=== PATIENT | male | born 1945 | race Caucasian/White ===

== ENCOUNTER 2018-01-26 19:04 | Emergency (ER) | payer OTHER ==
--- NOTE | 2018-01-26 19:58 | RAD REPORT ---
EXAM DESCRIPTION: CT - Head Brain Wo Cont - 01/26/2018 7:32 pm CLINICAL HISTORY: Trip and fall, right periorbital injury COMPARISON: None. TECHNIQUE: Axial 5 mm thick images of the head were obtained without IV contrast. All CT scans are performed using dose optimization technique as appropriate and may include automated exposure control or mA/KV adjustment according to patient size. FINDINGS: No intracranial hemorrhage, mass, edema or shift of mid-line structures. No acute cortical based infarction. Mild atrophy and chronic ischemic changes are present. Arterial and physiologic ca lcifications are present. No abnormal extra-axial fluid collections. Ventricles are in proportion to volume loss. Mastoid air cells are clear. No acute paranasal sinus findings seen. Postsurgical changes noted in th e left orbit. In the right orbit there is no fracture or orbital content injury identified. No foreig n body in the soft tissues. No acute bony findings. IMPRESSION: Mild atrophy and chronic ischemic change with no acute intracranial finding.
[2018-01-26] MEDS ORDERED: LIDOCAINE 1% W/EPI 1:100,000 MDV 50 ML VIAL ONE (20:17)
[2018-01-26] MEDS ORDERED: LIDOCAINE 1% 20 ML MDV ONE (20:17)
[2018-01-26] MEDS ORDERED: ACETAMINOPHEN 500 MG TAB ONE (20:19)
--- NOTE | 2018-01-26 21:29 | EDPHYS ---
Physician Documentation [facility] Name: Jesse Ortega Age: 72 yrs Sex: Male : 1945 Arrival Date: 01/26/2018 Time: 19:05 Bed 6 Private MD: ED Physician Jason Almonte HPI: 01/26 21:19 This 72 yrs old Male presents to ER via Wheelchair with complaints of Fall gs Injury. 21:19 Details of fall: The patient fell from an upright position, while standing. Onset: The gs symptoms/episode began/occurred acutely, just prior to arrival. Associated injuries: The patient sustained injury to the head, laceration, 1 cm(s), of the right eye eyebrow and lateral upper lid doesnt cross tarsal plate. Associated injuries: The patient sustained right knee, laceration, 3 cm(s). Severity of symptoms: At their worst the symptoms were moderate. The patient has not experienced similar symptoms in the past. The patient has not recently seen a physician. Historical: - Allergies: 19:27 No Known Allergies; tl2 - Home Meds: 19:27 amiodarone 200 mg Oral tab 1 tab once daily [Active]; aspirin 325 mg Oral tab 1 tab tl2 once daily [Active]; Dexilant 60 mg Oral CpDB 1 cap once daily [Active]; Durezol 0.05 % ophthalmic drop 1 drop 4 times per day [Active]; Flomax 0.4 mg Oral cp24 1 cap once daily [Active]; Levoxyl 112 mcg Oral tab [Active]; losartan 100 mg Oral tab 1 tab once daily [Active]; Plavix 75 mg Oral tab 1 tab once daily [Active]; polymyxin B sulf-trimethoprim 10,000 unit- 1 mg/mL ophthalmic drop 1 drop every 6 hours [Active]; simvastatin 40 mg Oral tab once daily [Active]; - PMHx: 19:27 ALOPECIA; Atrial Fib; CAD; Colitis; Glaucoma; Hyperlipidemia; Hypertension; tl2 Hypothyroidism; insomnia; Myocardial infarction; ulcerative colitis; - Immunization history: Last tetanus immunization: unknown. - Social history:: Smoking status: Patient/guardian denies using tobacco. - Social history: Uses Denies using tobacco products. ROS: 21:19 All other systems are negative. gs Exam: 21:19 Head/Face: Normocephalic, atraumatic. gs 21:19 Constitutional: The patient appears alert, awake. 21:19 Head/face: Noted is a laceration(s), that is superficial, of the right eye. 21:19 ENT: Nares patent. No nasal discharge, no septal abnormalities noted. Tympanic gs membranes are normal and external auditory canals are clear. Oropharynx with no redness, swelling, or masses, exudates, or evidence of obstruction, uvula midline. Mucous membranes moist. Neck: Trachea midline, no thyromegaly or masses palpated, and no cervical lymphadenopathy. Supple, full range of motion without nuchal rigidity, or vertebral point tenderness. No Meningismus. Chest/axilla: Normal chest wall appearance and motion. Nontender with no deformity. No lesions are appreciated. Cardiovascular: Regular rate and rhythm with a normal S1 and S2. No gallops, murmurs, or rubs. Normal PMI, no JVD. No pulse deficits. Respiratory: Lungs have equal breath sounds bilaterally, clear to auscultation and percussion. No rales, rhonchi or wheezes noted. No increased work of breathing, no retractions or nasal flaring. Abdomen/GI: Soft, non-tender, with normal bowel sounds. No distension or tympany. No guarding or rebound. No evidence of tenderness throughout. Back: No spinal tenderness. No costovertebral tenderness. Full range of motion. Skin: Warm, dry with normal turgor. Normal color with no rashes, no lesions, and no evidence of cellulitis. MS/ Extremity: Pulses equal, no cyanosis. Neurovascular intact. Full, normal range of motion. Neuro: Awake and alert, GCS 15, oriented to person, place, time, and situation. Cranial nerves II-XII grossly intact. Motor strength 5/5 in all extremities. Sensory grossly intact. Cerebellar exam normal. Normal gait. 21:19 Eyes: Periorbital structures: laceration, that is superficial, approximately 1 cm(s), r eyebrow and r eyelid 1 and 0.5 cm respectively eyelid laceraTION DOESNT CROSS INTO TARSAL PLATE. 21:19 Skin: injury, laceration(s), the wound is approximately 3 cm(s), of the right knee. Vital Signs: 19:27 BP 143 / 96; Pulse 72; Resp 20; Temp 97.7(O); Pulse Ox 95% on R/A; Weight 88.9 kg; tl2 Height 5 ft. 10 in. (177.80 cm); Pain 8/10; 20:02 BP 128 / 81; Pulse 63; Resp 18; Pulse Ox 96% on R/A; tl2 20:41 BP 133 / 82; Pulse 60; Resp 18; Pulse Ox 97% on R/A; tl2 21:30 BP 149 / 91; Pulse 61; Resp 18; Pulse Ox 99% on R/A; tl2 19:27 Body Mass Index 28.12 (88.90 kg, 177.80 cm) tl2 [place] Coma Score: 19:27 Eye Response: spontaneous(4). Verbal Response: oriented(5). Motor Response: obeys tl2 commands(6). Total: 15. 20:02 Eye Response: spontaneous(4). Verbal Response: oriented(5). Motor Response: obeys tl2 commands(6). Total: 15. 20:41 Eye Response: spontaneous(4). Verbal Response: oriented(5). Motor Response: obeys tl2 commands(6). Total: 15. Trauma Score (Adult): 19:27 Eye Response: spontaneous(1); Verbal Response: oriented(1); Motor Response: obeys tl2 commands(2); Systolic BP: > 89 mm Hg(4); Respiratory Rate: 10 to 29 per min(4); [place] Score: 15; Trauma Score: 12 20:02 Eye Response: spontaneous(1); Verbal Response: oriented(1); Motor Response: obeys tl2 commands(2); Systolic BP: > 89 mm Hg(4); Respiratory Rate: 10 to 29 per min(4); [place] Score: 15; Trauma Score: 12 20:41 Eye Response: spontaneous(1); Verbal Response: oriented(1); Motor Response: obeys tl2 commands(2); Systolic BP: > 89 mm Hg(4); Respiratory Rate: 10 to 29 per min(4); Theresa Score: 15; Trauma Score: 12 Laceration: 21:19 Wound Repair of 1cm ( 0.4in ) subcutaneous laceration to right eye. Distal gs neuro/vascular/tendon intact. Anesthesia: Local anesthetic administered with 1 mls of 1% lidocaine w/ Epi. Wound prep: Moderate cleansing. Skin closed with 4 5-0 gut using simple sutures and sterile technique. 21:19 Wound Repair of 0.5cm ( 0.2in ) subcutaneous laceration to right eyelid. Distal gs neuro/vascular/tendon intact. Anesthesia: Local anesthetic administered with 0.5 mls of 1% lidocaine w/ Epi. Wound prep: Moderate cleansing. Skin closed with 1 5-0 gut using simple sutures and sterile technique. Patient tolerated well. 21:19 Wound Repair of 3cm ( 1.2in ) subcutaneous laceration to right knee. Distal gs neuro/vascular/tendon intact. Anesthesia: Local anesthetic administered with 3 mls of 1% lidocaine w/ Epi. Skin closed with 4 5-0 Prolene using simple sutures and sterile technique. MDM: 19:24 Patient medically screened. 21:19 Differential diagnosis: closed head injury, laceration. Data reviewed: vital signs, nurses notes. Response to treatment: the patient's symptoms have markedly improved after treatment, and as a result, I will discharge patient. 01/26 19:27 Order name: CT Head Brain wo Cont 01/26 19:58 Order name: CT; Complete Time: 20:40 EDMS Administered Medications: 20:02 Drug: Tylenol 500 mg Route: PO; tl2 22:04 Follow up: Response: No adverse reaction; Pain is decreased tl2 21:10 Drug: Lidocaine-Epinephrine -1%: (1:100,000) 5 ml Volume: 20 ml; Route: Infiltration; tl2 Disposition: 01/26/18 21:29 Discharged to Home. Impression: Laceration without foreign body, right knee, Laceration without foreign body of eyelid and periocular area. - Condition is Stable. - Discharge Instructions: Laceration Care, Adult, Facial Laceration, [id number]. - Medication Reconciliation Form, Thank You Letter, Antibiotic Education, Prescription Opioid Use form. - Follow up: Private Physician; When: 1 week; Reason: Staple/Suture removal. Signatures: Dispatcher [employer] EDMS Lizette Campbell RN RN 2 Jason Almonte MD MD
--- NOTE | 2018-01-26 21:29 | ER ---
Nurse's Notes [facility] Name: Jesse Ortega Age: 72 yrs Sex: Male : 1945 Arrival Date: 01/26/2018 Time: 19:05 Bed 6 Private MD: Diagnosis: Laceration without foreign body, right knee;Laceration without foreign body of eyelid and periocular area Presentation: 01/26 19:22 Presenting complaint: Patient states: I was outside and tripped on a hold and hit my tl2 right eye on a table corner. Reports laceration to right knee. Denies LOC, reports slight dizziness after fall. Pt AOx4. Care prior to arrival: None. Mechanism of Injury: Fall from standing position. Trauma event details: Injury occurred in the [facility], Injury occurred: at home. Injury occurred: January 26, 2018. 19:22 Acuity: KAVON 3 tl2 19:22 Method Of Arrival: Wheelchair tl2 19:31 Transition of care: patient was not received from another setting of care. Onset of tl2 symptoms was January 26, 2018. Trauma Activation: Physician: ED Physician; Name: Suzy; Notified At: 19:27; Arrived At: 19:27 Physician: General Surgeon; Name: ; Notified At: 19:27; Arrived At: Physician: Radiology; Name: Katherine Baum; Notified At: 19:27; Arrived At: 19:34 Physician: Respiratory; Name: Jordy; Notified At: 19:27; Arrived At: 19:30 Physician: Lab; Name: ; Notified At: 19:27; Arrived At: Historical: - Allergies: 19:27 No Known Allergies; tl2 - Home Meds: 19:27 amiodarone 200 mg Oral tab 1 tab once daily [Active]; aspirin 325 mg Oral tab 1 tab tl2 once daily [Active]; Dexilant 60 mg Oral CpDB 1 cap once daily [Active]; Durezol 0.05 % ophthalmic drop 1 drop 4 times per day [Active]; Flomax 0.4 mg Oral cp24 1 cap once daily [Active]; Levoxyl 112 mcg Oral tab [Active]; losartan 100 mg Oral tab 1 tab once daily [Active]; Plavix 75 mg Oral tab 1 tab once daily [Active]; polymyxin B sulf-trimethoprim 10,000 unit- 1 mg/mL ophthalmic drop 1 drop every 6 hours [Active]; simvastatin 40 mg Oral tab once daily [Active]; - PMHx: 19:27 ALOP[place]IA; Atrial Fib; CAD; Colitis; Glaucoma; Hyperlipidemia; Hypertension; tl2 Hypothyroidism; insomnia; Myocardial infarction; ulcerative colitis; - Immunization history: Last tetanus immunization: unknown. - Social history:: Smoking status: Patient/guardian denies using tobacco. - Social history: Uses Denies using tobacco products. Screenin:27 Abuse screen: Denies threats or abuse. Nutritional screening: No deficits noted. tl2 Tuberculosis screening: No symptoms or risk factors identified. Fall risk At risk due to injury. 19:27 Fall Risk Fall in past 12 months (25 points). tl2 Primary Survey: 19:27 Breathing/Chest: Respiratory pattern: regular, Respiratory effort: spontaneous, tl2 unlabored, Breath sounds: clear, bilaterally. Chest inspection: symmetrical rise and fall of the chest. Circulation: Heart tones present. Disability Alert. 20:20 Reassessment Airway Airway Patent Breathing/Chest Respiratory pattern Regular tl2 Respiratory effort Spontaneous Unlabored Circulation Heart rhythm Sinus rhythm Disability Alert. Secondary Survey: 19:27 HEENT: Eyes: Other small skin tear outer corner of right eye. Gastrointestinal: No tl2 deficits noted. : No deficits noted. Musculoskeletal: Circulation, motion, and sensation intact. Injury Description: Laceration sustained to right knee is clean, 0.5 to 2.5 cm long. Assessment: 19:22 General: Appears in no apparent distress. uncomfortable, Behavior is calm, cooperative, tl2 appropriate for age. Pain: Complains of pain in right eye Pain does not radiate. Pain currently is 8 out of 10 on a pain scale. Quality of pain is described as sharp. Neuro: Level of Consciousness is awake, alert, obeys commands, Oriented to person, place, time, situation. EENT: Eyes small skin tear noted on outer corner of right eye. Cardiovascular: Denies chest pain. Respiratory: Airway is patent Respiratory effort is even, unlabored, Respiratory pattern is regular, symmetrical. GI: No signs and/or symptoms were reported involving the gastrointestinal system. : No signs and/or symptoms were reported regarding the genitourinary system. Derm: Skin is pink, warm \T\ dry. Injury Description: Laceration sustained to right knee is clean, 0.5 to 2.5 cm long, was sustained 30-60 minutes ago. a small amount of bleeding noted at this time. 20:01 Reassessment: Patient appears in no apparent distress at this time. Patient and/or tl2 family updated on plan of care and expected duration. Pain level reassessed. Patient is alert, oriented x 3, equal unlabored respirations, skin warm/dry/pink. pt c/o headache, notified, new orders see JAN. 21:00 Reassessment: Patient appears in no apparent distress at this time. Patient and/or tl2 family updated on plan of care and expected duration. Pain level reassessed. Patient is alert, oriented x 3, equal unlabored respirations, skin warm/dry/pink. 22:01 Reassessment: Patient appears in no apparent distress at this time. Patient and/or tl2 family updated on plan of care and expected duration. Pain level reassessed. Patient is alert, oriented x 3, equal unlabored respirations, skin warm/dry/pink. Pt verbalized understanding of discharge instructions, need for follow up and wound care. Vital Signs: 19:27 BP 143 / 96; Pulse 72; Resp 20; Temp 97.7(O); Pulse Ox 95% on R/A; Weight 88.9 kg; tl2 Height 5 ft. 10 in. (177.80 cm); Pain 8/10; 20:02 BP 128 / 81; Pulse 63; Resp 18; Pulse Ox 96% on R/A; tl2 20:41 BP 133 / 82; Pulse 60; Resp 18; Pulse Ox 97% on R/A; tl2 21:30 BP 149 / 91; Pulse 61; Resp 18; Pulse Ox 99% on R/A; tl2 19:27 Body Mass Index 28.12 (88.90 kg, 177.80 cm) tl2 [place] Coma Score: 19:27 Eye Response: spontaneous(4). Verbal Response: oriented(5). Motor Response: obeys tl2 commands(6). Total: 15. 20:02 Eye Response: spontaneous(4). Verbal Response: oriented(5). Motor Response: obeys tl2 commands(6). Total: 15. 20:41 Eye Response: spontaneous(4). Verbal Response: oriented(5). Motor Response: obeys tl2 commands(6). Total: 15. Trauma Score (Adult): 19:27 Eye Response: spontaneous(1); Verbal Response: oriented(1); Motor Response: obeys tl2 commands(2); Systolic BP: > 89 mm Hg(4); Respiratory Rate: 10 to 29 per min(4); Theresa Score: 15; Trauma Score: 12 20:02 Eye Response: spontaneous(1); Verbal Response: oriented(1); Motor Response: obeys tl2 commands(2); Systolic BP: > 89 mm Hg(4); Respiratory Rate: 10 to 29 per min(4); [place] Score: 15; Trauma Score: 12 20:41 Eye Response: spontaneous(1); Verbal Response: oriented(1); Motor Response: obeys tl2 commands(2); Systolic BP: > 89 mm Hg(4); Respiratory Rate: 10 to 29 per min(4); Theresa Score: 15; Trauma Score: 12 ED Course: 19:05 Patient arrived in ED. mr 19:22 Lizette Campbell, RN is Primary Nurse. tl2 19:24 Triage completed. tl2 19:24 Jason Almonte MD is Attending Physician. gs 19:27 Patient has correct armband on for positive identification. Bed in low position. Call tl2 light in reach. Side rails up X2. Adult w/ patient. Patient maintains SpO2 saturation greater than 95% on room air. 19:27 Patient maintains SpO2 saturation greater than 95% on room air. tl2 19:27 Patient did not have IV access during this emergency room visit. tl2 19:31 Thermoregulation: warm blanket given to patient. tl2 21:10 Assist provider with laceration repair on right eye that was 2.5 cm. or less using tl2 sutures. Set up tray. Performed by Jason Almonte MD Dressed with Neosporin, Patient tolerated well. 22:03 Arm band placed on right wrist. tl2 Administered Medications: 20:02 Drug: Tylenol 500 mg Route: PO; tl2 22:04 Follow up: Response: No adverse reaction; Pain is decreased tl2 21:10 Drug: Lidocaine-Epinephrine -1%: (1:100,000) 5 ml Volume: 20 ml; Route: Infiltration; tl2 Intake: 22:03 PO: 0ml; Total: 0ml. tl2 Outcome: 21:29 Discharge ordered by . lilly 22:02 Discharged to home ambulatory, with family. tl2 22:02 Condition: stable 22:02 Discharge instructions given to patient, family, Instructed on discharge instructions, follow up and referral plans. medication usage, Demonstrated understanding of instructions, follow-up care, wound care. 22:03 Patient's length of stay in the Emergency Department was greater than 2 hours. tl2 Patient's length of stay was extended due to staffing issues within the emergency department. 22:05 Patient left the ED. tl2 Signatures: Kiley Dozier mr Lizette Campbell RN RN tl2 Jason Almonte MD MD Corrections: (The following items were deleted from the chart) 21:11 19:30 No provider procedures requiring assistance completed. tl2 tl2
[2018-01-26 22:08] VITALS: TEMP 97.7
[2018-01-26 22:12] VITALS: BP 149/91; O2SAT 99
== END 2018-01-26 22:05 | disposition home or self-care (01) ==
LOC: ER 19:04
PROC: 08QNXZZ Repair Right Upper Eyelid, External Approach (ICD-10-PCS; principal; 2018-01-26)
PROC: 0JQ10ZZ Repair Face Subcutaneous Tissue and Fascia, Open Approach (ICD-10-PCS; 2018-01-26)
PROC: 0JQN0ZZ Repair Right Lower Leg Subcutaneous Tissue and Fascia, Open Approach (ICD-10-PCS; 2018-01-26)
DX: S01.111A Laceration without foreign body of right eyelid and periocular area, initial encounter (principal); S81.011A Laceration without foreign body, right knee, initial encounter; W18.30XA Fall on same level, unspecified, initial encounter; Y93.9 Activity, unspecified; Y92.009 Unspecified place in unspecified non-institutional (private) residence as the place of occurrence of the external cause; I10 Essential (primary) hypertension; I25.2 Old myocardial infarction; I48.91 Unspecified atrial fibrillation; Z79.01 Long term (current) use of anticoagulants; Z79.82 Long term (current) use of aspirin
CPT/HCPCS: 70450; 99284

== ENCOUNTER 2020-06-07 10:50 | Emergency (ER) | payer OTHER ==
--- OUTSIDE RECORDS SUMMARY | 2020-06-07 10:52 | XMS REPORT | Continuity of Care Document ---
:1945 Author Organization [facility] t Address [facility] [place] [address] [place] [id number] Care Team Providers Name Role Phone Unavailable Unavailable Unavailable Problems This patient has no known problems. Allergies, Adverse Reactions, Alerts This patient has no known allergies or adverse reactions. Medications This patient has no known medications. Procedures This patient has no known procedures. Results This patient has no known results.
[2020-06-07] MEDS ORDERED: FAMOTIDINE 20 MG/2 ML VIAL IV ONE (11:16)
[2020-06-07] MEDS ORDERED: ONDANSETRON 4 MG/2 ML VIAL ONE (11:16)
[2020-06-07] MEDS ORDERED: NA CHLORIDE 0.9% 500 ML ONE (11:16)
[2020-06-07 11:22] LABS: Absolute Lymphocytes (CBC) 0.9 K/uL (0.7-4.9); Basophils % 0.4 % (0-1.3); Hematocrit 48.2 % (39.6-49.0); Lymphocytes % 10.4 % (15.3-44.8); MPV 9.5 fL (7.6-11.3); RBC Red Blood Cell Count 5.28 M/uL (4.33-5.43)
[2020-06-07 11:42] LABS: Albumin 4.1 g/dL (3.4-5.0); Bilirubin Direct 0.3 mg/dL (0-0.2); Bilirubin Total 1.5 mg/dL (0.2-1.0); Potassium 3.8 mmol/L (3.5-5.1); Protein, Total 7.5 g/dL (6.4-8.2)
[2020-06-07] MEDS ORDERED: PROMETHAZINE INJ 25 MG/ML AMP ONE (12:13)
[2020-06-07 13:38] LABS: Blood Morphology Comment NOT SEEN (NOT SEEN); Platelet Estimate ADEQ; Platelets, Giant NOTED; White Blood Cell Scan OK
--- NOTE | 2020-06-07 14:38 | EDPHYS ---
Physician Documentation [facility] Name: Jesse Ortega Age: 75 yrs Sex: Male : 1945 Arrival Date: 06/07/2020 Time: 10:53 Bed 18 Private MD: Garett Louie B ED Physician Alonzo Gamboa HPI: 06/07 13:11 This 75 yrs old Male presents to ER via Ambulatory with complaints of kdr Vomiting. 13:11 The patient presents to the emergency department with nausea, that is mild, vomiting, kdr that is intermittent. Onset: The symptoms/episode began/occurred gradually, yesterday. Possible causes: unknown. The symptoms are aggravated by food , The symptoms are alleviated by nothing. Associated signs and symptoms: Pertinent positives: vomiting, Pertinent negatives: abdominal pain, anorexia, belching, constipation, diarrhea, dysuria, fever, flatulence, GI bleeding, hematuria. Severity of symptoms: At their worst the symptoms were moderate in the emergency department the symptoms have improved moderately, WYATT resolved. 14:40 The patient has not experienced similar symptoms in the past. The patient has not kdr recently seen a physician. The patient had a severe migraine WYATT yesterday that resolved after taking some home medication. This morning, he awoke without a WYATT but began to vomiting uncontrollably and persistently. Since then, he has continued to vomit but is without further or additional factors. He was concerned about possible COVID but has not had any fever or other respiratory symptoms. Historical: - Allergies: 11:07 No Known Allergies; ss - PMHx: 11:07 ALOPECIA; Atrial Fib; CAD; Colitis; Glaucoma; Hyperlipidemia; Hypertension; ss Hypothyroidism; Myocardial infarction; ulcerative colitis; insomnia; - Immunization history:: Adult Immunizations up to date. - Social history:: Smoking status: Patient denies any tobacco usage or history of. ROS: 14:40 Constitutional: Negative for fever, chills, and weight loss, Eyes: Negative for injury, kdr pain, redness, and discharge, ENT: Negative for injury, pain, and discharge, Neck: Negative for injury, pain, and swelling, Cardiovascular: Negative for chest pain, palpitations, and edema, Respiratory: Negative for shortness of breath, cough, wheezing, and pleuritic chest pain, Back: Negative for injury and pain, : Negative for injury, bleeding, discharge, and swelling, MS/Extremity: Negative for injury and deformity, Skin: Negative for injury, rash, and discoloration, Neuro: Negative for headache, weakness, numbness, tingling, and seizure activity. Psych: Negative for depression, anxiety, suicide ideation, homicidal ideation, and hallucinations, Allergy/Immunology: Negative for hives, rash, and allergies, Endocrine: Negative for neck swelling, polydipsia, polyuria, polyphagia, and marked weight changes, Hematologic/Lymphatic: Negative for swollen nodes, abnormal bleeding, and unusual bruising. 14:40 Abdomen/GI: Positive for nausea and vomiting, Negative for diarrhea, constipation, abdominal cramps, abdominal distension, anorexia, dysphagia, hematemesis, black/tarry stool, rectal pain, rectal bleeding. Exam: 14:40 Constitutional: This is a well developed, well nourished patient who is awake, alert, kdr and in no acute distress. Head/Face: Normocephalic, atraumatic. Eyes: Pupils equal round and reactive to light, extra-ocular motions intact. Lids and lashes normal. Conjunctiva and sclera are non-icteric and not injected. Cornea within normal limits. Periorbital areas with no swelling, redness, or edema. Neck: Trachea midline, no thyromegaly or masses palpated, and no cervical lymphadenopathy. Supple, full range of motion without nuchal rigidity, or vertebral point tenderness. No Meningismus. Chest/axilla: Normal chest wall appearance and motion. Nontender with no deformity. No lesions are appreciated. Cardiovascular: Regular rate and rhythm with a normal S1 and S2. No gallops, murmurs, or rubs. Normal PMI, no JVD. No pulse deficits. Respiratory: Lungs have equal breath sounds bilaterally, clear to auscultation and percussion. No rales, rhonchi or wheezes noted. No increased work of breathing, no retractions or nasal flaring. Abdomen/GI: Soft, non-tender, with normal bowel sounds. No distension or tympany. No guarding or rebound. No evidence of tenderness throughout. Back: No spinal tenderness. No costovertebral tenderness. Full range of motion. Skin: Warm, dry with normal turgor. Normal color with no rashes, no lesions, and no evidence of cellulitis. MS/ Extremity: Pulses equal, no cyanosis. Neurovascular intact. Full, normal range of motion. Neuro: Awake and alert, GCS 15, oriented to person, place, time, and situation. Cranial nerves II-XII grossly intact. Motor strength 5/5 in all extremities. Sensory grossly intact. Cerebellar exam normal. Normal gait. Psych: Awake, alert, with orientation to person, place and time. Behavior, mood, and affect are within normal limits. 15:30 ECG was reviewed by the Attending Physician. kdr Vital Signs: 11:03 BP 163 / 117; Pulse 85; Resp 17; Temp 97.0(TE); Pulse Ox 97% on R/A; Weight 86.18 kg; ss Height 8 ft. 5 in. (256.54 cm); Pain 0/10; 12:00 BP 150 / 77; Pulse 67; Resp 20; Pulse Ox 100% ; ah 12:45 BP 125 / 74; Pulse 60; Resp 16; Pulse Ox 97% ; ah 14:00 BP 128 / 82; Pulse 80; Resp 15; Pulse Ox 97% ; ah 14:47 BP 126 / 87; Pulse 88; Resp 16; Pulse Ox 99% ; ah 11:03 Body Mass Index 13.10 (86.18 kg, 256.54 cm) ss MDM: 14:12 Data reviewed: vital signs, nurses notes, lab test result(s), EKG, radiologic studies. kdr Counseling: I had a detailed discussion with the patient and/or guardian regarding: the historical points, exam findings, and any diagnostic results supporting the discharge/admit diagnosis, lab results, the need for outpatient follow up. 14:38 Patient medically screened. kdr 14:40 ED course: The patient was stable in the ED and improved with the interventions given. kdr He was offered a COVID test but refused. He was discharged in good condition and happy with the care provided and the plan for discharge with follow-up. 06/07 10:57 Order name: Basic Metabolic Panel; Complete Time: 12:37 kdr 06/07 10:57 Order name: CBC with Diff; Complete Time: 13:57 kdr 06/07 10:57 Order name: Hepatic Function; Complete Time: 12:37 kdr 06/07 10:57 Order name: Lipase; Complete Time: 12:37 kdr 06/07 13:32 Order name: LAB Add On eb 06/07 13:36 Order name: CBC Smear Scan; Complete Time: 13:57 EDMS 06/07 10:57 Order name: IV Saline Lock; Complete Time: 11:17 kdr 06/07 10:57 Order name: Labs collected and sent; Complete Time: 11:17 kdr 06/07 13:19 Order name: PO challenge; Complete Time: 13:51 kdr 06/07 13:43 Order name: Troponin I; Complete Time: 14:06 EDMS 06/07 13:41 Order name: EKG - Nurse/Tech; Complete Time: 13:51 kdr EC:30 Rate is 65 beats/min. Rhythm is regular, Normal Sinus Rhythm with No ectopy. QRS Bruni kdr is Normal. ND interval is normal. QRS interval is normal. QT interval is normal. No Q waves. Clinical impression: NSR w/ Non-specific ST/T Changes. Administered Medications: 11:16 Drug: NS 0.9% 500 ml Route: IV; Rate: bolus; Site: right antecubital; 13:19 Follow up: Response: No adverse reaction; IV Status: Completed infusion 11:16 Drug: Pepcid 20 mg Route: IVP; Site: right antecubital; 13:19 Follow up: Response: No adverse reaction 11:20 Drug: Zofran (Ondansetron) 4 mg Route: IVP; Site: right antecubital; 13:19 Follow up: Response: No adverse reaction 12:07 Drug: Phenergan 12.5 mg Route: IVP; Site: right antecubital; 13:19 Follow up: Response: No adverse reaction Disposition: 06/07/20 14:38 Discharged to Home. Impression: Vomiting. - Condition is Stable. - Discharge Instructions: Nausea and Vomiting, Adult, [id number]. - Prescriptions for Pepcid 20 mg Oral Tablet - take 1 tablet by ORAL route once daily for 10 days; 10 tablet. promethazine 25 mg Oral Tablet - take 1 tablet by ORAL route every 6 hours As needed; 20 tablet. - Medication Reconciliation Form, Thank You Letter form. - Follow up: Alonzo Gamboa MD; When: 2 - 3 days; Reason: If symptoms return, Further diagnostic work-up, Recheck today's complaints, Continuance of care, Re-evaluation by your physician. - Problem is new. - Symptoms have improved. Signatures: Dispatcher [employer] EDMS Alonzo Gamboa MD MD kdr Karli Asher, JAMES RN Kelli Randhawa RN RN Corrections: (The following items were deleted from the chart) 14:49 14:38 06/07/2020 14:38 Discharged to Home. Impression: Vomiting. Condition is Stable. ah Forms are Medication Reconciliation Form, Thank You Letter, Antibiotic Education, Prescription Opioid Use. Follow up: Dr. Alonzo Gamboa; When: 2 - 3 days; Reason: If symptoms return, Further diagnostic work-up, Recheck today's complaints, Continuance of care, Re-evaluation by your physician. Problem is new. Symptoms have improved. kdr
--- NOTE | 2020-06-07 14:38 | ER ---
Nurse's Notes [facility] Name: Jesse Ortega Age: 75 yrs Sex: Male : 1945 Arrival Date: 06/07/2020 Time: 10:53 Bed 18 Private MD: Garett Louie B Diagnosis: Vomiting Presentation: 06/07 11:03 Chief complaint: Patient states: headache that began yesterday, is gone today but now ss c/o nausea and vomiting since he woke up this morning. Coronavirus screen: Client denies travel out of the [place] in the last 14 days. nausea, vomiting. Client presents with at least one sign or symptom that may indicate coronavirus-19. Standard/surgical mask placed on the client. Ebola Screen: Patient denies exposure to infectious person. Patient denies travel to an Ebola-affected area in the 21 days before illness onset. Initial Sepsis Screen: Does the patient meet any 2 criteria? No. Patient's initial sepsis screen is negative. Does the patient have a suspected source of infection? No. Patient's initial sepsis screen is negative. Risk Assessment: Do you want to hurt yourself or someone else? Patient reports no desire to harm self or others. Onset of symptoms was June 07, 2020. 11:03 Method Of Arrival: Ambulatory ss 11:03 Acuity: KAVON 3 ss Historical: - Allergies: 11:07 No Known Allergies; ss - PMHx: 11:07 ALOPECIA; Atrial Fib; CAD; Colitis; Glaucoma; Hyperlipidemia; Hypertension; ss Hypothyroidism; Myocardial infarction; ulcerative colitis; insomnia; - Immunization history:: Adult Immunizations up to date. - Social history:: Smoking status: Patient denies any tobacco usage or history of. Screenin:07 Abuse screen: Denies threats or abuse. Denies injuries from another. Nutritional ss screening: No deficits noted. Tuberculosis screening: Never had TB. Fall Risk None identified. Assessment: 11:55 General: Appears uncomfortable, Behavior is calm, cooperative, appropriate for age. ah Pain: Denies pain. Neuro: Level of Consciousness is awake, alert, obeys commands, Oriented to person, place, time, situation, Appropriate for age Reports headache yesterday, gone today. Cardiovascular: Heart tones S1 S2 present Capillary refill < 3 seconds Patient's skin is warm and dry. Respiratory: Airway is patent Respiratory effort is even, unlabored, Respiratory pattern is regular, symmetrical. GI: Stools are reported to be normal. Last BM was June 07, 2020. Abd is non tender X 4 quads Reports nausea, vomiting, since this morning Patient currently denies pain. Derm: Skin is intact. 12:05 Reassessment: Pt c/o continued nausea. Informed MD. Received order for phenergan and ah administered. 12:48 Reassessment: Pt states that medication was effective and he is feeling better at the ah moment. 13:34 Reassessment: Dr in speaking with pt at this time. 13:55 Reassessment: Pt sipping on water. Tolerating well. No needs voiced at this time. 14:30 Reassessment: Ambulated with patient around the ER, Pt tolerated well. Denies dizziness ss or nausea. Vital Signs: 11:03 BP 163 / 117; Pulse 85; Resp 17; Temp 97.0(TE); Pulse Ox 97% on R/A; Weight 86.18 kg; ss Height 8 ft. 5 in. (256.54 cm); Pain 0/10; 12:00 BP 150 / 77; Pulse 67; Resp 20; Pulse Ox 100% ; ah 12:45 BP 125 / 74; Pulse 60; Resp 16; Pulse Ox 97% ; ah 14:00 BP 128 / 82; Pulse 80; Resp 15; Pulse Ox 97% ; ah 14:47 BP 126 / 87; Pulse 88; Resp 16; Pulse Ox 99% ; ah 11:03 Body Mass Index 13.10 (86.18 kg, 256.54 cm) ED Course: 10:53 Patient arrived in ED. mr 10:53 Garett Louie MD is Private Physician. mr 10:57 Alonzo Gamboa MD is Attending Physician. kdr 11:01 Kelli Randhawa, RN is Primary Nurse. ah 11:06 Triage completed. ss 11:07 Arm band placed on right wrist. ss 11:07 Patient has correct armband on for positive identification. Placed in gown. Bed in low ss position. Call light in reach. Side rails up X 1. Pulse ox on. NIBP on. 11:11 Missed attempt(s): 20 gauge in right forearm. Bleeding controlled, band aid applied, dh3 catheter tip intact. 11:13 Initial lab(s) drawn, by me, sent to lab. Inserted saline lock: 20 gauge in right 3 antecubital area, using aseptic technique. Blood collected. 14:37 Alonzo Gamboa MD is Referral Physician. kdr 14:48 No provider procedures requiring assistance completed. IV discontinued, intact, bleeding controlled, No redness/swelling at site. Pressure dressing applied. Administered Medications: 11:16 Drug: NS 0.9% 500 ml Route: IV; Rate: bolus; Site: right antecubital; 13:19 Follow up: Response: No adverse reaction; IV Status: Completed infusion 11:16 Drug: Pepcid 20 mg Route: IVP; Site: right antecubital; 13:19 Follow up: Response: No adverse reaction 11:20 Drug: Zofran (Ondansetron) 4 mg Route: IVP; Site: right antecubital; 13:19 Follow up: Response: No adverse reaction 12:07 Drug: Phenergan 12.5 mg Route: IVP; Site: right antecubital; 13:19 Follow up: Response: No adverse reaction Outcome: 14:38 Discharge ordered by . kdr 14:46 Discharged to home ambulatory. 14:46 Condition: good 14:46 Discharge instructions given to patient, Instructed on discharge instructions, follow up and referral plans. medication usage, Demonstrated understanding of instructions, follow-up care, medications, Prescriptions given X 2. 14:49 Patient left the ED. Signatures: Alonzo Gamboa MD MD [facility] mr Karli Asher RN RN Kirstie [facility] Kelli Randhawa, RN RN
[2020-06-07 15:11] VITALS: TEMP 97
[2020-06-07 15:22] VITALS: BP 126/87; O2SAT 99
== END 2020-06-07 14:49 | disposition home or self-care (01) ==
LOC: ER 10:50
DX: R11.10 Vomiting, unspecified (principal); I10 Essential (primary) hypertension; I25.2 Old myocardial infarction
CPT/HCPCS: 96361; 93005; 85025; 80048; 36415; 80076; 84484; 83690; 96375; 96374; 99284; J2550; J7040; J2405

== ENCOUNTER 2020-11-14 08:25 | Emergency (ER) | payer OTHER ==
--- OUTSIDE RECORDS SUMMARY | 2020-11-14 08:27 | XMS REPORT | Continuity of Care Document ---
:1945 Author Organization [facility] t Address [address] [place] [address] [place] [id number] Care Team Providers Name Role Phone Unavailable Unavailable Unavailable Problems This patient has no known problems. Allergies, Adverse Reactions, Alerts This patient has no known allergies or adverse reactions. Medications This patient has no known medications. Procedures This patient has no known procedures. Results This patient has no known results.
[2020-11-14] MEDS ORDERED: NA CHLORIDE 0.9% 1,000 ML ONE (09:06)
[2020-11-14 09:08] LABS: Absolute Lymphocytes (CBC) 1.6 K/uL (0.7-4.9); Basophils % 0.7 % (0-1.3); Hematocrit 52.1 % (39.6-49.0); Lymphocytes % 23.1 % (15.3-44.8); MPV 9.4 fL (7.6-11.3); RBC Red Blood Cell Count 5.72 M/uL (4.33-5.43)
[2020-11-14 09:11] LABS: Protime INR 1.11
--- NOTE | 2020-11-14 09:11 | RAD REPORT ---
EXAM DESCRIPTION: RAD - Chest Single View - 11/14/2020 8:55 am CLINICAL HISTORY: Chest pain;Palpitations Chest pain. COMPARISON: Chest Single View dated 08/30/2017; Chest Single View dated 01/10/2017; Abdomen 1 View ([facility] B) dated 01/10/2017; Chest Pa And Lat (2 Views) dated 01/05/2017 FINDINGS: Portable technique limits examination quality. The lungs are grossly clear. The heart is normal in size. No displaced fractures. IMPRESSION: No acute intrathoracic process suspected.
[2020-11-14 09:13] LABS: BUN Blood Urea Nitrogen 21 mg/dL (7-18); Bicarbonate 29 mmol/L (21-32); Glucose Level 142 mg/dL (74-106); Magnesium 2.5 mg/dL (1.8-2.4); NT PRO-BNP 50 pg/mL (<125); Potassium 3.5 mmol/L (3.5-5.1); Sodium Level 140 mmol/L (136-145); Troponin (Emerg Dept Use Only) < 0.02 ng/mL (0.0-0.045)
--- NOTE | 2020-11-14 11:28 | EDPHYS ---
Physician Documentation [facility] Name: Jesse Otrega Age: 75 yrs Sex: Male : 1945 Arrival Date: 11/14/2020 Time: 08:27 Bed 3 Private MD: Garett Louie B ED Physician Devan Lockhart HPI: 11/14 08:39 This 75 yrs old Male presents to ER via Unassigned with complaints of Chest rn Pain. 08:39 The patient presents with a history of heart racing. Context: The symptoms occur at rn rest. Onset: The symptoms/episode began/occurred this morning. Duration: The patient or guardian reports a single episode, that is now resolved. Modifying factors: The symptoms are aggravated by nothing. The symptoms are alleviated by nothing. Severity of symptoms: At their worst the symptoms were moderate in the emergency department the symptoms have improved. The patient has experienced similar episodes in the past. Reports this AM began to feel heart racing, assoc with mild chest pain, substernal, non-radiating, lasted for about an hour, now better. Has hx of afib, states taken off medicine for rate control, takes plavix. Has not felt ill, no sob. No cough. No abd pain/vomiting. . Historical: - Allergies: 08:58 No Known Allergies; ca1 - PMHx: 08:58 ALOPECIA; Atrial Fib; CAD; Colitis; Glaucoma; Hyperlipidemia; Hypertension; ca1 Hypothyroidism; insomnia; Myocardial infarction; ulcerative colitis; - Immunization history:: Adult Immunizations up to date, Pneumococcal vaccine is up to date, Flu vaccine is up to date. - Family history:: not pertinent. - Social history:: Smoking status: Patient denies any tobacco usage or history of. - Hospitalizations: : No recent hospitalization is reported. ROS: 08:39 Constitutional: Negative for fever, chills, and weight loss, Eyes: Negative for injury, rn pain, redness, and discharge, Neck: Negative for injury, pain, and swelling, Cardiovascular: Negative for edema Respiratory: Negative for shortness of breath, cough, wheezing, and pleuritic chest pain, Abdomen/GI: Negative for abdominal pain, nausea, vomiting, diarrhea, and constipation, Back: Negative for injury and pain, MS/Extremity: Negative for injury and deformity, Skin: Negative for injury, rash, and discoloration, Neuro: Negative for headache, weakness, numbness, tingling, and seizure. Exam: 08:38 ECG was reviewed by the Attending Physician. rn 08:39 Constitutional: This is a well developed, well nourished patient who is awake, alert, rn and in no acute distress. Head/Face: Normocephalic, atraumatic. ENT: No stridor Cardiovascular: Tachycardic, regular Respiratory: No increased work of breathing, no retractions or nasal flaring. Abdomen/GI: soft, non-tender Skin: Warm, dry MS/ Extremity: Pulses equal, no cyanosis. Neuro: Awake and alert, GCS 15 Vital Signs: 08:35 BP 142 / 108; Pulse 95; Resp 25; Temp 97.6(O); Pulse Ox 97% ; Weight 85.73 kg (R); ca1 Height 5 ft. 10 in. (177.80 cm) (R); Pain 0/10; 08:59 Resp 20 S; ca1 09:18 BP 123 / 90; Pulse 89; Resp 18 S; Pulse Ox 97% on R/A; ca1 10:05 BP 131 / 92; Pulse 90; Resp 18 S; Pulse Ox 97% on R/A; ca1 11:00 BP 127 / 86; Pulse 74; Resp 18 S; Pulse Ox 98% on R/A; ca1 08:35 Body Mass Index 27.12 (85.73 kg, 177.80 cm) ca1 MDM: 08:29 Patient medically screened. rn 09:41 ED course: Pt asymptomatic, neg w/u thus far, will repeat trop and dc if neg. 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 . 11:23 Differential diagnosis: arrythmia, dehydration, stress disorder. Data reviewed: vital rn signs, nurses notes, lab test result(s), EKG, radiologic studies, and as a result, I will discharge patient. Counseling: I had a detailed discussion with the patient and/or guardian regarding: the historical points, exam findings, and any diagnostic results supporting the discharge/admit diagnosis, lab results, radiology results, the need for outpatient follow up, to return to the emergency department if symptoms worsen or persist or if there are any questions or concerns that arise at home. Response to treatment: the patient's symptoms have resolved after treatment, the patient's condition has returned to base line, the patient is now symptom free, and as a result, I will discharge patient. Special discussion: I discussed with the patient/guardian in detail that at this point there is no indication for admission to the hospital. It is understood, however, that if the symptoms persist or worsen the patient needs to return immediately for re-evaluation. ED course: Repeat trop neg. Will dc home as paroxysmal afib.. 11/14 08:36 Order name: Basic Metabolic Panel; Complete Time: 09:11/14 08:36 Order name: CBC with Diff; Complete Time: :11/14 08:36 Order name: Magnesium; Complete Time: :11/14 08:36 Order name: NT PRO-BNP; Complete Time: :11/14 08:36 Order name: PT-INR; Complete Time: :11/14 08:36 Order name: Troponin (emerg Dept Use Only); Complete Time: :11/14 08:36 Order name: XRAY Chest (1 view); Complete Time: 09:12 11/14 08:36 Order name: EKG; Complete Time: 08:36 11/14 08:36 Order name: Cardiac monitoring; Complete Time: 08:42 11/14 08:36 Order name: EKG - Nurse/Tech; Complete Time: 08:11/14 08:36 Order name: IV Saline Lock; Complete Time: 08:53 11/14 08:36 Order name: D-Dimer; Complete Time: :11/14 09:52 Order name: Troponin (emerg Dept Use Only); Complete Time: 11:23 11/14 08:36 Order name: Labs collected and sent; Complete Time: 08:53 11/14 08:36 Order name: O2 Per Protocol; Complete Time: 08:42 11/14 08:36 Order name: O2 Sat Monitoring; Complete Time: 08:42 rn EC:38 Rate is 108 beats/min. Rhythm is regular. Left axis deviation noted. QRS is positive in rn lead I and negative in lead aVF. MT interval is normal. QRS interval is normal. QT interval is normal. No Q waves. T waves are Normal. No ST changes noted. Clinical impression: Sinus tachycardia. Interpreted by me. Reviewed by me. Administered Medications: 08:53 Drug: NS 0.9% 500 ml Route: IV; Rate: bolus; Site: right antecubital; ca1 09:00 Follow up: Response: No adverse reaction; IV Status: Completed infusion; IV Intake: ca1 500ml Disposition: 11/14/20 11:25 Discharged to Home. Impression: Paroxysmal atrial fibrillation. - Condition is Stable. - Discharge Instructions: Atrial Fibrillation. - Medication Reconciliation Form, Thank You Letter, Antibiotic Education, Prescription Opioid Use form. - Follow up: Private Physician; When: As needed; Reason: Recheck today's complaints, Re-evaluation by your physician. - Problem is an acute exacerbation. - Symptoms are resolved. Signatures: Dispatcher [employer] EDMS Devan Lockhart MD MD rn Acob, JAMES Steel RN ca1 Corrections: (The following items were deleted from the chart) 09:51 08:39 Constitutional: This is a well developed, well nourished patient who is awake, rn alert, and in no acute distress. Head/Face: Normocephalic, atraumatic. ENT: No stridor Cardiovascular: Tachycardic, regular Respiratory: No increased work of breathing, no retractions or nasal flaring. Abdomen/GI: soft, non-tender Skin: Warm, dry MS/ Extremity: Pulses equal, no cyanosis. Neuro: Awake and alert, GCS 15 rn 11:36 11:25 11/14/2020 11:25 Discharged to Home. Impression: Paroxysmal atrial fibrillation. ca1 Condition is Stable. Forms are Medication Reconciliation Form, Thank You Letter, Antibiotic Education, Prescription Opioid Use. Follow up: Private Physician; When: As needed; Reason: Recheck today's complaints, Re-evaluation by your physician. Problem is an acute exacerbation. Symptoms are resolved. rn
--- NOTE | 2020-11-14 11:28 | ER ---
Nurse's Notes [facility] Name: Jesse Ortega Age: 75 yrs Sex: Male : 1945 Arrival Date: 11/14/2020 Time: 08:27 Bed 3 Private MD: Garett Louie B Diagnosis: Paroxysmal atrial fibrillation Presentation: 11/14 08:35 Coronavirus screen: Client denies travel out of the [place] in the last 14 days. At this ca1 time, the client does not indicate any symptoms associated with coronavirus-19. Ebola Screen: Patient negative for fever greater than or equal to 101.5 degrees Fahrenheit, and additional compatible Ebola Virus Disease symptoms Patient denies exposure to infectious person. Patient denies travel to an Ebola-affected area in the 21 days before illness onset. No symptoms or risks identified at this time. Initial Sepsis Screen: Does the patient meet any 2 criteria? No. Patient's initial sepsis screen is negative. Does the patient have a suspected source of infection? No. Patient's initial sepsis screen is negative. Risk Assessment: Do you want to hurt yourself or someone else? Patient reports no desire to harm self or others. Onset of symptoms was November 14, 2020 at 06:00. 08:35 Acuity: KAVON 2 ca1 08:35 Method Of Arrival: Wheelchair ca1 08:35 Chief complaint: Patient states: Chest pain started at 0600, non-radiating, continuous ca1 up until arrival at the ER. Hx of A-fib, CAD and OR. Denies N/V/SOB with CP. Denies cough and fever. Historical: - Allergies: 08:58 No Known Allergies; ca1 - PMHx: 08:58 ALOPECIA; Atrial Fib; CAD; Colitis; Glaucoma; Hyperlipidemia; Hypertension; ca1 Hypothyroidism; insomnia; Myocardial infarction; ulcerative colitis; - Immunization history:: Adult Immunizations up to date, Pneumococcal vaccine is up to date, Flu vaccine is up to date. - Family history:: not pertinent. - Social history:: Smoking status: Patient denies any tobacco usage or history of. - Hospitalizations: : No recent hospitalization is reported. Screenin:35 Abuse screen: Denies threats or abuse. Denies injuries from another. Nutritional ca1 screening: No deficits noted. Tuberculosis screening: No symptoms or risk factors identified. Fall Risk IV access (20 points). Assessment: 08:35 General: Appears in no apparent distress. comfortable, Behavior is calm, cooperative, ca1 appropriate for age. General: Reports feeling ill for 1-2 days. Pain: Complains of pain in mid-sternal area Pain does not radiate. Pain currently is 0 out of 10 on a pain scale. at worst was 8 out of 10 on a pain scale. Pain began 2 hours ago. Is continuous. Neuro: Level of Consciousness is awake, alert, obeys commands, Oriented to person, place, time, situation. Cardiovascular: Heart tones S1 S2 present Capillary refill < 3 seconds Patient's skin is warm and dry. Rhythm is sinus tachycardia. Respiratory: Airway is patent Respiratory effort is even, unlabored, Respiratory pattern is regular, symmetrical, Breath sounds are clear bilaterally. GI: Abdomen is flat, non-distended, Bowel sounds present X 4 quads. Abd is soft and non tender X 4 quads. : No signs and/or symptoms were reported regarding the genitourinary system. EENT: No signs and/or symptoms were reported regarding the EENT system. Derm: Skin is intact, is healthy with good turgor, Skin is pink, warm \T\ dry. Musculoskeletal: Circulation, motion, and sensation intact. Capillary refill < 3 seconds. 09:18 Reassessment: Patient appears in no apparent distress at this time. Patient and/or ca1 family updated on plan of care and expected duration. Pain level reassessed. Patient is alert, oriented x 3, equal unlabored respirations, skin warm/dry/pink. 10:05 Reassessment: Patient appears in no apparent distress at this time. Patient and/or ca1 family updated on plan of care and expected duration. Pain level reassessed. Patient is alert, oriented x 3, equal unlabored respirations, skin warm/dry/pink. 11:00 Reassessment: Patient appears in no apparent distress at this time. Patient and/or ca1 family updated on plan of care and expected duration. Pain level reassessed. Patient is alert, oriented x 3, equal unlabored respirations, skin warm/dry/pink. Vital Signs: 08:35 BP 142 / 108; Pulse 95; Resp 25; Temp 97.6(O); Pulse Ox 97% ; Weight 85.73 kg (R); ca1 Height 5 ft. 10 in. (177.80 cm) (R); Pain 0/10; 08:59 Resp 20 S; ca1 09:18 BP 123 / 90; Pulse 89; Resp 18 S; Pulse Ox 97% on R/A; ca1 10:05 BP 131 / 92; Pulse 90; Resp 18 S; Pulse Ox 97% on R/A; ca1 11:00 BP 127 / 86; Pulse 74; Resp 18 S; Pulse Ox 98% on R/A; ca1 08:35 Body Mass Index 27.12 (85.73 kg, 177.80 cm) ca1 ED Course: 08:27 Patient arrived in ED. ag5 08:28 Garett Louie MD is Private Physician. ag5 08:28 Devan Lockhart MD is Attending Physician. rn 08:35 Patient has correct armband on for positive identification. Placed in gown. Bed in low ca1 position. Call light in reach. Side rails up X2. quality assurance monitor body on. Pulse ox on. NIBP on. Warm blanket given. 08:35 Arm band placed on. ca1 08:38 Milvia Soriano RN is Primary Nurse. ca1 08:47 EKG done, by ED staff, reviewed by Devan Lockhart MD. em1 08:52 Initial lab(s) drawn, by me, sent to lab. Inserted saline lock: 22 gauge in right ca1 antecubital area, using aseptic technique. Blood collected. Patient maintains SpO2 saturation greater than 95% on room air. 08:55 XRAY Chest (1 view) In Process Unspecified. EDMS 09:01 Triage completed. ca1 10:55 Repeat lab(s) drawn. by me, sent to lab. jl7 11:35 No provider procedures requiring assistance completed. IV discontinued, intact, ca1 bleeding controlled, No redness/swelling at site. Pressure dressing applied. Administered Medications: 08:53 Drug: NS 0.9% 500 ml Route: IV; Rate: bolus; Site: right antecubital; ca1 09:00 Follow up: Response: No adverse reaction; IV Status: Completed infusion; IV Intake: ca1 500ml Intake: 09:00 IV: 500ml; Total: 500ml. ca1 Outcome: 11:25 Discharge ordered by MD. rn 11:35 Discharged to home ambulatory. ca1 11:35 Condition: stable 11:35 Discharge instructions given to patient, Instructed on discharge instructions, follow up and referral plans. Demonstrated understanding of instructions, follow-up care. 11:36 Patient left the ED. ca1 Signatures: Dispatcher [employer] Devan Klein MD MD rn Timothy Gonzalez em1 Erasto Nova RN RN jl7 Milvia Soriano RN RN ca1 Sabi, Greg ag5
[2020-11-14 12:18] VITALS: TEMP 97.6
[2020-11-14 12:23] VITALS: BP 127/86; O2SAT 98
--- NOTE | 2020-11-14 22:31 | EKG ---
Test Date: 2020-11-14 Test Time: 08:31:17 Vendor Relationship Manager: XIMENA MEASUREMENT RESULTS: Intervals: Rate: 108 OH: 176 QRSD: 98 QT: 350 QTc: 469 Burgin: P: 59 OH: 176 QRS: -37 T: 64 INTERPRETIVE STATEMENTS: Sinus tachycardia Left axis deviation Septal infarct, age undetermined Abnormal ECG Compared to ECG 06/07/2020 13:43:12 Left-axis deviation now present Myocardial infarct finding now present Sinus rhythm no longer present T-wave abnormality no longer present Electronically Signed On 11-14-20 22:29:31 ASSEMBLY MACHINE OPERATOR by Carlos Steven
== END 2020-11-14 11:36 | disposition home or self-care (01) ==
LOC: ER 08:25
DX: I48.0 Paroxysmal atrial fibrillation (principal)
CPT/HCPCS: 93005; 85025; 80048; 36415; 83735; 85610; 85379; 84484 ×2; 83880; 71045; 99285; J7030

== ENCOUNTER 2021-04-22 22:55 | Emergency (ER) | payer OTHER ==
--- OUTSIDE RECORDS SUMMARY | 2021-04-22 22:57 | XMS REPORT | Continuity of Care Document ---
:1945 [address] [facility] t Address [address] [place] [address] [place] [id number] Care Team Providers Name Role Phone Unavailable Unavailable Unavailable Problems This patient has no known problems. Allergies, Adverse Reactions, Alerts This patient has no known allergies or adverse reactions. Medications This patient has no known medications. Procedures This patient has no known procedures. Results This patient has no known results.
[2021-04-23] MEDS ORDERED: ONDANSETRON 4 MG/2 ML VIAL ONE (00:30)
[2021-04-23] MEDS ORDERED: NA CHLORIDE 0.9% 1,000 ML ONE (00:30)
[2021-04-23] MEDS ORDERED: MECLIZINE HCL 12.5 MG TAB ONE (00:30)
[2021-04-23 00:45] LABS: Basophils % 0.4 % (0-1.3); Hematocrit 48.9 % (39.6-49.0); Lymphocytes % 8.2 % (15.3-44.8); MPV 9.5 fL (7.6-11.3); RBC Red Blood Cell Count 5.37 M/uL (4.33-5.43)
[2021-04-23 00:57] LABS: Albumin 3.9 g/dL (3.4-5.0); Bilirubin Direct 0.2 mg/dL (0-0.2); Bilirubin Total 0.9 mg/dL (0.2-1.0); Potassium 3.8 mmol/L (3.5-5.1); Protein, Total 7.5 g/dL (6.4-8.2)
[2021-04-23 01:42] LABS: Blood Morphology Comment NOT SEEN (NOT SEEN); Platelet Estimate ADEQ
[2021-04-23] MEDS ORDERED: MEPERIDINE HCL 25 MG/ML SYR ONE (03:38)
--- NOTE | 2021-04-23 04:00 | EDPHYS ---
Physician Documentation [facility] Name: Jesse Ortega Age: 75 yrs Sex: Male : 1945 Arrival Date: 04/22/2021 Time: 22:58 Bed 6 Private MD: ED Physician Devan Lockhart HPI: 04/23 00:17 This 75 yrs old Male presents to ER via Wheelchair with complaints of rn Nausea/Vomiting, dizziness. 00:17 The patient presents with dizziness, sense of spinning. Onset: The symptoms/episode rn began/occurred 3 hour(s) ago. Context: occurred at home, occurred while the patient was at rest. Modifying factors: The symptoms are alleviated by closing eyes, holding head still, the symptoms are aggravated by movement of head, opening eyes. Associated signs and symptoms: Pertinent positives: nausea, vomiting, Pertinent negatives: abdominal pain, chest pain, confusion, diaphoresis, head injury, seizure, shortness of breath. Severity of symptoms: At their worst the symptoms were moderate in the emergency department the symptoms have improved. The patient has not experienced similar symptoms in the past. The patient has not recently seen a physician. Reports sudden onset dizziness, feels "like motion sickness", occurred approx 3 hours prior to arrival, no trauma, no focal weakness or numbness. + blurred vision of both eyes that has improved. No chest pain/abd pain. . Historical: - Allergies: 04/22 23:22 No Known Allergies; em - PMHx: 23:22 ALOPECIA; Atrial Fib; CAD; Glaucoma; Hyperlipidemia; Hypertension; Hypothyroidism; em insomnia; Myocardial infarction; ulcerative colitis; Colitis; - PSHx: 23:22 Cholecystectomy; Heart stents; em - Immunization history:: Adult Immunizations up to date. - Social history:: Smoking status: Patient denies any tobacco usage or history of. - Family history:: not pertinent. - Hospitalizations: : No recent hospitalization is reported. ROS: 04/23 00:17 Constitutional: Negative for fever, chills, and weight loss, Eyes: Negative for injury, rn pain, redness, and discharge, Neck: Negative for injury, pain, and swelling, Cardiovascular: Negative for chest pain, palpitations, and edema, Respiratory: Negative for shortness of breath, cough, wheezing, and pleuritic chest pain, Abdomen/GI: Negative for abdominal pain, diarrhea, and constipation, Back: Negative for injury and pain, MS/Extremity: Negative for injury and deformity, Skin: Negative for injury, rash, and discoloration, Neuro: Negative for weakness, numbness, tingling, and seizure. Exam: 00:17 Constitutional: This is a well developed, well nourished patient who is awake, alert, rn holding emesis bag. Head/Face: Normocephalic, atraumatic. Eyes: Pupils equal round and reactive to light, extra-ocular motions intact. Neck: Trachea midline, no masses palpated. No Meningismus. Cardiovascular: Regular rate and rhythm. No pulse deficits. Respiratory: No increased work of breathing, no retractions or nasal flaring. Abdomen/GI: soft, non-tender Skin: Warm, dry with normal turgor. Normal color with no rashes, no lesions, and no evidence of cellulitis. MS/ Extremity: Pulses equal, no cyanosis. Neurovascular intact. Full, normal range of motion. Equal circumference. Neuro: Awake and alert, GCS 15, oriented to person, place, time, and situation. Cranial nerves II-XII grossly intact. Motor strength 5/5 in all extremities. Sensory grossly intact. Cerebellar exam normal. Able to turn head left and right without reproducing dizziness or nausea. Vital Signs: 04/22 23:19 BP 165 / 92; Pulse 87; Resp 18; Temp 97.8; Pulse Ox 100% on R/A; Weight 88.45 kg; em Height 5 ft. 10 in. (177.80 cm); Pain 0/10; 04/23 02:30 BP 152 / 284; Pulse 86; Resp 17; Pulse Ox 98% ; rr5 03:22 BP 141 / 93; Pulse 80; Resp 17; Pulse Ox 98% ; Pain 6/10; rr5 04:05 BP 137 / 97; Pulse 86; Resp 16; Pulse Ox 98% ; rr5 04/22 23:19 Body Mass Index 27.98 (88.45 kg, 177.80 cm) em MDM: 04/22 23:12 Patient medically screened. rn 23:22 ED course: Pt states onset approx 3 hours prior to arrival. No focal weakness/numbness. rn Reports dizziness and vomiting. . 04/23 02:02 ED course: Pt feels much better, no nausea, no dizziness, still waiting on CT head rn results. . 03:57 Differential diagnosis: cardiac arrhythmia, CVA, generalized weakness, hypovolemia, rn idiopathic dizziness, near-syncope, TIA, vertigo. Data reviewed: vital signs, nurses notes, lab test result(s), EKG, radiologic studies, CT scan, and as a result, I will discharge patient. Counseling: I had a detailed discussion with the patient and/or guardian regarding: the historical points, exam findings, and any diagnostic results supporting the discharge/admit diagnosis, lab results, radiology results, the need for outpatient follow up, to return to the emergency department if symptoms worsen or persist or if there are any questions or concerns that arise at home. Response to treatment: the patient's symptoms have markedly improved after treatment, and as a result, I will discharge patient. ED course: Pt improved, able to situp without assistance, no dizziness, repeat neuro exam still non-focal, will dc home with meclizine and zofran prn, and rest. CT angio head and neck neg.. 04/22 23:21 Order name: Basic Metabolic Panel 04/22 23:21 Order name: CBC with Diff; Complete Time: : 04/22 23:21 Order name: Hepatic Function; Complete Time: : 04/22 23:21 Order name: Lipase; Complete Time: 04/22 23:21 Order name: Basic Metabolic Panel; Complete Time: [facility] 04/23 00:55 Order name: Manual Differential; Complete Time: :54 [facility] 04/22 23:21 Order name: CT Head Brain wo Cont rn 04/22 23:21 Order name: CT Head Angio 04/22 23:21 Order name: CT Neck Angio rn 04/23 03:57 Order name: CREATININE WHOLE BLOOD [facility] 04/22 23:21 Order name: IV Saline Lock; Complete Time: 00: rn 16 23:21 Order name: Labs collected and sent; Complete Time: 00:31 rn Administered Medications: 00:20 Drug: NS 0.9% 1000 ml Route: IV; Rate: 1000 ml; Site: left forearm; rr5 01:20 Follow up: IV Status: Completed infusion rr5 01:20 Follow up: Response: No adverse reaction; IV Status: Completed infusion; IV Intake: rr5 1000ml 00:30 Drug: Meclizine 50 mg Route: PO; rr5 01:30 Follow up: Response: No adverse reaction rr5 00:30 Drug: Zofran (Ondansetron) 4 mg Route: IVP; Site: left forearm; rr5 01:30 Follow up: Response: No adverse reaction rr5 03:22 Drug: Demerol (meperidine) 12.5 mg {Note: rass 0.} Route: IVP; Site: left forearm; rr5 04:06 Follow up: Response: No adverse reaction; Pain is decreased; RASS: Alert and Calm (0) rr5 Disposition: 04/23/21 03:59 Discharged to Home. Impression: Vertigo, Dizziness and giddiness. - Condition is Stable. - Discharge Instructions: Dizziness, Vertigo. - Prescriptions for Zofran ODT 4 mg Oral tablet,disintegrating - place 1 tablet by TRANSLINGUAL route every 8 hours As needed; 20 tablet. Meclizine 25 mg Oral Tablet - take 1 tablet by ORAL route every 8 hours As needed; 30 tablet. - Medication Reconciliation Form, Thank You Letter, Antibiotic Education, Prescription Opioid Use form. - Follow up: Private Physician; When: As needed; Reason: Recheck today's complaints, Re-evaluation by your physician. - Problem is new. - Symptoms have improved. Signatures: Dispatcher [employer] Montez Hutchins RN Devan Jorge MD MD rn Roque, Raymond, RN RN rr5 Corrections: (The following items were deleted from the chart) 04:06 03:59 04/23/2021 03:59 Discharged to Home. Impression: Vertigo; Dizziness and rr5 giddiness. Condition is Stable. Forms are Medication Reconciliation Form, Thank You Letter, Antibiotic Education, Prescription Opioid Use. Follow up: Private Physician; When: As needed; Reason: Recheck today's complaints, Re-evaluation by your physician. Problem is new. Symptoms have improved. rn
--- NOTE | 2021-04-23 04:00 | ER ---
Nurse's Notes [facility] Name: Jesse Ortega Age: 75 yrs Sex: Male : 1945 Arrival Date: 04/22/2021 Time: 22:58 Bed 6 Private MD: Diagnosis: Vertigo;Dizziness and giddiness Presentation: 04/22 23:19 Chief complaint: Patient states: N/V that started about 2-3 hours ago, also reports em dizziness, denies fever or pain. Coronavirus screen: Client denies travel out of the [place] in the last 14 days. Ebola Screen: Patient negative for fever greater than or equal to 101.5 degrees Fahrenheit, and additional compatible Ebola Virus Disease symptoms Patient denies exposure to infectious person. Patient denies travel to an Ebola-affected area in the 21 days before illness onset. No symptoms or risks identified at this time. Initial Sepsis Screen: Does the patient meet any 2 criteria? No. Patient's initial sepsis screen is negative. Does the patient have a suspected source of infection? No. Patient's initial sepsis screen is negative. Risk Assessment: Do you want to hurt yourself or someone else? Patient reports no desire to harm self or others. Onset of symptoms was April 22, 2021. 23:19 Method Of Arrival: Wheelchair em 23:19 Acuity: KAVON 2 em Historical: - Allergies: 23:22 No Known Allergies; em - PMHx: 23:22 ALOPECIA; Atrial Fib; CAD; Glaucoma; Hyperlipidemia; Hypertension; Hypothyroidism; em insomnia; Myocardial infarction; ulcerative colitis; Colitis; - PSHx: 23:22 Cholecystectomy; Heart stents; em - Immunization history:: Adult Immunizations up to date. - Social history:: Smoking status: Patient denies any tobacco usage or history of. - Family history:: not pertinent. - Hospitalizations: : No recent hospitalization is reported. Screenin/17 01:35 Abuse screen: Denies threats or abuse. Denies injuries from another. Nutritional rr5 screening: No deficits noted. Tuberculosis screening: No symptoms or risk factors identified. Fall Risk IV access (20 points). Total Hernandez Fall Scale indicates No Risk (0-24 pts). Assessment: 00:32 General: Appears in no apparent distress. uncomfortable, Behavior is calm, cooperative, rr5 appropriate for age. Pain: Denies pain. Neuro: Level of Consciousness is awake, alert, obeys commands, Oriented to person, place, time, Reports dizziness. Cardiovascular: Capillary refill < 3 seconds Patient's skin is warm and dry. Respiratory: Airway is patent Respiratory effort is even, unlabored, Respiratory pattern is regular, symmetrical. GI: Abdomen is round Reports nausea, vomiting. : No signs and/or symptoms were reported regarding the genitourinary system. EENT: No signs and/or symptoms were reported regarding the EENT system. Derm: Skin temperature is warm. Musculoskeletal: Capillary refill < 3 seconds. 01:35 Reassessment: Patient appears in no apparent distress at this time. Patient is alert, rr5 oriented x 3, equal unlabored respirations, skin warm/dry/pink. back from CT scan. 02:38 Reassessment: Patient and/or family updated on plan of care and expected duration. Pain ea level reassessed. Patient is alert, oriented x 3, equal unlabored respirations, skin warm/dry/pink. 03:15 Reassessment: Patient appears in no apparent distress at this time. complaining of rr5 headache, provider aware with order made and carried out. 04:05 Reassessment: Patient appears in no apparent distress at this time. Patient is alert, rr5 oriented x 3, equal unlabored respirations, skin warm/dry/pink. discharge instruction given and explained without complaints made Patient states feeling better. Patient states symptoms have improved. Vital Signs: 04/22 23:19 BP 165 / 92; Pulse 87; Resp 18; Temp 97.8; Pulse Ox 100% on R/A; Weight 88.45 kg; em Height 5 ft. 10 in. (177.80 cm); Pain 0/10; 04/23 02:30 BP 152 / 284; Pulse 86; Resp 17; Pulse Ox 98% ; rr5 03:22 BP 141 / 93; Pulse 80; Resp 17; Pulse Ox 98% ; Pain 6/10; rr5 04:05 BP 137 / 97; Pulse 86; Resp 16; Pulse Ox 98% ; rr5 04/22 23:19 Body Mass Index 27.98 (88.45 kg, 177.80 cm) em ED Course: 04/22 22:58 Patient arrived in ED. bp1 23:11 Bryan Bray RN is Primary Nurse. rr5 23:12 Lockhart, Devan, MD is Attending Physician. rn 23:22 Triage completed. em 23:22 Arm band placed on. em 06 00:13 Missed attempt(s): 20 gauge in right antecubital area. tt3 00:20 Inserted saline lock: 20 gauge in left forearm, using aseptic technique. Blood rr5 collected. 00:35 Patient has correct armband on for positive identification. Bed in low position. Call rr5 light in reach. Side rails up X 1. Pulse ox on. NIBP on. 01:37 CT Head Brain wo Cont In Process Unspecified. EDMS 01:37 CT Head Angio In Process Unspecified. EDMS 01:37 CT Neck Angio In Process Unspecified. EDMS 04:06 No provider procedures requiring assistance completed. IV discontinued, intact, rr5 bleeding controlled, No redness/swelling at site. Pressure dressing applied. Administered Medications: 00:20 Drug: NS 0.9% 1000 ml Route: IV; Rate: 1000 ml; Site: left forearm; rr5 01:20 Follow up: IV Status: Completed infusion rr5 01:20 Follow up: Response: No adverse reaction; IV Status: Completed infusion; IV Intake: rr5 1000ml 00:30 Drug: Meclizine 50 mg Route: PO; rr5 01:30 Follow up: Response: No adverse reaction rr5 00:30 Drug: Zofran (Ondansetron) 4 mg Route: IVP; Site: left forearm; rr5 01:30 Follow up: Response: No adverse reaction rr5 03:22 Drug: Demerol (meperidine) 12.5 mg {Note: rass 0.} Route: IVP; Site: left forearm; rr5 04:06 Follow up: Response: No adverse reaction; Pain is decreased; RASS: Alert and Calm (0) rr5 Intake: 01:20 IV: 1000ml; Total: 1000ml. rr5 Outcome: 03:59 Discharge ordered by . rn 04:06 Discharged to home ambulatory, with family. rr5 04:06 Condition: stable 04:06 Discharge instructions given to patient, Instructed on discharge instructions, follow up and referral plans. medication usage, Demonstrated understanding of instructions, follow-up care, medications, Prescriptions given X 2. 04:06 Patient left the ED. rr5 Signatures: Dispatcher [employer] Montez Hutchins, RN RN Devna Sosa MD MD rn Antunez, Elena, RN RN Bryan Hodges RN RN rr5 Sarika Mcfarland [place] tt3 Corrections: (The following items were deleted from the chart) 03: 03:15 Reassessment: Patient appears in no apparent distress at this time. complaining rr5 of headache, provider aware without orders made rr5 03: 03:22 BP 141 / 93; Pulse 80bpm; Resp 17bpm; Pulse Ox 98%; rr5 rr5
[2021-04-23 04:26] VITALS: TEMP 97.8
[2021-04-23 04:33] VITALS: O2SAT 98
[2021-04-23 04:42] VITALS: BP 137/97
--- NOTE | 2021-04-23 11:52 | RAD REPORT ---
EXAM DESCRIPTION: CT - Head Brain Wo Cont - 04/23/2021 4:20 am CLINICAL HISTORY: DIZZINESS TECHNIQUE: Contiguous axial CT images obtained through the brain without IV contrast. Coronal and sa gittal reformatted images were provided. This exam was performed according to our departmental dose-optimization program, which includes autom ated exposure control, adjustment of the mA and/or kV according to patient size and/or use of iterati ve reconstruction technique. COMPARISON: 01/26/2018 FINDINGS: Brain: Mild cerebral atrophy and minimal bilateral periventricular and subcortical white m atter hypodensity which is nonspecific and can be seen in the clinical setting of chronic microvascul ar angiopathy without significant interval change. No focal mass effect. Dean-white matter differenti ation is within normal limits. No hemorrhage. Ventricles: No ventriculomegaly or midline shift. Extra-axial spaces: No extra-axial collection or hemorrhage. Paranasal sinuses and mastoid air cells: Well-aerated Vessels: Mild atherosclerotic disease of the internal carotid arteries bilaterally. Bones: Unremarkable Soft tissues: Unremarkable IMPRESSION: 1. No acute hemorrhage, focal mass or large territory infarction. 2. Other findings as above. Electronically signed by: Montserrat Blackwell MD 04/23/2021 2:52 AM CDT Due to temporary technical issues with the PACS/Fluency reporting system, reports are being signed by the in house radiologist without review as a courtesy to ensure prompt reporting. The interpreting r adiologist is fully responsible for the content of the report.
--- NOTE | 2021-04-23 12:06 | RAD REPORT ---
EXAM DESCRIPTION: CT - Head angio - 04/23/2021 4:15 am CLINICAL HISTORY: DIZZINESS COMPARISON: None. TECHNIQUE: CT HEAD ANGIOGRAPHY WITH IV CONTRAST on 04/22/2021 11:21 PM CDT This exam was performed according to our departmental dose-optimization program, which includes autom ated exposure control, adjustment of the mA and/or kV according to patient size and/or use of iterati ve reconstruction technique. MIP reconstructions were generated. Stenoses are calculated by NASCET criteria. FINDINGS: Intracranially the cavernous segments of the internal carotid arteries are patent and symm etric bilaterally. Vertebral basilar system within normal limits for age. No aneurysm identified within the skull [place]. Anterior, middle, and posterior cerebral circulations patent and symmetric bilaterally. Dural sinuses are well opacified and without filling defect. IMPRESSION: Unremarkable CTA of the brain without evidence of hemodynamically significant stenosis, aneurysm or AVM. Electronically signed by: Sergey Alcantara MD 04/23/2021 3:23 AM CDT Due to temporary technical issues with the PACS/Fluency reporting system, reports are being signed by the in house radiologist without review as a courtesy to ensure prompt reporting. The interpreting r adiologist is fully responsible for the content of the report.
--- NOTE | 2021-04-23 12:07 | RAD REPORT ---
EXAM DESCRIPTION: CT - Neck Angio - 04/23/2021 4:15 am CLINICAL HISTORY: Dizziness COMPARISON: None Available. TECHNIQUE: Multiple helical axial tomographic images were obtained of the neck following administrat ion of intravenous contrast per angiographic protocol. Coronal and sagittal reformatted images were o btained. This exam was performed according to our departmental dose-optimization program, which inclu oni automated exposure control, adjustment of the mA and/or kV according to patient size and/or use o f iterative reconstruction technique. FINDINGS: There is a small amount of atherosclerotic plaque involving both carotid bulbs. Carotid an d vertebral arterial vasculature of the neck appears patent without significant stenosis or occlusion . Thyroid gland appears unremarkable. Salivary glands appear unremarkable. No evidence of adenopathy. R etropharyngeal space appears normal. Epiglottis appears normal. Larynx and vocal folds appear unremar kable. Visualized lungs are clear. Degenerative changes of the spine noted with associated neural foraminal and central canal narrowing. IMPRESSION: No evidence of significant arterial stenosis or occlusion within the neck. Electronically signed by: Mateusz Woodruff MD 04/23/2021 3:31 AM CDT Due to temporary technical issues with the PACS/Fluency reporting system, reports are being signed by the in house radiologist without review as a courtesy to ensure prompt reporting. The interpreting r adiologist is fully responsible for the content of the report.
== END 2021-04-23 04:06 | disposition home or self-care (01) ==
LOC: ER 22:55
DX: R42 Dizziness and giddiness (principal); R11.2 Nausea with vomiting, unspecified; I10 Essential (primary) hypertension; I25.2 Old myocardial infarction; Z95.818 Presence of other cardiac implants and grafts
CPT/HCPCS: 85025; 80048; 36415; 82565; 80076; 83690; 70450; 70496; 70498; Q9967; J2175; J7030; J2405

== ENCOUNTER 2021-07-15 20:46 | Emergency (ER) | payer OTHER ==
--- OUTSIDE RECORDS SUMMARY | 2021-07-15 20:50 | XMS REPORT | Continuity of Care Document ---
:1945 Author Organization [facility] t Address [address] [place] [address] [place] [id number] Care Team Providers Name Role Phone Unavailable Unavailable Unavailable Problems This patient has no known problems. Allergies, Adverse Reactions, Alerts This patient has no known allergies or adverse reactions. Medications This patient has no known medications. Procedures This patient has no known procedures. Results This patient has no known results.
--- NOTE | 2021-07-15 21:40 | ER ---
Nurse's Notes [facility] Name: Jesse Ortega Age: 76 yrs Sex: Male : 1945 Arrival Date: 07/15/2021 Time: 21:09 Bed Waiting Private MD: Diagnosis: Presentation: 07/15 21:39 Note pt informed registration that he was leaving and left the ED. bb ED Course: 21:09 Patient arrived in ED. arlene Administered Medications: No medications were administered Outcome: 21:39 Patient left the ED. bb Signatures: Isis Dolan RN RN Anne Guzmán
== END 2021-07-15 21:39 | disposition left against medical advice (07) ==
LOC: ER 20:46
DX: Z53.21 Procedure and treatment not carried out due to patient leaving prior to being seen by health care provider (principal)

== ENCOUNTER 2021-07-16 08:04 | Emergency (ER) | payer OTHER ==
--- OUTSIDE RECORDS SUMMARY | 2021-07-16 08:07 | XMS REPORT | Continuity of Care Document ---
:1945 Author Organization [facility] t Address [address] [place] [address] [place] [address] Care Team Providers Name Role Phone Unavailable Unavailable Unavailable Problems This patient has no known problems. Allergies, Adverse Reactions, Alerts This patient has no known allergies or adverse reactions. Medications This patient has no known medications. Procedures This patient has no known procedures. Results This patient has no known results.
[2021-07-16 08:58] LABS: Absolute Lymphocytes (CBC) 1.5 K/uL (0.7-4.9); Basophils % 0.5 % (0-1.3); Hematocrit 49.6 % (39.6-49.0); Lymphocytes % 14.6 % (15.3-44.8); MPV 8.7 fL (7.6-11.3)
--- NOTE | 2021-07-16 09:11 | RAD REPORT ---
EXAM DESCRIPTION: CT - Stone Protocol - 07/16/2021 8:35 am CLINICAL HISTORY: FLANK PAIN COMPARISON: Abdomen Pelvis W Contrast dated 01/10/2017; CT ABD PELVIS W CONTRAST dated 12/15/2012; CTS TONE PROTOCOL dated 09/09/2012 TECHNIQUE: Axial 3 mm thick images were obtained without oral or IV contrast. The [id number] span s the entirety of the system including uppermost abdomen and lung bases. All CT scans are performed using dose optimization technique as appropriate and may include automated exposure control or mA/KV adjustment according to patient size. FINDINGS: Scarring is present at each lung base. There is right hemidiaphragm elevation. No pericard ial thickening or effusion. Coronary artery calcifications are present. Mild left-sided hydronephrosis is present secondary to a distal left ureteral stone approximately 3 c m from the bladder. Left kidney is edematous. Perinephric stranding is present. No other obstructing or nonobstructing calculi. No right-sided hydronephrosis. Low-density masses in the left kidney match up with cysts on the 2017 study. No suspicious renal masses. Isodense masses and pyelonephritis are not excluded on a stone protocol CT scan. No significant adrenal finding. No urinary bladder suspicio us finding. Imaged portions of the liver, spleen and pancreas show no suspicious findings on non-contrast imaging . No gallbladder or biliary tree abnormality identified. No suspicious bowel findings. No mass or bulky lymphadenopathy. Minimal inguinal hernias are present. No free air, free fluid or pn eumatosis. Bony degenerative changes are present. IMPRESSION: Mild left-sided hydronephrosis secondary to a distal left ureteral stone 4-5 mm in size. Isodense masses and pyelonephritis are not excluded on stone protocol technique. Nonacute findings detailed in the body of the report.
[2021-07-16] MEDS ORDERED: MORPHINE 4 MG/ML SYR ONE (09:20)
[2021-07-16] MEDS ORDERED: NA CHLORIDE 0.9% 1,000 ML ONE (09:20)
[2021-07-16] MEDS ORDERED: ONDANSETRON 4 MG/2 ML VIAL ONE (09:20)
[2021-07-16 09:24] LABS: Potassium 3.6 mmol/L (3.5-5.1)
[2021-07-16] MEDS ORDERED: MAGNESIUM SULFATE 1 gm IVPB 1 GM/100 ML BAG IV ONE (09:41)
[2021-07-16] MEDS ORDERED: KETOROLAC 30 MG/ML INJ ONE (09:55)
[2021-07-16 10:36] LABS: Urine Blood 2+ (Negative); Urine Glucose Negative (Negative); Urine Protein Negative (Negative); Urine Specific Gravity 1.025 (1.005-1.030); Urine pH 5.5 (5.0-7.0)
[2021-07-16 11:02] LABS: Urine Bacteria <20 /HPF (NONE SEEN)
--- NOTE | 2021-07-16 11:04 | EDPHYS ---
Physician Documentation [facility] Name: Jesse Ortega Age: 76 yrs Sex: Male : 1945 Arrival Date: 07/16/2021 Time: 08:06 Bed 28 Private MD: Garett Louie B ED Physician Alonzo Gamboa HPI: 07/16 15:59 This 76 yrs old Male presents to ER via Ambulatory with complaints of Flank kb Pain - left. 15:59 The patient complains of pain in the left flank. The pain does not radiate. The patient kb has not experienced similar symptoms in the past. 15:59 Onset: The symptoms/episode began/occurred yesterday. Modifying factors: The symptoms kb are alleviated by nothing. the symptoms are aggravated by nothing. Associated signs and symptoms: The patient has no apparent associated signs or symptoms. Severity of pain: At its worst the pain was moderate in the emergency department the pain is unchanged. The patient has not recently seen a physician. Historical: - Allergies: 08:12 No Known Allergies; tw2 - PMHx: 08:12 ALOPECIA; Atrial Fib; insomnia; CAD; Myocardial infarction; Glaucoma; Hyperlipidemia; tw2 Hypertension; Colitis; Hypothyroidism; ulcerative colitis; - Immunization history:: Client reports receiving the 2nd dose of the Covid vaccine. - Social history:: Smoking status: Patient denies any tobacco usage or history of. ROS: 15:47 Constitutional: Negative for fever, chills, and weight loss. kb 15:47 Back: Positive for flank pain, on the left. 15:47 All other systems are negative. Exam: 15:47 Constitutional: This is a well developed, well nourished patient who is awake, alert, kb and in no acute distress. Head/Face: Normocephalic, atraumatic. ENT: Moist Mucous membranes Cardiovascular: Regular rate and rhythm with a normal S1 and S2. No gallops, murmurs, or rubs. No pulse deficits. Respiratory: Respirations even and unlabored. No increased work of breathing, no retractions or nasal flaring. Back: No spinal tenderness. No costovertebral tenderness. Full range of motion. Skin: Warm, dry with normal turgor. Normal color. MS/ Extremity: Pulses equal, no cyanosis. Neurovascular intact. Full, normal range of motion. Neuro: Awake and alert, GCS 15, oriented to person, place, time, and situation. Moves all extremities. Normal gait. Psych: Awake, alert, with orientation to person, place and time. Behavior, mood, and affect are within normal limits. 15:47 Abdomen/GI: Inspection: abdomen appears normal, Bowel sounds: normal, in all quadrants, Palpation: soft, in all quadrants, mild abdominal tenderness, in the left lower quadrant. Vital Signs: 08:09 BP 136 / 93; Pulse 70; Resp 18; Temp 97.9(TE); Pulse Ox 99% on R/A; tw2 08:50 BP 145 / 81; Pulse 73; Resp 17; Pulse Ox 98% on R/A; Pain 10/10; ap3 09:53 BP 126 / 82; Pulse Ox 99% on R/A; ap3 11:22 BP 116 / 74; Pulse 76; ap3 MDM: 08:13 Patient medically screened. kb 15:47 Data reviewed: vital signs, nurses notes. Data interpreted: Pulse oximetry: on room air kb is 99 %. Interpretation: normal. Counseling: I had a detailed discussion with the patient and/or guardian regarding: the historical points, exam findings, and any diagnostic results supporting the discharge/admit diagnosis, lab results, radiology results, the need for outpatient follow up, a urologist, to return to the emergency department if symptoms worsen or persist or if there are any questions or concerns that arise at home. 07/16 08:14 Order name: Basic Metabolic Panel; Complete Time: 09:25 kb 07/16 08:14 Order name: CBC with Diff; Complete Time: 09:02 kb 07/16 08:14 Order name: CT Stone Protocol; Complete Time: 09:12 kb 07/16 09:12 Order name: Urine Microscopic Only; Complete Time: 11:03 kb 07/16 10:36 Order name: Urine Dipstick-Ancillary; Complete Time: 10:42 EDMS 07/16 08:14 Order name: IV Saline Lock; Complete Time: 08:50 kb 07/16 08:14 Order name: Labs collected and sent; Complete Time: 08:50 kb 07/16 09:12 Order name: Urine Dipstick-Ancillary (obtain specimen); Complete Time: 11:08 kb Administered Medications: 09:02 Drug: NS 0.9% 1000 ml Route: IV; Rate: 1000 ml; Site: left antecubital; ap3 10:03 Follow up: IV Status: Completed infusion; IV Intake: 1000ml ap3 09:02 Drug: Zofran (Ondansetron) 4 mg Route: IVP; Site: left antecubital; ap3 09:21 Follow up: Response: No adverse reaction ap3 09:02 Drug: morphine 4 mg {Note: rass: pt awake/alert.} Route: IVP; Site: left antecubital; ap3 09:21 Follow up: Response: No adverse reaction; Pain is decreased ap3 09:21 Drug: Magnesium Sulfate 1 grams Route: IVPB; Infused Over: 30 mins; Site: left ap3 antecubital; 10:03 Follow up: IV Status: Completed infusion; IV Intake: 100ml ap3 09:34 Drug: Ketorolac 15 mg Route: IVP; Site: left antecubital; ap3 10:03 Follow up: Response: No adverse reaction; Pain is decreased ap3 Disposition: 07/17 04:43 Co-signature as Attending Physician, Alonzo Gamboa MD I agree with the assessment and kdr plan of care. Disposition Summary: 07/16/21 11:03 Discharge Ordered Location: Home kb Condition: Stable kb Diagnosis - Calculus of kidney with calculus of ureter kb Followup: kb - With: Emergency Department - When: As needed - Reason: Worsening of condition Followup: kb - With: Private Physician - When: 2 - 3 days - Reason: Recheck today's complaints, Continuance of care, Re-evaluation by your physician Followup: kb - With: Aubrey Porras MD - When: 2 - 3 days - Reason: Recheck today's complaints Discharge Instructions: - Discharge Summary Sheet kb - Kidney Stones, Slad-ye-Onqa kb Forms: - Medication Reconciliation Form kb - Thank You Letter kb - Antibiotic Education kb - Prescription Opioid Use kb Prescriptions: - Zofran 4 mg Oral Tablet - take 1 tablet by ORAL route every 6 hours As needed; 20 tablet; Refills: 0, kb Product Selection Permitted - Diclofenac Sodium 75 mg Oral tablet,delayed release (DR/EC) - take 1 tablet by ORAL route 2 times per day As needed; 30 tablet; Refills: 0, kb Product Selection Permitted Signatures: Dispatcher [employer] Kandace Sanchez FNP-C [employer] EXECUTIVE-CkAlonzo Pierson MD MD kdr Unique Hussein RN RN tw2 Meghan Dejesus RN RN ap3
--- NOTE | 2021-07-16 11:04 | ER ---
Nurse's Notes [facility] Name: Jesse Ortega Age: 76 yrs Sex: Male : 1945 Arrival Date: 07/16/2021 Time: 08:06 Bed 28 Private MD: Garett Louie B Diagnosis: Calculus of kidney with calculus of ureter Presentation: 07/16 08:09 Chief complaint: Patient states: i got bad pain on my left side. started yesterday tw2 morning. started feeling nauseous earlier this morning for the first time. Chief complaint: Spouse and/or significant other states: we came out last night but it was packed so we came back. Coronavirus screen: nausea, Client presents with at least one sign or symptom that may indicate coronavirus-19. Standard/surgical mask placed on the client. Provider contacted for isolation considerations. Ebola Screen: Patient denies travel to an Ebola-affected area in the 21 days before illness onset. Initial Sepsis Screen: Does the patient meet any 2 criteria? No. Patient's initial sepsis screen is negative. Does the patient have a suspected source of infection? No. Patient's initial sepsis screen is negative. Risk Assessment: Do you want to hurt yourself or someone else? Patient reports no desire to harm self or others. Note STEFF Bradley in triage room performing assessment. Onset of symptoms was July 16, 2021. 08:09 Method Of Arrival: Ambulatory tw2 08:09 Acuity: KAVON 3 tw2 Triage Assessment: 08:11 General: Appears uncomfortable, well groomed, Behavior is calm, cooperative, tw2 appropriate for age. Pain: Complains of pain in left upper quadrant and left lower quadrant. GI: Reports constipation, nausea, LBM yesterday. "i normally go twice a day". Historical: - Allergies: 08:12 No Known Allergies; tw2 - PMHx: 08:12 ALOPECIA; Atrial Fib; insomnia; CAD; Myocardial infarction; Glaucoma; Hyperlipidemia; tw2 Hypertension; Colitis; Hypothyroidism; ulcerative colitis; - Immunization history:: Client reports receiving the 2nd dose of the Covid vaccine. - Social history:: Smoking status: Patient denies any tobacco usage or history of. Screenin:18 Abuse screen: Denies threats or abuse. Nutritional screening: No deficits noted. tw2 Tuberculosis screening: No symptoms or risk factors identified. Fall Risk None identified. Assessment: 08:48 General: Appears in no apparent distress. uncomfortable, Behavior is calm, cooperative, ap3 appropriate for age. Pain: Complains of pain in left lower quadrant Pain began 1 day ago. Neuro: Level of Consciousness is awake, alert, obeys commands, Oriented to person, place, time, situation, Appropriate for age Moves all extremities. Speech is normal. Cardiovascular: Denies chest pain, lightheadedness, shortness of breath. Cardiovascular: Capillary refill < 3 seconds Patient's skin is warm and dry. Respiratory: Airway is patent Respiratory effort is even, unlabored, Respiratory pattern is regular, symmetrical. GI: No signs and/or symptoms were reported involving the gastrointestinal system. : Reports pain in left lower quadrant(s) since one day ago. EENT: No signs and/or symptoms were reported regarding the EENT system. Derm: No signs and/or symptoms reported regarding the dermatologic system. 09:21 Reassessment: patient provided with urinal, wipes and specimen cup along with education ap3 in providing sample. patient verbalized understanding. 10:04 Reassessment: Patient and/or family updated on plan of care and expected duration. Pain ap3 level reassessed. Patient is alert, oriented x 3, equal unlabored respirations, skin warm/dry/pink. Vital Signs: 08:09 BP 136 / 93; Pulse 70; Resp 18; Temp 97.9(TE); Pulse Ox 99% on R/A; tw2 08:50 BP 145 / 81; Pulse 73; Resp 17; Pulse Ox 98% on R/A; Pain 10/10; ap3 09:53 BP 126 / 82; Pulse Ox 99% on R/A; ap3 11:22 BP 116 / 74; Pulse 76; ap3 ED Course: 08:06 Patient arrived in ED. am2 08:06 Garett Louie MD is Private Physician. am2 08:11 Triage completed. tw2 08:12 Arm band placed on. tw2 08:13 Kandace Fritz [facility]-C [facility] kb 08:13 Alonzo Gamboa MD is Attending Physician. kb 08:13 Bed in low position. Call light in reach. Adult w/ patient. tw2 08:35 CT Stone Protocol In Process Unspecified. EDMS 08:40 Inserted saline lock: 20 gauge in left antecubital area, using aseptic technique. Blood ap3 collected. 09:02 Pt visited by . ap3 09:02 Pulse ox on. NIBP on. Door closed. Noise minimized. Warm blanket given. ap3 09:07 Meghan Dejesus, JAMES is Primary Nurse. ap3 09:27 Nurse Practitioner and/or Physician Fudge Candy Maker to see patient. ap3 11:03 uAbrey Porras MD is Referral Physician. kb 11:22 No provider procedures requiring assistance completed. IV discontinued, intact, ap3 bleeding controlled, No redness/swelling at site. Pressure dressing applied. Administered Medications: 09:02 Drug: NS 0.9% 1000 ml Route: IV; Rate: 1000 ml; Site: left antecubital; ap3 10:03 Follow up: IV Status: Completed infusion; IV Intake: 1000ml ap3 09:02 Drug: Zofran (Ondansetron) 4 mg Route: IVP; Site: left antecubital; ap3 09:21 Follow up: Response: No adverse reaction ap3 09:02 Drug: morphine 4 mg {Note: rass: pt awake/alert.} Route: IVP; Site: left antecubital; ap3 09:21 Follow up: Response: No adverse reaction; Pain is decreased ap3 09:21 Drug: Magnesium Sulfate 1 grams Route: IVPB; Infused Over: 30 mins; Site: left ap3 antecubital; 10:03 Follow up: IV Status: Completed infusion; IV Intake: 100ml ap3 09:34 Drug: Ketorolac 15 mg Route: IVP; Site: left antecubital; ap3 10:03 Follow up: Response: No adverse reaction; Pain is decreased ap3 Intake: 10:03 IV: 1000ml; Total: 1000ml. ap3 10:03 IV: 100ml; Total: 1100ml. ap3 Outcome: 11:03 Discharge ordered by . kb 11:22 Discharged to home ambulatory, with family. ap3 11:22 Condition: good 11:22 Discharge instructions given to patient, family, Instructed on discharge instructions, follow up and referral plans. Demonstrated understanding of instructions, follow-up care, medications, Prescriptions given X 2. 11:22 Patient left the ED. ap3 Signatures: Dispatcher [employer] EDPR Kandace Fritz, DELIVERY STOCK CLERK-C DELIVERY STOCK CLERK-Ckb Unique Hussein RN RN tw2 Meghan Cohn am2 Meghan Dejesus, JAMES RN ap3
[2021-07-16 11:45] VITALS: TEMP 97.9
[2021-07-16 11:54] VITALS: O2SAT 99
[2021-07-16 11:55] VITALS: BP 116/74
== END 2021-07-16 11:22 | disposition home or self-care (01) ==
LOC: ER 08:04
DX: N20.2 Calculus of kidney with calculus of ureter (principal); I10 Essential (primary) hypertension; I48.91 Unspecified atrial fibrillation; E78.5 Hyperlipidemia, unspecified; E03.9 Hypothyroidism, unspecified; L65.9 Nonscarring hair loss, unspecified; G47.00 Insomnia, unspecified; I25.10 Atherosclerotic heart disease of native coronary artery without angina pectoris; I25.2 Old myocardial infarction; H40.9 Unspecified glaucoma; K51.90 Ulcerative colitis, unspecified, without complications
CPT/HCPCS: 96365; 85025; 80048; 36415; 76377; 74176; 96375; 99284; J3475; J7030; J2405; 81003; 81015

== ENCOUNTER 2021-07-27 09:11 | Emergency (ER) | payer OTHER ==
[2021-07-27 09:47] LABS: Absolute Lymphocytes (CBC) 1.4 K/uL (0.7-4.9); Basophils % 0.6 % (0-1.3); Hematocrit 51.2 % (39.6-49.0); Lymphocytes % 16.5 % (15.3-44.8); MPV 8.7 fL (7.6-11.3); RBC Red Blood Cell Count 5.64 M/uL (4.33-5.43)
[2021-07-27 09:49] LABS: Protime INR 1.15
[2021-07-27] MEDS ORDERED: METOPROLOL TARTRATE 5 MG/5 ML INJ IV ONE (09:50)
[2021-07-27] MEDS ORDERED: NA CHLORIDE 0.9% 500 ML ONE ×2 (09:51→10:17)
[2021-07-27 10:03] LABS: Potassium 3.8 mmol/L (3.5-5.1); Troponin (Emerg Dept Use Only) 0.02 ng/mL (0.0-0.045)
--- NOTE | 2021-07-27 10:20 | RAD REPORT ---
EXAM DESCRIPTION: RAD - Chest Single View - 07/27/2021 10:01 am CLINICAL HISTORY: PALPITATIONS Chest pain. COMPARISON: Abdomen 1 View (KUB) dated 07/25/2021; Chest Single View dated 11/14/2020; Chest Single Vie w dated 08/30/2017; Chest Single View dated 01/10/2017 FINDINGS: Portable technique limits examination quality. Linear opacities are present in both lung bases most compatible with subsegmental atelectasis. The sridevi ngs are otherwise clear. The heart is upper limit of normal in size. No displaced fractures.
[2021-07-27] MEDS ORDERED: Magnesium Sulfate 2gm IVPB 2 G/50 ML BAG IV ONE (10:39)
[2021-07-27] MEDS ORDERED: MIDAZOLAM HCL 2 MG/2 ML INJ ONE (10:56)
[2021-07-27] MEDS ORDERED: FENTANYL CITR 100 MCG/2 ML ONE (10:56)
--- NOTE | 2021-07-27 11:23 | RAD REPORT ---
EXAM DESCRIPTION: CT - Stone Protocol - 07/27/2021 11:04 am CLINICAL HISTORY: Flank pain. FLANK PAIN COMPARISON: Stone Protocol dated 07/16/2021 TECHNIQUE: Axial images were obtained without oral or IV contrast. Lack of contrast limits solid org an and vascular assessment. The [id number] spans the entirety of the system partially obscuring uppermost abdomen and lung bases. Coronal reformatted images were obtained and reviewed. All CT scans are performed using dose optimization technique as appropriate and may include automated exposure control or mA/KV adjustment according to patient size. FINDINGS: Linear scarring is present in both lung bases. Imaged portions of the liver and spleen show no suspicious findings on non-contrast imaging.Cholecyst ectomy clips. The pancreas and adrenal glands are normal. No pathologic lymphadenopathy in the abdome n or pelvis. The previously noted distal left ureter stone is no longer seen and is presumed to have been passed. There is mild residual left-sided hydronephrosis. No right-sided stone or hydronephrosis seen. No bowel obstruction, free air, free fluid or abscess. Normal appendix noted.Small fat containing umb ilical hernia. Small bilateral inguinal hernias. Moderate lumbar degenerative changes with vacuum disc degeneration. IMPRESSION: Previously noted distal left ureter stone has likely passed with mild residual left-side d hydronephrosis evident.
--- NOTE | 2021-07-27 12:16 | EDPHYS ---
Physician Documentation [facility] Name: Jesse Ortega Age: 76 yrs Sex: Male : 1945 Arrival Date: 07/27/2021 Time: 09:14 Bed 17 Private MD: ED Physician Devan Lockhart HPI: 07/27 10:08 This 76 yrs old Male presents to ER via Ambulatory with complaints of rn Palpitations. 10:08 The patient presents with a history of irregular heart beat, heart racing. Context: The rn symptoms occur at rest. Onset: The symptoms/episode began/occurred this morning. Duration: The patient or guardian reports a single episode, that is still ongoing. Modifying factors: The symptoms are aggravated by nothing. The symptoms are alleviated by nothing. Associated signs and symptoms: Pertinent positives: chest pain, lightheadedness, nausea, Pertinent negatives: cough, fever, syncope. Severity of symptoms: At their worst the symptoms were moderate in the emergency department the symptoms are unchanged. The patient has experienced similar episodes in the past. The patient has not recently seen a physician. Patient reports this morning started with palpitations and feels like is in atrial fibrillation once again. 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 Also did not tolerate amiodarone at the time. Denies any recent illness. No syncope. Reports mild dizziness and chest pain. No recent trauma.. Historical: - Allergies: : No Known Allergies; jl7 - Home Meds: : Plavix Oral [Active]; ibersartan [Active]; levothyroxine oral [Active]; lansoprazole jl7 oral [Active]; rosuvastatin oral [Active]; ezetimibe oral [Active]; - PMHx: :31 ALOPECIA; Atrial Fib; CAD; Colitis; Glaucoma; Hyperlipidemia; Hypertension; jl7 Hypothyroidism; insomnia; Myocardial infarction; ulcerative colitis; - Immunization history:: Adult Immunizations up to date, Client reports receiving the 2nd dose of the Covid vaccine, Date received: January 2021 [place]. - Social history:: Smoking status: Patient denies any tobacco usage or history of. - Family history:: not pertinent. - Hospitalizations: : No recent hospitalization is reported. ROS: 10:08 Constitutional: Negative for fever, chills, and weight loss, Eyes: Negative for injury, rn pain, redness, and discharge, ENT: Negative for injury, pain, and discharge, Neck: Negative for injury, pain, and swelling, Cardiovascular: Negative for edema Respiratory: Negative for cough, wheezing Abdomen/GI: Negative for abdominal pain, nausea, vomiting, diarrhea, and constipation, Back: Negative for injury and pain, : Negative for injury, bleeding, discharge, and swelling, MS/Extremity: Negative for injury and deformity, Skin: Negative for injury, rash, and discoloration, Neuro: Negative for headache, numbness, tingling, and seizure. 10:08 All other systems are negative. Exam: 10:08 Constitutional: This is a well developed, well nourished patient who is awake, alert, rn diaphoretic. Head/Face: Normocephalic, atraumatic. Eyes: Periorbital areas with no swelling, redness, or edema. Cardiovascular: Tachycardic, irregularly irregular rhythm. Respiratory: Mild tachypnea. Abdomen/GI: Soft, non-tender Skin: Warm, dry MS/ Extremity: Pulses equal, no cyanosis. Neuro: Awake and alert, GCS 15, oriented to person, place, time, and situation. Cranial nerves II-XII grossly intact. Motor strength 5/5 in all extremities. Sensory grossly intact. Vital Signs: 09:28 BP 120 / 100; Pulse 173; Resp 24; Pulse Ox 96% ; Weight 88.45 kg; Height 5 ft. 10 in. jl7 (177.80 cm); Pain 5/10; 09:56 BP 88 / 77; Pulse 144; Resp 22; Pulse Ox 98% ; tc5 12:30 BP 104 / 81; Pulse 74; Resp 16; Pulse Ox 98% ; tc5 13:22 BP 100 / 67; Pulse 82; Resp 18; Pulse Ox 97% ; tc5 09:28 Body Mass Index 27.98 (88.45 kg, 177.80 cm) jl7 MDM: 09:19 Patient medically screened. rn 10:31 ED course: Patient's blood pressure continues to be hypotensive. Still diaphoretic. international operations manager rate still in the 140s and complains of pain. Will consent for electrical cardioversion.. 10:39 ED course: Blood pressure currently 110/89. Heart rate 138. Will give patient a little rn more time prior to cardioversion to see if medication can improve rapid ventricular rate.. 10:58 ED course: Pt spontaneously converted to sinus rhythm after fentanyl. will cont to rn monitor.. 12:13 Differential diagnosis: arrythmia, dehydration, stress disorder. Data reviewed: vital rn signs, nurses notes, lab test result(s), EKG, and as a result, I will discharge patient. Data interpreted: teletypesetter monitor: rate is 144 beats/min, rhythm is atrial fibrillation, with no ectopy, Interpretation: atrial fibrillation, tachycardia, Pulse oximetry: on room air is 98 %. Interpretation: normal. Counseling: I had a detailed discussion with the patient and/or guardian regarding: the historical points, exam findings, and any diagnostic results supporting the discharge/admit diagnosis, lab results, the need for outpatient follow up, to return to the emergency department if symptoms worsen or persist or if there are any questions or concerns that arise at home. Response to treatment: the patient's symptoms have markedly improved after treatment, the patient's condition has returned to base line, the patient is now symptom free, and as a result, I will discharge patient. Special discussion: I discussed with the patient/guardian in detail that at this point there is no indication for admission to the hospital. It is understood, however, that if the symptoms persist or worsen the patient needs to return immediately for re-evaluation. ED course: Patient has remained in sinus rhythm after spontaneous cardioversion. Consulted with his rocket assembly operator Dr. Steven who states patient can be discharged and will see him upon discharge in clinic today. Patient feels well. Will DC to clinic.. 07/27 09:25 Order name: Basic Metabolic Panel; Complete Time: 10:07/27 09:25 Order name: CBC with Diff; Complete Time: 10:07/27 09:25 Order name: NT PRO-BNP; Complete Time: 10:07/27 09:25 Order name: PT-INR; Complete Time: :07/27 09:25 Order name: Troponin (emerg Dept Use Only); Complete Time: 10:07/27 09:25 Order name: XRAY Chest (1 view); Complete Time: 10:07/27 10:43 Order name: CT Stone Protocol; Complete Time: 11:07/27 09:25 Order name: EKG; Complete Time: 09:25 rn 07/27 09:25 Order name: Cardiac monitoring; Complete Time: 09:34 rn 07/27 09:25 Order name: EKG - Nurse/Tech; Complete Time: 09:34 rn 07/27 09:25 Order name: IV Saline Lock; Complete Time: 09:58 rn 07/27 09:25 Order name: Labs collected and sent; Complete Time: 09:58 rn 07/27 09:25 Order name: O2 Per Protocol; Complete Time: 09:34 rn 07/27 09:25 Order name: O2 Sat Monitoring; Complete Time: :34 rn Administered Medications: 09:33 Drug: NS 0.9% 500 ml Route: IV; Rate: bolus; Site: right antecubital; tc5 13:24 Follow up: IV Status: Completed infusion tc5 13:24 Follow up: IV Status: Completed infusion tc5 09:34 Drug: Metoprolol 5 mg Route: IVP; Site: right antecubital; tc5 13:24 Follow up: Response: Blood pressure is lowered; Cardiac rhythm is unchanged tc5 09:57 CANCELLED (BP droppedd): Metoprolol 25 mg PO once rn 09:57 Drug: NS 0.9% 500 ml Route: IV; Rate: bolus; Site: right antecubital; tc5 10:25 Drug: Magnesium Sulfate 1 grams Route: IVPB; Infused Over: 1 hrs; Site: right tc5 antecubital; 13:24 Follow up: IV Status: Completed infusion tc5 10:38 Drug: fentaNYL (PF) 100 mcg {Note: gave 50 mcg, Unique RN witnessed waste..} Route: IVP; tc5 Site: left antecubital; 10:47 CANCELLED (pt now in sinus rhythmm): Versed (midazolam) 2 mg IVP once rn Disposition Summary: 07/27/21 12:15 Discharge Ordered Location: Home rn Problem: an acute exacerbation rn Symptoms: have improved rn Condition: Stable rn Diagnosis - Paroxysmal atrial fibrillation rn - Tachycardia, unspecified rn Followup: rn - With: Carlos Steven MD - When: Upon discharge from the Emergency Department - Reason: Recheck today's complaints, Continuance of care, Re-evaluation by your physician Discharge Instructions: - Discharge Summary Sheet rn - Atrial Fibrillation rn Forms: - Medication Reconciliation Form rn - Thank You Letter rn - Antibiotic internal combustion engine assembler - SBAR form bd - Prescription Opioid Use rn Signatures: Dispatcher [employer] Devan Klein MD MD rn Leal, Jahala, RN RN jl7 Maricarmen Tinsley, RN RN tc5 Corrections: (The following items were deleted from the chart) 09:57 09:25 Metoprolol 25 mg PO once ordered. rn rn 10:47 10:31 Versed (midazolam) 2 mg IVP once ordered. rn rn
--- NOTE | 2021-07-27 12:16 | ER ---
Nurse's Notes [facility] Name: Jesse Ortega Age: 76 yrs Sex: Male : 1945 Arrival Date: 07/27/2021 Time: 09:14 Bed 17 Private MD: Diagnosis: Paroxysmal atrial fibrillation;Tachycardia, unspecified Presentation: 07/27 09:28 Chief complaint: Patient states: Palpitations started this morning, reports midsternal jl7 burning chest pain. Coronavirus screen: Vaccine status: Patient reports receiving the 2nd dose of the covid vaccine. Date January 2021 At this time, the client does not indicate any symptoms associated with coronavirus-19. Ebola Screen: No symptoms or risks identified at this time. Initial Sepsis Screen: Does the patient meet any 2 criteria? No. Patient's initial sepsis screen is negative. Does the patient have a suspected source of infection? No. Patient's initial sepsis screen is negative. Risk Assessment: Do you want to hurt yourself or someone else? Patient reports no desire to harm self or others. Onset of symptoms was July 27, 2021. Care prior to arrival: None. 09:28 Method Of Arrival: Ambulatory 7 09:28 Acuity: KAVON 2 jl7 Historical: - Allergies: :31 No Known Allergies; jl7 - Home Meds: :31 Plavix Oral [Active]; ibersartan [Active]; levothyroxine oral [Active]; lansoprazole jl7 oral [Active]; rosuvastatin oral [Active]; ezetimibe oral [Active]; - PMHx: 09:31 ALOPECIA; Atrial Fib; CAD; Colitis; Glaucoma; Hyperlipidemia; Hypertension; jl7 Hypothyroidism; insomnia; Myocardial infarction; ulcerative colitis; - Immunization history:: Adult Immunizations up to date, Client reports receiving the 2nd dose of the Covid vaccine, Date received: January 2021 Moderna. - Social history:: Smoking status: Patient denies any tobacco usage or history of. - Family history:: not pertinent. - Hospitalizations: : No recent hospitalization is reported. Vital Signs: 09:28 BP 120 / 100; Pulse 173; Resp 24; Pulse Ox 96% ; Weight 88.45 kg; Height 5 ft. 10 in. jl7 (177.80 cm); Pain 5/10; 09:56 BP 88 / 77; Pulse 144; Resp 22; Pulse Ox 98% ; tc5 12:30 BP 104 / 81; Pulse 74; Resp 16; Pulse Ox 98% ; tc5 13:22 BP 100 / 67; Pulse 82; Resp 18; Pulse Ox 97% ; tc5 09:28 Body Mass Index 27.98 (88.45 kg, 177.80 cm) jl7 ED Course: 09:14 Patient arrived in ED. rg4 09:19 Devan Lockhart MD is Attending Physician. rn 09:31 Triage completed. jl7 09:31 Arm band placed on right wrist. jl7 09:34 XRAY Chest (1 view) Sent. tc5 09:34 EKG completed in triage. Results shown to MD. jl7 10:01 XRAY Chest (1 view) In Process Unspecified. EDMS 11:04 CT Stone Protocol In Process Unspecified. EDMS 12:14 Carlos Steven MD is Referral Physician. rn 13:37 IV discontinued, intact, bleeding controlled, No redness/swelling at site. Pressure tc5 dressing applied, 20 g RAC, 18g LAC. Administered Medications: 09:33 Drug: NS 0.9% 500 ml Route: IV; Rate: bolus; Site: right antecubital; tc5 13:24 Follow up: IV Status: Completed infusion tc5 13:24 Follow up: IV Status: Completed infusion tc5 09:34 Drug: Metoprolol 5 mg Route: IVP; Site: right antecubital; tc5 13:24 Follow up: Response: Blood pressure is lowered; Cardiac rhythm is unchanged tc5 09:57 CANCELLED (BP droppedd): Metoprolol 25 mg PO once rn 09:57 Drug: NS 0.9% 500 ml Route: IV; Rate: bolus; Site: right antecubital; tc5 10:25 Drug: Magnesium Sulfate 1 grams Route: IVPB; Infused Over: 1 hrs; Site: right tc5 antecubital; 13:24 Follow up: IV Status: Completed infusion tc5 10:38 Drug: fentaNYL (PF) 100 mcg {Note: gave 50 mcg, Unique RN witnessed waste..} Route: IVP; tc5 Site: left antecubital; 10:47 CANCELLED (pt now in sinus rhythmm): Versed (midazolam) 2 mg IVP once rn Outcome: 12:15 Discharge ordered by . rn 13:27 Patient left the ED. ss 13:27 Discharged to home with family, pt went to cardiology appointment with . tc5 13:27 Condition: stable 13:27 Discharge instructions given to family. Signatures: Dispatcher [employer] EDMS Devan Lockhart MD MD rn Smirch, Shelby RN RN Lucie Finn rg4 Erasto Nova RN RN jl7 Mariacrmen Tinsley RN RN tc5
[2021-07-27 13:54] VITALS: BP 100/67; O2SAT 97
--- NOTE | 2021-07-28 10:26 | EKG ---
Test Date: 2021-07-27 Test Time: 12:17:04 Corporate Concierge: KALIN MEASUREMENT RESULTS: Intervals: Rate: 77 HI: 164 QRSD: 88 QT: 402 QTc: 454 [place]: P: 78 HI: 164 QRS: -43 T: 22 INTERPRETIVE STATEMENTS: Normal sinus rhythm Left axis deviation Nonspecific ST and T wave abnormality Abnormal ECG Compared to ECG 11/14/2020 08:31:17 ST (T wave) deviation now present Sinus tachycardia no longer present Myocardial infarct finding no longer present Electronically Signed On 07-28-21 10:22:11 CDT by Carlos Steven
--- NOTE | 2021-07-28 10:27 | EKG ---
Test Date: 2021-07-27 Test Time: 09:21:41 Lapel Padder: PATRICE MEASUREMENT RESULTS: Intervals: Rate: 161 DC: QRSD: 98 QT: 294 QTc: 481 [place]: P: DC: QRS: -35 T: 86 INTERPRETIVE STATEMENTS: Atrial fibrillation with rapid ventricular response Left axis deviation ST abnormality, possible digitalis effect Abnormal ECG Compared to ECG 11/14/2020 08:31:17 ST (T wave) deviation now present Sinus tachycardia no longer present Myocardial infarct finding no longer present Electronically Signed On 07-28-21 10:22:23 CDT by Carlos Steven
== END 2021-07-27 13:27 | disposition home or self-care (01) ==
LOC: ER 09:11
DX: I48.0 Paroxysmal atrial fibrillation (principal); R00.0 Tachycardia, unspecified; E03.9 Hypothyroidism, unspecified; I25.2 Old myocardial infarction; Z79.01 Long term (current) use of anticoagulants
CPT/HCPCS: 93005 ×2; 85025; 80048; 36415; 85610; 84484; 83880; 76377; 74176; 71045; 99283; J3010; J3475; J7040 ×2; J2250

== ENCOUNTER 2022-07-04 02:13 | Inpatient (IN) | payer OTHER ==
--- OUTSIDE RECORDS SUMMARY | 2022-07-04 02:27 | XMS REPORT | Continuity of Care Document ---
:1945 Author Organization [facility] t Address [address] [place] [address] [place] [id number] Care Team Providers Name Role Phone Unavailable Unavailable Unavailable Problems This patient has no known problems. Allergies, Adverse Reactions, Alerts This patient has no known allergies or adverse reactions. Medications This patient has no known medications. Procedures This patient has no known procedures. Results This patient has no known results.
[2022-07-04] MEDS ORDERED: METOPROLOL TARTRATE 5 MG/5 ML INJ IV ONE ×2 (02:45)
[2022-07-04 02:47] LABS: Absolute Lymphocytes (CBC) 2.7 K/uL (0.7-4.9); Hematocrit 51.7 % (39.6-49.0); Lymphocytes % 41.4 % (15.3-44.8); MCV 87.5 fL (80-100); MPV 8.2 fL (7.6-11.3); RBC Red Blood Cell Count 5.91 M/uL (4.33-5.43)
[2022-07-04] MEDS ORDERED: NA CHLORIDE 0.9% 500 ML ONE ×2 (02:56→03:10)
[2022-07-04] MEDS ORDERED: ONDANSETRON 4 MG/2 ML VIAL ONE (02:58)
[2022-07-04 03:07] LABS: Potassium 3.6 mmol/L (3.5-5.1); Troponin High Sensitivity 8.9 pg/mL (<58.9)
[2022-07-04] MEDS ORDERED: MIDAZOLAM HCL 2 MG/2 ML INJ ONE (03:55)
[2022-07-04] MEDS ORDERED: FENTANYL CITR 100 MCG/2 ML ONE (03:56)
[2022-07-04] MEDS ORDERED: NA CHLORIDE 0.9% 1,000 ML ONE ×2 (04:00→05:33)
--- NOTE | 2022-07-04 04:04 | EDPHYS ---
Physician Documentation [facility] Name: Jesse Ortega Age: 77 yrs Sex: Male : 1945 Arrival Date: 07/04/2022 Time: 02:14 Bed 13 Private MD: ED Physician Alonzo Gamboa HPI: 07/04 02:44 This 77 yrs old Male presents to ER via Ambulatory with complaints of Heart Beating kdr Fast. 02:44 The patient presents with a history of irregular heart beat, heart racing. Context: The kdr symptoms occur at rest. Onset: The symptoms/episode began/occurred suddenly, last night. Duration: The patient or guardian reports a single episode, that is still ongoing. Modifying factors: The symptoms are aggravated by nothing. The symptoms are alleviated by nothing. Associated signs and symptoms: Pertinent positives: chest pain, lightheadedness. Severity of symptoms: At their worst the symptoms were moderate in the emergency department the symptoms have improved mildly. The patient has experienced similar episodes in the past, multiple times. The patient has not recently seen a physician. Historical: - Allergies: 02:41 No Known Allergies; bb - PMHx: 02:41 ALOPECIA; Atrial Fib; CAD; Colitis; Glaucoma; Hyperlipidemia; Hypertension; bb Hypothyroidism; insomnia; Myocardial infarction; ulcerative colitis; - Immunization history:: Adult Immunizations up to date, moderna X3. - Social history:: Smoking status: Patient denies any tobacco usage or history of. Patient/guardian denies using alcohol, street drugs. ROS: 02:44 Constitutional: Negative for fever, chills, and weight loss, Eyes: Negative for injury, kdr pain, redness, and discharge, Neck: Negative for injury, pain, and swelling, Respiratory: Negative for shortness of breath, cough, wheezing, and pleuritic chest pain, Abdomen/GI: Negative for abdominal pain, nausea, vomiting, diarrhea, and constipation, Back: Negative for injury and pain, : Negative for injury, bleeding, discharge, and swelling, MS/Extremity: Negative for injury and deformity, Skin: Negative for injury, rash, and discoloration, Neuro: Negative for headache, weakness, numbness, tingling, and seizure activity. Psych: Negative for depression, anxiety, suicide ideation, homicidal ideation, and hallucinations, Allergy/Immunology: Negative for hives, rash, and allergies, Endocrine: Negative for neck swelling, polydipsia, polyuria, polyphagia, and marked weight changes, Hematologic/Lymphatic: Negative for swollen nodes, abnormal bleeding, and unusual bruising. 02:44 Cardiovascular: Positive for chest pain, palpitations, Negative for edema, orthopnea. Exam: 02:44 Constitutional: This is a well developed, well nourished patient who is awake, alert, kdr and in no acute distress. Head/Face: Normocephalic, atraumatic. Eyes: Pupils equal round and reactive to light, extra-ocular motions intact. Lids and lashes normal. Conjunctiva and sclera are non-icteric and not injected. Cornea within normal limits. Periorbital areas with no swelling, redness, or edema. Neck: Trachea midline, no thyromegaly or masses palpated, and no cervical lymphadenopathy. Supple, full range of motion without nuchal rigidity, or vertebral point tenderness. No Meningismus. Chest/axilla: Normal chest wall appearance and motion. Nontender with no deformity. No lesions are appreciated. Respiratory: Lungs have equal breath sounds bilaterally, clear to auscultation and percussion. No rales, rhonchi or wheezes noted. No increased work of breathing, no retractions or nasal flaring. Abdomen/GI: Soft, non-tender, with normal bowel sounds. No distension or tympany. No guarding or rebound. No evidence of tenderness throughout. Back: No spinal tenderness. No costovertebral tenderness. Full range of motion. Skin: Warm, dry with normal turgor. Normal color with no rashes, no lesions, and no evidence of cellulitis. MS/ Extremity: Pulses equal, no cyanosis. Neurovascular intact. Full, normal range of motion. Neuro: Awake and alert, GCS 15, oriented to person, place, time, and situation. Cranial nerves II-XII grossly intact. Motor strength 5/5 in all extremities. Sensory grossly intact. Cerebellar exam normal. Normal gait. 02:44 Cardiovascular: Rate: tachycardic, Rhythm: irregularly irregular, Pulses: no pulse deficits are appreciated, Heart sounds: normal, Edema: is not appreciated. 02:44 ECG was reviewed by the Attending Physician. kdr Vital Signs: 02:38 BP 105 / 88; Pulse 149; Resp 18; Pulse Ox 97% on R/A; lg3 02:44 BP 84 / 72; Pulse 136; Resp 20; Pulse Ox 97% on R/A; lg3 03:00 BP 101 / 84; Pulse 141; Resp 19; Pulse Ox 98% on R/A; lg3 03:20 BP 110 / 53; Pulse 129; Resp 20; Pulse Ox 98% on R/A; lg3 03:38 BP 84 / 61; Pulse 144; Resp 22; Pulse Ox 97% on R/A; lg3 03:59 BP 130 / 85; Pulse 75; Resp 19; Pulse Ox 96% on 3 lpm NC; lg3 04:31 BP 105 / 76; Pulse 71; Resp 17 S; Pulse Ox 100% on R/A; lg3 MDM: 02:44 Data reviewed: vital signs, nurses notes, lab test result(s), EKG, radiologic studies. kdr Counseling: I had a detailed discussion with the patient and/or guardian regarding: the historical points, exam findings, and any diagnostic results supporting the discharge/admit diagnosis, lab results, radiology results, the need for outpatient follow up. 04:04 Patient medically screened. kdr 07/04 02:29 Order name: Basic Metabolic Panel; Complete Time: 04:03 kdr 07/04 02:29 Order name: CBC with Diff; Complete Time: 04:03 kdr 07/04 02:29 Order name: Troponin HS; Complete Time: 04:03 kdr 07/04 02:29 Order name: XRAY Chest (1 view) kdr 07/04 04:08 Order name: SARS RAPID; Complete Time: 04:44 wm 07/04 02:29 Order name: EKG; Complete Time: 02:30 kdr 07/04 02:29 Order name: Cardiac monitoring; Complete Time: 02:34 kdr 07/04 02:29 Order name: EKG - Nurse/Tech; Complete Time: 02:34 kdr 07/04 02:29 Order name: IV Saline Lock; Complete Time: 02:37 kdr 07/04 02:29 Order name: Labs collected and sent; Complete Time: 02:37 kdr 07/04 02:29 Order name: O2 Per Protocol; Complete Time: 02:34 kdr 07/04 02:29 Order name: O2 Sat Monitoring; Complete Time: 02:34 kdr EC:30 Rate is 71 beats/min. Rhythm is regular, Sinus Rhythm with No ectopy. CA interval is kdr normal. QRS interval is normal. QT interval is normal. Clinical impression: NSR w/ Non-specific ST/T Changes. Administered Medications: 02:39 Drug: Lopressor (metoprolol) 5 mg Route: IVP; Site: right antecubital; lg3 05:51 Follow up: Response: Blood pressure is lowered lg3 02:49 Drug: NS 0.9% 500 ml Route: IV; Rate: bolus; Site: right antecubital; lg3 03:35 Follow up: Response: No adverse reaction; IV Status: Completed infusion; IV Intake: lg3 500ml 02:53 Drug: Zofran (Ondansetron) 4 mg Route: IVP; Site: right antecubital; lg3 03:35 Follow up: Response: No adverse reaction lg3 03:53 Drug: Versed (midazolam) 2 mg Route: IVP; Site: right antecubital; lg3 04:10 Follow up: Response: No adverse reaction; RASS: Light sedation (-2) lg3 03:53 Drug: fentaNYL (PF) 25 mcg Route: IVP; Site: right antecubital; lg3 04:10 Follow up: Response: No adverse reaction; Marked relief of symptoms lg3 03:54 Drug: fentaNYL (PF) 25 mcg Route: IVP; Site: right antecubital; lg3 04:10 Follow up: Response: No adverse reaction; Marked relief of symptoms lg3 03:54 Drug: NS 0.9% 1000 ml Route: IV; Rate: 1 bolus; Site: right antecubital; lg3 04:33 Follow up: Response: No adverse reaction; IV Status: Completed infusion; IV Intake: lg3 1000ml Disposition Summary: 07/04/22 04:04 Hospitalization Ordered Hospitalization Status: Inpatient Admission kdr Provider: Linwood Jung Condition: Fair kdr Problem: an acute exacerbation kdr Symptoms: have improved kdr Bed/Room Type: Standard kdr Location: Telemetry/MedSurg (Inpatient)(07/04/22 08:25) eb Room Assignment: [facility](07/04/22 08:25) eb Diagnosis - Paroxysmal atrial fibrillation kdr Forms: - Medication Reconciliation Form kdr - SBAR form kdr Signatures: Dispatcher [employer] EDMS Marlyn Sweeney RN RN mw Rittger, Kevin, MD MD kdr Ballard, Brenda RN RN Freya Russ Lacie, RN RN lg3 Aura Calderon PA PA sb3 Corrections: (The following items were deleted from the chart) :34 04:04 Telemetry/MedSurg (Inpatient) kdr mw :34 04:04 kdr mw 08: 04:34 BR ER HOLD eb : 04:34 ERHOLD- mw eb
--- NOTE | 2022-07-04 04:04 | ER ---
Nurse's Notes [facility] Name: Jesse Ortega Age: 77 yrs Sex: Male : 1945 Arrival Date: 07/04/2022 Time: 02:14 Bed 13 Private MD: Diagnosis: Paroxysmal atrial fibrillation Presentation: 07/04 02:20 Chief complaint: Patient states: his heart is beating fast and he is in Afib. Pt has hx bb of afib states he took irbesartan and metoprolol at 0100 for his BP and his HR. Coronavirus screen: At this time, the client does not indicate any symptoms associated with coronavirus-19. Ebola Screen: No symptoms or risks identified at this time. Initial Sepsis Screen: Does the patient meet any 2 criteria? No. Patient's initial sepsis screen is negative. Does the patient have a suspected source of infection? No. Patient's initial sepsis screen is negative. Risk Assessment: Do you want to hurt yourself or someone else? Patient reports no desire to harm self or others. Onset of symptoms was July 04, 2022. 02:20 Method Of Arrival: Ambulatory bb 02:20 Acuity: KAVON 2 bb Historical: - Allergies: 02:41 No Known Allergies; bb - PMHx: 02:41 ALOPECIA; Atrial Fib; CAD; Colitis; Glaucoma; Hyperlipidemia; Hypertension; bb Hypothyroidism; insomnia; Myocardial infarction; ulcerative colitis; - Immunization history:: Adult Immunizations up to date, moderna X3. - Social history:: Smoking status: Patient denies any tobacco usage or history of. Patient/guardian denies using alcohol, street drugs. Screenin:53 Abuse screen: Denies threats or abuse. Denies injuries from another. Nutritional lg3 screening: No deficits noted. Tuberculosis screening: No symptoms or risk factors identified. Fall Risk None identified. Assessment: 02:53 General: Appears in no apparent distress. uncomfortable, Behavior is calm, cooperative. lg3 Pain: Denies pain. Neuro: No deficits noted. Level of Consciousness is awake, alert, obeys commands, Oriented to person, place, time, situation. Cardiovascular: Reports lightheadedness, nausea, tachycardia Capillary refill < 3 seconds Clubbing of nail beds is absent JVD is absent Patient's skin is warm and dry. Respiratory: No deficits noted. Airway is patent Trachea midline Respiratory effort is even, unlabored, Respiratory pattern is regular, symmetrical, Breath sounds are clear bilaterally. GI: No deficits noted. No signs and/or symptoms were reported involving the gastrointestinal system. Abdomen is flat, non-distended, Bowel sounds present X 4 quads. Abd is soft and non tender X 4 quads. : No deficits noted. No signs and/or symptoms were reported regarding the genitourinary system. EENT: No deficits noted. No signs and/or symptoms were reported regarding the EENT system. Derm: No deficits noted. No signs and/or symptoms reported regarding the dermatologic system. Skin is intact, is healthy with good turgor, Skin is clammy, Skin temperature is cool. Musculoskeletal: No deficits noted. No signs and/or symptoms reported regarding the musculoskeletal system. Circulation, motion, and sensation intact. Range of motion: intact in all extremities. 03:14 Reassessment: Patient appears in no apparent distress at this time. No changes from lg3 previously documented assessment. Patient and/or family updated on plan of care and expected duration. Pain level reassessed. 03:58 General: shock administered \T\120 Sudhir. lg3 04:32 General: Appears in no apparent distress. uncomfortable, Behavior is calm, cooperative. lg3 Pain: Denies pain. Neuro: No deficits noted. Dowell Agitation-Sedation Scale (RASS): 0 - Alert and Calm Level of Consciousness is awake, alert, obeys commands, Oriented to person, place, time, situation. Cardiovascular: Denies chest pain, Capillary refill < 3 seconds Clubbing of nail beds is absent JVD is absent Patient's skin is warm and dry. Rhythm is sinus rhythm. Respiratory: No deficits noted. Airway is patent Respiratory effort is even, unlabored, Respiratory pattern is regular, symmetrical. Vital Signs: 02:38 BP 105 / 88; Pulse 149; Resp 18; Pulse Ox 97% on R/A; lg3 02:44 BP 84 / 72; Pulse 136; Resp 20; Pulse Ox 97% on R/A; lg3 03:00 BP 101 / 84; Pulse 141; Resp 19; Pulse Ox 98% on R/A; lg3 03:20 BP 110 / 53; Pulse 129; Resp 20; Pulse Ox 98% on R/A; lg3 03:38 BP 84 / 61; Pulse 144; Resp 22; Pulse Ox 97% on R/A; lg3 03:59 BP 130 / 85; Pulse 75; Resp 19; Pulse Ox 96% on 3 lpm NC; lg3 04:31 BP 105 / 76; Pulse 71; Resp 17 S; Pulse Ox 100% on R/A; lg3 ED Course: 02:14 Patient arrived in ED. ja2 02:16 Arm band placed on Patient placed in an exam room, on a stretcher, on monitoring manager, bb on pulse oximetry. Family accompanied patient. 02:17 Alonzo Gamboa MD is Attending Physician. kdr 02:33 EKG completed in triage. Results shown to MD. bb 02:35 Initial lab(s) drawn, by me, sent to lab. Inserted saline lock: 18 gauge in right bb antecubital area, using aseptic technique. Blood collected. 02:37 Basic Metabolic Panel Sent. lg3 02:37 CBC with Diff Sent. lg3 02:37 Troponin HS Sent. lg3 02:41 Triage completed. bb 02:53 Patient has correct armband on for positive identification. Placed in gown. Bed in low lg3 position. Call light in reach. Side rails up X 1. Client placed on continuous cardiac and pulse oximetry monitoring. NIBP monitoring applied. hall monitor on. Family accompanied patient. 03:18 XRAY Chest (1 view) In Process Unspecified. EDMS 03:20 Lisa Srivastava, RN is Primary Nurse. lg3 03:47 Inserted saline lock: 20 gauge in left forearm, using aseptic technique. lg3 03:56 Assist provider with cardioversion (synchronized) with defibrillator, for treatment of lg3 A fib with 120 joules. Set up for procedure. Performed by Alonzo Gamboa MD Monitored with monitoring manager, pulse ox, Post procedure rhythm is sinus rhythm. Patient tolerated well. 04:03 Linwood Jung is Hospitalizing Provider. kdr 04:15 SARS RAPID Sent. mh5 04:15 RAPID COVID. mh5 05:35 Patient admitted, IV remains in place. intact, No redness/swelling at site. lg3 Administered Medications: 02:39 Drug: Lopressor (metoprolol) 5 mg Route: IVP; Site: right antecubital; lg3 05:51 Follow up: Response: Blood pressure is lowered lg3 02:49 Drug: NS 0.9% 500 ml Route: IV; Rate: bolus; Site: right antecubital; lg3 03:35 Follow up: Response: No adverse reaction; IV Status: Completed infusion; IV Intake: lg3 500ml 02:53 Drug: Zofran (Ondansetron) 4 mg Route: IVP; Site: right antecubital; lg3 03:35 Follow up: Response: No adverse reaction lg3 03:53 Drug: Versed (midazolam) 2 mg Route: IVP; Site: right antecubital; lg3 04:10 Follow up: Response: No adverse reaction; RASS: Light sedation (-2) lg3 03:53 Drug: fentaNYL (PF) 25 mcg Route: IVP; Site: right antecubital; lg3 04:10 Follow up: Response: No adverse reaction; Marked relief of symptoms lg3 03:54 Drug: fentaNYL (PF) 25 mcg Route: IVP; Site: right antecubital; lg3 04:10 Follow up: Response: No adverse reaction; Marked relief of symptoms lg3 03:54 Drug: NS 0.9% 1000 ml Route: IV; Rate: 1 bolus; Site: right antecubital; lg3 04:33 Follow up: Response: No adverse reaction; IV Status: Completed infusion; IV Intake: lg3 1000ml Medication: 05:35 VIS not applicable for this client. lg3 Intake: 03:35 IV: 500ml; Total: 500ml. lg3 04:33 IV: 1000ml; Total: 1500ml. lg3 Outcome: 04:04 Decision to Hospitalize by Provider. kdr 05:35 Admitted to ER Hold. Please see [facility] for further documentation. lg3 05:35 Condition: stable 05:35 Instructed on the need for admit, Demonstrated understanding of instructions. 09:10 Patient left the ED. eb Signatures: Dispatcher [employer] EDMS Alonzo Gamboa MD MD kdr Ballard, Brenda RN RN Kiley March [facility] Freya Pradhan Lacie, RN RN lg3 Anne Flanagan Corrections: (The following items were deleted from the chart) 03:20 03:14 BP 101 / 84; Pulse 141bpm; Resp 19bpm; Pulse Ox 98% RA; lg3 lg3
--- NOTE | 2022-07-04 04:25 | P.HP ---
Certification for Inpatient Patient admitted to: Inpatient With expected LOS: <2 Midnights Patient will require the following post-hospital care: None Practitioner: I am a practitioner with admitting privileges, knowledge of patient current condition, hospital course, and medical plan of care. Services: Services provided to patient in accordance with Admission requirements found in Title 42 Section 412.3 of the Code of Federal Regulations Patient History Date of Service: 07/04/22 Primary Care Provider: Liban Reason for admission: Afib RVR History of Present Illness: Patient is a 77 year-old male with history of afib, CAD, HTN, HLD, and hypothyroidism who presented to the ED with complaints of tachycardia. He reports that he took ibesartan and metoprolol prior to arrival. He was found to be in afib RVR with a rate of 159 and BP of 105/88. He was given 5 mg IV lopressor without change. His BP dropped to 84/61. He was then given 1L fluid bolus and cardioverted with 120 joules and versed as sedation. He converted to NSR. BP stablilized at 105/76. Labs without abnormalities. He is admitted for further evaluation and treatment. Allergies NKDA Allergy (Uncoded 12/28/15 17:11) Unknown No Known Allergies Allergy (Uncoded 01/10/17 17:30) Unknown Home medications list reviewed: Yes Home Medications: Ascorbic Acid [Vitamin C*] 2,000 mg PO DAILY 03/17/13 Brimonidine Tartrate/Timolol [Combigan Eye Drops] 1 drop OP BID 03/17/13 Clopidogrel Bisulfate [Plavix*] 75 mg PO DAILY 03/17/13 Latanoprost [Xalatan] 2.5 ml OP DAILY 03/17/13 Levothyroxine [Synthroid*] 112 mcg PO [id number] 03/17/13 Metaxalone [Skelaxin*] 800 mg PO TID 03/17/13 Metoprolol Succinate [Toprol Xl*] 50 mg PO DAILY 03/17/13 Multivitamin [Multiple Vitamins] 1 each PO DAILY 03/17/13 Simvastatin [Zocor*] 40 mg PO BEDTIME 03/17/13 Zolpidem Tartrate [Ambien*] 10 mg PO BEDTIME 03/17/13 Budesonide [Budesonide Dr] 3 mg PO TID 06/10/14 Colestipol HCl [Colestid] 1,000 mg PO DAILY 04/16/14 Losartan Potassium [Cozaar] 100 mg PO DAILY 04/16/14 Magnesium Oxide [Magnesium] 1,200 mg PO DAILY 04/16/14 Montelukast [Singulair*] 10 mg PO DAILY 04/16/14 - Past Medical/Surgical History Diabetic: No -: Paroxsymal Atrial Fibrillation -: Coronary Artery Disease/History of [place] -: Hypertension -: Hyperlipidemia -: Hypothyroidism -: Cholecystectomy -: Hernia Repair -: Stent 2008 Psychosocial/ Personal History: Patient is . - Family History Father -: Heart disease, Hypertension, Diabetes Sister -: Heart disease Brother -: Heart disease - Social History Smoking Status: Never smoker Alcohol use: No CD- Drugs: No Caffeine use: No Place of Residence: Home Review of Systems Unremarkable Physical Examination - Physical Exam General: Alert, In no apparent distress, Other (lethargic following sedation) HEENT: Atraumatic, PERRLA, EOMI, Sclerae nonicteric Neck: Supple, 2+ carotid pulse no bruit, No LAD, Without JVD or thyroid abnormality Respiratory: Clear to auscultation bilaterally, Normal air movement Cardiovascular: Regular rate/rhythm, Normal S1 S2 Gastrointestinal: Normal bowel sounds, No tenderness Musculoskeletal: No tenderness Integumentary: No rashes Neurological: Normal speech, Normal strength at 5/5 x4 extr, Normal tone, Normal affect - Studies Laboratory Data (last 24 hrs) 07/04/22 02:35: WBC 6.50, Hgb 17.4, Hct 51.7 H, Plt Count 181 07/04/22 02:35: Sodium 138, Potassium 3.6, BUN 22 H, Creatinine 1.14, Glucose 154 H Assessment and Plan - Problems (Diagnosis) (1) Atrial fibrillation with RVR Current Visit: Yes Status: Acute (2) Hypertension Current Visit: Yes Status: Chronic Qualifiers: Hypertension type: primary hypertension Qualified Code(s): I10 - Essential (primary) hypertension (3) Coronary artery disease Current Visit: Yes Status: Chronic Qualifiers: Coronary Disease-Associated Artery/Lesion type: [place] artery [place] vs. transplanted heart: [place] heart Associated angina: without angina Qualified Code(s): I25.10 - Atherosclerotic heart disease of [place] coronary artery without angina pectoris (4) Hyperlipidemia Current Visit: Yes Status: Chronic Qualifiers: Hyperlipidemia type: unspecified Qualified Code(s): E78.5 - Hyperlipidemia, unspecified (5) Hypothyroidism Current Visit: Yes Status: Chronic Qualifiers: Hypothyroidism type: acquired Qualified Code(s): E03.9 - Hypothyroidism, unspecified - Plan -Cardiology consulted. Monitor on telemetry -Patient has paroxsymal afib, on plavix. Sees Tenisha. -Echo ordered -Continue fluids to support BP -Monitor and replete electrolytes per protocol -Reconcile and contiue home medications -Lovenox for VTE ppx -Full code Discharge Plan: Home Plan to discharge in: 48 Hours - Advance Directives Does patient have a Living Will: No Does patient have a Durable POA for Healthcare: Yes - Code Status/Comfort Care Code Status Assessed: Yes (Full) Critical Care: No Time Spent Managing Pts Care (In Minutes): 50
[2022-07-04 04:39] LABS: SARS-CoV-2 Antigen Rapid Res Negative (Negative)
[2022-07-04] MEDS ORDERED: ACETAMINOPHEN 500 MG TAB PO PRN (04:57)
[2022-07-04] MEDS ORDERED: NA CHLORIDE 0.9% 1,000 ML IV SCH (05:00)
[2022-07-04 05:15] VITALS: BMI 26.4
[2022-07-04] MEDS ORDERED: ENOXAPARIN 40 MG/0.4 ML SQ ONE (07:41)
[2022-07-04] MEDS ORDERED: ENOXAPARIN 40 MG/0.4 ML SQ SCH (09:00)
[2022-07-04] MEDS ORDERED: LATANOPROST 0.005% 2.5ML OPTH OPTH SCH (09:00)
[2022-07-04] MEDS ORDERED: ONDANSETRON 4 MG/2 ML VIAL IV PRN (09:00)
[2022-07-04 09:16] LABS: Urine Blood Negative (Negative); Urine Glucose 2+ (Negative); Urine Protein Negative (Negative); Urine Specific Gravity 1.025 (1.005-1.030)
[2022-07-04] MEDS: APIXABAN 5 MG TABLET PO SCH ×2 (10:08→21:25)
[2022-07-04] MEDS ORDERED: LORATADINE 10 MG TAB PO ONE (11:00)
--- NOTE | 2022-07-04 12:48 | EKG ---
Test Date: 2022-07-04 Test Time: 02:33:35 Inflated Ball Molder: JAILYN MEASUREMENT RESULTS: Intervals: Rate: 149 NM: QRSD: 108 QT: 318 QTc: 500 [place]: P: NM: QRS: -31 T: 8 INTERPRETIVE STATEMENTS: Atrial fibrillation with rapid ventricular response Left axis deviation Nonspecific ST abnormality, probably digitalis effect Abnormal ECG Compared to ECG 07/27/2021 12:17:04 Sinus rhythm no longer present ST (T wave) deviation still present Electronically Signed On 07-04-22 12:48:08 CDT by Edgardo Guo
--- NOTE | 2022-07-04 13:24 | CON ---
Date of Consultation: 07/04/2022 Reason For Consultation: Atrial fibrillation with rapid ventricular response. History Of Present Illness: A 77-year-old male with history of AFib paroxysmal, coronary artery dise ase, hypertension, dyslipidemia, hypothyroidism, presented with palpitations, found to be in atrial f ibrillation with rapid ventricular response. He received some AV node blocking agents intravenously; however, blood pressure dropped significantly and cardioversion was done emergently and stabilized b lood pressure and the patient feels well now, has no symptoms. Past Medical History: As outlined above. Medications: Refer to reconciliation sheet for detailed list. Allergies: NO KNOWN DRUG ALLERGIES. Family History: No premature coronary artery disease or cancer. Social History: He does not smoke or drink. Does not use any drugs. Review of Systems: All systems reviewed and they were negative except for what mentioned in HPI. Physical Examination: Vital Signs: Reviewed. Head and Neck: Pupils are equal, reactive to light. Intact eye movements. No JVD. No cervical lym phadenopathy. Neck is supple. Thyroid is not enlarged. Lungs: Clear to auscultation bilaterally. No rhonchi, wheezing, or crackles. No accessory muscle u se. Heart: Regular rate and rhythm. No extra sounds. Abdomen: Soft, nontender. Bowel sounds positive. No organomegaly. No masses or hernia. No rigidi ty or rebound. Extremities: No edema, clubbing, or cyanosis. Intact pulses. Skin: No rash. Neurologic: Alert, awake, oriented x3. No acute focal deficits appreciated. Lymph Nodes: No cervical or axillary lymphadenopathy. Investigations: Creatinine is 1.14, hemoglobin is 17.4. Assessment And Recommendations: 1.Atrial fibrillation with rapid ventricular response, status post cardioversion to sinus rhythm. R esume beta-jose ramon and recommend to start the patient on Eliquis 5 mg twice a day and be discharged o n those medications. From Cardiology standpoint, the patient is hemodynamically and clinically stabl e and can be released and he will follow up with Dr. Steven as an outpatient. Also, we will check T SH as the patient has hypothyroidism. 2.Hypothyroidism. Check TSH as high levels of thyroid can cause the episodes of atrial fibrillation . Thank you for the consult. SR/MODL Voice ID: [id number] Report ID: [id number]
[2022-07-04] MEDS: HYDROCODONE/APAP 7.5/325 MG TAB PO PRN (22:30)
[2022-07-05 01:34] VITALS: O2SAT 94
[2022-07-05 03:45] LABS: Absolute Lymphocytes (CBC) 2.2 K/uL (0.7-4.9); Hematocrit 47.2 % (39.6-49.0); Lymphocytes % 41.1 % (15.3-44.8); MCV 89.4 fL (80-100); MPV 8.6 fL (7.6-11.3); RBC Red Blood Cell Count 5.28 M/uL (4.33-5.43)
[2022-07-05 04:00] LABS: Magnesium 2.4 mg/dL (1.8-2.4); Potassium 4.1 mmol/L (3.5-5.1)
[2022-07-05] MEDS: HYDROCODONE/APAP 7.5/325 MG TAB PO PRN (04:22)
--- NOTE | 2022-07-05 07:19 | P.DS ---
Admission Date: 07/04/22 Discharge Date: 07/05/22 Primary Care Provider: Liban Disposition: ROUTINE DISCHARGE Discharge Condition: GOOD Reason for Admission: Afib RVR Consultations: 1. Cardiology Hospital Course: DIAGNOSES: # Atrial Fibrillation with Rapid Ventricular Response # Coronary Artery Disease # Hypertension # Hyperlipidemia # Hypothyroidism HOSPITAL COURSE: Mr. Jesse Ortega is a pleasant 77 year old male with a past medical history significant for atrial fibrillation, coronary artery disease, hypertension, hyperlipidemia, and hypothyroidism who was admitted to the [facility] on 07/04/2022 for atrial fibrillation with RVR. Upon presentation, he underwent synchronized cardioversion with his rhythm reverting back into sinus rhythm. He was admitted to the Medicine service and Cardiology was consulted. He was evaluated by Dr. Guo and cleared for discharge with close cardiac follow-up. He was monitored overnight and remained in sinus rhythm throughout the hospitalization. He was discharged home with metoprolol and apixaban per Cardiology recommendations. I spoke with Dr. Steven today, who will arrange for close outpatient follow-up and possible cardiac ablation procedure if necessary. On 07/05/2022, he was seen on morning rounds and deemed medically stable for discharge. He was discharged with instructions to schedule follow-up appointments with his PCP (Dr. Louie) in 3-5 days and with Cardiology (Dr. Steven) in 5-7 days. He was provided a prescription for apixaban. He was given the opportunity to ask questions and reported no further questions. Furthermore, all questions were answered to the best of my ability. Today, I personally spent 20 minutes on his case, of which greater than 50% of the time was spent in patient education, counseling, and coordination of care as described above. Vital Signs/Physical Exam: Temp Pulse Resp BP Pulse Ox 97.2 F 64 16 119/72 96 07/05/22 04:00 07/05/22 04:00 07/05/22 05:22 07/05/22 04:00 07/05/22 05:22 General: Alert, In no apparent distress, Oriented x3 HEENT: Atraumatic, PERRLA, Mucous membr. moist/pink, EOMI, Sclerae nonicteric Neck: Supple, JVD not distended Respiratory: Clear to auscultation bilaterally, Normal air movement Cardiovascular: No edema, Regular rate/rhythm, Normal S1 S2, No gallops, No rubs, No murmurs Gastrointestinal: Normal bowel sounds, Soft and benign, Non-distended, No tenderness, No rebound, No guarding Musculoskeletal: No clubbing Integumentary: No rashes Neurological: Normal speech, Cranial nerves 3-12 intact, Normal affect Laboratory Data at Discharge: WBC 5.40 K/uL (4.3-10.9) D 07/05/22 02:41 Hgb 15.6 g/dL (13.6-17.9) 07/05/22 02:41 Hct 47.2 % (39.6-49.0) 07/05/22 02:41 Plt Count 161 K/uL (152-406) 07/05/22 02:41 Sodium 141 mmol/L (136-145) 07/05/22 02:41 Potassium 4.1 mmol/L (3.5-5.1) 07/05/22 02:41 BUN 15 mg/dL (7-18) 07/05/22 02:41 Creatinine 0.93 mg/dL (0.55-1.3) 07/05/22 02:41 Glucose 110 mg/dL (74-106) H 07/05/22 02:41 Magnesium 2.4 mg/dL (1.8-2.4) 07/05/22 02:41 Triglycerides 150 mg/dL (<150) 07/05/22 02:41 Cholesterol 118 mg/dL (<200) 07/05/22 02:41 HDL Cholesterol 42 mg/dL (40-60) 07/05/22 02:41 Cholesterol/HDL Ratio 2.81 07/05/22 02:41 Home Medications: RX: Brimonidine Tartrate/Timolol [Combigan 0.2%-0.5% Eye Drops] 1 drop OP BID 03/17/13 RX: Clopidogrel Bisulfate [Plavix*] 75 mg PO DAILY 03/17/13 RX: Latanoprost [Xalatan] 2.5 ml OP DAILY 03/17/13 RX: Levothyroxine [Synthroid*] 112 mcg PO [id number] 03/17/13 RX: Metoprolol Succinate [Toprol Xl*] 50 mg PO DAILY 03/17/13 RX: Zolpidem Tartrate [Ambien*] 10 mg PO BEDTIME 03/17/13 RX: Magnesium Oxide [Magnesium] 800 mg PO DAILY 04/16/14 RX: Montelukast [Singulair*] 10 mg PO DAILY 04/16/14 RX: Zinc Gluconate [Zinc] 07/04/22 RX: Apixaban [Eliquis] 5 mg PO BID #60 tab 07/05/22 New Medications: RX: Apixaban [Eliquis] 5 mg PO BID #60 tab Physician Discharge Instructions: 1. Please schedule a follow-up appointment with your PCP (Dr. Louie) in 3-5 days 2. Please schedule a follow-up appointment with your Product Inspection Supervisor (Dr. Steven) in 3-5 days Diet: AHA Activity: Ad daiana Followup: Carlso Steven MD [ACTIVE - CAN ADMIT] - (Call to schedule appointment.) Garett Louie MD [Primary Care Provider] - (Call to schedule appointment.) Time spent managing pt's care (in minutes): 20
[2022-07-05] MEDS ORDERED: CLOPIDOGREL 75 MG TABLET PO SCH (09:00)
[2022-07-05] MEDS: APIXABAN 5 MG TABLET PO SCH (09:08)
[2022-07-05 10:31] VITALS: BP 165/82; TEMP 97.3
--- NOTE | 2022-07-05 12:09 | PN ---
Date of Progress Note: 07/05/2022 Dr. Guo saw the patient because of recurrent atrial fibrillation. Mr. Ortega is 77. I have known him for many years. He has had paroxysmal atrial fibrillation. He has failed Multaq, failed amioda baldomero, eventually was reverted to metoprolol with aspirin and Plavix and has done very well. Now, he has had recurrent atrial fibrillation with hypotension requiring cardioversion, back to sinus rhythm. He is back on metoprolol and aspirin, but he should be on Eliquis 5 b.i.d. We should stop his Plav ix. He will see me in the office in the very near future. I think we should consider ablation on hi m. I will discuss the case further with Electrophysiology Services in [place]. He is not a candidat e for flecainide because he has a history of coronary artery disease. He may be a candidate for Ryth mol and/or sotalol, but I believe he will not tolerate these just like he did with Multaq and amiodar one in the past. In short, sent home, discontinue Plavix, start Eliquis, continue aspirin and contin ue metoprolol. I will see him in the office soon. Consider ablation. RENEE/VITOR Voice ID: [id number] Report ID: [id number]
--- NOTE | 2022-07-05 12:19 | RAD REPORT ---
EXAM DESCRIPTION: RAD - Chest Single View - 07/04/2022 3:15 am CLINICAL HISTORY: The patient is 77 years old and is Male; PALPITATIONS TECHNIQUE: Single view of the chest. COMPARISON: No relevant prior studies available. FINDINGS: Lungs: No pulmonary vascular congestion or consolidation. Pleural space: Unremarkable. No pneumothorax. Heart: Unremarkable. No cardiomegaly. Mediastinum: Unremarkable. Bones/joints: No acute fracture visualized. Upper abdomen: No free air in the visualized upper abdomen. Elevated right hemidiaphragm. IMPRESSION: No acute cardiopulmonary process identified. Electronically signed by: Shirin Saini MD 07/04/2022 4:14 AM CDT Due to temporary technical issues with the PACS/Fluency reporting system, reports are being signed by the in house radiologists without review as a courtesy to insure prompt reporting. The interpreting radiologist is fully responsible for the content of the report.
--- NOTE | 2022-07-06 08:17 | EKG ---
Test Date: 2022-07-04 Test Time: 04:05:01 [employer] Director: ROSIO MEASUREMENT RESULTS: Intervals: Rate: 71 NM: 194 QRSD: 100 QT: 426 QTc: 462 [place]: P: 32 NM: 194 QRS: -42 T: 19 INTERPRETIVE STATEMENTS: Sinus rhythm with fusion complexes Left axis deviation Low voltage QRS Septal infarct, age undetermined Abnormal ECG Compared to ECG 07/04/2022 02:33:35 Fusion complex(es) now present Low QRS voltage now present Myocardial infarct finding now present Atrial fibrillation no longer present ST (T wave) deviation no longer present Electronically Signed On 07-06-22 08:12:38 CDT by Carlos Steven
== END 2022-07-05 11:30 | disposition home or self-care (01) | DRG 310 ==
LOC: ER 02:13 → ERHOLD 04:17 → 4TH 08:57
PROVIDERS: ADMIT Internal Medicine Sleep Medicine; ATTEND Internal Medicine
DX: I48.0 Paroxysmal atrial fibrillation (principal); E78.5 Hyperlipidemia, unspecified; I10 Essential (primary) hypertension; E03.9 Hypothyroidism, unspecified; I25.10 Atherosclerotic heart disease of native coronary artery without angina pectoris; I25.2 Old myocardial infarction; Z79.02 Long term (current) use of antithrombotics/antiplatelets; Z79.890 Hormone replacement therapy; Z79.899 Other long term (current) drug therapy; Z95.5 Presence of coronary angioplasty implant and graft; Z90.49 Acquired absence of other specified parts of digestive tract; Z20.822 Contact with and (suspected) exposure to COVID-19
CPT/HCPCS: 36415; 71045; 80048; 80061; 81003; 82947; 83735; 83880; 84484; 85025; 87811; 92960; 93005; 96361; 96374; 96375; 99285; J1650; J2250; J2405; J3010; J7030; J7040

== ENCOUNTER 2022-10-23 00:53 | Emergency (ER) | payer OTHER ==
--- OUTSIDE RECORDS SUMMARY | 2022-10-23 00:57 | XMS REPORT | Continuity of Care Document ---
:[address] [facility] t Address [address] [place] [address] [address] [place] [address] Care Team Providers Name Role Phone Edgardo Guo Attending Clinician Unavailable Edgardo Guo Admitting Clinician Unavailable Payers Payer Name Policy Type Policy Number Effective Date Expiration Date S ource Problems This patient has no known problems. Allergies, Adverse Reactions, Alerts Allergy Allergy Status Severity Reaction(s) Onset Inactive Treating Comm ents Source Name Type Date Date Clinician No Known DA Active U 2021-11 [facility] Allergie 2-13 Clear s 00:00: [address] Medications This patient has no known medications. Procedures Procedure Date / Time Performed Performing Clinician Aldo browning [id number] 2022-10-20 00:00:00 GARY [facility] [id number] 2022-10-20 00:00:00 [facility] Encounters Start End Encounter Admission Attending Care Care Encounter Source Date/Time Date/Time Type Type Clinicians Facility Department ID 2022-10-20 2022-10-20 Inpatient ADRIEN Guo [facility] [id number] 23 [facility] 06:39:00 19:11:00 Edgardo 96 [facility] Results Test Description Test Time Test Comments Results Result Comments Source GLUCOSE BEDSIDE 2022-10-20 13:15:00 Test Item Value Reference Range Interpretation Comme nts GLUCOSE BEDSIDE (test code = 143 MG/DL 70-110 H Performed by certified laundry bag punch operator at [facility]) [facility] [id number] 12:34:00 Test Item Value Reference Range Interpretation Comments ACT-ISTAT (test code 401 SEC 74-137 H Perform ed by certified = ACTI) laundry bag punch operator at [facility] GLUCOSE [id number] 11:16:00 Test Item Value Reference Range Interpretation Comments GLUCOSE BEDSIDE (test 115 MG/DL 70-110 H Perfor med by certified code = GLUBED) laundry bag punch operator at [facility] - XR CHEST 1 [id number] [facility] 1945 Sex: M FAX: Edgardo Rea MD [phone] [place]: St: ADM Name: NARESH SUMMERS [facility] : 1945 Age/S: 77/M [address] [facility] Unit #: [id number] Loc: [place] [address] Phys: Edgardo Guo MD Acct: [id number] Dis Date: Status: ADM IN PHONE #: [phone] Exam Date: 10/20/2022 1350 FAX #: [phone] Reason: S/P WATCHMAN EXAMS: CPT CODE: [id number] XR CHEST 1 V 41172 PROCEDURE INFORMATION: Exam: XR ChestExam date and time: 10/20/2022 1:50 PM Age: 77 years old Clinical indication: Device placement; Other: S/P watchman TECHNIQUE: Imaging protocol: Radiologic exam of the chest. Views: 1 view. COMPARISON:DX XR CHEST 2 V 10/19/2022 9:54 AM FINDINGS: Tubes, catheters and devices: A left atrial appendage occlusion device is present. Lungs: The lung volumes are low with bibasilar subsegmental atelectasis. Pleural spaces: No appreciable pleural effusion or pneumothorax. Heart/Mediastinum: Cardiomediastinalsilhouette is normal in size with atherosclerotic calcification in the aortic arch. Bones/joints: Noacute osseous abnormality. IMPRESSION: 1. Left atrial appendage occlusion device is present. 2. Bibasilar subsegmental atelectasis. at 0575 Reported and signed by: Rach Anderson M.D. CC: Edgardo Guo MD Technologist: RT Dorothy(R) Trnscrd Date/Time/By: 10/20/2022 (924) : By: [email or web address] Orig Print D/T: S: 10/20/2022 (652) PAGE 1 Signed ReportPROTHROMBIN [id number] 10:27:00 Test Item Value Reference Range Interpretation Comments PROTHROMBIN TIME 15.6 SECONDS 9.3-12.9 H PATIENT (test code = PTP) INTERNATIONAL NORMAL 1.4 0.8-1.2 H TARGET INR BY RATIO (test code = INDICATIO N Indication INR) INR1. Prophylax is of venous thrombos is 2.0 - 3.0 (orthoped ic surgery), Proph ylaxis of venous throm bosis (other than hig h-risk surgery), Treat ment of Deep Vein Thrombosis/Pulm onary Embolism, Preve ntion of systemic emb olism - Tissue heart va lves, Acute Myocardia l Infarction (to prevent systemic emboli sm), Valvular heart disease, Atrial Fibrillation, Bileaflet mecha nical valve in aortic position.2. Mec hanical prosthetic valv es (high risk), 2. 5 - 3.5 Presence of Lup us Anticoagulant o r Antiphospholipi d Antibodies, Pre vention of systemic emb olism - Acute Myocardia l Infarction (to prevent recurrent infar ct). BASIC METABOLIC [id number] 10:22:00 Test Item Value Reference Range Interpretation Comments SODIUM (test code = 142 mEq/L 134-147 N NA) POTASSIUM (test code 4.2 mEq/L 3.4-5.0 N = K) CHLORIDE (test code 105 mEq/L 100-108 N = CL) CARBON DIOXIDE (test 31 mEq/l 21-33 N code = CO2) ANION GAP (test code 10 0-20 N = GAP) GLUCOSE (test code = 115 mg/dL 70-110 H GLU) BLOOD UREA NITROGEN 11 mg/dL 7-18 N (test code = BUN) GLOMERULAR 78.0 70-80 N The Glomerular FILTRATION RATE Filtration R ate is a (test code = GFR) calculated parameterbased on serum Creatinine, pat ient age and sex. GFR va luesless than 60 mL/min/ 1.73 square meters a re indicative ofCh ronic Kidney Disease. Values less than 15 mL/min/1.73squa re meters indicate Kidney failure. The calculation for GFR is based on the CK D-EPI (2020) calculat ion. This formulais race indifferent and is the recommended for laisha for GFRby the Natio nal Kidney Foundati on for Adults.The GFR will not calculate if th e sex is unknown or if thepatient's ag e is <18 years. CREATININE (test 1.0 mg/dL 0.6-1.3 N code = CREAT) CALCIUM (test code = 10.1 mg/dL 8.0-10.5 N CA) [id number] 10:22:00 Test Item Value Reference Range Interpretation Comments PREALBUMIN (test code = PREALB) 26.0 mg/dL 16.0-40.0 N CBC W/AUTO [id number] 10:07:00 Test Item Value Reference Range Interpretation Comments WHITE BLOOD CELL (test code = 5.0 x10 3/uL 4.5-11.0 N WBC) RED BLOOD CELL (test code = 5.95 x10 6/uL 4.00-5.60 H RBC) HEMOGLOBIN (test code = HGB) 16.9 g/dL 12.5-16.9 N HEMATOCRIT (test code = HCT) 51.4 % 37.5-50.7 H MEAN CELL VOLUME (test code = 86.4 fL 81.0-99.0 N MCV) MEAN CELL HGB (test code = MCH) 28.4 pg 27.0-33.0 N MEAN CELL HGB CONCETRATION 32.9 g/dL 33.0-37.0 L (test code = MCHC) RED CELL DISTRIBUTION WIDTH CV 15.5 % 11.5-14.5 H (test code = RDW) RED CELL DISTRIBUTION WIDTH SD 49.0 fL 37.0-54.0 N (test code = RDW-SD) PLATELET COUNT (test code = 156 x10 3/uL 150-400 N PLT) MEAN PLATELET VOLUME (test code 10.6 fL 7.0-9.0 H = MPV) NEUTROPHIL % (test code = NT%) 48.9 % 56.0-77.0 L IMMATURE GRANULOCYTE % (test 0.4 % 0.0-2.0 N code = IG%) LYMPHOCYTE % (test code = LY%) 38.4 % 14.0-32.0 H MONOCYTE % (test code = MO%) 10.3 % 4.8-9.0 H EOSINOPHIL % (test code = EO%) 1.2 % 0.3-3.7 N BASOPHIL % (test code = BA%) 0.8 % 0.0-2.0 N NUCLEATED RBC % (test code = 0.0 % 0-0 N NRBC%) NEUTROPHIL # (test code = NT#) 2.46 x10 3/uL 2.0-7.6 N IMMATURE GRANULOCYTE # (test 0.02 x10 3/uL 0.00-0.03 N code = IG#) LYMPHOCYTE # (test code = LY#) 1.93 x10 3/uL 1.0-3.8 N MONOCYTE # (test code = MO#) 0.52 x10 3/uL 0.1-0.8 N EOSINOPHIL # (test code = EO#) 0.06 x10 3/uL 0.0-0.2 N BASOPHIL # (test code = BA#) 0.04 x10 3/uL 0.0-0.2 N NUCLEATED RBC # (test code = 0.00 x10 3/uL 0.0-0.1 N NRBC#) MANUAL DIFF REQUIRED (test code NO = MDIFF) - XR CHEST 2 [id number] 00:00:00 [facility] 1945 Sex: M FAX: Edgardo Rea MD [phone] [place]: St: PRE Name: NARESH SUMMERS [facility] [place] : 1945 Age/S: 77/M [address] [facility] Unit #: [id number] Loc: [place] [address] Phys: Edgardo Guo MD Acct: [id number] Dis Date: Status: PRE IN PHONE #: [phone] Exam Date: 10/19/2022 0955 FAX #: [phone] Reason: PAT EXAMS: CPT CODE: [id number] XR CHEST 2 V 22355 PROCEDURE INFORMATION: Exam: XR Chest Exam date and time: 10/19/2022 9:54 AM Age: 77 years old Clinical indication: Screening exam; Pre-operative exam; Other: Pat TECHNIQUE: Imaging protocol: Radiologic exam of the chest. Views: 2 views. PA and Lateral COMPARISON: No relevant prior studies available. FINDINGS: Lungs: There are normal lung volumes without consolidation or interstitial opacities. Pleural spaces: Unremarkable. No pleural effusion. No pneumothorax. Heart/Mediastinum: The heart size is normal. The pulmonary vasculature is normal. Themediastinal contour is normal. The trachea is midline. Bones/joints: No acute abnormality seen. IMPRESSION: No acute cardiopulmonary findings. Electronically Signed by Mratin Frost on10/19/2022 at 1113 Reported and signed by: Dell Frost M.D. CC: Edgardo Guo MD Technologist: RT Bianca(R) Trnscrd Date/Time/By: 10/19/2022 (0143) : By: [email or web address] Orig Print D/T: S: 10/19/2022 (0164) PAGE 1 Signed Report
[2022-10-23] MEDS ORDERED: METOCLOPRAMIDE 10 MG/2mL INJ ONE (01:48)
[2022-10-23] MEDS ORDERED: DIPHENHYDRAMINE 50 MG/ML VIAL ONE (01:49)
[2022-10-23] MEDS ORDERED: MEPERIDINE HCL 25 MG/ML SYR ONE (01:50)
[2022-10-23 02:11] LABS: Absolute Lymphocytes (CBC) 1.9 K/uL (0.7-4.9); Hematocrit 45.5 % (39.6-49.0); Lymphocytes % 26.7 % (15.3-44.8); MPV 8.1 fL (7.6-11.3); RBC Red Blood Cell Count 5.23 M/uL (4.33-5.43)
[2022-10-23 02:17] LABS: Protime INR 1.29
[2022-10-23 02:29] LABS: Albumin 3.2 g/dL (3.4-5.0); Bilirubin Total 0.9 mg/dL (0.2-1.0); Protein, Total 6.2 g/dL (6.4-8.2)
--- NOTE | 2022-10-23 03:38 | ER ---
Nurse's Notes [facility] Name: Jesse Ortega Age: 77 yrs Sex: Male : 1945 Arrival Date: 10/23/2022 Time: 00:57 Bed 16 Private MD: Diagnosis: Migraine with aura, not intractable, without status migrainosus;Paroxysmal atrial fibrillation Presentation: 10/23 01:06 Chief complaint: Patient states: migraine since yesterday worse this evening similar to previous migraine. Coronavirus screen: Vaccine status: Patient reports receiving the 2nd dose of the covid vaccine. Ebola Screen: Patient negative for fever greater than or equal to 101.5 degrees Fahrenheit, and additional compatible Ebola Virus Disease symptoms. Initial Sepsis Screen: Does the patient meet any 2 criteria? No. Patient's initial sepsis screen is negative. Does the patient have a suspected source of infection? No. Patient's initial sepsis screen is negative. Risk Assessment: Do you want to hurt yourself or someone else? Patient reports no desire to harm self or others. Onset of symptoms was October 22, 2022. 01:06 Method Of Arrival: Ambulatory 01:06 Acuity: KAVON 4 Triage Assessment: 01:09 Headache History: The patient has had previous headaches and this one is similar to previous episodes. General: Appears distressed, uncomfortable, well groomed, well developed, Behavior is calm, cooperative. Pain: Complains of pain in right scientologist Pain currently is 10 out of 10 on a pain scale. Also complains of nausea. Neuro: No deficits noted. 03:46 Pain: Pain began. ke1 Historical: - Allergies: 01:08 No Known Allergies; - PMHx: 01:08 ALOPECIA; Atrial Fib; CAD; Colitis; Glaucoma; Hyperlipidemia; Hypertension; Hypothyroidism; insomnia; Myocardial infarction; ulcerative colitis; Migraine; - PSHx: 01:08 watchmans x 3 days prior; - Immunization history:: Adult Immunizations up to date. - Social history:: Smoking status: Patient denies any tobacco usage or history of. - Family history:: not pertinent. Screenin:03 [facility] ED Fall Risk Assessment (Adult) History of falling in the last 3 months, ke1 including since admission No falls in past 3 months (0 pts) Confusion or Disorientation No (0 pts) Intoxicated or Sedated No (0 pts) Impaired Gait No (0 pts) Mobility Assist Device Used No (0 pt) Altered Elimination No (0 pt) Score/Fall Risk Level 0 - 2 = Low Risk. Lay Dumpty Scale Fall Assessment Tool (age< 18yrs) Age 13 years and above (1 pt) Gender Male (2 pts) Diagnosis Other diagnosis (1 pt) Cognitive Impairments Oriented to own ability (1 pt) Environmental Factors Outpatient area (1 pt) Response to Surgery/Sedation/Anesthesia More than 48 hours/ None (1 pt) Medication Usage Other medications/ None (1 pt) Fall Risk Score/ Level Low Fall Risk: </= 11 points. Abuse screen: Denies threats or abuse. Nutritional screening: No deficits noted. Tuberculosis screening: No symptoms or risk factors identified. Fall Risk No fall in past 12 months (0 pts). No secondary diagnosis (0 pts). IV access (20 points). Ambulatory Aid- None/Bed Rest/Nurse Assist (0 pts). Gait- Normal/Bed Rest/Wheelchair (0 pts) Mental Status- Oriented to own ability (0 pts). Total Hernandez Fall Scale indicates No Risk (0-24 pts). Assessment: 02:00 Pain: Complains of pain in forehead Pain currently is 10 out of 10 on a pain scale. at ke1 worst was 10 out of 10 on a pain scale. level that patient reports is acceptable is 2 out of 10 on a pain scale. 02:41 Reassessment: Patient and/or family updated on plan of care and expected duration. Pain ke1 level reassessed. Patient states feeling better. Patient states symptoms have improved. Vital Signs: 01:06 BP 106 / 103; Pulse 71; Resp 20; Temp 97.5(O); Pulse Ox 99% on R/A; Weight 85.73 kg kl (R); Height 5 ft. 10 in. (177.80 cm); Pain 10/10; 02:20 Pain 0/10; ke1 02:39 BP 119 / 84; Pulse 62; Resp 15; Pulse Ox 95% on R/A; Pain 0/10; ke1 03:45 BP 118 / 76; Pulse 65; Resp 16; Temp 97.6; Pulse Ox 95% on R/A; Pain 0/10; ke1 01:06 Body Mass Index 27.12 (85.73 kg, 177.80 cm) Theresa Coma Score: 01:47 Eye Response: spontaneous(4). Verbal Response: oriented(5). Motor Response: obeys soumya commands(6). Total: 15. ED Course: 00:57 Patient arrived in ED. jj6 01:02 Ryan Rubin MD is Attending Physician. soumya 01:04 Paxton Gale RN is Primary Nurse. ke1 01:08 Triage completed. kl 02:02 Inserted saline lock: 20 gauge in left antecubital area, using aseptic technique. ke1 02:03 PT-INR Sent. ke1 02:03 Comprehensive Metabolic Panel Sent. ke1 02:03 CBC with Diff Sent. ke1 02:03 No provider procedures requiring assistance completed. ke1 02:03 Bed in low position. Call light in reach. Side rails up X 1. ke1 02:04 Arm band placed on left wrist. ke1 02:17 CT Head Brain wo Cont In Process Unspecified. EDNC 03:37 Sean Romero MD is Referral Physician. [facility] 03:46 IV discontinued. ke1 Administered Medications: 02:02 Drug: Reglan (metoCLOPramide) 10 mg Route: IVP; Site: left antecubital; ke1 02:30 Follow up: Response: Nausea is decreased ke1 02:02 Drug: Benadryl (diphenhydrAMINE) 25 mg Route: IVP; Site: left antecubital; ke1 02:40 Follow up: Response: No adverse reaction ke1 02:02 Drug: Demerol (meperidine) 50 mg Route: IVP; Site: left antecubital; ke1 02:20 Follow up: Pain 0/10 Adult; Response: Pain is decreased ke1 Medication: 03:46 VIS not applicable for this client. ke1 Outcome: 03:37 Discharge ordered by . soumya 03:46 Discharged to home ambulatory. ke1 03:46 Condition: good 03:46 Discharge instructions given to patient. 03:46 Patient left the ED. ke1 Signatures: Dispatcher [employer] EDMS Karoline Lam RN RN kl Anderson, Corey, MD MD cha Jeffries, Jennifer jj6 Paxton Gale RN RN ke1
--- NOTE | 2022-10-23 03:38 | EDPHYS ---
Physician Documentation [facility] Name: Jesse Ortega Age: 77 yrs Sex: Male : 1945 Arrival Date: 10/23/2022 Time: 00:57 Bed 16 Private MD: JOVI Physician Rayn Rubin HPI: 10/23 01:44 This 77 yrs old Male presents to ER via Ambulatory with complaints of soumya Headache, Nausea. 01:44 The patient complains of pain to the forehead. The patient describes the headache as soumya aching, constant. Onset: The symptoms/episode began/occurred 2 day(s) ago. Associated signs and symptoms: The patient has no apparent associated signs or symptoms. Severity of symptoms: At its worst the pain was moderate, in the emergency department the pain is unchanged. Headache History: The patient has had previous headaches and this one is similar to previous episodes. The symptoms are alleviated by nothing. the symptoms are aggravated by lights, movement. The patient has experienced similar episodes in the past, multiple times. Historical: - Allergies: 01:08 No Known Allergies; kl - PMHx: 01:08 ALOPECIA; Atrial Fib; CAD; Colitis; Glaucoma; Hyperlipidemia; Hypertension; kl Hypothyroidism; insomnia; Myocardial infarction; ulcerative colitis; Migraine; - PSHx: 01:08 watchmans x 3 days prior; kl - Immunization history:: Adult Immunizations up to date. - Social history:: Smoking status: Patient denies any tobacco usage or history of. - Family history:: not pertinent. ROS: 01:44 Constitutional: Negative for fever, chills, and weight loss, Eyes: Negative for injury, soumya pain, redness, and discharge, ENT: Negative for injury, pain, and discharge, Neck: Negative for injury, pain, and swelling, Cardiovascular: Negative for chest pain, palpitations, and edema, Respiratory: Negative for shortness of breath, cough, wheezing, and pleuritic chest pain, Abdomen/GI: Negative for abdominal pain, nausea, vomiting, diarrhea, and constipation, Back: Negative for injury and pain, : Negative for injury, bleeding, discharge, and swelling, MS/Extremity: Negative for injury and deformity, Skin: Negative for injury, rash, and discoloration, Psych: Negative for depression, anxiety, suicide ideation, homicidal ideation, and hallucinations, Allergy/Immunology: Negative for hives, rash, and allergies, Endocrine: Negative for neck swelling, polydipsia, polyuria, polyphagia, and marked weight changes. :44 Neuro: Positive for headache. Exam: :44 Constitutional: This is a well developed, well nourished patient who is awake, alert, soumya and in no acute distress. Head/Face: Normocephalic, atraumatic. Eyes: Pupils equal round and reactive to light, extra-ocular motions intact. Lids and lashes normal. Conjunctiva and sclera are non-icteric and not injected. Cornea within normal limits. Periorbital areas with no swelling, redness, or edema. ENT: Nares patent. No nasal discharge, no septal abnormalities noted. Tympanic membranes are normal and external auditory canals are clear. Oropharynx with no redness, swelling, or masses, exudates, or evidence of obstruction, uvula midline. Mucous membranes moist. Neck: Trachea midline, no thyromegaly or masses palpated, and no cervical lymphadenopathy. Supple, full range of motion without nuchal rigidity, or vertebral point tenderness. No Meningismus. Chest/axilla: Normal chest wall appearance and motion. Nontender with no deformity. No lesions are appreciated. Cardiovascular: Regular rate and rhythm with a normal S1 and S2. No gallops, murmurs, or rubs. Normal PMI, no JVD. No pulse deficits. Respiratory: Lungs have equal breath sounds bilaterally, clear to auscultation and percussion. No rales, rhonchi or wheezes noted. No increased work of breathing, no retractions or nasal flaring. Abdomen/GI: Soft, non-tender, with normal bowel sounds. No distension or tympany. No guarding or rebound. No evidence of tenderness throughout. Back: No spinal tenderness. No costovertebral tenderness. Full range of motion. Male : Normal genitalia with no discharge or lesions. Skin: Warm, dry with normal turgor. Normal color with no rashes, no lesions, and no evidence of cellulitis. MS/ Extremity: Pulses equal, no cyanosis. Neurovascular intact. Full, normal range of motion. Neuro: Awake and alert, GCS 15, oriented to person, place, time, and situation. Cranial nerves II-XII grossly intact. Motor strength 5/5 in all extremities. Sensory grossly intact. Cerebellar exam normal. Normal gait. Psych: Awake, alert, with orientation to person, place and time. Behavior, mood, and affect are within normal limits. 01:44 Neck: ROM/movement: is normal, no acute changes, pain, is not appreciated, limited range of motion, is not appreciated, Meningeal signs: are not present, Kernig's sign is negative, Brudzinski's sign is negative. 02:44 ECG was reviewed by the Attending Physician. [facility] Vital Signs: 01:06 BP 106 / 103; Pulse 71; Resp 20; Temp 97.5(O); Pulse Ox 99% on R/A; Weight 85.73 kg kl (R); Height 5 ft. 10 in. (177.80 cm); Pain 10/10; 02:20 Pain 0/10; ke1 02:39 BP 119 / 84; Pulse 62; Resp 15; Pulse Ox 95% on R/A; Pain 0/10; ke1 03:45 BP 118 / 76; Pulse 65; Resp 16; Temp 97.6; Pulse Ox 95% on R/A; Pain 0/10; ke1 01:06 Body Mass Index 27.12 (85.73 kg, 177.80 cm) Meherrin Coma Score: 01:47 Eye Response: spontaneous(4). Verbal Response: oriented(5). Motor Response: obeys [facility] commands(6). Total: 15. MDM: 01:02 Patient medically screened. [facility] 01:47 Differential diagnosis: cerebral vascular accident, hyponatremia, intracerebral soumya hemorrhage, migraine, subdural hematoma, temporal arteritis, tension headache, trigeminal neuralgia, vasomotor headache. Data reviewed: vital signs, nurses notes, lab test result(s), EKG, radiologic studies, CT scan. Data interpreted: secured entrance monitor: rate is 71 beats/min, rhythm is regular, Pulse oximetry: on room air is 99 %. Test interpretation: by ED physician or midlevel provider: ECG. Counseling: I had a detailed discussion with the patient and/or guardian regarding: the historical points, exam findings, and any diagnostic results supporting the discharge/admit diagnosis, lab results, radiology results, the need for outpatient follow up. 10/23 01:43 Order name: CBC with Diff; Complete Time: 02:29 soumya 10/23 01:43 Order name: Comprehensive Metabolic Panel; Complete Time: 02:29 [facility] 10/23 01:43 Order name: PT-INR; Complete Time: 02:29 [facility] 10/23 01:43 Order name: CT Head Brain wo Cont [facility] 10/23 01:43 Order name: Oxygen; Complete Time: 02:02 [facility] 10/23 01:47 Order name: EKG; Complete Time: 01:47 [facility] 10/23 01:47 Order name: EKG - Nurse/Tech; Complete Time: 02:40 [facility] EC:44 Rate is 62 beats/min. Rhythm is regular. AK interval is normal. QRS interval is normal. soumya QT interval is normal. No Q waves. T waves are Normal. No ST changes noted. Clinical impression: NSR w/ Non-specific ST/T Changes and No evidence of ischemia. Interpreted by me. Reviewed by me. Administered Medications: 02:02 Drug: Reglan (metoCLOPramide) 10 mg Route: IVP; Site: left antecubital; ke1 02:30 Follow up: Response: Nausea is decreased ke1 02:02 Drug: Benadryl (diphenhydrAMINE) 25 mg Route: IVP; Site: left antecubital; ke1 02:40 Follow up: Response: No adverse reaction ke1 02:02 Drug: Demerol (meperidine) 50 mg Route: IVP; Site: left antecubital; ke1 02:20 Follow up: Pain 0/10 Adult; Response: Pain is decreased ke1 Disposition Summary: 10/23/22 03:37 Discharge Ordered Location: Home soumya Problem: new soumya Symptoms: have improved soumya Condition: Stable soumya Diagnosis - Migraine with aura, not intractable, without status migrainosus soumya - Paroxysmal atrial fibrillation soumya Followup: soumya - With: Private Physician - When: 2 - 3 days - Reason: Recheck today's complaints, Continuance of care, Re-evaluation by your physician Followup: soumya - With: - When: 2 - 3 days - Reason: Recheck today's complaints, Re-evaluation by your physician Discharge Instructions: - Discharge Summary Sheet soumya - Atrial Fibrillation soumya - Migraine Headache soumya - Migraine Headache, [id number] soumya - Recurrent Migraine Headache, [id number] soumya - Atrial Fibrillation, [id number]-[id number] soumya Forms: - Medication Reconciliation Form soumya - Thank You Letter soumya - Antibiotic Education soumya - Prescription Opioid Use soumya Prescriptions: - Zofran 4 mg Oral Tablet - take 1 tablet by ORAL route every 12 hours As needed; 20 tablet; Refills: 0, soumya Product Selection Permitted - Fioricet with Codeine [id number] mg Oral capsule - take 1 capsule by ORAL route every 4 hours as needed not to exceed 6 capsules soumya per 24hrs; 2 capsule; Refills: 0, Product Selection Permitted Signatures: Dispatcher [employer] Karoline Leslie, RN Ryan Rouse MD MD cha Ebrottie, Kouassi, RN RN ke1
[2022-10-23 04:07] VITALS: O2SAT 95
[2022-10-23 04:08] VITALS: BP 118/76; TEMP 97.6
--- NOTE | 2022-10-23 21:33 | RAD REPORT ---
EXAM DESCRIPTION: CT - Head Brain Wo Cont - 10/23/2022 6:50 am CLINICAL HISTORY: Headache, new or worsening COMPARISON: 04/23/2021 TECHNIQUE: Axial CT of the head obtained from the skull apex to the skull base without contrast. Thi s exam was performed according to our departmental dose-optimization program, which includes automate d exposure control, adjustment of the mA and/or kV according to patient size and/or use of iterative reconstruction technique. FINDINGS: No acute intracranial hemorrhage identified. No mass, mass effect, shift of the midline, a bnormal extra-axial fluid collection or CT evidence of acute ischemic change identified. The ventricu lar system and sulcal spaces are mildly enlarged compatible with mild cerebral atrophy. Scattered a reas of hypodensity throughout the supratentorial white matter are nonspecific and may be related to chronic small vessel ischemic change. The visualized paranasal sinuses and mastoid air cells are well aerated. No skull fracture identifi ed. Visualized orbits and globes are unremarkable. Atherosclerotic calcification of the intracranial internal carotid arteries. IMPRESSION: 1. No acute intracranial abnormality by CT criteria. Electronically signed by: Malachi Vigil 10/23/2022 2:52 AM COFFEE BREWER Due to temporary technical issues with the PACS/Fluency reporting system, reports are being signed by the in house radiologists without review as a courtesy to insure prompt reporting. The interpreting radiologist is fully responsible for the content of the report.
--- NOTE | 2022-10-24 15:52 | EKG ---
Test Date: 2022-10-23 Test Time: 02:33:49 Anchor Tack Puller: SALLY MEASUREMENT RESULTS: Intervals: Rate: 62 MA: 178 QRSD: 106 QT: 454 QTc: 460 [place]: P: 54 MA: 178 QRS: -24 T: 35 INTERPRETIVE STATEMENTS: Sinus rhythm with premature supraventricular complexes Otherwise normal ECG Compared to ECG 07/04/2022 04:05:01 Atrial premature complex(es) now present Fusion complex(es) no longer present Left-axis deviation no longer present Myocardial infarct finding no longer present Electronically Signed On 10-24-22 15:50:43 BASKETBALL PLAYER by Edgardo Guo
== END 2022-10-23 03:46 | disposition home or self-care (01) ==
LOC: ER 00:53
DX: G43.109 Migraine with aura, not intractable, without status migrainosus (principal); I48.0 Paroxysmal atrial fibrillation; I10 Essential (primary) hypertension; E03.9 Hypothyroidism, unspecified; I25.2 Old myocardial infarction; Z98.890 Other specified postprocedural states
CPT/HCPCS: 93005; 85025; 36415; 85610; 80053; 70450; J2765; J1200; J2175; 96374; 96375; 99284

== ENCOUNTER 2022-10-23 23:31 | Emergency (ER) | payer OTHER ==
--- OUTSIDE RECORDS SUMMARY | 2022-10-23 23:34 | XMS REPORT | Continuity of Care Document ---
:1945 Author Organization [facility] t Address [address] [place] [address] [address] [place] [address] Care Team Providers Name Role Phone Edgardo [...] 2021-11 [facility] Allergie 2-13 Clear s 00:00: [address] Medications This patient has no known medications. Procedures Procedure Date / Time Performed Performing Clinician Aldo browning [id number] 2022-10-20 00:00:00 GARY [facility] [id number] 2022-10-20 00:00:00 [facility] Encounters Start End Encounter Admission Attending Care Care Encounter Source Date/Time Date/Time Type Type Clinicians Facility Department ID 2022-10-20 2022-10-20 Inpatient ADRIEN Guo [facility]O [facility]ARD [id number] 23 [facility] 06:39:00 19:11:00 Edgardo 96 [facility] Results Test Description Test Time Test Comments Results Result Comments Source GLUCOSE BEDSIDE 2022-10-20 13:15:00 Test Item Value Reference Range Interpretation Comme nts GLUCOSE BEDSIDE (test code = 143 MG/DL 70-110 H Performed by certified concrete boom operator at [facility]) [facility] [id number] 12:34:00 Test Item Value Reference Range Interpretation Comments ACT-ISTAT (test code 401 SEC 74-137 H Perform ed by certified = ACTI) concrete boom operator at [facility] GLUCOSE [id number] 11:16:00 Test Item Value Reference Range Interpretation Comments GLUCOSE BEDSIDE (test 115 MG/DL 70-110 H Perfor med by certified code = GLUBED) concrete boom operator at [facility] - XR CHEST 1 [id number] 00:00:00 [facility] 1945 Sex: M FAX: Edgardo Rea MD [phone] [place]: St: ADM Name: NARESH SUMMERS [facility] : 1945 Age/S: 77/M [address] [facility] [address] #: [id number] Loc: [place] [address] Phys: Edgardo Guo MD Acct: [id number] Dis Date: Status: ADM IN PHONE #: [phone] Exam Date: 10/20/2022 1350 FAX #: [phone] Reason: S/P WATCHMAN EXAMS: CPT CODE: [id number] XR CHEST 1 V 67616 PROCEDURE INFORMATION: Exam: XR ChestExam date and [...] is present. 2. Bibasilar subsegmental atelectasis. at 9344 Reported and signed by: Rach Anderson M.D. CC: Edgardo Guo MD Technologist: RT Dorothy(R) Trnscrd Date/Time/By: 10/20/2022 (443) : By: [email or web address] Orig Print D/T: S: 10/20/2022 (176) PAGE 1 Signed ReportPROTHROMBIN [id number] 10:27:00 Test Item Value Reference Range Interpretation [...] (to prevent recurrent infar ct). BASIC METABOLIC [id number] 10:22:00 Test Item Value Reference Range Interpretation [...] code = 10.1 mg/dL 8.0-10.5 N CA) [id number] 10:22:00 Test Item Value Reference Range Interpretation Comments PREALBUMIN (test code = PREALB) 26.0 mg/dL 16.0-40.0 N CBC W/AUTO [id number] 10:07:00 Test Item Value Reference Range Interpretation [...] NO = MDIFF) - XR CHEST 2 [id number] 00:00:00 [facility] 1945 Sex: M FAX: Edgardo Rea MD [phone] [place]: St: PRE Name: NARESH SUMMERS [facility] [place] : 1945 Age/S: 77/M [address] [facility] [address] #: [id number] Loc: [place] [address] Phys: Edgardo Guo MD Acct: [id number] Dis Date: Status: PRE IN PHONE #: [phone] Exam Date: 10/19/2022 0955 FAX #: [phone] Reason: PAT EXAMS: CPT CODE: [id number] XR CHEST 2 V 64869 PROCEDURE INFORMATION: Exam: XR Chest Exam date [...] No acute cardiopulmonary findings. Electronically Signed by Martin Frost on10/19/2022 at 1113 Reported and signed by: Dell Frost M.D. CC: Edgardo Guo MD Technologist: RT Bianca(R) Trnscrd Date/Time/By: 10/19/2022 (6383) : By: DellTDO Orig Print D/T: S: 10/19/2022 (2824) PAGE 1 Signed Report
[2022-10-24] MEDS ORDERED: ONDANSETRON 4 MG/2 ML VIAL ONE
[2022-10-24] MEDS ORDERED: METOCLOPRAMIDE 10 MG/2mL INJ ONE
[2022-10-24] MEDS ORDERED: NA CHLORIDE 0.9% 1,000 ML ONE
[2022-10-24] MEDS ORDERED: HYDROMORPHONE HCL 1 MG/ML INJ ONE ×2 (00:06→01:42)
[2022-10-24 00:32] LABS: Absolute Lymphocytes (CBC) 1.7 K/uL (0.7-4.9); Hematocrit 48.9 % (39.6-49.0); Lymphocytes % 17.9 % (15.3-44.8); MCV 86.8 fL (80-100); MPV 8.4 fL (7.6-11.3); RBC Red Blood Cell Count 5.64 M/uL (4.33-5.43)
[2022-10-24 00:35] LABS: Protime INR 1.21
[2022-10-24 00:52] LABS: Albumin 3.5 g/dL (3.4-5.0); Bilirubin Direct 0.3 mg/dL (0-0.2); Bilirubin Total 1.3 mg/dL (0.2-1.0); Magnesium 2.3 mg/dL (1.6-2.4); Protein, Total 6.9 g/dL (6.4-8.2); Troponin High Sensitivity 39.6 pg/mL (<58.9)
[2022-10-24] MEDS ORDERED: PROMETHAZINE INJ 25 MG/ML AMP ONE (01:41)
[2022-10-24 03:32] LABS: Urine Blood Negative (Negative); Urine Glucose Negative (Negative); Urine Protein Negative (Negative); Urine Specific Gravity 1.015 (1.005-1.030)
--- NOTE | 2022-10-24 04:00 | EDPHYS ---
Physician Documentation [facility] Name: Jesse Ortega Age: 77 yrs Sex: Male : 1945 Arrival Date: 10/23/2022 Time: 23:33 Bed 8 Private MD: ED Physician Ryan Rubin HPI: 10/24 00:11 This 77 yrs old Male presents to ER via Ambulatory with complaints of soumya Headache, Possible Afib. 00:11 The patient complains of pain to the forehead. The patient describes the headache as soumya aching. Onset: The symptoms/episode began/occurred yesterday. Associated signs and symptoms: The patient has no apparent associated signs or symptoms. Severity of symptoms: At its worst the pain was mild, moderate, in the emergency department the pain has improved, mildly. Headache History: The patient has had previous headaches and this one is similar to previous episodes. The symptoms are alleviated by Darkened room, quiet, remaining still, the symptoms are aggravated by lights, movement, noise. The patient has experienced similar episodes in the past, several times. Historical: - Allergies: 10/23 23:41 No Known Allergies; hb - PMHx: 23:41 ALOPECIA; Atrial Fib; CAD; Colitis; Glaucoma; Hyperlipidemia; Hypertension; hb Hypothyroidism; insomnia; Migraine; Myocardial infarction; ulcerative colitis; - PSHx: 23:41 watchmans x 3 days prior; hb - Immunization history:: Adult Immunizations up to date. - Social history:: Smoking status: Patient denies any tobacco usage or history of. - Family history:: not pertinent. ROS: 10/24 00:11 Constitutional: Negative for fever, chills, and weight loss, Eyes: Negative for injury, soumya pain, redness, and discharge, ENT: Negative for injury, pain, and discharge, Neck: Negative for injury, pain, and swelling, Cardiovascular: Negative for chest pain, palpitations, and edema, Respiratory: Negative for shortness of breath, cough, wheezing, and pleuritic chest pain, Abdomen/GI: Negative for abdominal pain, nausea, vomiting, diarrhea, and constipation, Back: Negative for injury and pain, : Negative for injury, bleeding, discharge, and swelling, MS/Extremity: Negative for injury and deformity, Skin: Negative for injury, rash, and discoloration, Psych: Negative for depression, anxiety, suicide ideation, homicidal ideation, and hallucinations, Allergy/Immunology: Negative for hives, rash, and allergies, Endocrine: Negative for neck swelling, polydipsia, polyuria, polyphagia, and marked weight changes, Hematologic/Lymphatic: Negative for swollen nodes, abnormal bleeding, and unusual bruising. Neuro: Positive for headache, of the forehead. Exam: 00:11 Constitutional: This is a well developed, well nourished patient who is awake, alert, soumya and in no acute distress. Head/Face: Normocephalic, atraumatic. Eyes: Pupils equal round and reactive to light, extra-ocular motions intact. Lids and lashes normal. Conjunctiva and sclera are non-icteric and not injected. Cornea within normal limits. Periorbital areas with no swelling, redness, or edema. ENT: Nares patent. No nasal discharge, no septal abnormalities noted. Tympanic membranes are normal and external auditory canals are clear. Oropharynx with no redness, swelling, or masses, exudates, or evidence of obstruction, uvula midline. Mucous membranes moist. Neck: Trachea midline, no thyromegaly or masses palpated, and no cervical lymphadenopathy. Supple, full range of motion without nuchal rigidity, or vertebral point tenderness. No Meningismus. Chest/axilla: Normal chest wall appearance and motion. Nontender with no deformity. No lesions are appreciated. Cardiovascular: Regular rate and rhythm with a normal S1 and S2. No gallops, murmurs, or rubs. Normal PMI, no JVD. No pulse deficits. Respiratory: Lungs have equal breath sounds bilaterally, clear to auscultation and percussion. No rales, rhonchi or wheezes noted. No increased work of breathing, no retractions or nasal flaring. Abdomen/GI: Soft, non-tender, with normal bowel sounds. No distension or tympany. No guarding or rebound. No evidence of tenderness throughout. Back: No spinal tenderness. No costovertebral tenderness. Full range of motion. Male : Normal genitalia with no discharge or lesions. Skin: Warm, dry with normal turgor. Normal color with no rashes, no lesions, and no evidence of cellulitis. MS/ Extremity: Pulses equal, no cyanosis. Neurovascular intact. Full, normal range of motion. Neuro: Awake and alert, GCS 15, oriented to person, place, time, and situation. Cranial nerves II-XII grossly intact. Motor strength 5/5 in all extremities. Sensory grossly intact. Cerebellar exam normal. Normal gait. Psych: Awake, alert, with orientation to person, place and time. Behavior, mood, and affect are within normal limits. 01:15 ECG was reviewed by the Attending Physician. soumya 01:40 Neck: ROM/movement: is normal, no acute changes, pain, is not appreciated, limited soumya range of motion, is not appreciated, Meningeal signs: are not present, Kernig's sign is negative, Brudzinski's sign is negative, nuchal rigidity, is not appreciated. Vital Signs: 10/23 23:38 BP 176 / 96; Pulse 75; Resp 20; Temp 98.4(TE); Pulse Ox 100% on R/A; Weight 86.18 kg; hb Height 5 ft. 10 in. (177.80 cm); Pain 08/16; 10/24 03:34 BP 120 / 82; Pulse 77; Resp 16; Pulse Ox 95% ; ll3 10/23 23:38 Body Mass Index 27.26 (86.18 kg, 177.80 cm) hb NIH Stroke Scale Scores: 00:11 NIHSS Score: 0 soumya Theresa Coma Score: 00:13 Eye Response: spontaneous(4). Verbal Response: oriented(5). Motor Response: obeys soumya commands(6). Total: 15. MDM: 10/23 23:43 Patient medically screened. soumya 10/24 00:13 Differential diagnosis: cluster headache, cerebral vascular accident, epidural soumya hematoma, hypoglycemia, hyponatremia, intracerebral hemorrhage, migraine, neoplasm, sinusitis, subarachnoid bleed, temporal arteritis, tension headache, trigeminal neuralgia, vasomotor headache. Data reviewed: vital signs, nurses notes, lab test result(s), EKG, radiologic studies, CT scan. Data interpreted: secured entrance monitor: rate is 75 beats/min, rhythm is regular, Pulse oximetry: on room air is 100 %. Test interpretation: by ED physician or midlevel provider: ECG, plain radiologic studies. Counseling: I had a detailed discussion with the patient and/or guardian regarding: the historical points, exam findings, and any diagnostic results supporting the discharge/admit diagnosis, lab results, radiology results, the need for outpatient follow up, for definitive care, a family practitioner, a neurologist. 10/23 23:45 Order name: Basic Metabolic Panel; Complete [facility]: [facility]:05 [facility] 10/23 23:45 Order name: CBC with Diff; Complete Time: 01:05 [facility] 10/23 23:45 Order name: LFT's; Complete Time: 01:05 [facility] 10/23 23:45 Order name: Magnesium; Complete Time: 01:05 [facility] 10/23 23:45 Order name: NT PRO-BNP; Complete Time: 01:05 [facility] 10/23 23:45 Order name: PT-INR; Complete Time: 01:05 [facility] 10/23 23:45 Order name: Troponin HS; Complete Time: 01:05 [facility] 10/23 23:45 Order name: XRAY Chest (1 view) [facility] 10/23 23:45 Order name: CT Head Angio [facility] 10/23 23:45 Order name: CT Neck Angio [facility] 10/23 23:51 Order name: Neck Angio [facility] 10/24 02:32 Order name: CT Head Brain wo Cont vc1 10/24 03:32 Order name: Urine Dipstick-Ancillary; Complete Time: 04:25 [facility] 10/23 23:45 Order name: EKG; Complete Time: 23:45 [facility] 10/23 23:45 Order name: Cardiac monitoring; Complete Time: 01:04 [facility] 10/23 23:45 Order name: EKG - Nurse/Tech; Complete Time: 01:04 [facility] 10/23 23:45 Order name: IV Saline Lock; Complete Time: 00:28 [facility] 10/23 23:45 Order name: Labs collected and sent; Complete Time: 00:28 [facility] 10/23 23:45 Order name: O2 Per Protocol; Complete Time: 00:28 [facility] 10/23 23:45 Order name: O2 Sat Monitoring; Complete Time: 00:28 [facility] 10/23 23:45 Order name: Urine Dipstick-Ancillary (obtain specimen); Complete Time: 03:31 [facility] 10/24 00:02 Order name: Oxygen; Complete Time: 00:28 [facility] EC:15 Rate is 65 beats/min. Rhythm is regular. QRS [place] is Normal. NV interval is normal. QRS soumya interval is normal. QT interval is normal. No Q waves. T waves are Normal. No ST changes noted. Clinical impression: NSR w/ Non-specific ST/T Changes and No evidence of ischemia. Interpreted by me. Reviewed by me. Administered Medications: 00:02 Not Given (Duplicate Order): Demerol (meperidine) 50 mg IVP once soumya 00:27 Drug: Dilaudid (HYDROmorphone) 1 mg Route: IVP; Site: right antecubital; aa9 00:28 Drug: NS 0.9% 1000 ml Route: IV; Rate: 125 ml/hr; Site: right antecubital; aa9 00:28 Drug: Zofran (Ondansetron) 4 mg Route: IVP; Site: right antecubital; aa9 00:28 Drug: Reglan (metoCLOPramide) 10 mg Route: IVP; Site: right antecubital; aa9 01:47 Drug: Phenergan (promethazine) 12.5 mg Route: IVP; Site: right antecubital; aa9 01:48 Drug: Dilaudid (HYDROmorphone) 1 mg Route: IVP; Site: right antecubital; aa9 Disposition Summary: 10/24/22 03:59 Discharge Ordered Location: Home soumya Problem: new soumya Symptoms: have improved soumya Condition: Stable soumya Diagnosis - Headache soumya - Unspecified atrial fibrillation soumya - Essential (primary) hypertension soumya Followup: soumya - With: Private Physician - When: 1 - 2 days - Reason: Recheck today's complaints, Continuance of care, Re-evaluation by your physician Followup: soumya - With: - When: 1 - 2 days - Reason: Recheck today's complaints, Re-evaluation by your physician Discharge Instructions: - Discharge Summary Sheet soumya - Atrial Fibrillation soumya - General Headache Without Cause soumya - Hypertension, Adult soumya - Hypertension, Adult, Bzij-ad-Grhc soumya - How to Take Your Blood Pressure, Jkod-we-Vclb soumya - General Headache Without Cause, Wy[place]-mg-Atca soumya - Managing Your Hypertension soumya Forms: - Medication Reconciliation Form soumya - Thank You Letter soumya - Antibiotic Education soumya - Prescription Opioid Use soumya NIH Stroke Scale - NIH Stroke Score Date: 10/24/2022 Time: 00:11 Total Score = 0 1a. Level of Consciousness (LOC) - 0(Alert) 1b. Level of Consciousness (LOC) (Month \T\ Age) - 0(Both) 1c. LOC Commands (Open \T\ Closes Eyes/Personal Care Assistant) - 0(Both) 2. Best Gaze (Lateral Gaze Paresis) - 0(Normal) 3. Visual Field Loss - 0(No visual loss) 4. Facial Palsy - 0(Normal) 5a. Left Arm: Motor (10-second hold) - 0(No drift) 5b. Right Arm: Motor (10-second hold) - 0(No drift) 6a. Left Leg: Motor (5-second hold - always test supine) - 0(No drift) 6b. Right Leg: Motor (5-second hold - always test supine) - 0(No drift) 7. Limb Ataxia (finger/nose \T\ heel/[place] - test with eyes open) - 0(Absent) 8. Sensory Loss (pinprick arms/legs/face) - 0(Normal) 9. Best Language: Aphasia (description/naming/reading) - 0(No aphasia) 10. Dysarthria (speech clarity - read or repeat words) - 0(Normal) 11. Extinction and Inattention (visual/tactile/auditory/spatial/personal) - 0(No abnormality) Initials: soumya Signatures: Dispatcher [employer] Ryan Mora MD MD cha Baxter, Heather, RN RN Tess Rainey, RN RN aa9
--- NOTE | 2022-10-24 04:00 | ER ---
Nurse's Notes [facility] Name: Jesse Ortega Age: 77 yrs Sex: Male : 1945 Arrival Date: 10/23/2022 Time: 23:33 Bed 8 Private MD: Diagnosis: Headache;Unspecified atrial fibrillation;Essential (primary) hypertension Presentation: 10/23 23:38 Chief complaint: Here for migraine and palpitations yesterday, reports palpitations hb continue today and headache returned tonight. Also c/o photosensitivity and nausea, vomit x 1. Coronavirus screen: At this time, the client does not indicate any symptoms associated with coronavirus-19. Ebola Screen: No symptoms or risks identified at this time. Initial Sepsis Screen: Does the patient meet any 2 criteria? No. Patient's initial sepsis screen is negative. Does the patient have a suspected source of infection? No. Patient's initial sepsis screen is negative. Risk Assessment: Do you want to hurt yourself or someone else? Patient reports no desire to harm self or others. Onset of symptoms was October 23, 2022. 23:38 Method Of Arrival: Ambulatory hb 23:38 Acuity: KAVON 3 hb Historical: - Allergies: 23:41 No Known Allergies; hb - PMHx: 23:41 ALOPECIA; Atrial Fib; CAD; Colitis; Glaucoma; Hyperlipidemia; Hypertension; hb Hypothyroidism; insomnia; Migraine; Myocardial infarction; ulcerative colitis; - PSHx: 23:41 watchmans x 3 days prior; hb - Immunization history:: Adult Immunizations up to date. - Social history:: Smoking status: Patient denies any tobacco usage or history of. - Family history:: not pertinent. Screenin/18 04:[address] [facility] ED Fall Risk Assessment (Adult) History of falling in the last 3 months, ll3 including since admission No falls in past 3 months (0 pts) Confusion or Disorientation No (0 pts) Intoxicated or Sedated No (0 pts) Impaired Gait No (0 pts) Mobility Assist Device Used No (0 pt) Altered Elimination No (0 pt) Score/Fall Risk Level 0 - 2 = Low Risk. Humpty Dumpty Scale Fall Assessment Tool (age< 18yrs) Age 13 years and above (1 pt). Abuse screen: Denies threats or abuse. Denies injuries from another. Nutritional screening: No deficits noted. Tuberculosis screening: No symptoms or risk factors identified. Fall Risk No fall in past 12 months (0 pts). No secondary diagnosis (0 pts). IV access (20 points). Ambulatory Aid- None/Bed Rest/Nurse Assist (0 pts). Gait- Normal/Bed Rest/Wheelchair (0 pts) Mental Status- Oriented to own ability (0 pts). Total Hernandez Fall Scale indicates No Risk (0-24 pts). Assessment: 03:33 General: Appears in no apparent distress. uncomfortable, Behavior is calm, cooperative. aa9 Respiratory: Airway is patent Respiratory effort is even, unlabored. Vital Signs: 10/23 23:38 BP 176 / 96; Pulse 75; Resp 20; Temp 98.4(TE); Pulse Ox 100% on R/A; Weight 86.18 kg; hb Height 5 ft. 10 in. (177.80 cm); Pain 10/10; 12 03:34 BP 120 / 82; Pulse 77; Resp 16; Pulse Ox 95% ; ll3 10/23 23:38 Body Mass Index 27.26 (86.18 kg, 177.80 cm) hb [place] Coma Score: 00:13 Eye Response: spontaneous(4). Verbal Response: oriented(5). Motor Response: obeys soumya commands(6). Total: 15. NIH Stroke Scale Scores: 00:11 NIHSS Score: 0 [facility] ED Course: 10/23 23:33 Patient arrived in ED. ja2 23:41 Triage completed. hb 23:41 Arm band placed on. hb 23:43 Ryan Rubin MD is Attending Physician. soumya 23:50 Tess Rainey, RN is Primary Nurse. aa9 10/24 00:28 Initial lab(s) drawn, by nj, sent to lab. Inserted saline lock: 22 gauge in right aa9 antecubital area, using aseptic technique. Blood collected. 01:01 XRAY Chest (1 view) In Process Unspecified. EDMS 03:08 CT Head Brain wo Cont In Process Unspecified. EDMS 03:09 CT Head Angio In Process Unspecified. EDMS 03:09 Neck Angio In Process Unspecified. EDMS 03:59 Sean Romero MD is Referral Physician. soumya 04:29 Patient has correct armband on for positive identification. Placed in gown. Bed in low ll3 position. Call light in reach. Side rails up X 1. Adult w/ patient. 04:29 No provider procedures requiring assistance completed. IV discontinued, intact, ll3 bleeding controlled, No redness/swelling at site. Pressure dressing applied. Administered Medications: 00:02 Not Given (Duplicate Order): Demerol (meperidine) 50 mg IVP once soumya 00:27 Drug: Dilaudid (HYDROmorphone) 1 mg Route: IVP; Site: right antecubital; aa9 00:28 Drug: NS 0.9% 1000 ml Route: IV; Rate: 125 ml/hr; Site: right antecubital; aa9 00:28 Drug: Zofran (Ondansetron) 4 mg Route: IVP; Site: right antecubital; aa9 00:28 Drug: Reglan (metoCLOPramide) 10 mg Route: IVP; Site: right antecubital; aa9 01:47 Drug: Phenergan (promethazine) 12.5 mg Route: IVP; Site: right antecubital; aa9 01:48 Drug: Dilaudid (HYDROmorphone) 1 mg Route: IVP; Site: right antecubital; aa9 Medication: 04:31 VIS not applicable for this client. ll3 Outcome: 03:59 Discharge ordered by . [facility] 04:29 Discharged to home ambulatory, with significant other. 3 04:29 Condition: stable 04:29 Discharge instructions given to patient, significant other, Instructed on discharge instructions, follow up and referral plans. Demonstrated understanding of instructions, follow-up care. 04:31 Patient left the ED. ll3 NIH Stroke Scale - NIH Stroke Score Date: 10/24/2022 Time: 00:11 Total Score = 0 1a. Level of Consciousness (LOC) - 0(Alert) 1b. Level of Consciousness (LOC) (Month \T\ Age) - 0(Both) 1c. LOC Commands (Open \T\ Closes Eyes/Stencil Machine Operator) - 0(Both) 2. Best Gaze (Lateral Gaze Paresis) - 0(Normal) 3. Visual Field Loss - 0(No visual loss) 4. Facial Palsy - 0(Normal) 5a. Left Arm: Motor (10-second hold) - 0(No drift) 5b. Right Arm: Motor (10-second hold) - 0(No drift) 6a. Left Leg: Motor (5-second hold - always test supine) - 0(No drift) 6b. Right Leg: Motor (5-second hold - always test supine) - 0(No drift) 7. Limb Ataxia (finger/nose \T\ heel/[place] - test with eyes open) - 0(Absent) 8. Sensory Loss (pinprick arms/legs/face) - 0(Normal) 9. Best Language: Aphasia (description/naming/reading) - 0(No aphasia) 10. Dysarthria (speech clarity - read or repeat words) - 0(Normal) 11. Extinction and Inattention (visual/tactile/auditory/spatial/personal) - 0(No abnormality) Initials: soumya Signatures: Dispatcher [employer] Ryan Mora MD MD cha Baxter, Heather, RN RN Anne Encarnacion Lynsea, RN RN ll3 Tess Rainey, RN RN aa9
[2022-10-24 05:05] VITALS: TEMP 98.4
[2022-10-24 05:09] VITALS: BP 120/82; O2SAT 95
--- NOTE | 2022-10-24 15:49 | EKG ---
Test Date: 2022-10-24 Test Time: 00:56:42 Solar Electric Installer: LL MEASUREMENT RESULTS: Intervals: Rate: 65 [place]: 178 QRSD: 106 QT: 422 QTc: 438 [place]: P: 31 [place]: 178 QRS: -28 T: 22 INTERPRETIVE STATEMENTS: Normal sinus rhythm Normal ECG Compared to ECG 10/23/2022 02:33:49 Atrial premature complex(es) no longer present Electronically Signed On 10-24-22 15:48:59 COTTON BALL BAGGER by Edgardo Guo
--- NOTE | 2022-10-25 10:27 | RAD REPORT ---
EXAM DESCRIPTION: RAD - Chest Single View - 10/24/2022 1:00 am CLINICAL HISTORY: 77 years Male PALPITATIONS COMPARISON: July 04, 2022 TECHNIQUE: AP view of the chest was obtained. FINDINGS: Cardiac silhouette is enlarged. Central vessels are not. Linear airspace opacities lower lungs bilaterally. No effusions bilaterally. No pneumothorax. IMPRESSION: Enlarged heart with no evidence for congestive heart failure. Discoid atelectatic change lower lungs bilaterally. No infiltrates seen. Electronically signed by: Rebecca Borrero MD 10/24/2022 1:19 AM CERTIFIED GREEN BUILDING ENGINEER Due to temporary technical issues with the PACS/Fluency reporting system, reports are being signed by the in house radiologists without review as a courtesy to insure prompt reporting. The interpreting radiologist is fully responsible for the content of the report.
--- NOTE | 2022-10-25 10:31 | RAD REPORT ---
EXAM DESCRIPTION: CT - Head Brain Wo Cont - 10/24/2022 6:10 am CLINICAL HISTORY: The patient is 77 years old and is Male; Headache, new or worsening TECHNIQUE: Axial computed tomography images of the head/brain without intravenous contrast. Sagitt al and coronal reformatted images were created and reviewed. This CT exam was performed using one o r more of the following dose reduction techniques: automated exposure control, adjustment of the mA and/or kV according to patient size, and/or use of iterative reconstruction technique. COMPARISON: October 23, 2022. FINDINGS: Brain: Mild cerebral atrophy. Mild nonspecific white matter changes likely related to chronic microvascular ischemic disea se. No hemorrhage. Ventricles: Unremarkable. No ventriculomegaly. Bones/joints: Unremarkable. No acute fracture. Soft tissues: Unremarkable. Sinuses: Unremarkable as visualized. Mastoid air cells: Unremarkable as visualized. No mastoid effusion. IMPRESSION: No acute intracranial abnormality. Electronically signed by: Aden Elias MD 10/24/2022 3:36 AM REPORTING COORDINATOR Due to temporary technical issues with the PACS/Fluency reporting system, reports are being signed by the in house radiologists without review as a courtesy to insure prompt reporting. The interpreting radiologist is fully responsible for the content of the report.
--- NOTE | 2022-10-25 10:36 | RAD REPORT ---
EXAM DESCRIPTION: CT - Head angio - 10/24/2022 6:11 am CLINICAL HISTORY: 77 years, Male, Headache, new or worsening COMPARISON: None. TECHNIQUE: Axial CTA images of the head and neck obtained following the uncomplicated intravenous ad ministration of iodinated contrast. 3-D/MIP reformatted images available. This exam was performed acc ording to our departmental dose-optimization program, which includes automated exposure control, adju stment of the mA and/or kV according to patient size and/or use of iterative reconstruction technique . FINDINGS: CTA head: In the anterior circulation, the intracranial internal carotid arteries have normal course. The inter nal carotid arteries bifurcate into patent A1 and M1 segments of the anterior and middle cerebral art eries respectively. No evidence of flow-limiting stenosis, aneurysm, occlusion, or dissection in the anterior circulation. The anterior communicating artery is patent. In the posterior circulation, the intracranial vertebral arteries combine to form a patent basilar ar shanna. The basilar artery bifurcates into patent P1 segments of the posterior cerebral artery. No evid ence of stenosis, aneurysm, occlusion, or dissection in the posterior circulation. No definite acute intracranial abnormality identified. No acute abnormality of the osseous calvarium. Paranasal sinuses and mastoid air cells are well aerated. CTA NECK: The aortic arch has normal anatomic configuration. Atherosclerotic calcification thoracic aorta. The origin of the great vessels are patent. The right common carotid artery is patent and bifurcates into patent internal and external carotid ar teries. Calcified atherosclerotic plaque at the right carotid bulb. 0% stenosis by NASCET criteria. N o evidence of occlusion or dissection. The left common carotid artery is patent and bifurcates into patent internal and external carotid art eries. Calcified atherosclerotic plaque at the left carotid bulb. 0% stenosis by NASCET criteria. No evidence of occlusion or dissection. The cervical vertebral arteries are patent throughout their course. No evidence of occlusion, stenosi s, or dissection. No definite acute abnormalities in the neck soft tissues. No apical pneumothorax. No acute osseous ab normalities. Multilevel degenerative disc height narrowing, endplate spondylosis, and facet arthropat hy of the cervical spine. IMPRESSION: 1. No evidence of stenosis, occlusion, or aneurysm in the intracranial arterial circul ation. 2. No evidence of stenosis/occlusion involving the cervical carotid or vertebral arteries. Electronically signed by: Malachi Vigil 10/24/2022 3:45 AM PELLET PREPARATION OPERATOR Due to temporary technical issues with the PACS/Fluency reporting system, reports are being signed by the in house radiologists without review as a courtesy to insure prompt reporting. The interpreting radiologist is fully responsible for the content of the report.
--- NOTE | 2022-10-25 10:51 | RAD REPORT ---
EXAM DESCRIPTION: CT - Neck Angio - 10/24/2022 6:11 am CLINICAL HISTORY: 77 years, Male, Headache, new or worsening COMPARISON: None. TECHNIQUE: Axial CTA images of the head and neck obtained following the uncomplicated intravenous ad ministration of iodinated contrast. 3-D/MIP reformatted images available. This exam was performed acc ording to our departmental dose-optimization program, which includes automated exposure control, adju stment of the mA and/or kV according to patient size and/or use of iterative reconstruction technique . FINDINGS: CTA head: In the anterior circulation, the intracranial internal carotid arteries have normal course. The inter nal carotid arteries bifurcate into patent A1 and M1 segments of the anterior and middle cerebral art eries respectively. No evidence of flow-limiting stenosis, aneurysm, occlusion, or dissection in the anterior circulation. The anterior communicating artery is patent. In the posterior circulation, the intracranial vertebral arteries combine to form a patent basilar ar shanna. The basilar artery bifurcates into patent P1 segments of the posterior cerebral artery. No evid ence of stenosis, aneurysm, occlusion, or dissection in the posterior circulation. No definite acute intracranial abnormality identified. No acute abnormality of the osseous calvarium. Paranasal sinuses and mastoid air cells are well aerated. CTA NECK: The aortic arch has normal anatomic configuration. Atherosclerotic calcification thoracic aorta. The origin of the great vessels are patent. The right common carotid artery is patent and bifurcates into patent internal and external carotid ar teries. Calcified atherosclerotic plaque at the right carotid bulb. 0% stenosis by NASCET criteria. N o evidence of occlusion or dissection. The left common carotid artery is patent and bifurcates into patent internal and external carotid art eries. Calcified atherosclerotic plaque at the left carotid bulb. 0% stenosis by NASCET criteria. No evidence of occlusion or dissection. The cervical vertebral arteries are patent throughout their course. No evidence of occlusion, stenosi s, or dissection. No definite acute abnormalities in the neck soft tissues. No apical pneumothorax. No acute osseous ab normalities. Multilevel degenerative disc height narrowing, endplate spondylosis, and facet arthropat hy of the cervical spine. IMPRESSION: 1. No evidence of stenosis, occlusion, or aneurysm in the intracranial arterial circul ation. 2. No evidence of stenosis/occlusion involving the cervical carotid or vertebral arteries. Electronically signed by: Malachi Vigil 10/24/2022 3:45 AM DRIP BOX TENDER Due to temporary technical issues with the PACS/Fluency reporting system, reports are being signed by the in house radiologists without review as a courtesy to insure prompt reporting. The interpreting radiologist is fully responsible for the content of the report.
== END 2022-10-24 04:31 | disposition home or self-care (01) ==
LOC: ER 23:31
DX: I48.91 Unspecified atrial fibrillation (principal); R51.9 Headache, unspecified; I10 Essential (primary) hypertension; I25.2 Old myocardial infarction; Z98.890 Other specified postprocedural states
CPT/HCPCS: 93005; 85025; 80048; 36415; 83735; 85610; 80076; 81003; 84484; 83880; 70450; 70496; 70498; 71045; 96375; 96374; 99284; Q9967; J2550; J1170 ×2

== ENCOUNTER 2022-11-03 14:05 | Observation (INO) | payer OTHER ==
--- OUTSIDE RECORDS SUMMARY | 2022-11-03 14:11 | XMS REPORT | Continuity of Care Document ---
:[address] [facility] t Address [address] [place] [address] [address] [place] [address] Care Team Providers Name Role Phone Edgardo [...] 2021-11 [facility]ie 2-13 Clear s 00:00: [address] Medications This patient has no known medications. Procedures Procedure Date / Time Performed Performing Clinician Gulile nallely [id number] 2022-10-20 00:00:00 GARY [facility] [id number] 2022-10-20 00:00:00 [facility] Encounters Start End Encounter Admission Attending Care Care Encounter Source Date/Time Date/Time Type Type Clinicians Facility Department ID 2022-10-20 2022-10-20 Inpatient SOCO Myers CARD [id number] 23 MICHAEL 06:39:00 19:11:00 Edgardo 96 [facility] Results Test Description Test Time Test Comments Results Result Comments Source GLUCOSE BEDSIDE 2022-10-20 13:15:00 Test Item Value Reference Range Interpretation Comme nts GLUCOSE BEDSIDE (test code = 143 MG/DL 70-110 H Performed by certified telegraph operator at [facility] [id number] 12:34:00 Test Item Value Reference Range Interpretation Comments ACT-ISTAT (test code 401 SEC 74-137 H Perform ed by certified = ACTI) telegraph operator at [facility] GLUCOSE [id number] 11:16:00 Test Item Value Reference Range Interpretation Comments GLUCOSE BEDSIDE (test 115 MG/DL 70-110 H Perfor med by certified code = GLUBED) telegraph operator at [facility] - XR CHEST 1 [id number] 00:00:00 [facility] : 1945 Sex: M FAX: Edgardo Rea MD [phone] [place]: St: ADM Name: NARESH SUMMERS [facility] : 1945 Age/S: 77/M [address] [place] [address] Unit #: [id number] Loc: [place] [address] Phys: Edgardo Guo MD Acct: [id number] Dis Date: Status: ADM IN PHONE #: [phone] Exam Date: 10/20/2022 1350 FAX #: [phone] Reason: S/P WATCHMAN EXAMS: CPT CODE: [id number] XR CHEST 1 V 02498 PROCEDURE INFORMATION: Exam: XR Chest Exam date and time: 10/20/2022 1:50 PM Age: 77 years old Clinical indication: Device placement; Other: S/P watchman TECHNIQUE: Imaging protocol: Radiologic exam of the chest. Views: 1 view. COMPARISON: DX XR CHEST 2 V 10/19/2022 9:54 AM FINDINGS: Tubes, catheters and devices: A left atrial appendageocclusion device is present. Lungs: The lung volumes are low with bibasilar subsegmental atelectasis. Pleural spaces: No appreciable pleural effusion or pneumothorax. Heart/Mediastinum: Cardiomediastinal silhouette is normal in size with atherosclerotic calcification in the aortic arch. Bones/joints: No acute osseous abnormality. IMPRESSION: 1. Left atrial appendage occlusion device is present. 2. Bibasilar subsegmental atelectasis. at 6797 Reported and signed by: Rach Anderson M.D. CC: Edgardo Guo MD Technologist: RT Dorothy(R) Trnscrd Date/Time/By: 10/20/2022 (463) : By: [email or web address] Orig Print D/T: S: 10/20/2022 (333) PAGE 1 Signed ReportPROTHROMBIN [id number] 10:27:00 Test Item Value Reference Range Interpretation Comments PROTHROMBIN TIME 15.6 SECONDS 9.3-12.9 H PATIENT (test code = PTP) INTERNATIONAL NORMAL 1.4 0.8-1.2 H TARGE T INR BY RATIO (test code = INDICATIO N Indication INR) INR1. Prophylax is of venous thrombos is 2.0 - 3.0 (orthoped ic surgery), Proph ylaxis of venous throm bosis (other than hig h-risk surgery), Treat ment of Deep Vein Thrombosis/Pulm onary Embolism, Preve ntion of systemic emb olism - Tissue heart va lves, Acute Myocardia l Infarction (to prevent systemic embol ism), Valvular heart disease, Atrial Fibrillation, Bileaflet mecha nical valve in aortic position.2. Mec hanical prosthetic valv es (high risk), 2. 5 - 3.5 Presence of Lup us Anticoagulant o r Antiphospholipi d Antibodies, Pre vention of systemic emb olism - Acute Myocardia l Infarction (to prevent recurrent infar ct). BASIC METABOLIC [id number] 10:22:00 Test Item Value Reference Range Interpretation [...] code = 10.1 mg/dL 8.0-10.5 N CA) [id number] 10:22:00 Test Item Value Reference Range Interpretation Comments PREALBUMIN (test code = PREALB) 26.0 mg/dL 16.0-40.0 N CBC W/AUTO [id number] 10:07:00 Test Item Value Reference Range Interpretation [...] NO = MDIFF) - XR CHEST 2 [id number] 00:00:00 [facility] : 1945 Sex: M FAX: Edgardo Rea MD [phone] [place]: St: PRE Name: NARESH SUMMERS [facility] [place] : 1945 Age/S: 77/M [address] [facility] Unit #: [id number] Loc: [place] [address] Phys: Edgardo Guo MD Acct: [id number] Dis Date: Status: PRE IN PHONE #: [phone] Exam Date: 10/19/2022 0955 FAX #: [phone] Reason: PAT EXAMS: CPT CODE: [id number] XR CHEST 2 V 54590 PROCEDURE INFORMATION: Exam: XR Chest Exam date [...] abnormality seen. IMPRESSION: No acute cardiopulmonary findings. at 1113 Reported and signed by: Dell Frost M.D. CC: Edgardo Guo MD Technologist: RT Bianca(R) Trnscrd Date/Time/By: 10/19/2022 (0303) : By: [email or web address] Orig Print D/T: S: 10/19/2022 (9904) PAGE 1 Signed Report
--- NOTE | 2022-11-03 18:22 | RAD REPORT ---
EXAM DESCRIPTION: RAD - Chest Single View - 11/03/2022 6:13 pm CLINICAL HISTORY: CHEST PAIN COMPARISON: Portable 10/24/2022 TECHNIQUE: AP portable chest image was obtained 11/03/2022 6:13 pm . FINDINGS: Lungs are clear. Interstitial pattern matches comparison. Heart size is upper normal, debora lar to comparison. No measurable pleural effusion and no pneumothorax. No acute bony abnormality seen . No acute aortic findings suspected. IMPRESSION: No acute cardiopulmonary process. No significant change from comparison study.
[2022-11-03 19:45] LABS: Absolute Lymphocytes (CBC) 2.3 K/uL (0.7-4.9); Hematocrit 50.3 % (39.6-49.0); Lymphocytes % 32.5 % (15.3-44.8); MCV 86.8 fL (80-100); MPV 8.3 fL (7.6-11.3)
[2022-11-03 20:05] LABS: Albumin 3.7 g/dL (3.4-5.0); Bilirubin Total 1.1 mg/dL (0.2-1.0); Potassium 3.8 mmol/L (3.5-5.1); Protein, Total 7.3 g/dL (6.4-8.2); Troponin High Sensitivity 10.4 pg/mL (<58.9)
--- NOTE | 2022-11-03 20:12 | EDPHYS ---
Physician Documentation [facility] Name: Jesse Ortega Age: 77 yrs Sex: Male : 1945 Arrival Date: 11/03/2022 Time: 14:07 Bed 15 Private MD: ED Physician Arvin Soto HPI: 11/03 18:51 This 77 yrs old Male presents to ER via Ambulatory with complaints of Chest Pain, rt Palpitations. 18:51 With history of A. fib presents to the ED with chest pain, palpitations, intermittently rt for the past 2 weeks. He was sent by his corrosion control engineer for initiation of sotalol. Patient states that the symptoms did worsen today, however, they have since resolved and he feels well. Denies other acute complaints at this time, symptoms are moderate severity, no other aggravating or alleviating factors. Pain is pressure-like, nonradiating.. Historical: - Allergies: 14:30 No Known Allergies; ss - PMHx: 14:30 ALOPECIA; Atrial Fib; CAD; Colitis; Glaucoma; Hyperlipidemia; Hypertension; ss Hypothyroidism; insomnia; Migraine; Myocardial infarction; ulcerative colitis; - PSHx: 14:30 watchmans x 3 days prior; ss - Immunization history:: Client reports receiving the 2nd dose of the Covid vaccine. - Social history:: Smoking status: Patient denies any tobacco usage or history of. - Family history:: not pertinent. ROS: 18:51 Constitutional: Negative for fever, chills, and weight loss, Eyes: Negative for injury, rt pain, redness, and discharge, ENT: Negative for injury, pain, and discharge, Neck: Negative for injury, pain, and swelling, Respiratory: Negative for shortness of breath, cough, wheezing, and pleuritic chest pain, Abdomen/GI: Negative for abdominal pain, nausea, vomiting, diarrhea, and constipation, Back: Negative for injury and pain, MS/Extremity: Negative for injury and deformity, Skin: Negative for injury, rash, and discoloration, Neuro: Negative for headache, weakness, numbness, tingling, and seizure, Psych: Negative for depression, anxiety, suicide ideation, homicidal ideation, and hallucinations. 18:51 Cardiovascular: Positive for chest pain, palpitations. Exam: 18:51 Constitutional: This is a well developed, well nourished patient who is awake, alert, rt and in no acute distress. Head/Face: Normocephalic, atraumatic. Eyes: Pupils equal round and reactive to light, extra-ocular motions intact. Lids and lashes normal. Conjunctiva and sclera are non-icteric and not injected. Cornea within normal limits. Periorbital areas with no swelling, redness, or edema. ENT: Nares patent. No nasal discharge, no septal abnormalities noted. Tympanic membranes are normal and external auditory canals are clear. Oropharynx with no redness, swelling, or masses, exudates, or evidence of obstruction, uvula midline. Mucous membranes moist. Chest/axilla: Normal chest wall appearance and motion. Nontender with no deformity. No lesions are appreciated. Cardiovascular: Regular rate and rhythm with a normal S1 and S2. No gallops, murmurs, or rubs. Normal PMI, no JVD. No pulse deficits. Respiratory: Lungs have equal breath sounds bilaterally, clear to auscultation and percussion. No rales, rhonchi or wheezes noted. No increased work of breathing, no retractions or nasal flaring. Abdomen/GI: Soft, non-tender, with normal bowel sounds. No distension or tympany. No guarding or rebound. No evidence of tenderness throughout. Skin: Warm, dry with normal turgor. Normal color with no rashes, no lesions, and no evidence of cellulitis. MS/ Extremity: Pulses equal, no cyanosis. Neurovascular intact. Full, normal range of motion. Neuro: Awake and alert, GCS 15, oriented to person, place, time, and situation. Cranial nerves II-XII grossly intact. Motor strength 5/5 in all extremities. Sensory grossly intact. Cerebellar exam normal. Normal gait. Psych: Awake, alert, with orientation to person, place and time. Behavior, mood, and affect are within normal limits. 18:51 ECG was reviewed by the Attending Physician. Vital Signs: 14:20 BP 139 / 79; Pulse 80; Resp 16; Temp 98.0(O); Pulse Ox 98% ; Weight 86.18 kg; Height 5 ss ft. 10 in. (177.80 cm); Pain 3/10; 19:10 BP 117 / 81; Pulse 42; Resp 17; Pulse Ox 99% on R/A; ll3 20:00 BP 110 / 61; Pulse 75; Resp 20; Pulse Ox 99% on R/A; ll3 21:39 BP 145 / 98; Pulse 71; Resp 21; Pulse Ox 96% on R/A; ll3 14:20 Body Mass Index 27.26 (86.18 kg, 177.80 cm) MDM: 18:18 Patient medically screened. rt 11/03 17:10 Order name: CBC with Diff; Complete Time: 20:04 rt 11/03 17:10 Order name: CMP; Complete Time: 20:10 rt 11/03 17:10 Order name: Troponin High Sensitivity; Complete Time: 20:10 rt 11/03 17:10 Order name: BNP; Complete Time: 20:10 rt 11/03 20:39 Order name: SARS-COV-2 Antigen Rapid sb4 11/03 21:21 Order name: SARS-COV-2 Antigen Rapid EDMS 11/03 17:10 Order name: Chest Single View XRAY; Complete Time: 18:26 rt 11/04 04:04 Order name: CBC with Automated Diff EDMS 11/04 04:52 Order name: Glucose, Ancillary Testing EDMS 11/04 05:23 Order name: Procalcitonin EDMS 11/04 05:26 Order name: Comprehensive Metabolic Panel EDMS 11/04 05:26 Order name: Magnesium EDMS EC:51 Rate is 80 beats/min. Rhythm is regular, Sinus Rhythm with Unifocal PVCs. QRS Lagrange is rt Normal. IA interval is normal. QRS interval is normal. QT interval is normal. No Q waves. T waves are Normal. No ST changes noted. Administered Medications: No medications were administered Disposition Summary: 11/03/22 20:12 Hospitalization Ordered Hospitalization Status: Observation sp3 Provider: Alayna Mullen sp3 Condition: Stable sp3 Problem: an acute exacerbation sp3 Symptoms: are unchanged sp3 Bed/Room Type: Standard sp3 Location: Telemetry/MedSurg (observation)(11/04/22 10:33) kj1 Room Assignment: [facility](11/04/22 10:33) kj1 Diagnosis - Paroxysmal atrial fibrillation sp3 - Palpitations sp3 Forms: - Medication Reconciliation Form sp3 - SBAR form sp3 Signatures: Dispatcher [employer] EDPR Karli Asher RN RN ss Garcia, Cindy, RN RN cg Jackson, Kandis kj1 Arvin Soto MD MD sp3 Aura Calderon PA-C PAKarely sb4 Jasen Goddard MD MD rt Corrections: (The following items were deleted from the chart) 22:50 20:12 Telemetry/MedSurg (observation) sp3 cg 22:50 20:12 sp3 cg 11/04 10:33 11/03 22:50 [facility] ER [facility] cg kj1 11/04 10:33 11/03 22:50 [facility]- cg kj1
--- NOTE | 2022-11-03 20:12 | ER ---
Nurse's Notes [facility] Name: Jesse Ortega Age: 77 yrs Sex: Male : 1945 Arrival Date: 11/03/2022 Time: 14:07 Bed 15 Private MD: Diagnosis: Paroxysmal atrial fibrillation;Palpitations Presentation: 11/03 14:20 Chief complaint: Patient states: palpitations and chest pain x 2 weeks after watchman ss procedure. Pt sent by Dr. Guo for admission. Coronavirus screen: Client denies travel out of the [place] in the last 14 days. Ebola Screen: Patient denies exposure to infectious person. Patient denies travel to an Ebola-affected area in the 21 days before illness onset. Initial Sepsis Screen: Does the patient meet any 2 criteria? No. Patient's initial sepsis screen is negative. Does the patient have a suspected source of infection? No. Patient's initial sepsis screen is negative. Risk Assessment: Do you want to hurt yourself or someone else? Patient reports no desire to harm self or others. Onset of symptoms was October 20, 2022. 14:20 Method Of Arrival: Ambulatory ss 14:20 Acuity: KAVON 3 ss Historical: - Allergies: 14:30 No Known Allergies; ss - PMHx: 14:30 ALOP[place]IA; Atrial Fib; CAD; Colitis; Glaucoma; Hyperlipidemia; Hypertension; ss Hypothyroidism; insomnia; Migraine; Myocardial infarction; ulcerative colitis; - PSHx: 14:30 watchmans x 3 days prior; ss - Immunization history:: Client reports receiving the 2nd dose of the Covid vaccine. - Social history:: Smoking status: Patient denies any tobacco usage or history of. - Family history:: not pertinent. Screenin:00 [facility] ED Fall Risk Assessment (Adult) History of falling in the last 3 months, ll3 including since admission No falls in past 3 months (0 pts) Confusion or Disorientation No (0 pts) Intoxicated or Sedated No (0 pts) Impaired Gait No (0 pts) Mobility Assist Device Used No (0 pt) Altered Elimination No (0 pt) Score/Fall Risk Level 0 - 2 = Low Risk Oriented to surroundings, Maintained a safe environment, Educated pt \T\ family on fall prevention, incl call for assistance when getting out of bed. Abuse screen: Denies threats or abuse. Denies injuries from another. Nutritional screening: No deficits noted. Tuberculosis screening: No symptoms or risk factors identified. Assessment: 19:15 General: Appears in no apparent distress. comfortable, Behavior is calm, cooperative. ll3 Pain: Denies pain. Pain: Pain began. Cardiovascular: Patient's skin is warm and dry. 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 Respiratory: Respiratory effort is even, unlabored, Respiratory pattern is regular, symmetrical. 21:39 Reassessment: No changes from previously documented assessment. Patient and/or family ll3 updated on plan of care and expected duration. Pain level reassessed. Patient is alert, oriented x 3, equal unlabored respirations, skin warm/dry/pink. Vital Signs: 14:20 BP 139 / 79; Pulse 80; Resp 16; Temp 98.0(O); Pulse Ox 98% ; Weight 86.18 kg; Height 5 ss ft. 10 in. (177.80 cm); Pain 3/10; 19:10 BP 117 / 81; Pulse 42; Resp 17; Pulse Ox 99% on R/A; ll3 20:00 BP 110 / 61; Pulse 75; Resp 20; Pulse Ox 99% on R/A; ll3 21:39 BP 145 / 98; Pulse 71; Resp 21; Pulse Ox 96% on R/A; ll3 14:20 Body Mass Index 27.26 (86.18 kg, 177.80 cm) ss ED Course: 14:07 Patient arrived in ED. as 14:20 Arm band placed on right wrist. ss 14:29 Jasen Goddard MD is Attending Physician. rt 14:30 Triage completed. ss 14:31 EKG done, by ED staff, reviewed by Jasen Goddard MD. ss 18:14 Chest Single View XRAY In Process Unspecified. EDMS 19:15 Attending Physician role handed off by Jasen Goddard MD sp3 19:15 Arvin Soto MD is Attending Physician. sp3 20:11 Alayna Mullen MD is Hospitalizing Provider. sp3 21:00 Patient has correct armband on for positive identification. Placed in gown. Bed in low ll3 position. Call light in reach. Side rails up X 1. Client placed on continuous cardiac and pulse oximetry monitoring. NIBP monitoring applied. 23:00 No provider procedures requiring assistance completed. ll3 23:00 Patient admitted, IV remains in place. Patient maintains SpO2 saturation greater than ll3 95% on room air. 11/04 07:44 Tejal Baez, RN is Primary Nurse. ll3 Administered Medications: No medications were administered Medication: 11/03 21:00 VIS not applicable for this client. ll3 Outcome: 20:12 Decision to Hospitalize by Provider. sp3 23:00 Admitted to ER Hold. Please see [facility] for further documentation. ll3 23:00 Condition: stable 23:00 Instructed on the need for admit. 11/04 12:11 Patient left the ED. ld1 Signatures: Dispatcher [employer] EDMS Melissa Gonzalez Shelby, RN RN Lola Fierro RN RN ld1 Arvin Soto MD MD sp3 Tejal Baez RN RN ll3 Jasen Goddard MD MD rt Corrections: (The following items were deleted from the chart) 11/03 21:44 19:15 Cardiovascular: Patient's skin is warm and dry. 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 ll3
--- NOTE | 2022-11-03 20:21 | P.HP ---
Certification for Inpatient Patient admitted to: Observation With expected LOS: <2 Midnights Patient will require the following post-hospital care: None Practitioner: I am a practitioner with admitting privileges, knowledge of patient current condition, hospital course, and medical plan of care. Services: Services provided to patient in accordance with Admission requirements found in Title 42 Section 412.3 of the Code of Federal Regulations Patient History Date of Service: 11/04/22 Primary Care Provider: Liban Reason for admission: Atrial Fibrillation History of Present Illness: Patient is a 77-year-old male with past medical history of atrial fibrillation, Coronary Artery Disease, Hypertension, Hyperlipidemia, and Hypothyroidism who was sent to the emergency room by Dr. Guo. Patient had a watchman procedures 2 weeks ago and reports that he has been experiencing chest pain and palpitation s ever since. His EKG showed a bigeminal rhythm, no afib, rate of 80. Labs are unremarkable. troponin negative. Cardiology wishes for patient to be admitted and started on sotalol. Patient has no complaints at this time. He is admitted for further management. Allergies No Known Drug Allergies Allergy (Unknown, Verified 11/03/22 23:35) Itching No Known Allergies Allergy (Unknown, Uncoded 11/03/22 23:36) Unknown NKDA Allergy (Uncoded 12/28/15 17:11) Unknown Home medications list reviewed: Yes Home Medications: Brimonidine Tartrate/Timolol [Combigan 0.2%-0.5% Eye Drops] 1 drop OP BID 03/17/13 Clopidogrel Bisulfate [Plavix*] 75 mg PO DAILY 03/17/13 Latanoprost [Xalatan] 2.5 ml OP DAILY 03/17/13 Levothyroxine [Synthroid*] 112 mcg PO [id number] 03/17/13 Metoprolol Succinate [Toprol Xl*] 50 mg PO DAILY 03/17/13 Zolpidem Tartrate [Ambien*] 10 mg PO BEDTIME 03/17/13 Magnesium Oxide [Magnesium] 800 mg PO DAILY 04/16/14 Montelukast [Singulair*] 10 mg PO DAILY 04/16/14 Zinc Gluconate [Zinc] 07/04/22 Apixaban [Eliquis] 5 mg PO BID #60 tab 07/05/22 - Past Medical/Surgical History Diabetic: No -: Paroxsymal Atrial Fibrillation -: Coronary Artery Disease/History of DC -: Hypertension -: Hyperlipidemia -: Hypothyroidism -: Cholecystectomy -: Hernia Repair -: Stent 2007 -: Watchman Psychosocial/ Personal History: Patient is . - Family History Father -: Heart disease, Hypertension, Diabetes Sister -: Heart disease Brother -: Heart disease - Social History Smoking Status: Never smoker Alcohol use: No CD- Drugs: No Caffeine use: No Place of Residence: Home Review of Systems Unremarkable Physical Examination - Vital Signs Temperature: 98 F Blood Pressure: 145/98 Pulse: 71 Respirations: 17 Pulse Ox (%): 96 (room air) - Physical Exam General: Alert, In no apparent distress HEENT: Atraumatic, PERRLA, EOMI, Sclerae nonicteric Neck: Supple, 2+ carotid pulse no bruit, No LAD, Without JVD or thyroid abnormality Respiratory: Clear to auscultation bilaterally, Normal air movement Cardiovascular: Irregular heart rate/rhythm Gastrointestinal: Normal bowel sounds, No tenderness Musculoskeletal: No tenderness Integumentary: No rashes Neurological: Normal speech, Normal strength at 5/5 x4 extr, Normal tone, Normal affect - Studies Laboratory Data (last 24 hrs) 11/03/22 19:34: Sodium 139, Potassium 3.8, BUN 15, Creatinine 1.00, Glucose 103, Total Bilirubin 1.1 H, AST 25, ALT 51, Alkaline Phosphatase 63 11/03/22 19:34: WBC 6.90, Hgb 16.8, Hct 50.3 H, Plt Count 157 Assessment and Plan - Problems (Diagnosis) (1) Atrial fibrillation Current Visit: Yes Status: Chronic Qualifiers: Atrial fibrillation type: paroxysmal Qualified Code(s): I48.0 - Paroxysmal atrial fibrillation (2) Coronary artery disease Current Visit: Yes Status: Chronic Qualifiers: Coronary Disease-Associated Artery/Lesion type: [place] artery [place] vs. transplanted heart: [place] heart Associated angina: without angina Qualified Code(s): I25.10 - Atherosclerotic heart disease of [place] coronary artery without angina pectoris (3) Hyperlipidemia Current Visit: Yes Status: Chronic Qualifiers: Hyperlipidemia type: mixed hyperlipidemia Qualified Code(s): E78.2 - Mixed hyperlipidemia (4) Hypertension Current Visit: Yes Status: Chronic Qualifiers: Hypertension type: primary hypertension Qualified Code(s): I10 - Essential (primary) hypertension (5) Hypothyroidism Current Visit: Yes Status: Chronic Qualifiers: Hypothyroidism type: acquired Qualified Code(s): E03.9 - Hypothyroidism, unspecified - Plan Start sotalol 80 mg BID, first dose tonight. Monitor on telemetry. Cardiology consulted, Dr. Guo. Continue eliquis and other home medications. Discharge Plan: Home Plan to discharge in: 24 Hours - Advance Directives Does patient have a Living Will: No Does patient have a Durable POA for Healthcare: Yes - Code Status/Comfort Care Code Status Assessed: Yes Code Status: Full Code Physician Review: Patient Assessed, Agree with Above Assessment and Plan Critical Care: No Time Spent Managing Pts Care (In Minutes): 50
[2022-11-03 21:21] LABS: SARS-CoV-2 Antigen Rapid Res Negative (Negative)
[2022-11-03] MEDS ORDERED: ACETAMINOPHEN 500 MG TAB PO PRN (23:02)
[2022-11-03] MEDS ORDERED: SOTALOL HCL 80 MG TAB PO ONE (23:02)
[2022-11-03] MEDS ORDERED: SOTALOL HCL 80 MG TAB ONE (23:30)
[2022-11-03] MEDS: MELATONIN 5 MG TABLET PO PRN (23:30)
[2022-11-03] MEDS ORDERED: MELATONIN 5 MG TABLET PO ONE (23:35)
[2022-11-04 02:36] VITALS: BMI 27.2
[2022-11-04 03:54] LABS: Absolute Lymphocytes (CBC) 2.7 K/uL (0.7-4.9); Hematocrit 46.9 % (39.6-49.0); Lymphocytes % 36.5 % (15.3-44.8); MCV 87.1 fL (80-100); MPV 8.4 fL (7.6-11.3); RBC Red Blood Cell Count 5.39 M/uL (4.33-5.43)
[2022-11-04] MEDS ORDERED: ONDANSETRON 4 MG/2 ML VIAL ONE ×2 (04:41→09:51)
[2022-11-04] MEDS: ONDANSETRON 4 MG/2 ML VIAL IV PRN ×3 (04:45→22:20)
[2022-11-04 05:24] LABS: Albumin 3.2 g/dL (3.4-5.0); Bilirubin Total 1.1 mg/dL (0.2-1.0); Magnesium 2.2 mg/dL (1.6-2.4); Potassium 3.6 mmol/L (3.5-5.1); Protein, Total 6.3 g/dL (6.4-8.2)
[2022-11-04] MEDS ORDERED: SOTALOL HCL 80 MG TAB PO SCH ×2 (06:00→11:00)
[2022-11-04] MEDS ORDERED: APIXABAN 5 MG TABLET PO SCH (09:00)
[2022-11-04] MEDS ORDERED: ENOXAPARIN 40 MG/0.4 ML SQ SCH (09:00)
[2022-11-04] MEDS ORDERED: ACETAMINOPHEN 500 MG TAB ONE (09:28)
[2022-11-04] MEDS ORDERED: APIXABAN 5 MG TABLET ONE (09:28)
[2022-11-04] MEDS ORDERED: SOTALOL HCL 80 MG TAB ONE (10:07)
--- NOTE | 2022-11-04 13:53 | CON ---
Date of Consultation: 11/04/2022 Reason For Consultations: Atrial fibrillation. History Of Present Illness: A 77-year-old male with history of atrial fibrillation, coronary artery disease, hypertension, dyslipidemia, hypothyroidism, status post Watchman procedure, but 2 weeks ago, he has been experiencing frequent AFib attacks at night that is prohibiting him from sleep. The aura madden was admitted for sotalol initiation, which was started yesterday. Past Medical History: As outlined above in HPI. Medications: Refer to reconciliation sheet for detailed list. Allergies: NO KNOWN DRUG ALLERGIES. Family History: No premature coronary artery disease or cancer. Social History: Does not smoke or drink. Does not use any drugs. Review of Systems: All systems reviewed and they were negative except what mentioned in HPI. Physical Examination: Vital Signs: Reviewed. Head and Neck: Pupils are equal, reactive to light. Intact eye movements. No JVD. No cervical lym phadenopathy. Neck is supple. Thyroid is not enlarged. Lungs: Clear to auscultation bilaterally. No rhonchi, wheezing, or crackles. No accessory muscle u se. Heart: Regular rate and rhythm. No extra sounds. Abdomen: Soft, nontender. Bowel sounds positive. No organomegaly. No masses or hernia. No rigidi ty or rebound. Extremities: No edema, clubbing, or cyanosis. Intact pulses. Skin: No rash. Neurologic: Alert, awake, oriented x3. No acute focal deficits appreciated. Investigations: BUN is 15, creatinine 0.93, troponin is negative and hemoglobin 15.8. Assessment And Recommendations: 1.Atrial fibrillation. Started on sotalol. After third dose this afternoon, check an EKG [address] the dose and if QTc interval is normal, then the patient can be released on sotalol and Eliquis. Eliquis will be continued for 4 more weeks, at what time RENO will be done to evaluate the Watchman a nd if it has healed very well, then Eliquis will be discontinued at that time. 2.Hypertension. Blood pressure is controlled. Continue current management. SR/MODL Voice ID: [id number] Report ID: [id number]
[2022-11-04] MEDS ORDERED: POTASSIUM 25 MEQ EFFERV TAB PO ONE (15:00)
[2022-11-04] MEDS ORDERED: ZOLPIDEM TARTRATE 5 MG TABLET PO PRN (17:31)
[2022-11-04 17:37] VITALS: O2SAT 98
--- NOTE | 2022-11-04 17:45 | EKG ---
Test Date: 2022-11-03 Test Time: 14:25:56 Patient Transport Officer: ROSIO MEASUREMENT RESULTS: Intervals: Rate: 80 IL: 162 QRSD: 96 QT: 394 QTc: 454 [place]: P: 44 IL: 162 QRS: -23 T: 47 INTERPRETIVE STATEMENTS: Sinus rhythm with frequent premature ventricular complexes in a pattern of bigeminy Otherwise normal ECG Compared to ECG 10/24/2022 00:56:42 Ventricular premature complex(es) now present Electronically Signed On 11-04-22 17:43:50 MOLD STAMPER by Edgardo Guo
[2022-11-04] MEDS ORDERED: IBUPROFEN 600 MG TAB PO ONE (20:02)
[2022-11-04] MEDS: APIXABAN 5 MG TABLET PO SCH (20:36)
[2022-11-04] MEDS ORDERED: HYDROCODONE/APAP 7.5/325 MG TAB PO ONE (21:32)
[2022-11-04] MEDS: SOTALOL HCL 80 MG TAB PO SCH (22:22)
[2022-11-04] MEDS: MELATONIN 5 MG TABLET PO PRN (22:22)
[2022-11-05] MEDS ORDERED: LEVOTHYROXINE SOD 0.112 MG TAB PO SCH (06:00)
[2022-11-05] MEDS: APIXABAN 5 MG TABLET PO SCH (08:12)
[2022-11-05] MEDS: SOTALOL HCL 80 MG TAB PO SCH (08:13)
[2022-11-05 08:27] VITALS: BP 115/72; TEMP 97.5
[2022-11-05] MEDS ORDERED: MONTELUKAST 10 MG TAB PO SCH (09:00)
[2022-11-05] MEDS ORDERED: GLIMEPIRIDE 2 MG TABLET PO SCH (09:00)
[2022-11-05] MEDS ORDERED: DOCOSAHEXANOIC AC/EPA 1000 MG PO SCH (09:00)
[2022-11-05] MEDS ORDERED: MAGNESIUM OXIDE 400 MG TAB PO SCH (09:00)
[2022-11-05] MEDS ORDERED: HOME MED 1 EA UNK (Glimepiride [Glimepiride] 1 MG Tablet) PO SCH (09:00)
[2022-11-05] MEDS ORDERED: VITAMIN D 1000 UNIT TAB PO SCH (09:00)
--- NOTE | 2022-11-05 09:37 | ECHO ---
HEIGHT: 5 ft 10 in WEIGHT: 190 lb 0 oz DATE OF STUDY: 11/04/[address]: Alayna Mullen MD 2-DIMENSIONAL: YES M.MODE: YES DOPPLER: YES COLOR FLOW: YES TDS: NO PORTABLE: YES DEFINITY: NO BUBBLE STUDY: NO DIAGNOSIS: ATRIAL FIBRILLATION, CONGESTIVE HEART FAILURE CARDIAC HISTORY: CATHERIZATION: SURGERY: PROSTHETIC VALVE: PACEMAKER: MEASUREMENTS (cm) DIASTOLIC (NORMALS) SYSTOLIC (NORMALS) IVSd 0.8 (0.6-1.2) LA Diam 3.3 (1.9-4.0) LVEF 63% LVIDd 4.5 (3.5-5.7) LVIDs 3.0 (2.0-3.5) %FS 34% LVPWd 1.0 (0.6-1.2) Ao Diam 3.6 (2.0-3.7) 2 DIMENSIONAL ASSESSMENT: RIGHT ATRIUM: NORMAL LEFT ATRIUM: NORMAL RIGHT VENTRICLE: NORMAL LEFT VENTRICLE: NORMAL TRICUSPID VALVE: MILD TR MITRAL VALVE: MILD MR PULMONIC VALVE: MILD PI AORTIC VALVE: MILD PERICARDIAL EFFUSION: NONE AORTIC ROOT: NORMAL LEFT VENTRICULAR WALL MOTION: NORMAL DOPPLER/COLOR FLOW: SEE BELOW. COMMENTS: 1. NORMAL LEFT VENTRICULAR EJECTION FRACTION 55-60%. 2. MILD MITRAL AND AORTIC REGURGITATION. 3. MILD TRICUSPID AND PULMONARY REGURGITATION. TECHNOLOGIST: Billy GUTHRIE
== END 2022-11-05 12:34 | disposition home or self-care (01) ==
LOC: ER 14:05 → ERHOLD 20:14 → 2ND 11-04 11:36
PROVIDERS: ADMIT Hospitalist; ATTEND Hospitalist
DX: I48.0 Paroxysmal atrial fibrillation (principal); I25.10 Atherosclerotic heart disease of native coronary artery without angina pectoris; E78.2 Mixed hyperlipidemia; I10 Essential (primary) hypertension; E03.9 Hypothyroidism, unspecified; Z20.822 Contact with and (suspected) exposure to COVID-19
CPT/HCPCS: 93005; 93306; 85025 ×2; 36415; 83735; 82947; 84484; 80053 ×2; 84145; 83880; 71045; 99285; 87811; J2405 ×3

== ENCOUNTER 2022-11-18 13:57 | Emergency (ER) | payer OTHER ==
--- OUTSIDE RECORDS SUMMARY | 2022-11-18 14:00 | XMS REPORT | Continuity of Care Document ---
:1945 Author Organization [facility] t Address [address] [place] [address] [address] [place] [address] Care Team Providers Name Role Phone Edgardo [...] 2021-11 [facility] Allergie 2-13 Clear s 00:00: [address] Medications This patient has no known medications. Procedures Procedure Date / Time Performed Performing Clinician Aldo browning [id number] 2022-10-20 00:00:00 [facility] [id number] 2022-10-20 00:00:00 [facility] Encounters Start End Encounter Admission Attending Care Care Encounter Source Date/Time Date/Time Type Type Clinicians Facility Department ID 2022-10-20 2022-10-20 Inpatient ADRIEN Sari SOCO CARD [id number] [facility] 06:39:00 19:11:00 Edgardo 96 [facility] Results Test Description Test Time Test Comments Results Result Comments Source GLUCOSE BEDSIDE 2022-10-20 13:15:00 Test Item Value Reference Range Interpretation Comme nts GLUCOSE BEDSIDE (test code = 143 MG/DL 70-110 H Performed by certified furnace operator oil or gas at [facility]) [facility] [id number] 12:34:00 Test Item Value Reference Range Interpretation Comments ACT-ISTAT (test code 401 SEC 74-137 H Perform ed by certified = ACTI) furnace operator oil or gas at [facility] GLUCOSE [id number] 11:16:00 Test Item Value Reference Range Interpretation Comments GLUCOSE BEDSIDE (test 115 MG/DL 70-110 H Perfor med by certified code = GLUBED) furnace operator oil or gas at [facility] - XR CHEST 1 [id number] 00:00:00 [facility] : 1945 Sex: M FAX: Edgardo Rea MD [phone] [place]: St: ADM Name: NARESH SUMMERS [facility] : 1945 Age/S: 77/M [address] [facility] Unit #: [id number] Loc: [place] [address] Phys: Edgardo Guo MD Acct: [id number] Dis Date: Status: ADM IN PHONE #: [phone] Exam Date: 10/20/2022 1350 FAX #: [phone] Reason: S/P WATCHMAN EXAMS: CPT CODE: [id number] XR CHEST 1 V 67850 PROCEDURE INFORMATION: Exam: XR ChestExam date and [...] is present. 2. Bibasilar subsegmental atelectasis. at 8228 Reported and signed by: Rach nAderson M.D. CC: Edgardo Guo MD Technologist: RT Dorothy(R) Trnscrd Date/Time/By: 10/20/2022 (554) : By: [email or web address] Orig Print D/T: S: 10/20/2022 (361) PAGE 1 Signed ReportPROTHROMBIN [id number] 10:27:00 Test Item Value Reference Range Interpretation [...] (to prevent recurrent infar ct). BASIC METABOLIC [id number] 10:22:00 Test Item Value Reference Range Interpretation [...] code = 10.1 mg/dL 8.0-10.5 N CA) [id number] 10:22:00 Test Item Value Reference Range Interpretation Comments PREALBUMIN (test code = PREALB) 26.0 mg/dL 16.0-40.0 N CBC W/AUTO [id number] 10:07:00 Test Item Value Reference Range Interpretation [...] NO = MDIFF) - XR CHEST 2 [id number] 00:00:00 [facility] : 1945 Sex: M FAX: Edgardo Rea MD [phone] [place]: St: PRE Name: NARESH SUMMERS [facility] [place] : 1945 Age/S: 77/M [address] [facility] Unit #: [id number] Loc: [place] [address] Phys: Edgardo Guo MD Acct: [id number] Dis Date: Status: PRE IN PHONE #: [phone] Exam Date: 10/19/2022 0955 FAX #: [phone] Reason: PAT EXAMS: CPT CODE: [id number] XR CHEST 2 V 66719 PROCEDURE INFORMATION: Exam: XR Chest Exam date [...] MD Technologist: RT Bianca(R) Trnscrd Date/Time/By: 10/19/2022 (6673) : By: DellTDO Orig Print D/T: S: 10/19/2022 (1434) PAGE 1 Signed Report
--- NOTE | 2022-11-18 15:06 | RAD REPORT ---
EXAM DESCRIPTION: RAD - Chest Single View - 11/18/2022 2:57 pm CLINICAL HISTORY: CHEST PAIN COMPARISON: Chest Single View dated 11/03/2022; Chest Single View dated 10/24/2022; Chest Single Vie w dated 07/04/2022; Chest Single View dated 07/27/2021 FINDINGS: Lines: None. Lungs: No evidence of edema or pneumonia. Pleural: No significant pleural effusions or pneumothorax. Cardiac: The heart size is within normal limits. Mediastinum: Within normal limits. Bones: No acute fractures. Other: None IMPRESSION: No acute cardiopulmonary disease.
[2022-11-18 15:11] LABS: Absolute Lymphocytes (CBC) 1.6 K/uL (0.7-4.9); Hematocrit 50.6 % (39.6-49.0); MCV 87.9 fL (80-100); MPV 8.3 fL (7.6-11.3); RBC Red Blood Cell Count 5.75 M/uL (4.33-5.43)
[2022-11-18] MEDS ORDERED: NA CHLORIDE 0.9% 500 ML ONE (15:12)
[2022-11-18 15:17] LABS: Protime INR 1.28
[2022-11-18 15:34] LABS: Troponin High Sensitivity 9.5 pg/mL (<58.9)
[2022-11-18 15:40] LABS: Magnesium 2.2 mg/dL (1.6-2.4); Potassium 4.2 mmol/L (3.5-5.1)
[2022-11-18] MEDS ORDERED: MAGNESIUM SULFATE 1 gm IVPB 1 GM/100 ML BAG IV ONE (15:52)
--- NOTE | 2022-11-18 16:08 | EDPHYS ---
Physician Documentation [facility] Name: Jesse Ortega Age: 77 yrs Sex: Male : 1945 Arrival Date: 11/18/2022 Time: 13:59 Bed 19 Private MD: Carlos Steven S ED Physician Ryan Rubin HPI: 11/18 15:04 This 77 yrs old Male presents to ER via Ambulatory with complaints of afib. soumya 15:04 The patient presents with a history of irregular heart beat, heart skipping beats. soumya Context: The symptoms occur at rest, with light activity. Onset: The symptoms/episode began/occurred 1 day(s) ago. Duration: The patient or guardian reports multiple episodes, that have now resolved. Modifying factors: The symptoms are aggravated by nothing. The symptoms are alleviated by nothing. Associated signs and symptoms: Pertinent positives: anxiety. Severity of symptoms: At their worst the symptoms were mild in the emergency department the symptoms are unchanged. The patient has experienced similar episodes in the past, a few times. Historical: - Allergies: 14:08 No Known Allergies; aa5 - PMHx: 14:08 ALOPECIA; Atrial Fib; CAD; Colitis; Glaucoma; Hyperlipidemia; Hypertension; aa5 Hypothyroidism; insomnia; Migraine; Myocardial infarction; ulcerative colitis; - PSHx: 14:08 watchmans x 3 days prior; aa5 - Immunization history:: Adult Immunizations unknown. - Social history:: Smoking status: Patient denies any tobacco usage or history of. - Family history:: not pertinent. ROS: 15:04 Constitutional: Negative for fever, chills, and weight loss, Eyes: Negative for injury, soumya pain, redness, and discharge, ENT: Negative for injury, pain, and discharge, Neck: Negative for injury, pain, and swelling, Respiratory: Negative for shortness of breath, cough, wheezing, and pleuritic chest pain, Abdomen/GI: Negative for abdominal pain, nausea, vomiting, diarrhea, and constipation, Back: Negative for injury and pain, : Negative for injury, bleeding, discharge, and swelling, MS/Extremity: Negative for injury and deformity, Skin: Negative for injury, rash, and discoloration, Neuro: Negative for headache, weakness, numbness, tingling, and seizure, Psych: Negative for depression, anxiety, suicide ideation, homicidal ideation, and hallucinations, Allergy/Immunology: Negative for hives, rash, and allergies, Endocrine: Negative for neck swelling, polydipsia, polyuria, polyphagia, and marked weight changes, Hematologic/Lymphatic: Negative for swollen nodes, abnormal bleeding, and unusual bruising. 15:04 Cardiovascular: Positive for palpitations. Exam: 15:04 Constitutional: This is a well developed, well nourished patient who is awake, alert, soumya and in no acute distress. Head/Face: Normocephalic, atraumatic. Eyes: Pupils equal round and reactive to light, extra-ocular motions intact. Lids and lashes normal. Conjunctiva and sclera are non-icteric and not injected. Cornea within normal limits. Periorbital areas with no swelling, redness, or edema. ENT: Nares patent. No nasal discharge, no septal abnormalities noted. Tympanic membranes are normal and external auditory canals are clear. Oropharynx with no redness, swelling, or masses, exudates, or evidence of obstruction, uvula midline. Mucous membranes moist. Neck: Trachea midline, no thyromegaly or masses palpated, and no cervical lymphadenopathy. Supple, full range of motion without nuchal rigidity, or vertebral point tenderness. No Meningismus. Chest/axilla: Normal chest wall appearance and motion. Nontender with no deformity. No lesions are appreciated. Cardiovascular: Regular rate and rhythm with a normal S1 and S2. No gallops, murmurs, or rubs. Normal PMI, no JVD. No pulse deficits. Respiratory: Lungs have equal breath sounds bilaterally, clear to auscultation and percussion. No rales, rhonchi or wheezes noted. No increased work of breathing, no retractions or nasal flaring. Abdomen/GI: Soft, non-tender, with normal bowel sounds. No distension or tympany. No guarding or rebound. No evidence of tenderness throughout. Back: No spinal tenderness. No costovertebral tenderness. Full range of motion. Male : Normal genitalia with no discharge or lesions. Skin: Warm, dry with normal turgor. Normal color with no rashes, no lesions, and no evidence of cellulitis. MS/ Extremity: Pulses equal, no cyanosis. Neurovascular intact. Full, normal range of motion. Neuro: Awake and alert, GCS 15, oriented to person, place, time, and situation. Cranial nerves II-XII grossly intact. Motor strength 5/5 in all extremities. Sensory grossly intact. Cerebellar exam normal. Normal gait. Psych: Awake, alert, with orientation to person, place and time. Behavior, mood, and affect are within normal limits. 15:04 ECG was reviewed by the Attending Physician. Vital Signs: 14:08 BP 161 / 105; Pulse 77; Resp 16 S; Temp 97.8(TE); Pulse Ox 98% on R/A; Weight 86.18 kg aa5 (R); Height 5 ft. 10 in. (177.80 cm) (R); 15:54 BP 120 / 99; Pulse 41; Resp 16; Pulse Ox 99% ; bp 14:08 Body Mass Index 27.26 (86.18 kg, 177.80 cm) aa5 MDM: 14:22 Patient medically screened. [facility] 15:09 Differential diagnosis: arrythmia, dehydration. Data reviewed: vital signs, nurses [facility] notes, lab test result(s), CBC, drug level(s), EKG, radiologic studies, plain films. Consideration of Admission/Observation Patient was admitted/placed on observation. Escalation of care including admission/observation considered. I considered the following discharge prescriptions or medication management in the emergency department Medications were administered in the Emergency Department. See MAR. Independent interpretation of the following test(s) in the Emergency Department EKG: See my EKG interpretation above X-Ray: My interpretation is CHEST XRAY. Test considered but Not performed: Ultrasound ECHO. Care significantly affected by the following chronic conditions: Hypertension, HYPERLIPIDEMIA. 11/18 14:11 Order name: Basic Metabolic Panel; Complete Time: 16:06 kb 11/18 14:11 Order name: CBC with Diff; Complete Time: 16:06 kb 11/18 14:11 Order name: Magnesium; Complete Time: 16:06 kb 11/18 14:11 Order name: NT PRO-BNP; Complete Time: 16:06 kb 11/18 14:11 Order name: PT-INR; Complete Time: 16:06 kb 11/18 14:11 Order name: Troponin HS; Complete Time: 16:06 kb 11/18 14:09 Order name: EKG - Nurse/Tech; Complete Time: 14:09 aa5 11/18 14:11 Order name: XRAY Chest (1 view); Complete Time: 15:12 kb 11/18 14:11 Order name: EKG; Complete Time: 14:11 kb 11/18 14:11 Order name: Cardiac monitoring; Complete Time: 15:03 kb 11/18 14:11 Order name: EKG - Nurse/Tech; Complete Time: 14:22 kb 11/18 14:20 Order name: TSH; Complete Time: 16:06 soumya 11/18 14:11 Order name: IV Saline Lock; Complete Time: 15:03 kb 11/18 14:11 Order name: Labs collected and sent; Complete Time: 15:03 kb 11/18 14:11 Order name: O2 Per Protocol; Complete Time: 14:22 kb 11/18 14:11 Order name: O2 Sat Monitoring; Complete Time: 14:22 kb EC:04 Rate is 78 beats/min. Rhythm is regular. QRS Hallie is Normal. MS interval is normal. QRS soumya interval is normal. QT interval is prolonged at 485 msec. No Q waves. T waves are Normal. No ST changes noted. Clinical impression: NSR w/ Non-specific ST/T Changes and No evidence of ischemia. Interpreted by me. Reviewed by me. Administered Medications: 14:45 Drug: NS 0.9% 500 ml Route: IV; Rate: bolus; Site: right forearm; bp 16:52 Follow up: IV Status: Completed infusion; IV Intake: 500ml bp 15:30 Drug: Magnesium Sulfate 1 grams Route: IVPB; Infused Over: 1 hrs; Site: right bp antecubital; 16:52 Follow up: IV Status: Completed infusion; IV Intake: 100ml bp Disposition Summary: 11/18/22 16:08 Discharge Ordered Location: Home soumya Problem: new soumya Symptoms: have improved soumya Condition: Stable soumya Diagnosis - Paroxysmal atrial fibrillation soumya - Essential (primary) hypertension soumya - Anxiety disorder, unspecified soumya Followup: soumya - With: - When: 2 - 3 days - Reason: Recheck today's complaints, Continuance of care, Re-evaluation by your physician Discharge Instructions: - Discharge Summary Sheet soumya - Atrial Fibrillation soumya - Hypertension, Adult soumya - Hypertension, Adult, [id number] soumya - How to Take Your Blood Pressure, [id number] soumya - Atrial Fibrillation, [id number] soumya - Managing Your Hypertension soumya Forms: - Medication Reconciliation Form soumya - Thank You Letter soumya - Antibiotic Education soumya - Prescription Opioid Use soumya Prescriptions: - Xanax 0.5 mg Oral Tablet - take 1 tablet by ORAL route every 8 hours As needed; 20 tablet; Refills: 0, soumya Product Selection Permitted Signatures: Dispatcher [employer] Kandace Sanchez, KAELYN ARTIS-Ryan Temple MD MD cha Calderon, Audri, RN RN aa5 Nolberto Chowdary RN RN bp
--- NOTE | 2022-11-18 16:08 | ER ---
Nurse's Notes [facility] Name: Jesse Ortega Age: 77 yrs Sex: Male : 1945 Arrival Date: 11/18/2022 Time: 13:59 Bed 19 Private MD: Carlos Steven S Diagnosis: Paroxysmal atrial fibrillation;Essential (primary) hypertension;Anxiety disorder, unspecified Presentation: 11/18 14:08 Chief complaint: Patient states: "I've been in Afib since 2 am today". Pt c/o chest aa5 pain, SOB, palpitations. Pt states "I've been taking Sotalol for a couple weeks but it's not helping". Coronavirus screen: At this time, the client does not indicate any symptoms associated with coronavirus-19. Ebola Screen: Patient denies travel to an Ebola-affected area in the 21 days before illness onset. Initial Sepsis Screen: Does the patient meet any 2 criteria? No. Patient's initial sepsis screen is negative. Does the patient have a suspected source of infection? No. Patient's initial sepsis screen is negative. Risk Assessment: Do you want to hurt yourself or someone else? Patient reports no desire to harm self or others. Onset of symptoms was November 18, 2022. 14:08 Method Of Arrival: Ambulatory aa5 14:08 Acuity: KAVON 3 aa5 Triage Assessment: 14:10 General: Appears in no apparent distress. Behavior is cooperative, appropriate for age, bp anxious. Pain: Denies pain. EENT: No deficits noted. Neuro: No deficits noted. Cardiovascular: Rhythm is atrial fibrillation. Respiratory: No deficits noted. GI: No signs and/or symptoms were reported involving the gastrointestinal system. : No signs and/or symptoms were reported regarding the genitourinary system. Derm: No deficits noted. Musculoskeletal: No deficits noted. Historical: - Allergies: 14:08 No Known Allergies; aa5 - PMHx: 14:08 ALOPECIA; Atrial Fib; CAD; Colitis; Glaucoma; Hyperlipidemia; Hypertension; aa5 Hypothyroidism; insomnia; Migraine; Myocardial infarction; ulcerative colitis; - PSHx: 14:08 watchmans x 3 days prior; aa5 - Immunization history:: Adult Immunizations unknown. - Social history:: Smoking status: Patient denies any tobacco usage or history of. - Family history:: not pertinent. Screenin:51 [facility] ED Fall Risk Assessment (Adult) History of falling in the last 3 months, bp including since admission No falls in past 3 months (0 pts). Abuse screen: Denies threats or abuse. Denies injuries from another. Nutritional screening: No deficits noted. Tuberculosis screening: No symptoms or risk factors identified. Assessment: 14:10 General: SEE TRIAGE NOTE. bp 15:30 Reassessment: No changes from previously documented assessment. Patient and/or family bp updated on plan of care and expected duration. Pain level reassessed. 16:51 Reassessment: PT DC HOME. bp Vital Signs: 14:08 BP 161 / 105; Pulse 77; Resp 16 S; Temp 97.8(TE); Pulse Ox 98% on R/A; Weight 86.18 kg aa5 (R); Height 5 ft. 10 in. (177.80 cm) (R); 15:54 BP 120 / 99; Pulse 41; Resp 16; Pulse Ox 99% ; bp 14:08 Body Mass Index 27.26 (86.18 kg, 177.80 cm) aa ED Course: 13:59 Patient arrived in ED. as 13:59 Carlos Steven MD is Private Physician. as 14:08 Arm band placed on. aa 14:09 Triage completed. aa 14:09 EKG completed in triage. Results shown to MD. aa 14:12 Nolberto Chowdary, RN is Primary Nurse. bp 14:19 Ryan Rubin MD is Attending Physician. soumya 14:59 XRAY Chest (1 view) In Process Unspecified. EDMS 15:00 Inserted saline lock: 20 gauge in right antecubital area, using aseptic technique. bp Blood collected. 16:08 Carlos Steven MD is Referral Physician. soumya 16:51 Patient has correct armband on for positive identification. Bed in low position. Call bp light in reach. Side rails up X2. 16:51 No provider procedures requiring assistance completed. IV discontinued, intact, bp bleeding controlled, No redness/swelling at site. Pressure dressing applied. Administered Medications: 14:45 Drug: NS 0.9% 500 ml Route: IV; Rate: bolus; Site: right forearm; bp 16:52 Follow up: IV Status: Completed infusion; IV Intake: 500ml bp 15:30 Drug: Magnesium Sulfate 1 grams Route: IVPB; Infused Over: 1 hrs; Site: right bp antecubital; 16:52 Follow up: IV Status: Completed infusion; IV Intake: 100ml bp Medication: 16:52 VIS not applicable for this client. bp Intake: 16:52 IV: 500ml; Total: 500ml. bp 16:52 IV: 100ml; Total: 600ml. bp Outcome: 16:08 Discharge ordered by . soumya 16:52 Discharged to home ambulatory, with family. bp 16:52 Condition: stable 16:52 Discharge instructions given to patient, Instructed on discharge instructions, follow up and referral plans. medication usage, Demonstrated understanding of instructions, follow-up care, medications, Prescriptions given X 1. 16:53 Patient left the ED. bp Signatures: Dispatcher [employer] EDRyan Patel MD MD cha Martinez, Amelia as Calderon, Audri, RN RN aa5 Nolberto Chowdary RN RN bp
[2022-11-18 17:26] VITALS: TEMP 97.8
[2022-11-18 17:27] VITALS: BP 120/99; O2SAT 99
--- NOTE | 2022-11-19 10:49 | EKG ---
Test Date: 2022-11-18 Test Time: 14:06:37 Farm Machinery Assembler: JEANNA MEASUREMENT RESULTS: Intervals: Rate: 78 WI: 164 QRSD: 102 QT: 426 QTc: 485 [place]: P: 50 WI: 164 QRS: -40 T: 58 INTERPRETIVE STATEMENTS: Normal sinus rhythm Left axis deviation Prolonged QT Abnormal ECG Compared to ECG 11/05/2022 09:36:08 Left-axis deviation now present Prolonged QT interval now present Sinus bradycardia no longer present Sinus arrhythmia no longer present Electronically Signed On 11-19-22 10:46:43 INSTRUCTIONAL SYSTEMS SPECIALIST by Carlos Steven
== END 2022-11-18 16:53 | disposition home or self-care (01) ==
LOC: ER 13:57
DX: I48.0 Paroxysmal atrial fibrillation (principal); I10 Essential (primary) hypertension; F41.9 Anxiety disorder, unspecified; Z98.890 Other specified postprocedural states; I25.2 Old myocardial infarction
CPT/HCPCS: 96365; 96361; 93005; 85025; 80048; 36415; 83735; 85610; 84443; 84484; 83880; 71045; 99284; J3475; J7040

== ENCOUNTER → 2023-01-18 | Day surgery (SDC) | payer OTHER ==
[~2023-01-18] MED LIST: ATROPINE SULF 1 MG/10 ML SYR IV ONE; FLUMAZENIL 0.1 MG/ML (5 mL VIAL) IV ONE; LIDOCAINE VISCOUS 2% SOLN 15 ML UDC ONE; MIDAZOLAM HCL 10 ML ONE; NA CHLORIDE 0.9% 500 ML ONE; PHENOL 1.4% ORAL SPRAY 180ML ONE
--- NOTE | 2023-01-18 13:55 | TEE ---
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 WATCHMAN DEVICE IS SEATED WELL, NO LEAK, NO THROMBUS. 2. NORMAL LEFT VENTRICULAR EJECTION FRACTION 55-60% TECHNOLOGIST: MARIA ESTHER MUHAMMAD
--- NOTE | 2023-01-18 20:49 | OP ---
Date of Procedure: 01/18/2023 Surgeon: BING GARCIA Procedure Performed: Transesophageal echocardiogram. Indication: Atrial fibrillation, status post Watchman. Description Of Procedure: After risks, benefits, and alternatives were explained, patient agreed to procedure and signed informed consent. After proper time-out, the back of the throat was numbed usin g local lidocaine and then 5 mg of Versed were given and then the probe was inserted without difficul ties and Watchman seated very well. Then, probe was removed. Patient recovered very well. Conclusion: Successful [place] showing a Watchman device seated well without thrombus or leak. SR/MODL Voice ID: [id number] Report ID: [id number]
== END ==
LOC: EKG 09:00
PROVIDERS: ATTEND Internal Medicine
DX: I48.91 Unspecified atrial fibrillation (principal); Z98.890 Other specified postprocedural states
CPT/HCPCS: 93312; J2250; J7040; J0461

== ENCOUNTER 2023-07-10 09:08 | Emergency (ER) | payer OTHER ==
--- OUTSIDE RECORDS SUMMARY | 2023-07-10 09:27 | XMS REPORT | Continuity of Care Document ---
:1945 Author Organization [facility] t Address [address] [place] [address] [place] [id number] Care Team Providers Name Role Phone Edgardo [...] 2021-11 [facility] Allergie 2-13 Clear s 00:00: [address] Medications This patient has no known medications. Procedures Procedure Date / Time Performed Performing Clinician Guille nallely [id number] 2022-10-20 00:00:00 GARY [facility] [id number] 2022-10-20 00:00:00 [facility] Encounters Start End Encounter Admission Attending Care Care Encounter Source Date/Time Date/Time Type Type Clinicians Facility Department ID 2022-10-20 2022-10-20 Inpatient SOCO Myers CARD [id number] MICHAEL 06:39:00 19:11:00 Edgardo 96 [facility] Results Test Description Test Time Test Comments Results Result Comments Source GLUCOSE BEDSIDE 2022-10-20 13:15:00 Test Item Value Reference Range Interpretation Comme nts GLUCOSE BEDSIDE (test code = 143 MG/DL 70-110 H Performed by certified tier lift operator at [facility]) [facility] [id number] 12:34:00 Test Item Value Reference Range Interpretation Comments ACT-ISTAT (test code 401 SEC 74-137 H Perform ed by certified = ACTI) tier lift operator at [facility] GLUCOSE [id number] 11:16:00 Test Item Value Reference Range Interpretation Comments GLUCOSE BEDSIDE (test 115 MG/DL 70-110 H Perfor med by certified code = GLUBED) tier lift operator at [facility] - XR CHEST 1 [id number] 00:00:00 [facility] 1945 Sex: M FAX: Edgardo Rea MD [phone] [place]: St: ADM Name: JESSE ORTEGA [facility] : 1945 Age/S: 77/M [address] [facility] Unit #: [id number] Loc: [place] [address] Phys: Edgardo Guo MD Acct: [id number] Dis Date: Status: ADM IN PHONE #: [phone] Exam Date: 10/20/2022 1350 FAX #: [phone] Reason: S/P WATCHMAN EXAMS: CPT CODE: [id number] XR CHEST 1 V 64582 PROCEDURE INFORMATION: Exam: XR Chest Exam date [...] is present. 2. Bibasilar subsegmental atelectasis. at 1516 Reported and signed by: Rach Anderson M.D. CC: Edgardo Guo MD Technologist: RT Dorothy(R) Trnscrd Date/Time/By: 10/20/2022 (671) : By: [email or web address] Orig Print D/T: S: 10/20/2022 (630) PAGE 1 Signed ReportPROTHROMBIN [id number] 10:27:00 Test Item Value Reference Range Interpretation [...] (to prevent recurrent infar ct). BASIC METABOLIC [id number] 10:22:00 Test Item Value Reference Range Interpretation [...] the recommended for laisha for GFRby the formerly [facility] for Adults.The GFR will not calculate if th e sex is unknown or if thepatient's ag e is <18 years. CREATININE (test 1.0 mg/dL 0.6-1.3 N code = CREAT) CALCIUM (test code = 10.1 mg/dL 8.0-10.5 N CA) [id number] 10:22:00 Test Item Value Reference Range Interpretation Comments PREALBUMIN (test code = PREALB) 26.0 mg/dL 16.0-40.0 N CBC W/AUTO [id number] 10:07:00 Test Item Value Reference Range Interpretation [...] NO = MDIFF) - XR CHEST 2 [id number] 00:00:00 [facility] : 1945 Sex: M FAX: Edgardo Rea MD [phone] [place]: St: PRE Name: JESSE ORTEGA [facility] : 1945 Age/S: 77/M [address] [place] [address] Bl Unit #: [id number] Loc: [place] [address] Phys: Edgardo Guo MD Acct: [id number] Dis Date: Status: PRE IN PHONE #: [phone] Exam Date: 10/19/2022 0955 FAX #: [phone] Reason: PAT EXAMS: CPT CODE: [id number] XR CHEST 2 V 12823 PROCEDURE INFORMATION: Exam: XR Chest Exam date [...] is normal. The pulmonary vasculature is normal. The mediastinal contour is normal. The trachea is midline. Bones/joints: No acute abnormality seen. IMPRESSION: No acute cardiopulmonary findings. at 1113 Reported and signed by: Dell Frost M.D. CC: Edgardo Guo MD Technologist: Judie Tellez RT(R) Trnscrd Date/Time/By: 10/19/2022 (1113) : By: DellTDO Orig Print D/T: S: 10/19/2022 (7709) PAGE 1 Signed Report Notes Date/Time Note Provider Source 2022-10-20 16:06:00-00:00 [id number] [place] [address] PATIENT NAME: JESSE ORTEGA ADMIT DATE: 10/20/22 ACCOUNT NO: [id number] ROOM NO: [facility] AGE: 77 REPORT TYPE: eECHOCARDIOGRAM REPORT SEX: M ADMITTING PHYSICIAN:Edgardo Guo MD ATTENDING PHYSICIAN:Edgardo Guo MD *[place] [address] Limited Transthoracic Echocardiogram Patient: Jesse Ortega Study Date: 10/20/2022 BP: 154 / 85 Location: [facility] URN: [id number] : 1945 Age: 77 Height: 69 in / 175.3 cm Gender: M Weight: 189 .6 lb / 86.2 kg BMI/BSA: 28.1 kg/m 2 / 2.07 m 2 *Ordering Physician: * Edgardo Guo *Interpreting Physician: * Nikhil Zambrano MD *Cable Repairer: * Vaishnavi Austin Indications: S/P WATCHMAN. Study data: Transthoracic echocardiogram, limite d study. Procedure: Transthoracic echocardiography was performed. Im age quality was fair. The study was technically limited due to poor pa tient compliance and body habitus. Limited 2D and limited spectral Do ppler. Location: Bedside. Patient status: Inpatient. Patient room number: PACU 20. Study status: Routine. Findings Left ventricle: The cavity size is normal. Wall thickness is normal. Systolic function is normal. The estimated eject ion fraction is 55-60%. Left ventricular diastolic function parameters a re normal. Aortic valve: The valve is structurally normal. The valve is trileaflet. PATIENT NAME: JESSE ORTEGA 6 Mitral valve: The valve is structurally normal. There is no regurgitation. Pericardium: A prominent pericardial fat pad is present. There is no pericardial effusion. Systemic veins: Inferior vena cava: Not well visualized. Measurements Left ventricle Value Ref MAURICE, LAX 5.1 cm 4.2 - 5.8 ESD, LAX 3.2 cm 2.5 - 4.0 ESD/bsa, LAX 1.5 cm/m 2 1.3 - 2.1 FS, LAX 38 % 25 - 43 PW, ED 1.1 cm 0.6 - 1.0 IVS/PW, ED 0.87 --------- EF 68 % 52 - 72 E', lat ifeoma, TDI 5.4 cm/sec >=10.0 E', med ifeoma, TDI 5.6 cm/sec >=7.0 E', avg, TDI 5.5 cm/sec --------- Ventricular septum Value Ref IVS, ED 1.0 cm 0.6 - 1.0 Left atrium Value Ref AP dim, ES MM 3.2 cm 3.0 - 4.0 LA/Ao root ratio, MM 0.95 --------- Aortic valve Value Ref Leaflet sep, MM 2.05 cm --------- Aortic root Value Ref Root diam, ED MM 3.34 cm --------- Conclusions Summary: 1. Left ventricle: The cavity size is normal. Wa ll thickness is normal. Systolic function is normal. The estimated ejec tion fraction is 55-60%. Left ventricular diastolic function par ameters are normal. 2. Pericardium, extracardiac: A prominent perica rdial fat pad is present. There is no pericardial effusion. Prepared and electronically signed by Nikhil Zambrano MD 10/20/2022 16:05 PATIENT NAME: JESSE ORTEGA 6 at 1606 PATIENT NAME: JESSE ORTEGA 6 2022-10-20 13:07:00-00:00 [id number] [address] PATIENT NAME: JESSE ORTEGA ADMIT DATE: 10/20/22 ACCOUNT NO: [id number] ROOM NO: [facility] AGE: 77 REPORT TYPE: eELECTROCARDIOGRAM REPORT SEX: M ADMITTING PHYSICIAN:Edgardo Guo MD ATTENDING PHYSICIAN:Edgardo Guo MD Order: [id number] Test Reason : S/P WATCHMAN Test Date/Time Stamp: TueOct 20 2022 13:07:42 Blood Pressure : / mmHG Vent. Rate : 093 BPM Atrial Rate : 093 BPM P-R Int : 192 ms QRS Dur : 114 ms QT Int : 418 ms P-R-T Axes : 050 -42 016 degree s QTc Int : 519 ms Normal sinus rhythm Left axis deviation Prolonged QT Abnormal ECG When compared with ECG of 19-OCT-2022 09:05, No changes Confirmed by MD BOWLES GERARD ([id number]) on 022 8:59:15 PM Referred By: Edgardo Guo Confirmed by:PRAVEEN PEREA MD at 2059 PATIENT NAME: JESSE ORTEGA 6 2022-10-20 12:49:00-00:00 [id number] [place] [address] PATIENT NAME: JESSE ORTEGA ADMIT DATE: 10/20/22 ACCOUNT NO: [id number] ROOM NO: [facility] AGE: 77 REPORT TYPE: OPERATIVE REPORT SEX: M ADMITTING PHYSICIAN:Edgardo Guo MD ATTENDING PHYSICIAN:Edgardo Guo MD OPERATION DATE: 10/20/2022 PREOPERATIVE DIAGNOSIS: POSTOPERATIVE DIAGNOSIS: PROCEDURE PERFORMED: Left atrial appendage closu re using a 24 mm Watchman FLX closure device. INDICATION: Atrial fibrillation with high CHADS- VASc score and history of bleeding and inability to tolerate anticoagulant s. SURGEON: DESSERT CUP MACHINE FEEDER: ANESTHESIA: ACCESS: Right femoral vein, 16-Tuvaluan closed wit h [id number] suture. COMPLICATIONS: None. BLOOD LOSS: Less than 20 mL DESCRIPTION OF PROCEDURE: After risks, benefits and alternatives were explained, the patient agree d for the procedure and signed informed consent. The patient was brought into the cardiac catheteriza tion Laboratory, prepped and draped in sterile fashion. Then, I accessed the right femoral vein using micropuncture kit and placed 8-Tuvaluan [place] s franklyn. RENO was performed by Anesthesia team and evaluated by myself. There w as no thrombus in the appendage, and is suitable for closure a nd then will give us a partial dose of heparin and then I upgraded the sheath t o a 16-Tuvaluan Cook sheath and I took a SL1 sheath into the SVC with [place] needle inside, and under the fluoroscopy and RENO guidance, I descended in to interatrial septum, and in the low mid position, a transseptal puncture was performed and LA pressure was 8 mmHg. I gave 500 mL bolus of fluid with normal s traci and we gave the rest of the heparin to ensure ACT level above 250 througho ut the procedure, and I sent ProTrack wire into the left atrium. We exchanged for a Watchman sheath, and I subsequently took a pigtail into the Watchman sh eath, navigated into the appendage and the Watchman sheath was advanced over the pigtail into the ap pendage. Appendage angiogram was performed and determined 24 mm device would be suitable for closure. The device was prepped and de-aired in the u sual sterile fashion and then took the pigtail out after a good ble ed back from the sheath and positive flush with the PATIENT NAME: JESSE ORTEGA 6 Watchman sheath. The Watchman sheath was up from the Watchman delivery system. The Watchman delivery system was advanced into the Watchman sheath and locked in place and then the device was delivered into the appendage successfully under the ultrasound guidance and fluoroscopy. PASS cr iteria were evaluated and met [TIME: 01:59] device w as released in place in stable condition. I removed the Watchman sheath and the Cook sheath and plac ed [id number] suture for closure with good hemostasis. CONCLUSION: Successful left atrial appendage olivier sure using 24 mm Watchman FLX closure device. Dictated By: Edgardo Guo MD Date Dictated: 10/20/2022 12:49:02 Date Transcribed: 10/20/2022 18:05:55 /ARLEEN Receipt ID: [id number] Authenticated by Edgardo Guo MD On 02/09/2023 02:26:39 PM Electronically Signed by Edgardo Guo MD on at 0226 PATIENT NAME: JESSE ORTEGA 6 2022-10-19 23:53:00-00:00 [facility] ([facility]) Consultation Note - Brief REPORT#:[id number] REPORT STATUS: Signed DATE:10/19/22 TIME: 2352 PATIENT: JESSE ORTEGA UNIT #: [id number] ROOM/BED: : 46 AGE: 77 SEX: M ATTEND: Daniel Guo MD ADM AUTHOR: Akbar Hernandez MD * ALL edits or amendments must be made on the [employer]/computer document * See Addendum History of Present Illness HPI Requesting Clinician: Dr. Guo Reason for consult: Watchman shared decision Chief complaint: Patient here for elective wa tchman device insertion preop evaluation and shared decision making. PCP: PCP: Edgardo Guo MD History of present illness: 77-year-old man with past medical history for at rial fibrillation, coronary disease, hypertension and dyslipidemia here toda y for preop evaluation and watchman shared decision making. No current comp laints. History - Adult longitudinal Past medical history: Reports: Atrial fibrillation , Congestive heart failure, Coronary artery disease, Hypertension, Transient ischemic attack. Past surgical history: Reports: Cholecystectomy, Hernia repair, Eye coco chapito. Additional surgical history: Cardiac stent Alcohol use: Denies EtOH use Drug use: Denies recreational drugs Smoking status for patients 13 years old or olde r: Never Smoker Medications: Home Medications: Medication Dose/Rte/Freq Days Qty Entered Last Max Daily Dose Reviewed TADALAFIL (CIALIS) 5 MG PO 10/19/22 Strength: 5 MG TAB DAILY PRN PRN ED 0905 EZETIMIBE (ZETIA) 10 MG PO BEDTIME 10/19/22 Strength: 10 MG TAB 0905 METOPROLOL SUCC XL 50 MG PO DAILY 10/19/22 (TOPROL XL) 0905 Strength: 50 MG TAB.SA ROSUVASTATIN (CRESTOR) 20 MG PO BEDTIME 2 Strength: 20 MG TAB [address] 30 MG PO DAILY 10/19/22 (PREVACID) 0906 Strength: 30 MG CAP. IRBESARTAN/HCTZ 1 TAB PO DAILY 10/19/22 (AVALIDE 150/12.5 MG) 09 Strength: 150 MG-12.5 MG TAB MONTELUKAST (SINGULAIR) 10 MG PO BEDTIME Strength: 10 MG TAB 09 tiZANidine (ZANAFLEX) 2 MG PO BEDTIME 10/19/22 Strength: 2 MG TAB 09 TAMSULOSIN ER (FLOMAX) 0.4 MG PO Q7DAY 10/19/22 Strength: 0.4 MG CAP.SR.24H 906 Dapagliflozin Propanediol 10 MG PO DAILY (FARXIGA) 09 Strength: 10 MG TAB LEVOTHYROXINE 112 MCG PO BEDTIME 10/19/22 (SYNTHROID) 09 Strength: 112 MCG TAB GLIMEPIRIDE (AMARYL) 2 MG PO C BK 10/19/22 Strength: 2 MG TAB 0908 TIMOLOL MALEATE (Unknown Dose) 10/19/22 (TIMOPTIC 0.25% OCUDOSE EACH EYE BID 0910 OPHTH SOLN) Strength: (Unknown Strength) OPHTH.SOLN prednisoLONE ACETATE (Unknown Dose) 10/19/22 (prednisoLONE ACETATE 1% EACH EYE DAILY 0910 OPHTH 10 ML) Strength: (Unknown Strength) OPHTH.SUSP APIXABAN (ELIQUIS) 5 MG PO BID 10/19/22 Strength: 5 MG TAB 0911 ADALIMUMAB + SUPPLIES 40 MG SUBQ Q7D 10/19/22 (HUMIRA PREFILLED PEN) 910 Strength: 40 MG/0.8 ML KIT [OZEMPIC] 1 MG SUBQ Q7DAY 10/19/22 Strength: 0911 OMEGA-3 FATTY ACIDS 1,000 MG PO DAILY 10/19/22 (FISH OIL) 09 Strength: 1,000 MG CAP MAGNESIUM OXIDE 800 MG PO DAILY 10/19/22 (MAG-OXIDE) 09 Strength: 400 MG TAB [POTASSIUM] 99 MG PO DAILY 10/19/22 Strength: 0912 ZINC ACETATE (GALZIN) 50 MG PO DAILY 10/19/22 Strength: 50 MG (ZINC) CAP 09 Allergies: Coded Allergies: No Known Allergies (10/19/22) Pt reports no significant: family history Ambulatory status: Independent Brief Consult Note Physical Exam Vitals: Blood pressure 126/89, pulse 86, temperature 96, respiratory rate of 12 General appearance: alert, awake, oriented HEENT: anicteric, mucosal membranes moist, pale conjunctivae Neck: full range of motion, no bruit/NL carotids , no JVD Cardiovascular: regular rate rhythm, normal hear t sounds Respiratory: clear to auscultation, no d istress, no tenderness, aerating well, symmetric expansion Abdomen: soft, non-tender, no guarding, no rebou nd, no distention Neuro/DUMP OPERATOR: alert, oriented X 3, normal speech, n o motor deficits Extremities: Bilat moves all, Bilat no edema Skin: no gross abnormalities, normal color, no r damon Findings/Data: Recent Impressions: RADIOLOGY - XR CHEST 2 V 10/19 0955 Report Impression - Status: SIGNED Entered: 10/19/2022 1114 IMPRESSION: No acute cardiopulmonary findings. Impression By: Mauri Nuñez Laboratory Tests 10/19/22 0900: [Embedded Image Not Available] Free Text A P: Patient meets criteria for watchman insertion [id number] score is 6, with an adjusted annual stroke rate of 9.8% All preop forms were filled and signed at 0111 Addendum 1: 10/20/22 0123 by Akbar Hernandez Correction on his past medical history. Patient does not have prior history of CHF or TIA. [id number] score is 4 at 0124 RPT #:[id number] END OF REPORT 2022-10-19 09:05:00-00:00 [id number] [place] [address] PATIENT NAME: JESSE ORTEGA ADMIT DATE: ACCOUNT NO: [id number] ROOM NO: AGE: 77 REPORT TYPE: eELECTROCARDIOGRAM REPORT SEX: M ADMITTING PHYSICIAN:Edgardo Guo MD ATTENDING PHYSICIAN:Edgardo Guo MD Order: [id number] Test Reason : PREOP Test Date/Time Stamp: TueOct 19 2022 09:05:18 Blood Pressure : / mmHG Vent. Rate : 066 BPM Atrial Rate : 066 BPM P-R Int : 196 ms QRS Dur : 110 ms QT Int : 408 ms P-R-T Axes : 047 -29 049 degree s QTc Int : 427 ms Normal sinus rhythm Normal ECG No previous ECGs available Confirmed by JAVIER REGAN MD ([id number]) on 022 5:02:20 PM Referred By: No Physician Confirmed by:JAVIER SIDHU MD at 1700 PATIENT NAME: JESSE ORTEGA 6
[2023-07-10 09:35] LABS: Absolute Lymphocytes (CBC) 2.7 K/uL (0.7-4.9); Hematocrit 55.1 % (39.6-49.0); Lymphocytes % 34.8 % (15.3-44.8); MCV 91.3 fL (80-100); MPV 8.7 fL (7.6-11.3); Platelets 185 thou/uL (152-406); RBC Red Blood Cell Count 6.03 M/uL (4.33-5.43)
[2023-07-10 09:40] LABS: Protime INR 1.14
[2023-07-10] MEDS ORDERED: dilTIAZem HCL 25 MG/5 ML VIAL IV ONE (09:41)
[2023-07-10 09:52] LABS: Albumin 3.6 g/dL (3.4-5.0); Bilirubin Direct 0.3 mg/dL (0-0.2); Bilirubin Indirect, Calculated 0.9 mg/dL (0.2-0.8); Bilirubin Total 1.2 mg/dL (0.2-1.0); Magnesium 2.4 mg/dL (1.6-2.4); Potassium 3.9 mEq/L (3.5-5.1); Protein, Total 7.2 g/dL (6.4-8.2); Troponin High Sensitivity 11.5 pg/mL (<58.9)
--- NOTE | 2023-07-10 10:10 | RAD REPORT ---
EXAM DESCRIPTION: RAD - Chest Single View - 07/10/2023 9:51 am CLINICAL HISTORY: CHEST PAIN COMPARISON: Chest Single View dated 11/18/2022; Chest Single View dated 11/03/2022; Chest Single View dated 10/24/2022; Chest Single View dated 07/04/2022 FINDINGS: Lines: None. Lungs: No evidence of edema or pneumonia. Pleural: No significant pleural effusions or pneumothorax. Minimal linear scarring at the right lung base. Cardiac: The heart size is within normal limits. Mediastinum: Within normal limits. Bones: No acute fractures. Other: None IMPRESSION: No acute cardiopulmonary disease.
--- NOTE | 2023-07-10 10:19 | ER ---
Nurse's Notes [facility] Name: Jesse Ortega Age: 78 yrs Sex: Male : 1945 Arrival Date: 07/10/2023 Time: 09:08 Bed 5 Private MD: Diagnosis: Atrial fibrillation, palpitations, chest pain now resolved Presentation: 07/10 09:24 Chief complaint: Patient states: chest tightness and afib since 0230 this morning, he iw took his sotalol and metoprolol but it is persisting, has been seen here in past for same issue. Coronavirus screen: At this time, the client does not indicate any symptoms associated with coronavirus-19. Ebola Screen: Patient negative for fever greater than or equal to 101.5 degrees Fahrenheit, and additional compatible Ebola Virus Disease symptoms Patient denies exposure to infectious person. Patient denies travel to an Ebola-affected area in the 21 days before illness onset. No symptoms or risks identified at this time. Initial Sepsis Screen: Does the patient meet any 2 criteria? No. Patient's initial sepsis screen is negative. Does the patient have a suspected source of infection? No. Patient's initial sepsis screen is negative. Risk Assessment: Do you want to hurt yourself or someone else? Patient reports no desire to harm self or others. Onset of symptoms was July 10, 2023. 09:24 Method Of Arrival: Wheelchair iw 09:24 Acuity: KAVON 2 iw Historical: - Allergies: 09:26 No Known Allergies; iw - PMHx: 09:26 ALOPECIA; Atrial Fib; CAD; Colitis; Glaucoma; Hyperlipidemia; Hypertension; iw Hypothyroidism; insomnia; Migraine; Myocardial infarction; ulcerative colitis; - PSHx: 09:26 Watchman procedure; iw - Immunization history:: Client reports receiving the 2nd dose of the Covid vaccine. - Social history:: Smoking status: Patient denies any tobacco usage or history of. Screenin:49 [facility] ED Fall Risk Assessment (Adult) Score/Fall Risk Level 0 - 2 = Low Risk hb Oriented to surroundings, Maintained a safe environment. Abuse screen: Denies threats or abuse. Denies injuries from another. Nutritional screening: No deficits noted. Tuberculosis screening: No symptoms or risk factors identified. Assessment: 09:30 General: Appears in no apparent distress. Behavior is calm, cooperative. Pain: Pain hb currently is 3 out of 10 on a pain scale. Neuro: Level of Consciousness is awake, alert, obeys commands, Oriented to person, place, time, situation. Cardiovascular: Reports chest pain, lightheadedness, palpitations, shortness of breath, Patient's skin is warm and dry. Respiratory: Respiratory effort is even, unlabored, Respiratory pattern is regular, symmetrical. GI: No signs and/or symptoms were reported involving the gastrointestinal system. : No signs and/or symptoms were reported regarding the genitourinary system. EENT: No signs and/or symptoms were reported regarding the EENT system. Derm: Skin is pink, warm \T\ dry. Musculoskeletal: No signs and/or symptoms reported regarding the musculoskeletal system. 10:30 Reassessment: Patient appears in no apparent distress at this time. Patient and/or hb family updated on plan of care and expected duration. Pain level reassessed. Patient denies pain at this time. Patient states feeling better. Patient states symptoms have improved. Vital Signs: 09:24 BP 101 / 89; Pulse 137; Resp 18; Temp 98.1; Weight 83.01 kg; Height 5 ft. 10 in. ; Pain iw 310; 09:48 BP 97 / 77; Pulse 70; Resp 20; Pulse Ox 96% on R/A; hb 10:30 BP 116 / 78; Pulse 71; Resp 15; Pulse Ox 100% on R/A; hb 09:24 Body Mass Index 26.26 (83.01 kg, 177.8 cm) iw 09:24 Pain Scale: Adult iw ED Course: 09:10 Patient arrived in ED. iw 09:10 Arvin Soto MD is Attending Physician. sp3 09:25 Triage completed. iw 09:25 Inserted saline lock: 18 gauge in right antecubital area, using aseptic technique. hb Blood collected. 09:26 Arm band placed on. iw 09:27 Kavitha Ko, JAMES is Primary Nurse. hb 09:28 Basic Metabolic Panel Sent. hb 09:28 CBC with Diff Sent. hb 09:28 LFT's Sent. hb 09:28 Magnesium Sent. hb 09:28 NT PRO-BNP Sent. hb 09:28 PT-INR Sent. hb 09:28 Troponin HS Sent. hb 09:49 Patient has correct armband on for positive identification. Provided Education on: . hb 09:53 XRAY Chest (1 view) In Process Unspecified. EDMS 10:38 No provider procedures requiring assistance completed. IV discontinued, intact, hb bleeding controlled, No redness/swelling at site. Administered Medications: 09:33 Drug: Diltiazem IVP 10 mg Route: IVP; Site: right antecubital; hb Medication: 09:49 VIS not applicable for this client. hb Outcome: 10:18 Discharge ordered by sp3 10:38 Discharged to home ambulatory. hb 10:38 Condition: stable 10:38 Discharge instructions given to patient, Instructed on discharge instructions, follow up and referral plans. medication usage, Demonstrated understanding of instructions, follow-up care, medications. 10:38 Patient left the ED. hb Signatures: Dispatcher [employer] EDGenesis Parker RN RN Kavitha Ko RN RN Arvin Laboy MD MD sp3 Corrections: (The following items were deleted from the chart) 09:50 09:50 PSHx: watchmans x 3 days prior; hb hb
--- NOTE | 2023-07-10 10:19 | EDPHYS ---
Physician Documentation [facility] Name: Jesse Ortega Age: 78 yrs Sex: Male : 1945 Arrival Date: 07/10/2023 Time: 09:08 Bed 5 Private MD: ED Physician Arvin Soto HPI: 07/10 09:28 This 78 yrs old Male presents to ER via Wheelchair with complaints of Chest Pain, sp3 palpitations and A-fib. 09:28 78-year-old male with a history of atrial fibrillation status post watchman's sp3 procedure, CAD, hyperlipidemia, hypertension among others presents to the ED with chief complaint chest pain and palpitations consistent with recurrence of atrial fibrillation which she has had in the past. Patient is on aspirin and Plavix as antiplatelet agents in the city took a "leftover Eliquis" this morning that he had. He is no longer on anticoagulants after the watchman's procedure. He denies any other symptoms including fever, URI symptoms, cough, shortness of breath, abdominal pain, vomiting and diarrhea, syncope, near syncope, focal neurological deficit, rash, known travel history, prolonged immobilization, known sick contacts, or any other signs or symptoms on ROS at this time.. Historical: - Allergies: 09:26 No Known Allergies; iw - PMHx: 09:26 ALOPECIA; Atrial Fib; CAD; Colitis; Glaucoma; Hyperlipidemia; Hypertension; iw Hypothyroidism; insomnia; Migraine; Myocardial infarction; ulcerative colitis; - PSHx: 09:26 Watchman procedure; iw - Immunization history:: Client reports receiving the 2nd dose of the Covid vaccine. - Social history:: Smoking status: Patient denies any tobacco usage or history of. ROS: 09:30 Constitutional: Negative for fever, chills, and weight loss, Eyes: Negative for injury, sp3 pain, redness, and discharge, ENT: Negative for injury, pain, and discharge, Neck: Negative for injury, pain, and swelling, Respiratory: Negative for shortness of breath, cough, wheezing, and pleuritic chest pain, Abdomen/GI: Negative for abdominal pain, nausea, vomiting, diarrhea, and constipation, Back: Negative for injury and pain, MS/Extremity: Negative for injury and deformity, Skin: Negative for injury, rash, and discoloration, Neuro: Negative for headache, weakness, numbness, tingling, and seizure, Psych: Negative for depression, anxiety, suicide ideation, homicidal ideation, and hallucinations, Allergy/Immunology: Negative for hives, rash, and allergies. 09:30 All other systems are negative. Exam: 09:30 Constitutional: This is a well developed, well nourished patient who is awake, alert, sp3 and in no acute distress. Head/Face: Normocephalic, atraumatic. Eyes: Pupils equal round and reactive to light, extra-ocular motions intact. Lids and lashes normal. Conjunctiva and sclera are non-icteric and not injected. Cornea within normal limits. Periorbital areas with no swelling, redness, or edema. Neck: Trachea midline, no thyromegaly or masses palpated, and no cervical lymphadenopathy. Supple, full range of motion without nuchal rigidity, or vertebral point tenderness. No Meningismus. Chest/axilla: Normal chest wall appearance and motion. Nontender with no deformity. No lesions are appreciated. Respiratory: Lungs have equal breath sounds bilaterally, clear to auscultation and percussion. No rales, rhonchi or wheezes noted. No increased work of breathing, no retractions or nasal flaring. Abdomen/GI: Soft, non-tender, with normal bowel sounds. No distension or tympany. No guarding or rebound. No evidence of tenderness throughout. Back: No spinal tenderness. No costovertebral tenderness. Full range of motion. Skin: Warm, dry with normal turgor. Normal color with no rashes, no lesions, and no evidence of cellulitis. MS/ Extremity: Pulses equal, no cyanosis. Neurovascular intact. Full, normal range of motion. Neuro: Awake and alert, GCS 15, oriented to person, place, time, and situation. Cranial nerves II-XII grossly intact. Motor strength 5/5 in all extremities. Sensory grossly intact. Cerebellar exam normal. Normal gait. Psych: Awake, alert, with orientation to person, place and time. Behavior, mood, and affect are within normal limits. 09:30 Cardiovascular: Patient is irregularly irregular tachycardic at 137. Distal/peripheral pulses are all equal and within normal limits.. 09:30 ECG was reviewed by the Attending Physician. EKG demonstrates atrial fibrillation at 136 bpm with leftward axis, poor R wave progression, nonspecific diffuse ST/T changes diffusely without evidence of acute ischemia with morphology is not significantly different on QRS than prior EKGs with last EKG in November 2022 being in sinus rhythm. Vital Signs: 09:24 BP 101 / 89; Pulse 137; Resp 18; Temp 98.1; Weight 83.01 kg; Height 5 ft. 10 in. ; Pain iw 310; 09:48 BP 97 / 77; Pulse 70; Resp 20; Pulse Ox 96% on R/A; hb 10:30 BP 116 / 78; Pulse 71; Resp 15; Pulse Ox 100% on R/A; hb 09:24 Body Mass Index 26.26 (83.01 kg, 177.8 cm) iw 09:24 Pain Scale: Adult iw MDM: 09:18 Patient medically screened. sp3 09:31 Data reviewed: vital signs, nurses notes, old medical records, lab test result(s), EKG, sp3 radiologic studies. ED course: 78-year-old male with recurrent atrial fibrillation status post watchman's procedure in the setting of CAD, hypertension and hyperlipidemia. Current heart rate is 137 in an irregular fashion. Symptoms have been occurring less than 24 hours and patient has a watchman's and he took Eliquis this morning so I am comfortable trying to chemically cardiovert him. We will rate control with possible cardioversion using Cardizem and await results. Beta-jose ramon is also an option in IV form. If conversion is not possible, we will rate control and admit him to the hospital for further cardiology consultation.. 10:17 ED course: After 10 mg of Cardizem, patient has converted to normal sinus rhythm with sp3 EKG demonstrating NSR at 70 bpm with leftward axis, poor R wave progression, nonspecific diffuse ST/T changes without evidence of acute ischemia. Patient's chest pain or shortness of breath are fully resolved. Troponin is negative and entire episode has been less than 24 hours. We will safely discharge him home at this time.. 07/10 09:18 Order name: Basic Metabolic Panel; Complete Time: 10:00 sp3 07/10 09:18 Order name: CBC with Diff; Complete Time: 10:00 sp3 07/10 09:18 Order name: LFT's; Complete Time: 10:00 sp3 07/10 09:18 Order name: Magnesium; Complete Time: 10:00 sp3 07/10 09:18 Order name: NT PRO-BNP; Complete Time: 10:00 sp3 07/10 09:18 Order name: PT-INR; Complete Time: 10:00 sp3 07/10 09:18 Order name: Troponin HS; Complete Time: 10:00 sp3 07/10 09:18 Order name: XRAY Chest (1 view); Complete Time: 10:16 sp3 07/10 09:18 Order name: EKG; Complete Time: 09: sp3 07/10 09:18 Order name: Cardiac monitoring; Complete Time: sp3 07/10 09:18 Order name: EKG - Nurse/Tech; Complete Time: : sp3 07/10 09:18 Order name: IV Saline Lock; Complete Time: sp3 07/10 09:18 Order name: Labs collected and sent; Complete Time: sp3 07/10 09:18 Order name: O2 Per Protocol; Complete Time: sp3 07/10 09:18 Order name: O2 Sat Monitoring; Complete Time: sp3 Administered Medications: 09:33 Drug: Diltiazem IVP 10 mg Route: IVP; Site: right antecubital; hb Disposition Summary: 07/10/23 10:18 Discharge Ordered Location: Home sp3 Condition: Stable sp3 Diagnosis - Atrial fibrillation, palpitations, chest pain now resolved sp3 Followup: sp3 - With: Private Physician - When: Upon discharge from the Emergency Department - Reason: Recheck today's complaints, Continuance of care Discharge Instructions: - Discharge Summary Sheet sp3 - Atrial Fibrillation sp3 Forms: - Medication Reconciliation Form sp3 - Thank You Letter sp3 - Antibiotic Education sp3 - Prescription Opioid Use sp3 - Patient Portal Instructions sp3 - Leadership Thank You Letter sp3 Signatures: Dispatcher [employer] Genesis Hanson RN RN Kavitha Ko RN RN hb Patel, Setul, MD MD sp3 Corrections: (The following items were deleted from the chart) 09:50 09:50 PSHx: watchmans x 3 days prior; hb hb
[2023-07-10 10:50] VITALS: TEMP 98.1
[2023-07-10 10:59] VITALS: BP 116/78; O2SAT 100
--- NOTE | 2023-07-12 16:53 | EKG ---
Test Date: 2023-07-10 Test Time: 10:11:25 Position Classification Specialist: LORENZO MEASUREMENT RESULTS: Intervals: Rate: 69 OK: 170 QRSD: 96 QT: 420 QTc: 450 [place]: P: 38 OK: 170 QRS: -53 T: 40 INTERPRETIVE STATEMENTS: Sinus rhythm with premature atrial complexes in a pattern of bigeminy Left anterior fascicular block Septal infarct, age undetermined Abnormal ECG Compared to ECG 07/10/2023 09:17:47 Atrial premature complex(es) now present Atrial fibrillation no longer present Myocardial infarct finding still present Electronically Signed On 07-12-23 16:46:01 CDT by Edgardo Guo
--- NOTE | 2023-07-12 16:53 | EKG ---
Test Date: 2023-07-10 Test Time: 09:17:47 Bulk Fluids Handler: LORENZO MEASUREMENT RESULTS: Intervals: Rate: 136 MS: QRSD: 90 QT: 320 QTc: 481 [place]: P: MS: QRS: -50 T: 54 INTERPRETIVE STATEMENTS: Atrial fibrillation with rapid ventricular response Left anterior fascicular block Septal infarct, age undetermined Abnormal ECG Compared to ECG 11/18/2022 14:06:37 Left anterior fascicular block now present Myocardial infarct finding now present Sinus rhythm no longer present Left-axis deviation no longer present Prolonged QT interval no longer present Electronically Signed On 07-12-23 16:46:05 CDT by Edgardo Guo
== END 2023-07-10 10:38 | disposition home or self-care (01) ==
LOC: ER 09:08
DX: I48.91 Unspecified atrial fibrillation (principal); I10 Essential (primary) hypertension; I25.2 Old myocardial infarction; Z79.01 Long term (current) use of anticoagulants; Z79.82 Long term (current) use of aspirin
CPT/HCPCS: 36415; 71045; 80048; 80076; 83735; 83880; 84484; 85025; 85610; 93005; 96374; 99284

== ENCOUNTER 2023-08-25 06:13 | Emergency (ER) | payer OTHER ==
--- OUTSIDE RECORDS SUMMARY | 2023-08-25 06:18 | XMS REPORT | Continuity of Care Document ---
:1945 Author Organization [facility] t Address [address] [place] [address] [place] [id number] Care Team Providers Name Role Phone Edgardo [...] 2021-11 [facility] Allergie 2-13 Clear s 00:00: [address] Medications This patient has no known medications. Procedures Procedure Date / Time Performed Performing Clinician Guille nallely [id number] 2022-10-20 00:00:00 GARY [facility] [id number] 2022-10-20 00:00:00 [facility] Encounters Start End Encounter Admission Attending Care Care Encounter Source Date/Time Date/Time Type Type Clinicians Facility Department ID 2022-10-20 2022-10-20 Inpatient SOCO Myers CARD [id number] MICHAEL 06:39:00 19:11:00 Edgardo 96 [facility] Results Test Description Test Time Test Comments Results Result Comments Source GLUCOSE BEDSIDE 2022-10-20 13:15:00 Test Item Value Reference Range Interpretation Comme nts GLUCOSE BEDSIDE (test code = 143 MG/DL 70-110 H Performed by certified kiln operator at [facility]) [facility] [id number] 12:34:00 Test Item Value Reference Range Interpretation Comments ACT-ISTAT (test code 401 SEC 74-137 H Perform ed by certified = ACTI) kiln operator at [facility] GLUCOSE [id number] 11:16:00 Test Item Value Reference Range Interpretation Comments GLUCOSE BEDSIDE (test 115 MG/DL 70-110 H Perfor med by certified code = GLUBED) kiln operator at [facility] - XR CHEST 1 [id number] 00:00:00 [facility] 1945 Sex: M FAX: Edgardo Rea MD [phone] [place]: St: ADM Name: NARESH SUMMERS [facility] : 1945 Age/S: 77/M [address] [facility] Unit #: [id number] Loc: [place] [address] Phys: Edgardo Guo MD Acct: [id number] Dis Date: Status: ADM IN PHONE #: [phone] Exam Date: 10/20/2022 1350 FAX #: [phone] Reason: S/P WATCHMAN EXAMS: CPT CODE: [id number] XR CHEST 1 V 56188 PROCEDURE INFORMATION: Exam: XR Chest Exam date [...] is present. 2. Bibasilar subsegmental atelectasis. at 1510 Reported and signed by: Rach Anderson M.D. CC: Edgardo Guo MD Technologist: RT Dorothy(R) Trnscrd Date/Time/By: 10/20/2022 (745) : By: [email or web address] Orig Print D/T: S: 10/20/2022 (601) PAGE 1 Signed ReportPROTHROMBIN [id number] 10:27:00 Test Item Value Reference Range Interpretation [...] (to prevent recurrent infar ct). BASIC METABOLIC [id number] 10:22:00 Test Item Value Reference Range Interpretation [...] the recommended for laisha for GFRby the [facility] on for Adults.The GFR will not calculate if th e sex is unknown or if thepatient's ag e is <18 years. CREATININE (test 1.0 mg/dL 0.6-1.3 N code = CREAT) CALCIUM (test code = 10.1 mg/dL 8.0-10.5 N CA) [id number] 10:22:00 Test Item Value Reference Range Interpretation Comments PREALBUMIN (test code = PREALB) 26.0 mg/dL 16.0-40.0 N CBC W/AUTO [id number] 10:07:00 Test Item Value Reference Range Interpretation [...] NO = MDIFF) - XR CHEST 2 [id number] 00:00:00 [facility] : 1945 Sex: M FAX: Edgardo Rea MD [phone] [place]: St: PRE Name: NARESH SUMMERS [facility] [place] : 1945 Age/S: 77/M [address] [place] [address] Bl Unit #: [id number] Loc: [place] [address] Phys: Edgardo Guo MD Acct: [id number] Dis Date: Status: PRE IN PHONE #: [phone] Exam Date: 10/19/2022 0955 FAX #: [phone] Reason: PAT EXAMS: CPT CODE: [id number] XR CHEST 2 V [id number] PROCEDURE INFORMATION: Exam: XR Chest Exam date [...] Technologist: Judie Tellez RT(R) Trnscrd Date/Time/By: 10/19/2022 (2623) : By: Jerad Orig Print D/T: S: 10/19/2022 (3452) PAGE 1 Signed Report
[2023-08-25] MEDS ORDERED: AZITHROMYCIN 500 MG INJ IVPB ONE (06:53)
[2023-08-25] MEDS ORDERED: CEFTRIAXONE 1000 MG/VIAL ONE (06:53)
[2023-08-25] MEDS ORDERED: ACETAMINOPHEN 500 MG TAB ONE (06:53)
[2023-08-25] MEDS ORDERED: NA CHLORIDE 0.9% 1,000 ML ONE (06:54)
[2023-08-25] MEDS ORDERED: NA CHLORIDE 0.9% 250 ML ONE (06:54)
[2023-08-25] MEDS ORDERED: DIPHENHYDRAMINE 50 MG/ML VIAL ONE (07:06)
[2023-08-25 07:07] LABS: SARS-CoV-2 Antigen Rapid Res Positive (Negative)
[2023-08-25] MEDS ORDERED: IBUPROFEN 400 MG TAB ONE (07:07)
[2023-08-25] MEDS ORDERED: IBUPROFEN 200 MG TAB PO ONE (07:07)
[2023-08-25] MEDS ORDERED: METOCLOPRAMIDE 10 MG/2mL INJ ONE (07:07)
[2023-08-25 07:08] LABS: Absolute Lymphocytes (CBC) 0.5 K/uL (0.7-4.9); Hematocrit 49.4 % (39.6-49.0); Lymphocytes % 6.7 % (15.3-44.8); MCV 88.5 fL (80-100); MPV 8.6 fL (7.6-11.3); Platelets 146 thou/uL (152-406); RBC Red Blood Cell Count 5.58 M/uL (4.33-5.43)
[2023-08-25 07:12] LABS: Protime INR 1.23
[2023-08-25 07:22] LABS: Albumin 3.7 g/dL (3.4-5.0); Bilirubin Total 1.1 mg/dL (0.2-1.0); Potassium 3.5 mEq/L (3.5-5.1); Protein, Total 7.7 g/dL (6.4-8.2)
--- NOTE | 2023-08-25 07:31 | RAD REPORT ---
EXAM DESCRIPTION: Bryanna Single View08/25/2023 6:39 am CLINICAL HISTORY: sob COMPARISON: July 2023 chest x-ray FINDINGS: The lungs appear clear of acute infiltrate. The heart is mildly enlarged IMPRESSION: No acute abnormalities displayed
--- NOTE | 2023-08-25 07:41 | ER ---
Nurse's Notes [facility] Name: Jesse Ortega Age: 78 yrs Sex: Male : 1945 Arrival Date: 08/25/2023 Time: 06:13 Bed 5 Private MD: Diagnosis: SARS-associated coronavirus as the cause of diseases classified elsewhere;Acute upper respiratory infection, unspecified Presentation: 08/25 06:28 Coronavirus screen: At this time, the client does not indicate any symptoms associated as6 with coronavirus-19. Ebola Screen: No symptoms or risks identified at this time. Initial Sepsis Screen: Does the patient meet any 2 criteria? No. Patient's initial sepsis screen is negative. Does the patient have a suspected source of infection? No. Patient's initial sepsis screen is negative. Risk Assessment: Do you want to hurt yourself or someone else? Patient reports no desire to harm self or others. Onset of symptoms was August 24, 2023. 06:28 Acuity: KAVON 3 as6 06:28 Method Of Arrival: Wheelchair as6 06:28 Chief complaint: Patient states: flue like symptoms that started yesterday. as6 Triage Assessment: 06:22 General: Appears in no apparent distress. uncomfortable, Behavior is calm, cooperative. jw7 Pain: Complains of pain in head Pain does not radiate. Pain currently is 7 out of 10 on a pain scale. Quality of pain is described as throbbing, Is continuous. EENT: No deficits noted. No signs and/or symptoms were reported regarding the EENT system. EENT: Reports nasal congestion pain. Neuro: Dowell Agitation-Sedation Scale (RASS): 0 - Alert and Calm. Cardiovascular: Capillary refill < 3 seconds Clubbing of nail beds is absent JVD is absent Patient's skin is warm and dry. Respiratory: Airway is patent Trachea midline Respiratory effort is even, unlabored, Respiratory pattern is regular, symmetrical. GI: No deficits noted. No signs and/or symptoms were reported involving the gastrointestinal system. Abdomen is round non-distended, Bowel sounds present X 4 quads. : No signs and/or symptoms were reported regarding the genitourinary system. Derm: No signs and/or symptoms reported regarding the dermatologic system. Skin is intact, is healthy with good turgor, Skin is dry, Skin is normal, Skin temperature is warm. Musculoskeletal: No signs and/or symptoms reported regarding the musculoskeletal system. Circulation, motion, and sensation intact. Range of motion: intact in all extremities. Historical: - Allergies: 06:29 No Known Allergies; as6 - PMHx: 06:29 ALOPECIA; Atrial Fib; CAD; Colitis; Glaucoma; Hyperlipidemia; Hypertension; as6 Hypothyroidism; insomnia; Migraine; Myocardial infarction; ulcerative colitis; - PSHx: 06:29 watchman procedure; Stented artery; as6 - Immunization history:: Adult Immunizations up to date. - Social history:: Smoking status: Patient denies any tobacco usage or history of. Screenin:30 [facility] ED Fall Risk Assessment (Adult) Score/Fall Risk Level 0 - 2 = Low Risk. Abuse as6 screen: Denies threats or abuse. Denies injuries from another. Nutritional screening: No deficits noted. Tuberculosis screening: No symptoms or risk factors identified. Assessment: 06:46 General: see triage assessment. jw7 07:51 Reassessment: Patient appears in no apparent distress at this time. Patient and/or db family updated on plan of care and expected duration. Pain level reassessed. Patient is alert, oriented x 3, equal unlabored respirations, skin warm/dry/pink. 08:14 Reassessment: Patient appears in no apparent distress at this time. Patient and/or db family updated on plan of care and expected duration. Pain level reassessed. Patient is alert, oriented x 3, equal unlabored respirations, skin warm/dry/pink. Neuro: Level of Consciousness is awake, alert, obeys commands, Oriented to person, place, time, situation. Respiratory: Airway is patent Respiratory effort is even, unlabored, Respiratory pattern is regular, symmetrical. Vital Signs: 06:28 BP 174 / 87; Pulse 112; Resp 18 S; Temp 98.9(O); Pulse Ox 96% on R/A; Weight 81.65 kg as6 (R); Height 5 ft. 10 in. (R); 07:45 BP 123 / 84; Pulse 100; Resp 16; Pulse Ox 96% on R/A; db 06:28 Body Mass Index 25.83 (81.65 kg, 177.8 cm) as6 ED Course: 06:18 Patient arrived in ED. gm2 06:18 Ran George MD is Attending Physician. ec2 06:28 Arm band placed on. as6 06:29 Triage completed. as6 06:30 Bed in low position. Call light in reach. Side rails up X 1. as6 06:40 Chest Single View XRAY In Process Unspecified. EDMS 06:45 EKG done, by ED staff, reviewed by Ran George MD. jw7 06:46 COVID swab sent to lab. Flu and/or RSV swab sent to lab. jw7 06:50 Initial lab(s) drawn, by ED staff, sent to lab. First set of blood cultures drawn by ED jw7 staff, Second set of blood cultures drawn by ED staff. Inserted saline lock: 22 gauge in left antecubital area, using aseptic technique. Blood collected. 07:21 Attending Physician role handed off by Ran George MD [facility] 07:21 Ryan Rubin MD is Attending Physician. [facility] 08:14 Provided Education on: DISCHARGE. Client placed on continuous cardiac and pulse db oximetry monitoring. NIBP monitoring applied. Warm blanket given. 08:14 No provider procedures requiring assistance completed. IV discontinued, intact, db bleeding controlled, No redness/swelling at site. Administered Medications: 06:50 Drug: AZITHromycin IVPB 500 mg IVPB once over 1 hrs; (mix in 250 mL NS) Route: IVPB; lg3 Infused Over: 1 hrs; Site: left antecubital; 08:13 Follow up: Response: No adverse reaction; IV Status: Completed infusion; IV Intake: db 250ml 06:50 Drug: NS 0.9% IV 1000 ml IV at 1 bolus Per protocol; 1000 mL bolus Route: IV; Rate: 1 lg3 bolus; Site: left antecubital; 07:45 Follow up: Response: No adverse reaction; IV Status: Completed infusion; IV Intake: db 1000ml 06:51 Not Given (Other Intervention Used): [id number] mg PO once lg3 06:51 Drug: Rocephin IV 1 grams IV at calculated rate once; Given slow IV push per pharmacy lg3 instructions Route: IV; Rate: calculated rate; Site: left antecubital; 07:00 Follow up: Response: No adverse reaction; IV Status: Completed infusion db 06:57 Drug: Ibuprofen PO 600 mg PO once Route: PO; lg3 08:13 Follow up: Response: No adverse reaction db 06:57 Drug: metoCLOPramide IVP 10 mg IVP once; over 1 to 2 minutes Route: IVP; Site: left lg3 antecubital; 08:13 Follow up: Response: No adverse reaction db 06:57 Drug: diphenhydrAMINE IVP 25 mg IVP once Route: IVP; Site: left antecubital; lg3 08:13 Follow up: Response: No adverse reaction db 07:50 Drug: Famotidine IVP 20 mg IVP once; dilute with 10 mL 0.9% NaCl; give over 2 minutes db Route: IVP; Site: right antecubital; 08:13 Follow up: Response: No adverse reaction db Medication: 07:01 VIS not applicable for this client. as6 Intake: 07:45 IV: 1000ml; Total: 1000ml. db 08:13 IV: 250ml; Total: 1250ml. db Outcome: 07:41 Discharge ordered by . soumya 08:14 Discharged to home ambulatory, db 08:14 Condition: stable 08:14 Discharge instructions given to patient, Instructed on discharge instructions, follow up and referral plans. Prescriptions given X X5 08:15 Patient left the ED. db Signatures: Dispatcher [employer] Ryan Mora MD MD cha Gibson, Lacie, RN RN lg3 Heriberto Gonzalez RN RN as6 Priscilla Ospina RN RN jw7 Orly Alatorre RN RN Ran Pinto MD MD ec2 Rachell Ponce 2
--- NOTE | 2023-08-25 07:41 | EDPHYS ---
Physician Documentation [facility] Name: Jesse Ortega Age: 78 yrs Sex: Male : 1945 Arrival Date: 08/25/2023 Time: 06:13 Bed 5 Private MD: ED Physician Ryan Rubin HPI: 08/25 06:27 This 78 yrs old Male presents to ER via Unassigned with complaints of Cough, ec2 Congestion, High Blood Pressure, Headache, Fever. 06:27 Patient arrives today due to concern for infectious symptoms. Patient has been having 2 ec2 days of cough and cold symptoms along with subjective shortness of breath. Patient reports has been having subjective fevers and chills without any pain. Patient also complaining of diarrhea. Patient reports his is at home sick with similar symptoms. Patient with no underlying lung disease, history of significant cardiac disease including hypertension, A-fib, previous stents, also history of diabetes.. Historical: - Allergies: 06:29 No Known Allergies; as6 - PMHx: 06:29 ALOPECIA; Atrial Fib; CAD; Colitis; Glaucoma; Hyperlipidemia; Hypertension; as6 Hypothyroidism; insomnia; Migraine; Myocardial infarction; ulcerative colitis; - PSHx: 06:29 watchman procedure; Stented artery; as6 - Immunization history:: Adult Immunizations up to date. - Social history:: Smoking status: Patient denies any tobacco usage or history of. ROS: 06:27 Constitutional: uri s/s ec2 Exam: 06:27 Constitutional: GEN: NAD Head: atraumatic Eyes: EOMI Ears: External ears are ec2 normal. CV: Tachycardia LUNGS: no respiratory distress, no wheezes, no rales, no rhonchi ABD: non-distended SKIN: no evidence of rashes MSK: no evidence of trauma NEURO: moves all extremities equally Vital Signs: 06:28 BP 174 / 87; Pulse 112; Resp 18 S; Temp 98.9(O); Pulse Ox 96% on R/A; Weight 81.65 kg as6 (R); Height 5 ft. 10 in. (R); 07:45 BP 123 / 84; Pulse 100; Resp 16; Pulse Ox 96% on R/A; db 06:28 Body Mass Index 25.83 (81.65 kg, 177.8 cm) as6 MDM: 06:18 Patient medically screened. ec2 06:27 ED course: Patient arrives today due to concern for worsening respiratory symptoms ec2 along with subjective fevers and chills. Examination remarkable for tachycardic individual who is in no acute respiratory distress with reassuring pulmonary exam. Will obtain septic work-up given the patient's tachycardia, currently considering process such as pneumonia which I will treat for, viral infection.. 06:40 ED course: EKG independently reviewed and interpreted by me, shows sinus tachycardia, ec2 rate 110, no acute ST segment elevations, intervals nonconcerning, PACs noted.. 06:56 Transition of care: After a detail discussion of the patient's case, care is ec2 transferred to Ryan Rubin MD. ED course: Patient signed out to oncoming physician with pending labs, imaging and reassessment.. 08/25 06:27 Order name: Blood Culture Adult (2) ec2 08/25 06:27 Order name: CBC with Diff; Complete Time: 07:23 ec2 08/25 06:27 Order name: CMP ec2 08/25 06:27 Order name: Lactate w/ 2H reflex if indic.; Complete Time: 07:23 ec2 08/25 06:27 Order name: Protime (+inr); Complete Time: 07:23 ec2 08/25 06:27 Order name: Ptt, Activated; Complete Time: 07:23 ec2 08/25 06:30 Order name: SARS RAPID; Complete Time: 07:23 ec2 08/25 06:30 Order name: Influenza Screen (a \T\ B); Complete Time: 07:23 ec2 08/25 06:57 Order name: Glucose, Ancillary Testing; Complete Time: 07:23 EDMS 08/25 06:59 Order name: Glucose, Ancillary Testing EDMS 08/25 06:27 Order name: Chest Single View XRAY ec2 08/25 06:27 Order name: EKG; Complete Time: 06:28 ec2 08/25 06:27 Order name: Accucheck; Complete Time: 06:51 ec2 08/25 06:27 Order name: Cardiac monitoring; Complete Time: 06:45 ec2 08/25 06:27 Order name: EKG - Nurse/Tech; Complete Time: 06:45 ec2 08/25 06:27 Order name: IV Saline Lock - Large Bore; Complete Time: 06:51 ec2 08/25 06:27 Order name: Labs collected and sent; Complete Time: 06:51 ec2 08/25 06:27 Order name: O2 Per Protocol; Complete Time: 06:30 ec2 08/25 06:27 Order name: O2 Sat Monitoring; Complete Time: 06:30 ec2 08/25 06:27 Order name: Vital Signs; Complete Time: 06:30 ec2 Administered Medications: 06:50 Drug: AZITHromycin IVPB 500 mg IVPB once over 1 hrs; (mix in 250 mL NS) Route: IVPB; lg3 Infused Over: 1 hrs; Site: left antecubital; 08:13 Follow up: Response: No adverse reaction; IV Status: Completed infusion; IV Intake: db 250ml 06:50 Drug: NS 0.9% IV 1000 ml IV at 1 bolus Per protocol; 1000 mL bolus Route: IV; Rate: 1 lg3 bolus; Site: left antecubital; 07:45 Follow up: Response: No adverse reaction; IV Status: Completed infusion; IV Intake: db 1000ml 06:51 Not Given (Other Intervention Used): [id number] mg PO once lg3 06:51 Drug: Rocephin IV 1 grams IV at calculated rate once; Given slow IV push per pharmacy lg3 instructions Route: IV; Rate: calculated rate; Site: left antecubital; 07:00 Follow up: Response: No adverse reaction; IV Status: Completed infusion db 06:57 Drug: Ibuprofen PO 600 mg PO once Route: PO; lg3 08:13 Follow up: Response: No adverse reaction db 06:57 Drug: metoCLOPramide IVP 10 mg IVP once; over 1 to 2 minutes Route: IVP; Site: left lg3 antecubital; 08:13 Follow up: Response: No adverse reaction db 06:57 Drug: diphenhydrAMINE IVP 25 mg IVP once Route: IVP; Site: left antecubital; lg3 08:13 Follow up: Response: No adverse reaction db 07:50 Drug: Famotidine IVP 20 mg IVP once; dilute with 10 mL 0.9% NaCl; give over 2 minutes db Route: IVP; Site: right antecubital; 08:13 Follow up: Response: No adverse reaction db Disposition Summary: 08/25/23 07:41 Discharge Ordered Notes: Location: Home [facility] Problem: new [facility] Symptoms: have improved [facility] Condition: Stable [facility] Diagnosis - SARS-associated coronavirus as the cause of diseases classified elsewhere [facility] - Acute upper respiratory infection, unspecified soumya Followup: [facility] - With: Private Physician - When: 2 - 3 days - Reason: Recheck today's complaints, Continuance of care, Re-evaluation by your physician Discharge Instructions: - Discharge Summary Sheet [facility] - Upper Respiratory Infection, Adult [facility] - Cool Mist Vaporizer [facility] - Upper Respiratory Infection, Adult, Dfrn-kg-Hxpz [facility] - Aspirin and Your Heart [facility] - COVID-19 [facility] - Symptoms of COVID-19 - [facility] (01/26/2022) [facility] - COVID-19: Quarantine and Isolation - [facility] (02/03/2022) [facility] - COVID-19: What to Do If You Are Sick - [facility] (01/26/2022) [facility] Forms: - Medication Reconciliation Form [facility] - Thank You Letter [facility] - Antibiotic Education [facility] - Prescription Opioid Use [facility] - Patient Portal Instructions [facility] - Leadership Thank You Letter [facility] - Work release form iw Prescriptions: - Paxlovid 300 mg (150 mg x 2)-100 mg Oral Tablet, Dose Pack - take 1 dose pack ORAL route per package directions; 30 tablet; Refills: 0, [facility] Product Selection Permitted - budesonide-formoterol 160-4.5 mcg/actuation Inhalation HFA Aerosol Inhaler - inhale 2 inhalation INHALATION route 2 times per day; 1 unit; Refills: 0, [facility] Product Selection Permitted - Pepcid 20 mg Oral tablet - take 1 tablet ORAL route every 12 hours for 21 days; 42 tablet; Refills: 0, [facility] Product Selection Permitted - Tessalon Perles 100 mg Oral capsule - take 2 capsule ORAL route every 8 hours As needed; 30 capsule; Refills: 0, [facility] Product Selection Permitted - Zithromax 500 mg Oral tablet - take 1 tablet ORAL route once daily for 4 days; 4 tablet; Refills: 0, Product [facility] Selection Permitted Signatures: Dispatcher [employer] Ryan Mora MD MD cha Gibson, Lacie, RN RN lg3 Heriberto Gonzalez RN RN as6 Orly Alatorre RN RN db Ran George MD MD ec2 Corrections: (The following items were deleted from the chart) 06:51 06:28 COVID-19/FLU A+B+MOL.LAB.BRZ ordered. EDMS EDMS
[2023-08-25] MEDS ORDERED: predniSONE 20 MG TAB ONE (07:55)
[2023-08-25] MEDS ORDERED: FAMOTIDINE 20 MG/2 ML VIAL IV ONE (07:57)
[2023-08-25 08:29] VITALS: O2SAT 96
[2023-08-25 08:31] VITALS: BP 174/87; TEMP 98.9
--- NOTE | 2023-08-25 13:36 | EKG ---
Test Date: 2023-08-25 Test Time: 06:38:22 Security Representative: FRANCA MEASUREMENT RESULTS: Intervals: Rate: 110 CT: 178 QRSD: 100 QT: 342 QTc: 462 [place]: P: 44 CT: 178 QRS: -33 T: 53 INTERPRETIVE STATEMENTS: Sinus tachycardia with premature atrial complexes Left axis deviation Abnormal ECG Compared to ECG 07/12/2023 11:55:40 Atrial premature complex(es) now present Sinus rhythm no longer present Myocardial infarct finding no longer present Electronically Signed On 08-25-23 13:35:29 CDT by Edgardo Guo
== END 2023-08-25 08:15 | disposition home or self-care (01) ==
LOC: ER 06:13
DX: U07.1 COVID-19 (principal); J06.9 Acute upper respiratory infection, unspecified; I10 Essential (primary) hypertension; I48.91 Unspecified atrial fibrillation; I25.2 Old myocardial infarction
CPT/HCPCS: 93005; 87040 ×2; 85025; 36415; 85610; 82947; 83605; 85730; 80053; 87804 ×2; 71045; 99284; 87811; J7512; J2765; J1200; J7050; J7030; J0696

== ENCOUNTER 2023-09-12 11:41 | Emergency (ER) | payer OTHER ==
--- OUTSIDE RECORDS SUMMARY | 2023-09-12 11:47 | XMS REPORT | Continuity of Care Document ---
:1945 Author Organization [facility] t Address [address] [place] [address] [address] [place] [address] Care Team Providers Name Role Phone Edgardo [...] DA Active U 2021-11 [facility] Allergie 2-13 Susi s 00:00: [address] Medications This patient has no known medications. Procedures Procedure Date / Time Performed Performing Clinician [facility] e [id number] 2022-10-20 00:00:00 GARY [facility] [id number] 2022-10-20 00:00:00 [facility] Encounters Start End Encounter Admission Attending Care Care Encounter Source Date/Time Date/Time Type Type Clinicians Facility Department ID 2022-10-20 2022-10-20 Inpatient ADRIEN Guo [facility] [id number] MICHAEL 06:39:00 19:11:00 Edgardo [address] [facility] Results Test Description Test Time Test Comments Results Result Comments Source GLUCOSE BEDSIDE 2022-10-20 13:15:00 Test Item Value Reference Range Interpretation Comme nts GLUCOSE BEDSIDE (test code = 143 MG/DL 70-110 H Performed by certified cbx operator at [facility]) [facility] [id number] 12:34:00 Test Item Value Reference Range Interpretation Comments ACT-ISTAT (test code 401 SEC 74-137 H Perform ed by certified = ACTI) cbx operator at [facility] GLUCOSE [id number] 11:16:00 Test Item Value Reference Range Interpretation Comments GLUCOSE BEDSIDE (test 115 MG/DL 70-110 H Perfor med by certified code = GLUBED) cbx operator at [facility] - XR CHEST 1 [id number] 00:00:00 [facility] : 1945 Sex: M FAX: Edgardo Rea MD [phone] [place]: St: ADM Name: NARESH SUMMERS [facility] : 1945 Age/S: 77/M [address] [facility] Unit #: [id number] Loc: [place] [address] Phys: Edgardo Guo MD Acct: [id number] Dis Date: Status: ADM IN PHONE #: [phone] Exam Date: 10/20/2022 1350 FAX #: [phone] Reason: S/P WATCHMAN EXAMS: CPT CODE: [id number] XR CHEST 1 V 10385 PROCEDURE INFORMATION: Exam: XR ChestExam date and [...] lung volumes are low with bibasilar subsegmental atelectasis.Pleural spaces: No appreciable pleural effusion or pneumothorax. Heart/Mediastinum: Cardiomediastinal silhouette is normal in size with atherosclerotic calcification in the aortic arch. Bones/joints: No acute osseous abnormality. IMPRESSION: 1. Left atrial appendage occlusion device is present. 2. Bibasilar subsegmental atelectasis. at 6883 Reported and signed by: Rach Anderson M.D. CC: Edgardo Guo MD Technologist: RT Dorothy(R) Trnscrd Date/Time/By: 10/20/2022 (886) : By: [email or web address] Orig Print D/T: S: 10/20/2022 (3201) PAGE 1 Signed ReportPROTHROMBIN [id number] 10:27:00 Test Item Value Reference Range Interpretation [...] Mec hanical prosthetic valv es (high risk), 2 .5 - 3.5 Presence of Lupus Anticoagulant o r Antiphospholipi d Antibodies, Pre vention of systemic emb olism - Acute Myocardia l Infarction (to prevent recurrent infar ct). BASIC METABOLIC [id number] 10:22:00 Test Item Value Reference Range Interpretation [...] code = 10.1 mg/dL 8.0-10.5 N CA) [id number] 10:22:00 Test Item Value Reference Range Interpretation Comments PREALBUMIN (test code = PREALB) 26.0 mg/dL 16.0-40.0 N CBC W/AUTO [id number] 10:07:00 Test Item Value Reference Range Interpretation [...] NO = MDIFF) - XR CHEST 2 [id number] 00:00:00 [facility] : 1945 Sex: M FAX: Edgardo Rea MD [phone] [place]: St: PRE Name: NARESH SUMMERS [facility] : 1945 Age/S: 77/M [address] [facility] Unit #: [id number] Loc: [place] [address] Phys: Edgardo Guo MD Acct: [id number] Dis Date: Status: PRE IN PHONE #: [phone] Exam Date: 10/19/2022 0955 FAX #: [phone] Reason: PAT EXAMS: CPT CODE: [id number] XR CHEST 2 V 28073 PROCEDURE INFORMATION: Exam: XR Chest Exam date and time: 10/19/2022 9:54 AM Age: 77 years old Clinical indication: Screening exam; Pre-operative exam; Other: Pat TECHNIQUE: Imaging protocol: Radiologic exam of the chest. Views: 2 views. PA and Lateral COMPARISON: No relevant prior studies available. FINDINGS: Lungs: There are normal lung volumeswithout consolidation or interstitial opacities. Pleural spaces: Unremarkable. No pleural effusion.No pneumothorax. Heart/Mediastinum: The heart size is normal. The pulmonary vasculature is normal. The mediastinal contour is normal. The trachea is midline. Bones/joints: No acute abnormality seen. IMPRESSION: No acute cardiopulmonary findings. at 1113 Reported and signed by: Dell Frost M.D. CC: Edgardo Guo MD Technologist: RT Bianca(Tony) Trnscrd Date/Time/By: 10/19/2022 (7053) : By: Jerad Orig Print D/T: S: 10/19/2022 (7992) PAGE 1 Signed Report
[2023-09-12 12:16] LABS: Absolute Lymphocytes (CBC) 2.2 K/uL (0.7-4.9); Hematocrit 49.7 % (39.6-49.0); Lymphocytes % 31.6 % (15.3-44.8); MCV 89.5 fL (80-100); MPV 8.3 fL (7.6-11.3); Platelets 202 thou/uL (152-406); RBC Red Blood Cell Count 5.55 M/uL (4.33-5.43)
[2023-09-12] MEDS ORDERED: dilTIAZem HCL 25 MG/5 ML VIAL IV ONE (12:24)
[2023-09-12 12:34] LABS: Potassium 3.8 mEq/L (3.5-5.1); Troponin High Sensitivity 7.8 pg/mL (<58.9)
[2023-09-12] MEDS ORDERED: NA CHLORIDE 0.9% 1,000 ML ONE (12:34)
--- NOTE | 2023-09-12 12:40 | RAD REPORT ---
EXAM DESCRIPTION: RADChest Single View09/12/2023 12:20 pm CLINICAL HISTORY: SOB COMPARISON: Chest Single View dated 08/25/2023; Chest Single View dated 07/12/2023; Chest Single View dated 07/10/2023; Chest Single View dated 11/18/2022 TECHNIQUE: Portable AP view of the chest. FINDINGS: Developing left basilar airspace opacity. Stable streaky bibasilar atelectasis. No pneumot horax or effusion. The cardiomediastinal contours are unremarkable. IMPRESSION: Developing left basilar airspace opacity, may reflect worsening atelectasis or early pne umonia. .
--- NOTE | 2023-09-12 12:57 | EDPHYS ---
Physician Documentation [facility] Name: Jesse Ortega Age: 78 yrs Sex: Male : 1945 Arrival Date: 09/12/2023 Time: 11:41 Bed 5 Private MD: ED Physician Ran George HPI: 09/12 12:07 This 78 yrs old Male presents to ER via Unassigned with complaints of Afib 12 ec2 Hours. 12:07 Patient arrives today due to concern for A-fib. States that he has been feeling ec2 palpitations, states that he has a history of atrial fibrillation, on Plavix. Patient had a watchman. Patient reports that he noticed this last night at approximately midnight. Patient reports no other significant complaints at this time. Patient does report history of hypertension as well as diabetes.. Historical: - Allergies: 12:27 No Known Allergies; cm10 - Home Meds: 12:27 sotalol 120 mg Oral tablet [Active]; cm10 - PMHx: 11:58 ALOPECIA; Atrial Fib; CAD; Colitis; Glaucoma; Hyperlipidemia; Hypertension; mb9 Hypothyroidism; insomnia; Migraine; Myocardial infarction; ulcerative colitis; - PSHx: 11:58 Stented artery; watchman procedure; mb9 - Immunization history:: Adult Immunizations unknown. - Social history:: Smoking status: Patient denies any tobacco usage or history of. ROS: 12:07 Constitutional: as per hpi ec2 Exam: 12:07 Constitutional: GEN: NAD Head: atraumatic Eyes: EOMI Ears: External ears are ec2 normal. CV: Tachycardic, irregular rhythm LUNGS: no respiratory distress ABD: non-distended SKIN: no evidence of rashes MSK: no evidence of trauma NEURO: moves all extremities equally Vital Signs: 12:05 BP 114 / 84; Pulse 124; Resp 20; Temp 97.5(IR); Pulse Ox 97% on R/A; Weight 79.38 kg; cm10 Height 5 ft. 10 in. ; Pain 0/10; 12:20 BP 118 / 87; Pulse 75; Resp 18; Pulse Ox 96% on R/A; mb9 12:30 BP 116 / 79; Pulse 62; Resp 18; Pulse Ox 97% on R/A; cm10 12:05 Body Mass Index 25.11 (79.38 kg, 177.8 cm) cm10 12:05 Pain Scale: Adult cm10 MDM: 11:56 Patient medically screened. ec2 12:07 ED course: Patient arrives today due to concern for palpitations. Examination ec2 remarkable well-appearing nontoxic individual who is in A-fib with RVR, rate in the 120s to 130s. Will obtain lab work, chest x-ray, EKG. EKG obtained, independently reviewed and interpreted by me, shows atrial fibrillation with a rate of 132, no acute ST segment elevations.. ED course: I will give the patient a dose of diltiazem for his rapid ventricular rate.. 12:25 ED course: Repeat EKG after diltiazem shows normal sinus rhythm, rate of 63, no acute ec2 ST segment elevations, nonconcerning intervals.. 12:53 ED course: Metabolic profile is reassuring with appropriate electrolytes, CBC is ec2 reassuring without any evidence of anemia, troponin within normal ranges, chest x-ray shows possible early pneumonia however patient without any significant respiratory symptoms. Patient does state that he recently was diagnosed with COVID, possible residual inflammatory changes after this, patient does report a persistent cough, will start antibiotic coverage. I reassessed the patient remains in normal sinus rhythm with rates in the 60s. Will discharge home, return precaution given. Instructed to follow-up with PCP and administrative program specialist. . 12:58 Data reviewed: vital signs. ec2 09/12 12:06 Order name: Basic Metabolic Panel; Complete Time: 12:52 ec2 09/12 12:06 Order name: CBC with Diff; Complete Time: 12:52 ec2 09/12 12:06 Order name: Troponin HS; Complete Time: 12:52 ec2 09/12 12:06 Order name: XRAY Chest (1 view); Complete Time: 12:52 ec2 09/12 12:06 Order name: EKG; Complete Time: 12:08 ec2 09/12 12:25 Order name: EKG; Complete Time: 12:26 cm10 09/12 12:06 Order name: Cardiac monitoring; Complete Time: 12:08 ec2 09/12 12:06 Order name: EKG - Nurse/Tech; Complete Time: 12:08 ec2 09/12 12:06 Order name: IV Saline Lock; Complete Time: 12:08 ec2 09/12 12:06 Order name: Labs collected and sent; Complete Time: 12:08 ec2 09/12 12:06 Order name: O2 Per Protocol; Complete Time: 12:08 ec2 09/12 12:06 Order name: O2 Sat Monitoring; Complete Time: 12:08 ec2 09/12 12:25 Order name: EKG - Nurse/Tech; Complete Time: 12:25 cm10 Administered Medications: 12:16 Drug: Diltiazem IVP 10 mg IVP once; Over 2 minutes Route: IVP; Site: right antecubital; cm10 12:30 Follow up: Response: No adverse reaction; Cardiac rhythm changed cm10 12:26 Drug: NS 0.9% IV 1000 ml IV at 1 bolus Per protocol; 1000 mL bolus Route: IV; Rate: 1 cm10 bolus; Site: right antecubital; 13:09 Follow up: Response: No adverse reaction; IV Status: Completed infusion; IV Intake: cm10 1000ml 13:01 Not Given (medication not availablee): [id number] mg PO once cm10 Disposition Summary: 09/12/23 12:56 Discharge Ordered Notes: Location: Home ec2 Condition: Stable ec2 Diagnosis - Paroxysmal atrial fibrillation ec2 - Pneumonia, unspecified organism ec2 Discharge Instructions: - Discharge Summary Sheet ec2 - Community-Acquired Pneumonia, Adult, [id number] ec2 - Atrial Fibrillation, Qfjx-xg-Ihon ec2 Forms: - Medication Reconciliation Form ec2 - Thank You Letter ec2 - Antibiotic Education ec2 - Prescription Opioid Use ec2 - Patient Portal Instructions ec2 - Leadership Thank You Letter ec2 Prescriptions: - Amoxicillin 500 mg Oral capsule - take 2 capsule ORAL route every 8 hours for 10 days; 60 tablet; Refills: 0, ec2 Product Selection Permitted Signatures: Dispatcher [employer] EDMS Luz Liu RN RN mb9 Nancy Gonzalez RN RN cm10 Ran George MD MD ec2 Corrections: (The following items were deleted from the chart) 12:56 12:53 ED course: Metabolic profile is reassuring with appropriate electrolytes, CBC is ec2 reassuring without any evidence of anemia, troponin within normal ranges, chest x-ray shows possible early pneumonia however patient without any significant respiratory symptoms. Patient does state that he recently was diagnosed with COVID, possible residual inflammatory changes after this. Will defer antibiotic coverage at this time. I reassessed the patient remains in normal sinus rhythm with rates in the 60s. Will discharge home, return precaution given. Instructed to follow-up with PCP and administrative program specialist. . ec2
--- NOTE | 2023-09-12 12:57 | ER ---
Nurse's Notes [facility] Name: Jesse Ortega Age: 78 yrs Sex: Male : 1945 Arrival Date: 09/12/2023 Time: 11:41 Bed 5 Private MD: Diagnosis: Paroxysmal atrial fibrillation;Pneumonia, unspecified organism Presentation: 09/12 12:05 Chief complaint: Patient states: "I have been in A-fib for the last 12 hours and I am cm10 having shortness of breath.". Coronavirus screen: Vaccine status: Patient reports receiving the 2nd dose of the covid vaccine. Client denies travel out of the [place] in the last 14 days. Ebola Screen: Patient denies travel to an Ebola-affected area in the 21 days before illness onset. No symptoms or risks identified at this time. Initial Sepsis Screen: Does the patient meet any 2 criteria? No. Patient's initial sepsis screen is negative. Does the patient have a suspected source of infection? No. Patient's initial sepsis screen is negative. Risk Assessment: Do you want to hurt yourself or someone else? Patient reports no desire to harm self or others. Onset of symptoms was September 12, 2023. 12:05 Method Of Arrival: Ambulatory cm10 12:05 Acuity: KAVON 2 cm10 Triage Assessment: 12:07 General: Appears in no apparent distress. comfortable, Behavior is calm, cooperative. cm10 Pain: Denies pain. EENT: No deficits noted. No signs and/or symptoms were reported regarding the EENT system. Neuro: No deficits noted. Dowell Agitation-Sedation Scale (RASS): 0 - Alert and Calm Level of Consciousness is awake, alert, obeys commands, Oriented to person, place, time, situation. Cardiovascular: No deficits noted. Patient's skin is warm and dry. Rhythm is atrial fibrillation with rapid ventricular response. Respiratory: No deficits noted. Airway is patent Respiratory effort is even, unlabored, Respiratory pattern is regular, symmetrical. GI: No deficits noted. No signs and/or symptoms were reported involving the gastrointestinal system. : No deficits noted. No signs and/or symptoms were reported regarding the genitourinary system. Derm: No deficits noted. No signs and/or symptoms reported regarding the dermatologic system. Skin is intact, Skin is pink, warm \\T\\ dry. Musculoskeletal: No deficits noted. No signs and/or symptoms reported regarding the musculoskeletal system. Range of motion: intact in all extremities. Historical: - Allergies: 12:27 No Known Allergies; cm10 - Home Meds: 12:27 sotalol 120 mg Oral tablet [Active]; cm10 - PMHx: 11:58 ALOPECIA; Atrial Fib; CAD; Colitis; Glaucoma; Hyperlipidemia; Hypertension; mb9 Hypothyroidism; insomnia; Migraine; Myocardial infarction; ulcerative colitis; - PSHx: 11:58 Stented artery; watchman procedure; mb9 - Immunization history:: Adult Immunizations unknown. - Social history:: Smoking status: Patient denies any tobacco usage or history of. Screenin:59 [facility] ED Fall Risk Assessment (Adult) History of falling in the last 3 months, mb9 including since admission No falls in past 3 months (0 pts) Confusion or Disorientation No (0 pts) Intoxicated or Sedated No (0 pts) Impaired Gait No (0 pts) Mobility Assist Device Used No (0 pt) Altered Elimination No (0 pt) Score/Fall Risk Level 0 - 2 = Low Risk Oriented to surroundings, Maintained a safe environment, Educated pt \\T\\ family on fall prevention, incl call for assistance when getting out of bed. Abuse screen: Denies threats or abuse. Nutritional screening: No deficits noted. Tuberculosis screening: No symptoms or risk factors identified. Assessment: 12:26 Reassessment: Cardiac rhythm change to NSR. Repeat EKG done and given to provider. cm10 Cardiovascular: Rhythm is sinus rhythm. 12:45 Reassessment: Patient and/or family updated on plan of care and expected duration. Pain cm10 level reassessed. Patient is alert, oriented x 3, equal unlabored respirations, skin warm/dry/pink. Patient states feeling better. Patient states symptoms have improved. Vital Signs: 12:05 BP 114 / 84; Pulse 124; Resp 20; Temp 97.5(IR); Pulse Ox 97% on R/A; Weight 79.38 kg; cm10 Height 5 ft. 10 in. ; Pain 0/10; 12:20 BP 118 / 87; Pulse 75; Resp 18; Pulse Ox 96% on R/A; mb9 12:30 BP 116 / 79; Pulse 62; Resp 18; Pulse Ox 97% on R/A; cm10 12:05 Body Mass Index 25.11 (79.38 kg, 177.8 cm) cm10 12:05 Pain Scale: Adult cm10 ED Course: 11:43 Patient arrived in ED. mg5 11:56 Ran George MD is Attending Physician. ec2 11:58 Arm band placed on. mb9 11:59 Placed in gown. Bed in low position. Call light in reach. Side rails up X 1. Client mb9 placed on continuous cardiac and pulse oximetry monitoring. NIBP monitoring applied. vehicle monitor technician on. 12:05 Nancy Gonzalez, RN is Primary Nurse. cm10 12:07 Triage completed. cm10 12:08 EKG done, by ED staff, reviewed by Ran George MD. Inserted saline lock: 20 gauge in mb9 right antecubital area, using aseptic technique. Blood collected. 12:21 XRAY Chest (1 view) In Process Unspecified. EDMS 13:07 No provider procedures requiring assistance completed. IV discontinued, intact, cm10 bleeding controlled, No redness/swelling at site. Pressure dressing applied. 13:08 Provided Education on: ER process and procedures. . cm10 Administered Medications: 12:16 Drug: Diltiazem IVP 10 mg IVP once; Over 2 minutes Route: IVP; Site: right antecubital; cm10 12:30 Follow up: Response: No adverse reaction; Cardiac rhythm changed cm10 12:26 Drug: NS 0.9% IV 1000 ml IV at 1 bolus Per protocol; 1000 mL bolus Route: IV; Rate: 1 cm10 bolus; Site: right antecubital; 13:09 Follow up: Response: No adverse reaction; IV Status: Completed infusion; IV Intake: cm10 1000ml 13:01 Not Given (medication not availablee): [id number] mg PO once cm10 Medication: 11:59 VIS not applicable for this client. mb9 Intake: 13:09 IV: 1000ml; Total: 1000ml. cm10 Outcome: 12:56 Discharge ordered by . ec2 13:08 Discharged to home ambulatory, with significant other, cm10 13:08 Condition: good 13:08 Discharge instructions given to patient, significant other, Instructed on discharge instructions, follow up and referral plans. medication usage, Demonstrated understanding of instructions, follow-up care, medications, Prescriptions given X 1, 13:08 Patient left the ED. cm10 Signatures: Dispatcher [employer] EDVA Alexa, Luz Hernandez, RN RN mb9 Nancy Gonzalez RN RN cm10 Allie Fontana mg5 Ran George MD MD ec2
[2023-09-12 13:36] VITALS: TEMP 97.5
[2023-09-12 13:42] VITALS: BP 116/79; O2SAT 97
--- NOTE | 2023-09-17 14:31 | EKG ---
Test Date: 2023-09-12 Test Time: 12:23:36 Remelt Operator: THIERNO MEASUREMENT RESULTS: Intervals: Rate: 63 ID: [id number] QRSD: 104 QT: 456 QTc: 466 [place]: P: 52 ID: [id number] QRS: -21 T: 42 INTERPRETIVE STATEMENTS: Normal sinus rhythm Normal ECG Compared to ECG 09/12/2023 12:03:24 Atrial fibrillation no longer present Ventricular premature complex(es) no longer present ST (T wave) deviation no longer present Electronically Signed On 09-17-23 14:17:25 NONPROFIT FUNDRAISER by Edgardo Guo
--- NOTE | 2023-09-17 14:31 | EKG ---
Test Date: 2023-09-12 Test Time: 12:03:24 Medicare Contact Specialist: THIERNO MEASUREMENT RESULTS: Intervals: Rate: 132 SD: QRSD: 100 QT: 352 QTc: 521 [place]: P: SD: QRS: -22 T: 7 INTERPRETIVE STATEMENTS: Atrial fibrillation with rapid ventricular response Nonspecific ST abnormality Abnormal ECG Compared to ECG 08/25/2023 06:38:22 ST (T wave) deviation now present Sinus tachycardia no longer present Atrial premature complex(es) no longer present Left-axis deviation no longer present Electronically Signed On 09-17-23 14:17:40 JIG BORE OPERATOR by Edgardo Guo
== END 2023-09-12 13:08 | disposition home or self-care (01) ==
LOC: ER 11:41
DX: I48.0 Paroxysmal atrial fibrillation (principal); J18.9 Pneumonia, unspecified organism; I10 Essential (primary) hypertension; I25.2 Old myocardial infarction; I25.10 Atherosclerotic heart disease of native coronary artery without angina pectoris; Z79.01 Long term (current) use of anticoagulants
CPT/HCPCS: 96361; 93005 ×2; 85025; 80048; 36415; 84484; 71045; 96374; 99285; J7030

== ENCOUNTER 2023-09-14 05:45 | Emergency (ER) | payer OTHER ==
--- OUTSIDE RECORDS SUMMARY | 2023-09-14 05:47 | XMS REPORT | Continuity of Care Document ---
:1945 Author Organization [facility] t Address [address] [place] [address] [address] [place] [address] Care Team Providers Name Role Phone Edgardo [...] 2021-11 [facility] Allergie 2-13 Susi s 00:00: [address] Medications This patient has no known medications. Procedures Procedure Date / Time Performed Performing Clinician [facility] e [id number] 2022-10-20 00:00:00 GARY [facility] [id number] 2022-10-20 00:00:00 [facility] Encounters Start End Encounter Admission Attending Care Care Encounter Source Date/Time Date/Time Type Type Clinicians Facility Department ID 2022-10-20 2022-10-20 Inpatient ADRIEN Guo [facility]O [facility]ARD [id number] MICHAEL 06:39:00 19:11:00 Edgardo 96 [facility] Results Test Description Test Time Test Comments Results Result Comments Source GLUCOSE BEDSIDE 2022-10-20 13:15:00 Test Item Value Reference Range Interpretation Comme nts GLUCOSE BEDSIDE (test code = 143 MG/DL 70-110 H Performed by certified ethylene plant operator at [facility]) [facility] [id number] 12:34:00 Test Item Value Reference Range Interpretation Comments ACT-ISTAT (test code 401 SEC 74-137 H Perform ed by certified = ACTI) ethylene plant operator at [facility] GLUCOSE [id number] 11:16:00 Test Item Value Reference Range Interpretation Comments GLUCOSE BEDSIDE (test 115 MG/DL 70-110 H Perfor med by certified code = GLUBED) ethylene plant operator at [facility] - XR CHEST 1 [id number] 00:00:00 [facility] 1945 Sex: M FAX: Edgardo Rea MD [phone] [place]: St: ADM Name: NARESH SUMMERS [facility] : 1945 Age/S: 77/M [address] [facility] Unit #: [id number] Loc: [place] [address] Phys: Edgardo Guo MD Acct: [id number] Dis Date: Status: ADM IN PHONE #: [phone] Exam Date: 10/20/2022 1350 FAX #: [phone] Reason: S/P WATCHMAN EXAMS: CPT CODE: [id number] XR CHEST 1 V 65411 PROCEDURE INFORMATION: Exam: XR ChestExam date and [...] is present. 2. Bibasilar subsegmental atelectasis. at 7214 Reported and signed by: Rach Anderson M.D. CC: Edgardo Guo MD Technologist: RT Dorothy(R) Trnscrd Date/Time/By: 10/20/2022 (903) : By: [email or web address] Orig Print D/T: S: 10/20/2022 (7042) PAGE 1 Signed ReportPROTHROMBIN [id number] 10:27:00 Test Item Value Reference Range Interpretation [...] (to prevent recurrent infar ct). BASIC METABOLIC [id number] 10:22:00 Test Item Value Reference Range Interpretation [...] code = 10.1 mg/dL 8.0-10.5 N CA) [id number] 10:22:00 Test Item Value Reference Range Interpretation Comments PREALBUMIN (test code = PREALB) 26.0 mg/dL 16.0-40.0 N CBC W/AUTO [id number] 10:07:00 Test Item Value Reference Range Interpretation [...] NO = MDIFF) - XR CHEST 2 [id number] 00:00:00 [facility] : 1945 Sex: M FAX: Edgardo Rea MD [phone] [place]: St: PRE Name: NARESH SUMMERS [facility] : 1945 Age/S: 77/M [address] [facility] Unit #: [id number] Loc: [place] [address] Phys: Edgardo Guo MD Acct: [id number] Dis Date: Status: PRE IN PHONE #: [phone] Exam Date: 10/19/2022 0955 FAX #: [phone] Reason: PAT EXAMS: CPT CODE: [id number] XR CHEST 2 V 16257 PROCEDURE INFORMATION: Exam: XR Chest Exam date [...] MD Technologist: RT Bianca(Tony) Trnscrd Date/Time/By: 10/19/2022 (7703) : By: Jerad Orig Print D/T: S: 10/19/2022 (9556) PAGE 1 Signed Report
[2023-09-14 06:21] LABS: Absolute Lymphocytes (CBC) 1.9 K/uL (0.7-4.9); Hematocrit 45.7 % (39.6-49.0); Lymphocytes % 31.9 % (15.3-44.8); MCV 88.6 fL (80-100); MPV 8.1 fL (7.6-11.3); Platelets 198 thou/uL (152-406); RBC Red Blood Cell Count 5.15 M/uL (4.33-5.43)
[2023-09-14 06:22] LABS: Protime INR 1.15
[2023-09-14 06:47] LABS: Albumin 3.3 g/dL (3.4-5.0); Bilirubin Direct 0.2 mg/dL (0-0.2); Bilirubin Indirect, Calculated 0.6 mg/dL (0.2-0.8); Bilirubin Total 0.8 mg/dL (0.2-1.0); Magnesium 2.4 mg/dL (1.6-2.4); Potassium 3.4 mEq/L (3.5-5.1); Protein, Total 7.4 g/dL (6.4-8.2); Troponin High Sensitivity 7.2 pg/mL (<58.9)
[2023-09-14] MEDS ORDERED: SOTALOL HCL 80 MG TAB ONE (07:01)
[2023-09-14] MEDS ORDERED: ASPIRIN EC 81 MG TAB PO ONE (07:01)
[2023-09-14] MEDS ORDERED: LORazepam 2 MG/ML VIAL ONE (07:01)
[2023-09-14] MEDS ORDERED: NA CHLORIDE 0.9% 500 ML ONE (07:01)
[2023-09-14] MEDS ORDERED: MAGNESIUM SULFATE 1 gm IVPB 1 GM/100 ML BAG IV ONE (07:02)
--- NOTE | 2023-09-14 07:04 | ER ---
Nurse's Notes [facility] Name: Jesse Ortega Age: 78 yrs Sex: Male : 1945 Arrival Date: 09/14/2023 Time: 05:45 Bed 17 Private MD: Diagnosis: Palpitations;Unspecified atrial fibrillation-hx of A FIB, WATCHMAN PROCEDURE;Anxiety disorder, unspecified;Hypokalemia;Paroxysmal atrial fibrillation Presentation: 09/14 05:59 Chief complaint: Patient states: woke up this morning feeling short of breath "I feel as6 like I'm in a-fib". Coronavirus screen: At this time, the client does not indicate any symptoms associated with coronavirus-19. Ebola Screen: No symptoms or risks identified at this time. Initial Sepsis Screen: Does the patient meet any 2 criteria? No. Patient's initial sepsis screen is negative. Does the patient have a suspected source of infection? No. Patient's initial sepsis screen is negative. Risk Assessment: Do you want to hurt yourself or someone else? Patient reports no desire to harm self or others. Onset of symptoms was September 14, 2023. 05:59 Acuity: KAVON 3 as6 05:59 Method Of Arrival: Wheelchair as6 Historical: - Allergies: 05:59 No Known Allergies; as6 - PMHx: 05:59 ALOPECIA; Atrial Fib; CAD; Colitis; Glaucoma; Hyperlipidemia; Hypertension; as6 Hypothyroidism; insomnia; Migraine; Myocardial infarction; ulcerative colitis; Diabetes mellitus; - PSHx: 05:59 Stented artery; watchman procedure; as6 - Immunization history:: Adult Immunizations up to date. - Social history:: Smoking status: Patient denies any tobacco usage or history of. - Family history:: not pertinent. Screenin:23 [facility] ED Fall Risk Assessment (Adult) Score/Fall Risk Level 0 - 2 = Low Risk. Abuse as6 screen: Denies threats or abuse. Denies injuries from another. Nutritional screening: No deficits noted. Tuberculosis screening: No symptoms or risk factors identified. Assessment: 06:22 General: Appears in no apparent distress. Behavior is calm, cooperative. Pain: Denies as6 pain. Neuro: Level of Consciousness is awake, alert, obeys commands, Oriented to person, place, time, situation. Cardiovascular: Reports shortness of breath, Heart tones S1 S2 present Capillary refill < 3 seconds Patient's skin is warm and dry. Rhythm is sinus rhythm. Respiratory: Reports shortness of breath Respiratory effort is even, unlabored, Respiratory pattern is regular, symmetrical, Breath sounds are clear bilaterally. GI: No deficits noted. No signs and/or symptoms were reported involving the gastrointestinal system. : No deficits noted. No signs and/or symptoms were reported regarding the genitourinary system. EENT: No deficits noted. No signs and/or symptoms were reported regarding the EENT system. Derm: Skin is intact, is healthy with good turgor. Musculoskeletal: Circulation, motion, and sensation intact. 07:05 Reassessment: Patient appears in no apparent distress at this time. Patient and/or db family updated on plan of care and expected duration. Pain level reassessed. General: Appears in no apparent distress. comfortable, Behavior is calm, cooperative. Neuro: Level of Consciousness is awake, alert, obeys commands, Oriented to person, place, time, situation. 08:08 Reassessment: Patient appears in no apparent distress at this time. Patient and/or db family updated on plan of care and expected duration. Pain level reassessed. Patient is alert, oriented x 3, equal unlabored respirations, skin warm/dry/pink. Patient states feeling better. Patient states symptoms have improved. Vital Signs: 05:58 BP 142 / 96; Pulse 79; Resp 16 S; Temp 98.6(O); Pulse Ox 97% on R/A; Weight 79.38 kg as6 (R); Height 5 ft. 10 in. (R); Pain 0/10; 07:12 BP 106 / 81; Pulse 105; Resp 17; Pulse Ox 100% ; jj7 07:45 BP 123 / 77; Pulse 77; Resp 16; Pulse Ox 97% on R/A; db 05:58 Body Mass Index 25.11 (79.38 kg, 177.8 cm) as6 05:58 Pain Scale: Adult as6 ED Course: 05:47 Patient arrived in ED. jj6 05:56 Ryan Rubin MD is Attending Physician. soumya 05:58 Arm band placed on. as6 06:02 Triage completed. as6 06:19 XRAY Chest (1 view) In Process Unspecified. EDMS 06:23 Placed in gown. Bed in low position. Call light in reach. as6 06:25 Farhat Donnelly, RN is Primary Nurse. jj7 06:25 Basic Metabolic Panel Sent. j 06:25 CBC with Diff Sent. jj 06:25 LFT's Sent. jj 06:25 Magnesium Sent. jj 06:25 NT PRO-BNP Sent. j 06:25 Troponin HS Sent. jj7 07:00 Client placed on continuous cardiac and pulse oximetry monitoring. NIBP monitoring db applied. Warm blanket given. 07:00 Inserted saline lock: 20 gauge in right wrist, using aseptic technique. jj7 07:03 Edgardo Guo MD is Referral Physician. [facility] 08:00 Provided Education on: DISCHARGE INSTRUCTIONS.. db 08:07 No provider procedures requiring assistance completed. IV discontinued, intact, db bleeding controlled, No redness/swelling at site. Administered Medications: 07:10 Drug: NS 0.9% IV 500 ml IV at bolus once Route: IV; Rate: bolus; Site: right wrist; jj 07:54 Follow up: Response: No adverse reaction; IV Status: Completed infusion; IV Intake: db 500ml 07:10 Drug: Ativan IVP 0.5 mg IVP once Route: IVP; Site: right wrist; jj 07:55 Follow up: Response: No adverse reaction db 07:11 Drug: Magnesium Sulfate IVPB 1 grams IVPB once over 1 hrs Route: IVPB; Infused Over: 1 jj7 hrs; Site: right wrist; 08:17 Follow up: Response: No adverse reaction; IV Status: Completed infusion; IV Intake: db 100ml 07:11 Drug: Sotalol PO 80 mg PO once Route: PO; j 07:54 Follow up: Response: No adverse reaction db 07:11 Drug: Aspirin PO Chewable Tablet 81 mg PO once Route: PO; j 07:54 Follow up: Response: No adverse reaction db 07:52 Drug: Potassium PO Effervescent Tablet 50 mEq PO once; dissolve in 4 ounces of water or db juice Route: PO; 08:17 Follow up: Response: No adverse reaction db 08:17 Not Given (STATES WILL JEWELRY SALES PRESCRIPTIONS): mg PO once db Medication: 06:23 VIS not applicable for this client. as6 Intake: 07:54 IV: 500ml; Total: 500ml. db 08:17 IV: 100ml; Total: 600ml. db Outcome: 07:03 Discharge ordered by . soumya 08:07 Discharged to home ambulatory, akash 08:07 Condition: stable 08:07 Discharge instructions given to patient, Instructed on discharge instructions, follow up and referral plans. Prescriptions given X 2, 08:32 Patient left the ED. db Signatures: Dispatcher [employer] EDFL Ryan Rubin MD MD cha Jeffries, Jennifer jj6 Heriberto Gonzalez, RN RN as6 Farhat Donnelly RN RN jj7 Orly Alatorre RN RN db
--- NOTE | 2023-09-14 07:04 | EDPHYS ---
Physician Documentation [facility] Name: Jesse Ortega Age: 78 yrs Sex: Male : 1945 Arrival Date: 09/14/2023 Time: 05:45 Bed 17 Private MD: ED Physician Ryan Rubin HPI: 09/14 06:02 This 78 yrs old Male presents to ER via Unassigned with complaints of soumya Irregular Pulse, Chest Pain, Shortness Of Breath, H/O AFIB. 06:02 The patient or guardian reports chest pain that is located primarily in the anterior [facility] chest wall, no pain, palpations only. Onset: this morning. The pain does not radiate. Associated signs and symptoms: The patient has no apparent associated signs or symptoms. The chest pain is described as palpitations. Modifying factors: The symptoms are alleviated by nothing. the symptoms are aggravated by nothing. The patient has experienced similar episodes in the past, multiple times. Historical: - Allergies: 05:59 No Known Allergies; as6 - PMHx: 05:59 ALOPECIA; Atrial Fib; CAD; Colitis; Glaucoma; Hyperlipidemia; Hypertension; as6 Hypothyroidism; insomnia; Migraine; Myocardial infarction; ulcerative colitis; Diabetes mellitus; - PSHx: 05:59 Stented artery; watchman procedure; as6 - Immunization history:: Adult Immunizations up to date. - Social history:: Smoking status: Patient denies any tobacco usage or history of. - Family history:: not pertinent. ROS: 06:02 Constitutional: Negative for fever, chills, and weight loss, Eyes: Negative for injury, soumya pain, redness, and discharge, ENT: Negative for injury, pain, and discharge, Neck: Negative for injury, pain, and swelling, Abdomen/GI: Negative for abdominal pain, nausea, vomiting, diarrhea, and constipation, Back: Negative for injury and pain, : Negative for injury, bleeding, discharge, and swelling, MS/Extremity: Negative for injury and deformity, Skin: Negative for injury, rash, and discoloration, Neuro: Negative for headache, weakness, numbness, tingling, and seizure, Psych: Negative for depression, anxiety, suicide ideation, homicidal ideation, and hallucinations, Allergy/Immunology: Negative for hives, rash, and allergies, Endocrine: Negative for neck swelling, polydipsia, polyuria, polyphagia, and marked weight changes, Hematologic/Lymphatic: Negative for swollen nodes, abnormal bleeding, and unusual bruising, 06:02 Cardiovascular: Positive for palpitations, 06:02 Respiratory: Positive for shortness of breath, at rest. Exam: 06:02 Constitutional: This is a well developed, well nourished patient who is awake, alert, soumya and in no acute distress. Head/Face: Normocephalic, atraumatic. Eyes: Pupils equal round and reactive to light, extra-ocular motions intact. Lids and lashes normal. Conjunctiva and sclera are non-icteric and not injected. Cornea within normal limits. Periorbital areas with no swelling, redness, or edema. ENT: Nares patent. No nasal discharge, no septal abnormalities noted. Tympanic membranes are normal and external auditory canals are clear. Oropharynx with no redness, swelling, or masses, exudates, or evidence of obstruction, uvula midline. Mucous membranes moist. Neck: Trachea midline, no thyromegaly or masses palpated, and no cervical lymphadenopathy. Supple, full range of motion without nuchal rigidity, or vertebral point tenderness. No Meningismus. Chest/axilla: Normal chest wall appearance and motion. Nontender with no deformity. No lesions are appreciated. Cardiovascular: Regular rate and rhythm with a normal S1 and S2. No gallops, murmurs, or rubs. Normal PMI, no JVD. No pulse deficits. Respiratory: Lungs have equal breath sounds bilaterally, clear to auscultation and percussion. No rales, rhonchi or wheezes noted. No increased work of breathing, no retractions or nasal flaring. Abdomen/GI: Soft, non-tender, with normal bowel sounds. No distension or tympany. No guarding or rebound. No evidence of tenderness throughout. Back: No spinal tenderness. No costovertebral tenderness. Full range of motion. Male : Normal genitalia with no discharge or lesions. Skin: Warm, dry with normal turgor. Normal color with no rashes, no lesions, and no evidence of cellulitis. MS/ Extremity: Pulses equal, no cyanosis. Neurovascular intact. Full, normal range of motion. Neuro: Awake and alert, GCS 15, oriented to person, place, time, and situation. Cranial nerves II-XII grossly intact. Motor strength 5/5 in all extremities. Sensory grossly intact. Cerebellar exam normal. Normal gait. Psych: Awake, alert, with orientation to person, place and time. Behavior, mood, and affect are within normal limits. 06:02 ECG was reviewed by the Attending Physician. Vital Signs: 05:58 BP 142 / 96; Pulse 79; Resp 16 S; Temp 98.6(O); Pulse Ox 97% on R/A; Weight 79.38 kg as6 (R); Height 5 ft. 10 in. (R); Pain 0/10; 07:12 BP 106 / 81; Pulse 105; Resp 17; Pulse Ox 100% ; jj7 07:45 BP 123 / 77; Pulse 77; Resp 16; Pulse Ox 97% on R/A; db 05:58 Body Mass Index 25.11 (79.38 kg, 177.8 cm) as6 05:58 Pain Scale: Adult as6 MDM: 05:56 Patient medically screened. soumya 06:07 Differential diagnosis: abnormal EKG, anxiety, chest wall pain, hiatal hernia, soumya pancreatitis, pericarditis, pneumonia, pulmonary embolus, stable angina, thoracic aortic disection, unstable angina. HEART Score: ECG: Non specific repolarization disturbance / LBTB / PM (1), Age: > or = 65 years (2), Risk Factors: > or = 3 Risk factors for atherosclerotic disease (2), [Hypercholesterolemia] [DM] [+ Family HX] Troponin: < or = 1 x Normal Limit (0). The patient was given aspirin in the Emergency Department. KAYLIE Risk Score: 1 - patient's age is greater or equal to 65 years, 1 - Three or more CAD risk factors, 1- Known CAD, 1 - Recent [<24hrs] Severe Angina, TOTAL SCORE = 4. Data reviewed: vital signs, nurses notes, lab test result(s), EKG, radiologic studies, plain films. Consideration of Admission/Observation Escalation of care including admission/observation considered. I considered the following discharge prescriptions or medication management in the emergency department Medications were administered in the Emergency Department. See MAR. Independent interpretation of the following test(s) in the Emergency Department EKG: See my EKG interpretation above. Test considered but Not performed: Ultrasound no 2 d echo. 07:04 ED course: RASLAN NO ANTICOAGULATION , CONT SOTOLOL ADD CARDIZEM CD 120 DAILY AND [facility] FOLLOW UPIN OFFICE. 09/14 06:01 Order name: Basic Metabolic Panel; Complete Time: 06:52 [facility] 09/14 06:01 Order name: CBC with Diff; Complete Time: 06:43 [facility] 09/14 06:01 Order name: LFT's; Complete Time: 06:52 [facility] 09/14 06:01 Order name: Magnesium; Complete Time: 06:52 [facility] 09/14 06:01 Order name: NT PRO-BNP; Complete Time: 06:52 [facility] 09/14 06:01 Order name: PT-INR; Complete Time: 06:43 [facility] 09/14 06:01 Order name: Troponin HS; Complete Time: 06:52 [facility] 09/14 06:01 Order name: Lipase; Complete Time: 06:52 [facility] 09/14 06:35 Order name: TSH [facility] 09/14 06:01 Order name: XRAY Chest (1 view) [facility] 09/14 06:01 Order name: EKG; Complete Time: 06:01 [facility] 09/14 06:01 Order name: Cardiac monitoring; Complete Time: 06:03 [facility] 09/14 06:01 Order name: EKG - Nurse/Tech; Complete Time: 06:03 [facility] 09/14 06:01 Order name: IV Saline Lock; Complete Time: 06:13 [facility] 09/14 06:01 Order name: Labs collected and sent; Complete Time: 06:13 [facility] 09/14 06:01 Order name: O2 Per Protocol; Complete Time: 06:03 [facility] 09/14 06:01 Order name: O2 Sat Monitoring; Complete Time: 06:03 [facility] EC:02 Rate is 77 beats/min. Rhythm is regular. QRS [place] is Normal. [place] interval is normal. QRS soumya interval is normal. QT interval is normal. No Q waves. T waves are Normal. No ST changes noted. Clinical impression: NSR w/ Non-specific ST/T Changes and No evidence of ischemia. Interpreted by me. Reviewed by me. Administered Medications: 07:10 Drug: NS 0.9% IV 500 ml IV at bolus once Route: IV; Rate: bolus; Site: right wrist; jj7 07:54 Follow up: Response: No adverse reaction; IV Status: Completed infusion; IV Intake: db 500ml 07:10 Drug: Ativan IVP 0.5 mg IVP once Route: IVP; Site: right wrist; jj7 07:55 Follow up: Response: No adverse reaction db 07:11 Drug: Magnesium Sulfate IVPB 1 grams IVPB once over 1 hrs Route: IVPB; Infused Over: 1 jj7 hrs; Site: right wrist; 08:17 Follow up: Response: No adverse reaction; IV Status: Completed infusion; IV Intake: db 100ml 07:11 Drug: Sotalol PO 80 mg PO once Route: PO; jj7 07:54 Follow up: Response: No adverse reaction db 07:11 Drug: Aspirin PO Chewable Tablet 81 mg PO once Route: PO; jj7 07:54 Follow up: Response: No adverse reaction db 07:52 Drug: Potassium PO Effervescent Tablet 50 mEq PO once; dissolve in 4 ounces of water or db juice Route: PO; 08:17 Follow up: Response: No adverse reaction db 08:17 Not Given (STATES WILL OFFICE MACHINE SERVICER APPRENTICE PRESCRIPTIONS): [id number] mg PO once db Disposition Summary: 09/14/23 07:03 Discharge Ordered Notes: Location: Home soumya Problem: new soumya Symptoms: have improved soumya Condition: Stable soumya Diagnosis - Palpitations soumya - Unspecified atrial fibrillation - hx of A FIB, WATCHMAN PROCEDURE soumya - Anxiety disorder, unspecified soumya - Hypokalemia soumya - Paroxysmal atrial fibrillation soumya Followup: soumya - With: Private Physician - When: 2 - 3 days - Reason: Recheck today's complaints, Continuance of care, Re-evaluation by your physician Followup: soumya - With: Edgardo Guo MD - When: 1 - 2 days - Reason: Recheck today's complaints, Continuance of care, Re-evaluation by your physician Discharge Instructions: - Discharge Summary Sheet soumya - Atrial Fibrillation soumya - Potassium Content of Foods soumya - Palpitations soumya - Aspirin and Your Heart soumya - Palpitations, [id number] soumya - Atrial Fibrillation, [id number] soumya - Hypokalemia soumya - Managing Anxiety, Adult soumya Forms: - Medication Reconciliation Form soumya - Thank You Letter soumya - Antibiotic Education soumya - Prescription Opioid Use soumya - Patient Portal Instructions soumya - Leadership Thank You Letter [facility] Prescriptions: - Cardizem CD 120 mg Oral Capsule, Sust. Release 24 hr - take 1 capsule ORAL route once daily; 30 capsule; Refills: 0, Product Selection soumya Permitted - Xanax 0.5 mg Oral Tablet - take 1 tablet ORAL route every 8 hours As needed; 20 tablet; Refills: 0, soumya Product Selection Permitted Signatures: Dispatcher [employer] Ryan Mora MD MD cha Slawson, Ashby, RN RN as6 Farhat Donnelly RN RN jj7 Orly Alatorre RN RN db
[2023-09-14] MEDS ORDERED: DILTIAZEM HCL 60 MG TAB PO ONE (08:00)
[2023-09-14] MEDS ORDERED: POTASSIUM 25 MEQ EFFERV TAB ONE (08:04)
[2023-09-14 08:40] VITALS: TEMP 98.6
[2023-09-14 08:50] VITALS: BP 123/77; O2SAT 97
--- NOTE | 2023-09-15 10:23 | RAD REPORT ---
EXAM DESCRIPTION: RAD - Chest Single View - 09/14/2023 6:17 am Chest Single View CLINICAL HISTORY: 78 years Male Cough;Dyspnea COMPARISON: October 24, 2022 TECHNIQUE: AP view of the chest was obtained. FINDINGS: Cardiac silhouette is enlarged. Central vessels are prominent. Small right pleural effusion. No effusion on left. Infrahilar airspace opacities bilaterally with andrey ear components noted. No consolidation. No pneumothorax. Mild elevation right hemidiaphragm. IMPRESSION: Enlarged heart with no evidence for congestive heart failure. Atelectatic changes and in filtrate infrahilar regions bilaterally. Small right pleural effusion. Electronically signed by: Rebecca Borrero MD 09/14/2023 09:09 PM ANIMAL CARE TECHNICIAN Due to temporary technical issues with the PACS/Fluency reporting system, reports are being signed by the in house radiologist without review as a courtesy to ensure prompt reporting. The interpreting r adiologist is fully responsible for the content of the report.
--- NOTE | 2023-09-17 14:23 | EKG ---
Test Date: 2023-09-14 Test Time: 05:56:39 Polysom Tech: BRIONNA MEASUREMENT RESULTS: Intervals: Rate: 77 OR: 174 QRSD: 110 QT: 428 QTc: 484 [place]: P: 37 OR: 174 QRS: -42 T: 34 INTERPRETIVE STATEMENTS: Normal sinus rhythm Left axis deviation Prolonged QT Abnormal ECG Compared to ECG 09/12/2023 12:23:36 Left-axis deviation now present Prolonged QT interval now present Electronically Signed On 09-17-23 14:12:23 BUILD ENGINEER by Edgardo Guo
== END 2023-09-14 08:32 | disposition home or self-care (01) ==
LOC: ER 05:45
DX: R00.2 Palpitations (principal); R07.89 Other chest pain; F41.9 Anxiety disorder, unspecified; E87.6 Hypokalemia; I48.0 Paroxysmal atrial fibrillation; I10 Essential (primary) hypertension; Z95.818 Presence of other cardiac implants and grafts
CPT/HCPCS: 96365; 93005; 85025; 80048; 36415; 83735; 85610; 80076; 84443; 84484; 83690; 83880; 71045; 96375; 99284; J3475; J7040

== ENCOUNTER 2023-09-30 20:50 | Emergency (ER) | payer OTHER ==
--- OUTSIDE RECORDS SUMMARY | 2023-09-30 20:55 | XMS REPORT | Continuity of Care Document ---
:1945 Author Organization [facility] t Address [address] [place] [address] [address] [place] [address] Care Team Providers Name Role Phone Asked, No Pcp Primary Care Physician Unavailable Sylvia Lyn RN Attending Clinician Unavailable Alexis Soto MD Attending Clinician Edgardo Guo Attending Clinician Unavailable Edgardo Guo Admitting Clinician Unavailable Payers Payer Name Policy Type Policy Number Effective Date Expiration Date S ource Problems Condition Condition Condition Status Onset Resolution Last Treating Co mments Source Name Details Category Date Date Treatment Clinician Date Paroxysmal Paroxysmal Disease Active 2022-11 M ethodi atrial atrial 11-28 fibrillati fibrillati 00:00: Ho spita on on 00 l Allergies, Adverse Reactions, Alerts Allergy Allergy Status Severity Reaction(s) Onset Inactive Treating Comm ents Source Name Type Date Date Clinician Amiodaro Propensi Active Other (See 2022-11 Unknown M ethodi ne ty to Comments) 11-15 st adverse 00:00: Hospita reaction 00 l s to drug Dronedar Propensi Active Other (See 2022-11 Nausea/fa Methodi one Hcl ty to Comments) 11-[address] adverse 00:00: Hospita reaction 00 l s to drug Rivaroxa Propensi Active Other (See 2022-11 Hematuria Methodi ban ty to Comments) 11-15 adverse 00:00: Hospita reaction 00 l s to drug Simvasta Propensi Active Other (See 2022-11 GI upset Methodi tin ty to Comments) 1-09 st adverse 00:00: Hospita reaction 00 l s to drug No Known DA Active U 2021-11 [facility] Allergie 2-13 Clear s 00:00: Teran [address] [place] [address] Social History Social Habit Start Date Stop Date Quantity Comments Source Sexual orientation Method ist Hospital Sex Assigned At [birth year] Met [facility] 00:00:00 00:00:00 Smoking Status Start Date Stop Date Source Tobacco smoking consumption unknown [facility] Medications Ordered Filled Start Stop Current Ordering Indication Dosage Frequency Signature Comments Components Source Medication Medication Date Date Medication? Clinician (SIG) Name Name POTASSIUM 2022-11 Yes 99mg Take 99 mg Me thodi ORAL 11-[address] 14:16: Hospita 24 l omega-3s/dh 2022-11 Yes 2100mg Take 2,100 Methodi a/epa/fish 1-[address] oil (OMEGA 14:16: mouth. Hospi ta 3 ORAL) 24 l dulaglutide 2022-11 Yes Inject Meth rita (TRULICITY 11-[address] SUBQ) 14:16: skin. Hospita 24 l adalimumab 2022-11 Yes Inject Metho di (HUMIRA,CF, 11-[address] SUBQ) 14:16: skin. Hospita 24 l dapaglifloz 2022-11 Yes QD Take by Met saucedo in 11-[address] propanediol 14:16: daily. Hosp pat (Farxiga) 24 l 10 mg tablet tamsulosin 2022-11 Yes .4mg QD Take 1 Metho di (FLOMAX) 11-[address] 0.4 mg 14:16: (0.4 mg Hospita capsule 24 total) by l mouth daily with dinner. tadalafiL 2022-11 Yes 5mg Q24H Take 1 Method i (Cialis) 5 11-15 tablet (5 st MG tablet 14:16: mg total) Hos raffi 24 by mouth l daily as needed for erectile dysfunctio n. POTASSIUM 2022-11 Yes 99mg Take 99 mg Me thodi ORAL [address] 14:16: Hospita 24 l omega-3s/dh 2022-11 Yes 2100mg Take 2,100 Methodi a/epa/fish 1-[address] oil (OMEGA 14:16: mouth. Hospi ta 3 ORAL) 24 l dulaglutide 2022-11 Yes Inject Meth rita (TRULICITY 11-[address] SUBQ) 14:16: skin. Hospita 24 l adalimumab 2022-11 Yes Inject Metho di (HUMIRA,CF, 11-[address] SUBQ) 14:16: skin. Hospita 24 l dapaglifloz 2022-11 Yes QD Take by Met hodi in 11-[address] propanediol 14:16: daily. Hosp pat (Farxiga) 24 l 10 mg tablet tamsulosin 2022-11 Yes .4mg QD Take 1 Metho di (FLOMAX) 11-[address] 0.4 mg 14:16: (0.4 mg Hospita capsule 24 total) by l mouth daily with dinner. tadalafiL 2022-11 Yes 5mg Q24H Take 1 Method i (Cialis) 5 11-15 tablet (5 st MG tablet 14:16: mg total) Hos raffi 24 by mouth l daily as needed for erectile dysfunctio n. sotaloL 2022-11 Yes 120mg 1.5 Methodi (BETAPACE) -[address] 80 MG 00:00: (120 mg Hospita tablet 00 total). l diltiazem 2022-11 Yes Methodi CD 1-08 st (CardIZEM 00:00: Hospita CD) 120 MG 00 l 24 hr capsule ALPRAZolam 2022-11 Yes Methodi (XANAX) 0.5 1-08 st MG tablet 00:00: Hospita 00 l sotaloL 2022-11 Yes 120mg 1.5 Methodi (BETAPACE) -[address] 80 MG 00:00: (120 mg Hospita tablet 00 total). l diltiazem 2022-11 Yes Methodi CD 1-08 st (CardIZEM 00:00: Hospita CD) 120 MG 00 l 24 hr capsule ALPRAZolam 2022-11 Yes Methodi (XANAX) 0.5 1-08 st MG tablet 00:00: Hospita 00 l montelukast 2022-11 Yes 10mg QD Take 1 Meth rita (SINGULAIR) 0-23 tablet (10 st 10 mg 00:00: mg total) Hospita tablet 00 by mouth l daily. montelukast 2023-1 Yes 10mg QD Take 1 Meth rita (SINGULAIR) 0-23 tablet (10 st 10 mg 00:00: mg total) Hospita tablet 00 by mouth l daily. lansoprazol 2022-11 Yes TAKE ONE Me thodi e 0-01 (1) st (PREVACID) 00:00: CAPSULE(S) H ospita 30 MG 00 BY MOUTH l capsule ONCE A DAY AFTER MORNING MEAL. ezetimibe 2022-1 Yes 10mg QD Take 1 Method i (ZETIA) 10 0-01 tablet (10 st mg tablet 00:00: mg total) Hos raffi 00 by mouth l daily. lansoprazol 2022-11 Yes TAKE ONE Me thodi e 0-01 (1) st (PREVACID) 00:00: CAPSULE(S) H ospita 30 MG 00 BY MOUTH l capsule ONCE A DAY AFTER MORNING MEAL. ezetimibe 2022-1 Yes 10mg QD Take 1 Method i (ZETIA) 10 0-01 tablet (10 st mg tablet 00:00: mg total) Hos raffi 00 by mouth l daily. clopidogreL 3-0 Yes 75mg QD Take 1 Meth rita (PLAVIX) 75 8-30 tablet (75 st mg tablet 00:00: mg total) Hos raffi 00 by mouth l daily. clopidogreL 3-0 Yes 75mg QD Take 1 Meth rita (PLAVIX) 75 8-30 tablet (75 st mg tablet 00:00: mg total) Hos raffi 00 by mouth l daily. levothyroxi 2023-0 Yes 112ug Take 1 Met hodi ne 8-[address] (SYNTHROID) 00:00: (112 mcg Ho spita 112 mcg 00 total) by l tablet mouth. levothyroxi 2023-0 Yes 112ug Take 1 Met hodi ne 8-[address] (SYNTHROID) 00:00: (112 mcg Ho spita 112 mcg 00 total) by l tablet mouth. rosuvastati 2023-0 Yes 20mg QD Take 1 Meth rita n (CRESTOR) 8-27 tablet (20 st 20 mg 00:00: mg total) Hospita tablet 00 by mouth l daily. rosuvastati 2023-0 Yes 20mg QD Take 1 Meth rita n (CRESTOR) 8-27 tablet (20 st 20 mg 00:00: mg total) Hospita tablet 00 by mouth l daily. irbesartan- 2022-0 Yes 1{tbl} QD Take 1 Me thodi hydrochloro 8-[address] thiazide 00:00: mouth Hospita (AVALIDE) 00 daily. l 150-12.5 mg per tablet irbesartan- 2022-0 Yes 1{tbl} QD Take 1 Me thodi hydrochloro 8-[address] thiazide 00:00: mouth Hospita (AVALIDE) 00 daily. l 150-12.5 mg per tablet amoxicillin 2022-0 Yes 500mg Q8H Take 1 Met hodi (AMOXIL) 8-[address] 500 MG 00:00: (500 mg Hospita tablet 00 total) by l mouth every 8 (eight) hours. amoxicillin 2022-0 Yes 500mg Q8H Take 1 Met hodi (AMOXIL) 8-[address] 500 MG 00:00: (500 mg Hospita tablet 00 total) by l mouth every 8 (eight) hours. Vital Signs Vital Name Observation Time Observation Value Comments Source Systolic blood 2023-09-15 20:16:00 123 mm[Hg] [facility] pressure Diastolic blood 2023-09-15 20:16:00 67 mm[Hg] [facility]o [facility] pressure Heart rate 2023-09-15 20:16:00 58 /min [facility] Body height 2023-09-15 20:16:00 177.8 cm [facility] Body weight 2023-09-15 20:16:00 80.287 kg [facility] BMI 2023-09-15 20:16:00 25.40 kg/m2 [facility] Oxygen saturation in 2023-09-15 20:16:00 98 /min [facility] Arterial blood by Pulse oximetry Procedures Procedure Date / Time Performed Performing Clinician [facility] e ECG 12-LEAD 2023-09-15 20:18:43 Alexis Sototal [id number] 2022-10-20 00:00:00 [facility] [id number] 2022-10-20 00:00:00 [facility] EP COMPLETE EP STUDY W Alexis Soto [facility] ABLATION PULMONARY VEIN Plan of Care Planned Activity Planned Date Details Comments Source Future Scheduled Test 2023-09-28 COVID-19 VACCINE (#1) [facility] 09:37:35 [code = COVID-19 VACCINE (#1)] Future Scheduled Test 2023-09-28 Hepatitis C screening [facility] 09:37:35 (procedure) [code = 501656654] Future Scheduled Test 2023-09-28 SHINGLES VACCINES (1 [facility] 09:37:35 of 2) [code = SHINGLES VACCINES (1 of 2)] Future Scheduled Test 2023-09-28 65+ PNEUMOCOCCAL [facility] 09:37:35 VACCINE (1 - PCV) [code = 65+ PNEUMOCOCCAL VACCINE (1 - PCV)] Future Scheduled Test 2023-09-28 INFLUENZA VACCINE [facility] 09:37:35 (#1) [code = INFLUENZA VACCINE (#1)] Future Scheduled Test 2023-09-21 COVID-19 VACCINE (#1) [facility] 09:19:54 [code = COVID-19 VACCINE (#1)] Future Scheduled Test 2023-09-21 Hepatitis C screening [facility] 09:19:54 (procedure) [code = 767961268] Future Scheduled Test 2023-09-21 SHINGLES VACCINES (1 [facility] 09:19:54 of 2) [code = SHINGLES VACCINES (1 of 2)] Future Scheduled Test 2023-09-21 65+ PNEUMOCOCCAL [facility] 09:19:54 VACCINE (1 - PCV) [code = 65+ PNEUMOCOCCAL VACCINE (1 - PCV)] Future Scheduled Test 2023-09-21 INFLUENZA VACCINE [facility] 09:19:54 (#1) [code = INFLUENZA VACCINE (#1)] Future Appointment 2023-11-04 [place], [address] [facility] 00:00:00 [facility]; [address], [place] [address] Encounters Start End Encounter Admission Attending Care Care Encounter Source Date/Time Date/Time Type Type Clinicians Facility Department ID 2023-09-28 2023-09-28 Ligia Donohue.2.840.1 [id number] [facility] 00:00:00 00:00:00 Only Sylvia [address]83.1.[address] 3.430.2.7 Hospit a .3.616996 l .8 2023-09-15 2023-09-15 Office Soto, 1.2.840.1 [id number] Methodi 14:40:00 14:56:30 Visit Apoor [address]00.1.[address] 3.430.2.7 Hospit a .3.848125 l .8 2023-09-15 2023-09-15 Office Soto, 1.2.840.1 [id number] Methodi 14:40:00 14:56:30 Visit Apoor [address]87.1.[address] 3.430.2.7 Hospit a .3.896786 l .8 2023-09-15 2023-09-15 Orders Eboni, 1.2.840.1 [id number] Methodi 00:00:00 00:00:00 Only Sylvia [address]20.1.[address] 3.430.2.7 Hospit a .3.780780 l .8 2023-09-15 2023-09-15 Orders Eboni, 1.2.840.1 [id number] Methodi 00:00:00 00:00:00 Only Sylvia [address]23.1.[address] 3.430.2.7 Hospit a .3.004599 l .8 2022-10-20 2022-10-20 Inpatient ADRIEN Guo [facility] [id number] 23 [facility] 06:39:00 19:11:[address] Results Test Description Test Time Test Comments Results Result Comments Source ECG 12 lead 2023-10-01 00:51:25 Test Item Value Reference Range Interpretation Comme nts Ventricular rate (test code = 253) 59 Atrial rate (test code = 255) 59 [place] interval (test code = 266) 174 QRSD interval (test code = 260) 100 QT interval (test code = 264) 468 QTC interval (test code = 265) 463 P axis 1 (test code = 267) 51 QRS axis 1 (test code = 268) -39 T wave axis (test code = 270) 45 EKG impression (test code = 273) Sinus bradycardia-Left axis deviation[facility] [id number] 13:15:00 Test Item Value Reference Range Interpretation Comments GLUCOSE BEDSIDE (test 143 MG/DL 70-110 H Perfor med by certified code = GLUBED) 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 [facility] [id number] 12:34:00 Test Item Value Reference Range Interpretation Comments ACT-ISTAT (test code 401 SEC 74-137 H Perform ed by certified = ACTI) 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 [facility] GLUCOSE [id number] 11:16:00 Test Item Value Reference Range Interpretation Comments GLUCOSE BEDSIDE (test 115 MG/DL 70-110 H Perfor med by certified code = GLUBED) 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 2. Bibasilar subsegmental atelectasis. at 0618 Reported and signed by: Rach Anderson M.D. CC: Edgardo Guo MD Technologist: RT Dorothy(R) Trnscsukhjinder Date/Time/By: 10/20/2022 (9049) : By: [email or web address] Orig Print D/T: S: 10/20/2022 (6298) PAGE 1 Signed ReportPROTHROMBIN [id number] 10:27:00 Test Item Value Reference Range Interpretation [...] (to prevent recurrent infar ct). BASIC METABOLIC [id number] 10:22:00 Test Item Value Reference Range Interpretation [...] the recommended for laisha for GFRby the [facility] on for Adults.The GFR will not calculate if th e sex is unknown or if thepatient's ag e is <18 years. CREATININE (test 1.0 mg/dL 0.6-1.3 N code = CREAT) CALCIUM (test code = 10.1 mg/dL 8.0-10.5 N CA) [id number] 10:22:00 Test Item Value Reference Range Interpretation Comments PREALBUMIN (test code = PREALB) 26.0 mg/dL 16.0-40.0 N CBC W/AUTO [id number] 10:07:00 Test Item Value Reference Range Interpretation [...] NO = MDIFF) - XR CHEST 2 [id number] 00:00:00 [facility] 1945 Sex: M FAX: Edgardo Rea MD [phone] [place]: St: PRE Name: JESSE ORTEGA [facility] : 1945 Age/S: 77/M [address] [place] [address] Unit #: [id number] Loc: [place] [address] Phys: Edgardo Guo MD Acct: [id number] Dis Date: Status: PRE IN PHONE #: [phone] Exam Date: 10/19/2022 0955 FAX #: [phone] Reason: PAT EXAMS: CPT CODE: [id number] XR CHEST 2 V 38493 PROCEDURE INFORMATION: Exam: XR Chest Exam date [...] at 1113 Reported and signed by: Dell Frots M.D. CC: Edgardo Guo MD Technologist: RT Bianca(R) Trnscrd Date/Time/By: 10/19/2022 (1113) : By: DellTDO Orig Print D/T: S: 10/19/2022 (1114) PAGE 1 Signed Report Notes Date/Time Note Provider Source 2022-10-20 16:06:00 [id number] [place] [address] PATIENT NAME: JESSE ORTEGA ADMIT DATE: 10/20/22ACCOUNT NO: [id number] ROOM NO: [facility] AGE: 77 REPORT TYPE: eECHOCARDIOGRAM REPORT SEX: M ADMITTING PHYSICIAN:Edgardo Guo MD ATTENDING PHYSICIAN:Edgardo Guo MD *[place], [place] [address]Phone: Ekk: [phone] Limited Transthoracic Echocardiogra m Patient: Jesse OrtegaStudy Date: 10/20/2022 BP: 154 / 85 Location: [place]CCLURN: [id number] : 1945 Age: 77 Height: 69 in / 175.3 cmAccession#: [id number] Gender: M Weight: 189.6 lb / 86.2 kgBMI/BSA: 28.1 kg/m 2 / 2.07 m 2 *Ordering Physician: * Edgardo Guo *Interpreting Physician: * Nikhil Zambrano MD*Sewing Machinist: * Vaishnavi Austin - Indications: S/P WATCHMAN . - Study data: Transthoracic echocardiogram, limited study. Procedure:Transthoracic echocardiography was performed. Image quality was fair.The study was technically limited due to poor patient compliance andbody habitus. Limited 2D and limited spectral Doppler. Location:Bedside. Patient status: Inpatient. Patient room number: PACU 20.Study status: Routine. - Findings Left ventricle: The cavity size is normal. Wall thickness is normal.Systolic function is normal. The estimate d ejection fraction is 55-60%.Left ventricular diastolic function parameters are normal.Aortic valve: The valve is structurally normal. The valve istrileaflet.PATIENT NAME: JESSE ORTEGA Mitral valve: The valve is structurally normal. There is noregurgitation.Pericardium: A prominent pericardial fat pad is present. There is nopericardial effusion.Systemic veins:Inferior vena cava: Not well visualized. - Measurements Left ventricle Value Ref MAURICE, LAX [...] 1.0 Left atrium Value Ref AP dim, E S MM 3.2 cm 3.0 - 4.0 LA/Ao root ratio, MM 0.95 --------- Aortic valve Value Ref Leaflet sep, MM 2.05 cm --------- Aortic root Value Ref Root diam, ED MM 3.34 cm --------- - Conclusions Summary: 1. Left ventricle: The cavity size is normal. Wall thickness is normal. Systolic function is normal . The estimated ejection fraction is 55-60%. Left ventricular diastolic function parameters are normal.2. Pericardium, extracardiac: A prominent pericardial fat pad is present. There is no pericardial effusion. Prepared and electronicall y signed by Nikhil Zambrano MD10/20/2022 16:05 PATIENT NAME: JESSE ORTEGA 6 at 1606 PATIENT NAME: JESSE ORTEGA :06: 0 0G.[id number] for patient jaziOYAXIZKMTJFJJA9982-12-11V28:06:30 2022-10-20 13:07:00 [id number] [place] [address] PATIENT NAME: JESSE ORTEGA ADMIT DATE: 10/20/22ACCOUNT NO: [id number] ROOM NO: [facility] AGE: 77 REPORT TYPE: eELECTROCARDIOGRAM REPORT SEX: M ADMITTING PHYSICIAN:Edgardo Guo MD ATTENDING PHYSICIAN:Edgardo Guo MD Order:[id number] Reason : S/P WATCHMAN Test Date/Time Stamp:TueOct 20 2022 13:07:42Blood Pressure : / mmHGVent. Rate : 093 BPM Atrial Rate : 093 BPM P-R Int : 192 ms QRS Dur : 114 ms QT Int : 418 ms P-R-T Axes : 05 0 -42 016 degrees QTc Int : 519 ms Normal sinus rhythmLeft axis deviationProlonged QTAbnormal ECGWhen compared with ECG of 19-OCT-2022 09:05,N o changesConfirmed by MD NORM, PRAVEEN ([id number]) on 10/20/2022 8:59:15 PM Referred By: Edgardo Guo Confirmed by:PRAVEEN BOWLES MD at 2059 PATIENT NAME: JESSE ORTEGA .[id number] AVAvailable for patient [id number]:59:38 2022-10-20 12:49:00 [id number] HC [place] [address]28 PATIENT NAME: JESSE ORTEGA ADMIT DATE: 10/20/22ACCOUNT NO: [id number] ROOM NO: [facility] AGE: 77 REPORT TYPE: OPERATIVE REPORT SEX: M ADMITTING PHYSICIAN:Edgardo Guo MD ATTENDING PHYSICIAN:Edgardo Guo MD OPERATION DATE: 10/20/2022 PREOPERATIVE DIAGNOSIS: POSTOPERATIVE DIAGNOSIS: PROCEDURE PERFORMED: Left atrial appendage closure using a 24 mm Watchman FLX closure device. INDICATION: Atrial fibrillation with high CHADS-VASc score and history of bleeding and inability to tolerate anticoagulants. SURGEON: PHARMACY BENEFIT MANAGER: ANESTHESIA: ACCESS: Right femoral vein, 16-[place]izen [place] closed wit h ipiica-lr-sdjrn suture. COMPLICATIONS: None. BLOOD LOSS: Less than 20 mL DESCRIPTION OF PROCEDURE: After risks, benefits and alternative s were explained, the patient agreed for the procedure and signed informed consent. Thepatien t was brought into the cardiac catheterization Laboratory, prepped and draped in sterile fashion. Then, I accessed the right femoral vein using micropuncture kit and placed 8-Citizen [place] sheath. [place] was performed by Anesthesia team and evaluated by myself. There was no thrombus in the appendage, and is suitable for closure and then will give us a partial dose of heparin and then I upgraded the sheath to a 16-Citizen [place] Cook sheath and I took a SL1 sheath into the SVC with [place] needle inside, and unde r the fluoroscopy andTEE guidance, I descended int o interatrial septum, and in the low mid position, a transseptal puncture was performed and LA pressure was 8 mmHg. I gave 500 mL bolus of flui d with normal saline and we gave the rest of the heparin to ensure ACT level above 250 throughout the procedure, and I sent ProTrack wire into the left atrium. We exchanged for a Watchman sheath, and I subsequently took a pigtail into the Watchman sheath, navigated into the appendage an d the Watchman sheath was advanced over the pigtai l into the appendage. Appendage angiogram was performed and determined 24 mm device would be suitable for closure. The device was prepped and de-aired in the usual sterile fashion and then took the pigtail out after a good bleed back fro m the sheath and positive flush with the PATIENT NAME: JESSE ORTEGA Watchman sheath. The Watchman sheath was up from the Watchman delivery system. The Watchman delivery system was advanced into the Watchman sheath and locked inplace and then the device wa s delivered into the appendage successfully under the ultrasound guidance and fluoroscopy. PASS criteria were evaluated and met [TIME: 01:59] device was released in place in stable condition. I removed the Watchman sheath and the Cook sheath and placed [id number]-zg-[id number] suture fo r closure with good hemostasis. CONCLUSION: Successful left atrial appendage closure using 2 4 mm Watchman FLX closure device. Dictated By: Edgrado Guo MD Date Dictated: 10/20/2022 12:49:02Date Transcribed: 10/20/2022 18:05:55/PAPPratimab #: [id number] ID: [id number] by Edgardo Guo MD On 02/09/2023 02:26:39 PM at 0226 PATIENT NAME: JESSE ORTEGA igmrty1774-85-42X98:05:00G.[id number] i lable for patient [id number]:27:15 2022-10-19 23:53:00 [id number]:53:[id number] [facility]ult[facility] - BriefREPORT#:[id number] REPORT STATUS: SignedDATE:10/19/22 TIME: 2352 PATIENT: JESSE ORTEGA UNIT #: [id number]#: [id number] ROOM/BED:: 46 AGE: 77 SEX: M ATTEND: Edgardo Guo [facility] AUTHOR: Akbar Hernandez MD * ALL edits or amendments must be made on the electronic/computer document * See AddendumHistory of Present Illness HPIRequesting Clinician: Dr. Kennedy for consult:Watchman shared decisionChief complaint:Patient here for elective watchman device insertion preop evaluation and shared decision making.PCP:PCP: Edgardo Guo MD Histor y of present illness:77-year-old man with past medical history for atrial fibrillation, coronar y disease, hypertension and dyslipidemia here toda y for preop evaluation and watchman shared decisio n making. No current complaints. History - Adult longitudinalPast medical history:Reports: Atrial fibrillation, Congestive heart failure, Coronary artery disease,Hypertension, Transient ischemic attack. Past surgical history:Reports: Cholecystectomy, Hernia repair, Eye surgery. Additional surgical history:Cardiac stent Alcoho l use: Denies EtOH useDrug use: Denies recreationa l drugsSmoking status for patients 13 years old or older: Never SmokerMedications:Home Medications:Medication Dose/Rte/Freq Days Qty Entered Last Max Daily Dose Reviewed TADALAFIL (CIALIS) 5 MG PO 10/19/22Strength: 5 MG TAB GER Y PRN PRN ED 0905 EZETIMIBE (ZETIA) 10 MG PO BEDTIME 10/19/22Strength: 10 MG TAB 0905 METOPROLOL SUCC XL 50 MG PO DAILY 10/19/22 (TOPROL XL) 09Strength: 50 MG TAB.SA ROSUVASTATIN (CRESTOR) 20 MG PO BEDTIME 10/19/22Strength: 20 MG TAB 0906 LANSOPRAZOLE D R 30 MG PO DAILY 10/19/22 (PREVACID) 09Strength: 30 MG CAP. IRBESARTAN/HCTZ 1 TAB PO DAILY 10/19/22 (AVALIDE 150/12.5 MG) 09Strength: 150 MG-12.5 MGTAB MONTELUKAST (SINGULAIR) 10 MG PO BEDTIME 10/19/22Strength: 10 MG TAB 0906 tiZANidine (ZANAFLEX) 2 MG PO BEDTIME 10/19/22Strength: 2 MG TAB 0907 TAMSULOSIN ER (FLOMAX) 0.4 MG PO Q710/19/22Strength: 0.4 M G CAP.SR.24H 0907 Dapagliflozin Propanediol 10 MG PO DAILY 10/19/22 (FARXIGA) 09Strength: 10 MG TAB LEVOTHYROXINE 112 MCG PO BEDTIME 10/19/22 (SYNTHROID) 09Strength: 112 MCG TAB GLIMEPIRID E (AMARYL) 2 MG PO C BK 10/19/22Strength: 2 MG TAB 0908 TIMOLOL MALEATE (Unknown Dose) 10/19/22 (TIMOPTIC 0.25% OCUDOSE EACH EYE BID 0910 OPHTH SOLN)Strength: (UnknownStrength) OPHTH.SOLN prednisoLONE ACETATE (Unknown Dose) 10/19/22 (prednisoLONE ACETATE 1% EACH EYE DAILY 0910 OPHTH 10 ML)Strength: (UnknownStrength) OPHTH.SUSP APIXABAN (ELIQUIS) 5 MG PO BID 10/19/22Strength: 5 MG TAB 0911 ADALIMUMAB + SUPPLIES 40 MG SUBQ Q7D 10/19/22 (HUMIRA PREFILLED PEN) 0911Strength: 40 MG/0.8 ML KIT[OZEMPIC] 1 MG SUBQ Q7DAY 10/19/22Strength: 0911 OMEGA-3 FATTY ACIDS 1,000 MG PO DAILY 10/19/22 (FISH OIL) 09Strength: 1,000 MG CAP MAGNESIUM OXIDE 800 MG PO DAILY 10/19/22 (MAG-OXIDE) 09Strength: 400 MG TAB[POTASSIUM] 99 MG PO DAILY 10/19/22Strength: 0912 ZINC ACETATE (GALZIN) 50 MG PO DAILY 10/19/22Strength : 50 MG (ZINC) CAP 0912 Allergies:Coded Allergies:No Known Allergies (10/19/22) Pt reports no significant: family historyAmbulatory status: Independent Brief Consult Note Physical ExamVitals:Blood pressure 126/89, pulse 86, temperature 96, respiratory rate of 12General appearance: alert, awake, orientedHEENT: anicteric, mucosal membranes moist, pale conjunctivaeNeck: full range of motion, no bruit/NL carotids, no JVDCardiovascular: regular rate rhythm, normal heart soundsRespiratory: clear to auscultation, no distress, no tenderness, aerating well, symmetric expansionAbdomen: soft, non-tender, no guarding, no rebound, no distentionNeuro/MECHANICAL DEVELOPMENT ENGINEER: alert, oriented X 3, normal speech, no motor deficitsExtremities:Bilat moves all, Bilat no edemaSkin: no gross abnormalities, normal color, no rashFindings/Data:Recent Impressions:RADIOLOG Y - XR CHEST 2 V 12/13 0955 Report Impression - Status: SIGNED Entered: 10/19/2022 1114 IMPRESSION: No acute cardiopulmonary findings. Impression By: Mauri Nuñez Laboratory Tests 10/19/22 0900:[Embedded Image Not Available] Free Text A P:Patient meets criteria for watchman insertion [id number] score is 6, with an adjusted annual stroke rate of 9.8%All preop forms were filled and signed at 0111 Addendum 1: 10/20/22 0123 by Akbar Hernandez MD Correction on his past medical history. Patient does not have prior history of CHF or TIA.[id number]-DJHn score is 4 at 0124 RPT #:[id number] OF [id number]:53:00G.PDOC 2 [id number] for patient [id number]:11:50 2022-10-19 09:05:00 [id number] [facility] [place] [address] PATIENT NAME: JESSE ORTEGA ADMIT DATE: ACCOUNT NO: [id number] ROOM NO: AGE: 77 REPORT TYPE: eELECTROCARDIOGRAM REPORT SEX: M ADMITTING PHYSICIAN:Edgardo Guo MD ATTENDING PHYSICIAN:Edgardo Guo MD Order:[id number] Reason : PREOP Test Date/Time Stamp:TueOct 19 2022 09:05:18Blood Pressure : / mmHGVent. Rate : 066 BPM Atrial Rate : 066 BPM P-R Int : 196 ms QRS Dur : 110 ms QT Int : 408 ms P-R-T Axes : 047 -29 049 degrees QTc Int : 427 ms Normal sinus rhythmNormal ECGNo previous ECGs availableConfirmed by JASS CHAMBERLAIN, JAVIER ([id number]) o n 10/19/2022 5:02:20 PM Referred By: No Physician Confirmed by:JAVIER BLAND MD at 170 2 PATIENT NAME: JESSE ORTEGA .[id number] AVAvailable for patient [id number]:02:34
[2023-09-30] MEDS ORDERED: METOCLOPRAMIDE 10 MG/2mL INJ ONE (21:36)
[2023-09-30] MEDS ORDERED: FENTANYL CITR 100 MCG/2 ML ONE (21:37)
[2023-09-30] MEDS ORDERED: dexAMETHasone 10 MG/ML VIAL ONE (21:37)
[2023-09-30] MEDS ORDERED: NA CHLORIDE 0.9% 500 ML ONE (21:38)
[2023-09-30] MEDS ORDERED: MORPHINE 4 MG/ML SYR ONE (22:12)
[2023-09-30] MEDS ORDERED: ONDANSETRON 4 MG/2 ML VIAL ONE (22:12)
--- NOTE | 2023-09-30 23:07 | ER ---
Nurse's Notes [facility] Name: Jesse Ortega Age: 78 yrs Sex: Male : 1945 Arrival Date: 09/30/2023 Time: 20:50 Bed 14 Private MD: Diagnosis: Migraine, unspecified, not intractable, without status migrainosus Presentation: 09/30 21:07 Chief complaint: Patient states: left frontal and left orbital migraine pain of 10 with pf1 nausea,onset 1830. Patient stated took Tramadol 50mg and Tylenol 1000mg at 1830. Patient stated this migraine is like his normal migraine pain. Coronavirus screen: Vaccine status: Patient reports receiving the 2nd dose of the covid vaccine. Client denies travel out of the [place] in the last 14 days. At this time, the client does not indicate any symptoms associated with coronavirus-19. Ebola Screen: Patient negative for fever greater than or equal to 101.5 degrees Fahrenheit, and additional compatible Ebola Virus Disease symptoms. Initial Sepsis Screen: Does the patient meet any 2 criteria? No. Patient's initial sepsis screen is negative. Does the patient have a suspected source of infection? No. Patient's initial sepsis screen is negative. Risk Assessment: Do you want to hurt yourself or someone else? Patient reports no desire to harm self or others. 21:07 Method Of Arrival: Wheelchair pf1 21:07 Acuity: KAVON 3 pf1 21:10 Onset of symptoms was September 30, 2023. [facility] Triage Assessment: 21:00 Headache History: The patient has had previous headaches and this one is similar to [facility] previous episodes. General: Appears uncomfortable, Behavior is cooperative. Pain: Complains of pain in forehead Pain does not radiate. Pain currently is 10 out of 10 on a pain scale. Quality of pain is described as throbbing, Pain began gradually, Also complains of nausea. Neuro: Level of Consciousness is awake, alert, obeys commands, Oriented to person, place, time, situation, Reports headache frontal area. Cardiovascular: Capillary refill < 3 seconds Patient's skin is warm and dry. Respiratory: Airway is patent Respiratory effort is even, unlabored, Respiratory pattern is regular, symmetrical. Musculoskeletal: Circulation, motion, and sensation intact. Historical: - PMHx: 21:09 ulcerative colitis; Myocardial infarction; Migraine; insomnia; Hypothyroidism; pf1 Hypertension; Hyperlipidemia; Glaucoma; diabetes mellitus; Colitis; CAD; Atrial Fib; ALOPECIA; - PSHx: 21:09 Stented artery; watchman procedure; Cholecystectomy; right inguinal hernia; cataracts; pf1 - Immunization history:: Adult Immunizations up to date, Client reports receiving the 2nd dose of the Covid vaccine, Last tetanus immunization: < 10 years ago Flu vaccine is not up to date. - Social history:: Smoking status: Patient denies any tobacco usage or history of. Patient/guardian denies using alcohol, street drugs. - Family history:: not pertinent. - Hospitalizations: : No recent hospitalization is reported. Screenin:00 [facility] ED Fall Risk Assessment (Adult) History of falling in the last 3 months, ha1 including since admission No falls in past 3 months (0 pts) Confusion or Disorientation No (0 pts) Intoxicated or Sedated No (0 pts) Impaired Gait No (0 pts) Mobility Assist Device Used No (0 pt) Altered Elimination No (0 pt) Score/Fall Risk Level 0 - 2 = Low Risk Oriented to surroundings, Maintained a safe environment, Educated pt \T\ family on fall prevention, incl call for assistance when getting out of bed, Hourly rounding (assess needs \T\ fall precautionary measures) done. Abuse screen: Denies threats or abuse. Denies injuries from another. Nutritional screening: No deficits noted. Tuberculosis screening: No symptoms or risk factors identified. Assessment: 21:00 Reassessment: see triage assessment. ha1 22:00 Reassessment: Patient and/or family updated on plan of care and expected duration. Pain ha1 level reassessed. Patient is alert, oriented x 3, equal unlabored respirations, skin warm/dry/pink. pain not decreased notified Dr. Lockhart. 23:00 Reassessment: Patient and/or family updated on plan of care and expected duration. Pain ha1 level reassessed. Patient is alert, oriented x 3, equal unlabored respirations, skin warm/dry/pink. Patient denies pain at this time. Patient states feeling better. Patient states symptoms have improved. Vital Signs: 21:00 BP 166 / 96; Pulse 71; Resp 17 S; Pulse Ox 100% on R/A; ha1 21:07 BP 154 / 94; Pulse 74; Resp 16; Temp 97.7; Pulse Ox 100% on R/A; Weight 81.65 kg; pf1 Height 5 ft. 2 in. ; Pain 10/10; 22:00 BP 143 / 86; Pulse 70; Resp 17 S; Pulse Ox 95% on R/A; ha1 22:30 BP 121 / 76; Pulse 73; Resp 16 S; Pulse Ox 95% on R/A; ha1 23:00 BP 118 / 74; Pulse 80; Resp 17 S; Pulse Ox 96% on R/A; ha1 21:07 Body Mass Index 32.92 (81.65 kg, 157.48 cm) pf1 21:07 Pain Scale: Adult pf1 Theresa Coma Score: 23:05 Eye Response: spontaneous(4). Motor Response: obeys commands(6). Verbal Response: rn oriented(5). Total: 15. ED Course: 20:56 Patient arrived in ED. gm2 20:57 Patient has correct armband on for positive identification. Placed in gown. Bed in low ha1 position. Call light in reach. Side rails up X 1. Adult w/ patient. 20:57 Provided Education on: following up with PCP. ha1 21:00 Arm band placed on right wrist. ha1 21:01 Devan Lockhart MD is Attending Physician. rn 21:09 Triage completed. pf1 21:15 Inserted saline lock: 22 gauge in right antecubital area, using aseptic technique. ha1 22:00 Carolyn Noel RN is Primary Nurse. ha1 23:26 No provider procedures requiring assistance completed. IV discontinued, intact, ha1 bleeding controlled, No redness/swelling at site. Pressure dressing applied. Administered Medications: 21:30 Drug: NS 0.9% IV 500 ml IV at bolus once Route: IV; Rate: bolus; Site: right ha1 antecubital; 22:35 Follow up: Response: No adverse reaction; IV Status: Completed infusion; IV Intake: ha1 500ml 21:30 Drug: metoCLOPramide IVP 10 mg IVP once; over 1 to 2 minutes Route: IVP; Site: right ha1 antecubital; 22:00 Follow up: Response: No adverse reaction ha1 21:32 Drug: Decadron - Dexamethasone IVP 10 mg IVP once Route: IVP; Site: right antecubital; ha1 22:00 Follow up: Response: No adverse reaction ha1 21:34 Drug: fentaNYL (PF) IVP 50 mcg IVP once Route: IVP; Site: right antecubital; ha1 22:00 Follow up: Response: No adverse reaction; Pain is unchanged, physician notified; RASS: ha1 Alert and Calm (0) 22:00 Drug: Ondansetron IVP 4 mg IVP once; over 2 minutes Route: IVP; Site: right antecubital;ha1 22:30 Follow up: Response: No adverse reaction ha1 22:02 Drug: morphine IVP or IV 4 mg IVP once over 4 mins Route: IVP; Infused Over: 4 mins; ha1 Site: right antecubital; 22:30 Follow up: Response: No adverse reaction; Pain is decreased; RASS: Alert and Calm (0) ha1 Medication: 23:27 VIS not applicable for this client. ha1 Intake: 22:35 IV: 500ml; Total: 500ml. ha1 Outcome: 23:06 Discharge ordered by . rn 23:27 Discharged to home via wheelchair, with family, [facility] 23:27 Condition: stable 23:27 Condition: stable 23:27 Discharge instructions given to patient, family, Instructed on discharge instructions, follow up and referral plans. Demonstrated understanding of instructions, follow-up care, 23:29 Patient left the ED. 1 Signatures: Devan Lockhart MD MD rn Ayala, Heidy, RN RN ha1 Regina Mckay RN RN 1 Rachell Ponce 2
--- NOTE | 2023-09-30 23:07 | EDPHYS ---
Physician Documentation [facility] [place], [place] Name: Jesse Ortega Age: 78 yrs Sex: Male : 1945 Arrival Date: 09/30/2023 Time: 20:50 Bed 14 Private MD: ED Physician Devan Lockhart HPI: 09/30 21:09 This 78 yrs old Male presents to ER via Wheelchair with complaints of Headache. rn 21:09 The patient complains of pain to the forehead. The patient describes the headache as rn aching. Onset: The symptoms/episode began/occurred 3 hour(s) ago. Associated signs and symptoms: Pertinent positives: nausea, vomiting, Pertinent negatives: altered mental status, fever, neck stiffness, rash, vision loss, weakness, vertigo. Severity of symptoms: At its worst the pain was moderate, "similar to past headaches", in the emergency department the pain is unchanged. Headache History: The patient has had previous headaches and this one is similar to previous episodes. The symptoms are alleviated by nothing. the symptoms are aggravated by lights, noise. The patient has experienced similar episodes in the past. The patient has not recently seen a physician. Patient and report "another migraine ". Started approximately 3 hours ago. Gets migraine headaches every few months. States this headache is identical to previous migraines. Tried some pain medication at home but did not help. States usually has to come to the ER for relief. No new symptoms or changes with his headache. No focal weakness or numbness. Reports seeing spots like previous migraines. No head injury. No history of brain tumor or aneurysm.. Historical: - PMHx: 21:09 ulcerative colitis; Myocardial infarction; Migraine; insomnia; Hypothyroidism; pf1 Hypertension; Hyperlipidemia; Glaucoma; diabetes mellitus; Colitis; CAD; Atrial Fib; ALOPECIA; - PSHx: 21:09 Stented artery; watchman procedure; Cholecystectomy; right inguinal hernia; cataracts; pf1 - Immunization history:: Adult Immunizations up to date, Client reports receiving the 2nd dose of the Covid vaccine, Last tetanus immunization: < 10 years ago Flu vaccine is not up to date. - Social history:: Smoking status: Patient denies any tobacco usage or history of. Patient/guardian denies using alcohol, street drugs. - Family history:: not pertinent. - Hospitalizations: : No recent hospitalization is reported. ROS: 21:09 Constitutional: Negative for fever, chills, and weight loss, Eyes: Negative for injury, rn pain, redness, and discharge, Neck: Negative for injury, pain, and swelling, Cardiovascular: Negative for chest pain, palpitations, and edema, Respiratory: Negative for shortness of breath, cough, wheezing, and pleuritic chest pain, Abdomen/GI: Positive for nausea Back: Negative for injury and pain, Neuro: Positive for headache, negative for weakness numbness or tingling. No seizure. Exam: 21:09 Constitutional: This is a well developed, well nourished patient who is awake, alert, rn and in no acute distress. Head/Face: Normocephalic, atraumatic. Eyes: Pupils equal round and reactive, periorbital regions normal Neck: Trachea midline, no masses palpated, and no cervical lymphadenopathy. Supple, full range of motion without nuchal rigidity, or vertebral point tenderness. No Meningismus. Cardiovascular: Regular rate and rhythm. No pulse deficits. Respiratory: No increased work of breathing, no retractions or nasal flaring. Abdomen/GI: Soft, non-tender Neuro: Awake and alert, GCS 15, oriented to person, place, time, and situation. Cranial nerves II-XII grossly intact. Motor strength 5/5 in all extremities. Sensory grossly intact. Cerebellar exam normal. Vital Signs: 21:00 BP 166 / 96; Pulse 71; Resp 17 S; Pulse Ox 100% on R/A; ha1 21:07 BP 154 / 94; Pulse 74; Resp 16; Temp 97.7; Pulse Ox 100% on R/A; Weight 81.65 kg; pf1 Height 5 ft. 2 in. ; Pain 10/10; 22:00 BP 143 / 86; Pulse 70; Resp 17 S; Pulse Ox 95% on R/A; ha1 22:30 BP 121 / 76; Pulse 73; Resp 16 S; Pulse Ox 95% on R/A; ha1 23:00 BP 118 / 74; Pulse 80; Resp 17 S; Pulse Ox 96% on R/A; ha1 21:07 Body Mass Index 32.92 (81.65 kg, 157.48 cm) pf1 21:07 Pain Scale: Adult pf1 Mulberry Coma Score: 23:05 Eye Response: spontaneous(4). Motor Response: obeys commands(6). Verbal Response: rn oriented(5). Total: 15. MDM: 21:01 Patient medically screened. rn 22:34 ED course: Pain down to 1 out of 10. Patient feels much better.. rn 23:05 Differential diagnosis: migraine, tension headache, vasomotor headache. Data reviewed: rn vital signs, nurses notes, and as a result, I will discharge patient. Care significantly affected by the following chronic conditions: Migraines. Counseling: I had a detailed discussion with the patient and/or guardian regarding the historical points, exam findings, and any diagnostic results supporting the discharge/admit diagnosis, the need for outpatient follow up, to return to the emergency department if symptoms worsen or persist or if there are any questions or concerns that arise at home. Special discussion: I discussed with the patient/guardian in detail that at this point there is no indication for admission to the hospital. It is understood, however, that if the symptoms persist or worsen the patient needs to return immediately for re-evaluation. Based on the history and exam findings, there is no indication for further emergent testing or inpatient evaluation. I discussed with the patient/guardian the need to see the neurologist for further evaluation of the symptoms. I discussed with the patient/guardian the need to see the primary care provider for further evaluation of the symptoms. ED course: Headache has completely resolved. Normal neurological exam. No atypical features when compared to previous migraines that indicate further workup. Patient requesting to go home and states he is ready. Will discharge home with return precautions.. 09/30 21:09 Order name: IV Start; Complete Time: 21:19 rn Administered Medications: 21:30 Drug: NS 0.9% IV 500 ml IV at bolus once Route: IV; Rate: bolus; Site: right ha1 antecubital; 22:35 Follow up: Response: No adverse reaction; IV Status: Completed infusion; IV Intake: ha1 500ml 21:30 Drug: metoCLOPramide IVP 10 mg IVP once; over 1 to 2 minutes Route: IVP; Site: right ha1 antecubital; 22:00 Follow up: Response: No adverse reaction 1 21:32 Drug: Decadron - Dexamethasone IVP 10 mg IVP once Route: IVP; Site: right antecubital; [facility] 22:00 Follow up: Response: No adverse reaction 1 21:34 Drug: fentaNYL (PF) IVP 50 mcg IVP once Route: IVP; Site: right antecubital; ha1 22:00 Follow up: Response: No adverse reaction; Pain is unchanged, physician notified; RASS: ha1 Alert and Calm (0) 22:00 Drug: Ondansetron IVP 4 mg IVP once; over 2 minutes Route: IVP; Site: right antecubital;ha1 22:30 Follow up: Response: No adverse reaction ha1 22:02 Drug: morphine IVP or IV 4 mg IVP once over 4 mins Route: IVP; Infused Over: 4 mins; ha1 Site: right antecubital; 22:30 Follow up: Response: No adverse reaction; Pain is decreased; RASS: Alert and Calm (0) ha1 Disposition Summary: 09/30/23 23:06 Discharge Ordered Notes: Location: Home rn Problem: an acute exacerbation rn Symptoms: have improved rn Condition: Stable rn Diagnosis - Migraine, unspecified, not intractable, without status migrainosus rn Followup: rn - With: Private Physician - When: As needed - Reason: Recheck today's complaints, Re-evaluation by your physician Discharge Instructions: - Discharge Summary Sheet rn - Migraine Headache rn Forms: - Medication Reconciliation Form rn - Thank You Letter rn - Antibiotic rn call center - Prescription Opioid Use rn - Patient Portal Instructions rn - Leadership Thank You Letter rn Signatures: Devan Lockhart MD MD rn Carolyn Noel RN RN ha1 Regina Mckay RN RN pf1
[2023-10-01 00:18] VITALS: TEMP 97.7
[2023-10-01 00:20] VITALS: BP 118/74; O2SAT 96
== END 2023-09-30 23:29 | disposition home or self-care (01) ==
LOC: ER 20:50
DX: G43.909 Migraine, unspecified, not intractable, without status migrainosus (principal); G47.00 Insomnia, unspecified; E03.9 Hypothyroidism, unspecified; I10 Essential (primary) hypertension; E78.5 Hyperlipidemia, unspecified; H40.9 Unspecified glaucoma; E11.9 Type 2 diabetes mellitus without complications; I25.10 Atherosclerotic heart disease of native coronary artery without angina pectoris; I48.91 Unspecified atrial fibrillation
CPT/HCPCS: 96361; 96375; 96374; 99284; J2765; J3010; J1100; J2405; J7040